=== PATIENT | male | born 1940 | race Caucasian/White ===

== ENCOUNTER 2016-10-28 19:24 | Inpatient (IN) | payer OTHER ==
[2016-10-28 19:33] VITALS: BMI 26.6
--- NOTE | 2016-10-28 20:32 | PDOC ---
History of Present Illness <Elizabeth Aviles - Last Filed: 10/28/16 23:55> - General History Source: Patient, Family Exam Limitations: No Limitations - History of Present Illness Initial Comments: 10/28/16 20:26 Patient is a 76 year old male with history of dementia, leg problem brought in by ambulance for c/o altered mental status. Brother in the ED states that the patient formally lived in [place] but due to his dementia has been unable to live alone. He has been living with his sister in [place] for the past 2 months but has wondered off 5-6 times in that time. They have now been working to get him place because he is now a danger to him self. GENERAL/CONSTITUTIONAL: [No fever or chills. No weakness. No weight change.] HEAD, EYES, EARS, NOSE AND THROAT: [No change in vision. No ear pain or discharge. No sore throat.] CARDIOVASCULAR: [No chest pain or shortness of breath.] RESPIRATORY: [No cough, wheezing, or hemoptysis.] GASTROINTESTINAL: [No nausea, vomiting, diarrhea or constipation. No rectal bleeding.] GENITOURINARY: [No dysuria, frequency, or change in urination.] MUSCULOSKELETAL: [No joint or muscle swelling or pain. No neck or back pain.] SKIN AND BREASTS: [No rash or easy bruising.] NEUROLOGIC: [No headache, vertigo, loss of consciousness, or loss of sensation.] PSYCHIATRIC: [No depression or anxiety.] ENDOCRINE: [No increased thirst. No abnormal weight change.] HEMATOLOGIC/LYMPHATIC: [No anemia, easy bleeding, or history of blood clots.] ALLERGIC/IMMUNOLOGIC: [No hives or skin allergy. No latex allergy.] GENERAL: [The patient is awake, alert, and fully oriented, in no acute distress. ] HEAD: [Normal with no signs of trauma.] EYES: [Pupils equal, round and reactive to light, extraocular movements intact, sclera anicteric, conjunctiva clear.] ENT: [Ears normal, nares patent, oropharynx clear without exudates. Moist mucous membranes.] NECK: [Normal range of motion, supple without lymphadenopathy, JVD, or masses.] LUNGS: [Breath sounds equal, clear to auscultation bilaterally. No wheezes, and no crackles.] HEART: [Regular rate and rhythm, normal S1 and S2 without murmur, rub.] ABDOMEN: [Soft, nontender, normoactive bowel sounds. No guarding, no rebound. No masses.] EXTREMITIES: [Normal range of motion, no edema. No clubbing or cyanosis. No cords, erythema, or tenderness.] NEUROLOGICAL: [Cranial nerves II through XII grossly intact. Normal speech, normal gait.] PSYCH: [Normal mood, normal affect.] SKIN: [Warm, Dry, normal turgor, no rashes or lesions noted.] <Vicenta Fischer - Last Filed: 10/29/16 00:31> - General Chief Complaint: Altered Mental Status Stated Complaint: AMS Time Seen by Provider: 10/28/16 19:37 Past History <Elizabeth Aviles - Last Filed: 10/28/16 23:55> - Past Medical History DVT: Yes (yrs ago in [place].) Dementia: Yes HTN: Yes Other medical history: glaucoma - Psycho/Social/Smoking Cessation Hx Suicidal Ideation: No Smoking History: Never smoked <Vicenta Fischer - Last Filed: 10/29/16 00:31> - Past Medical History Allergies/Adverse Reactions: Allergies Allergy/AdvReac Type Severity Reaction Status Date / Time No Known Allergies Allergy Verified 10/28/16 19:33 Home Medications: Ambulatory Orders Amlodipine Besylate [Norvasc -] 2.5 mg PO DAILY 10/28/16 Apixaban [Eliquis -] 5 mg PO DAILY 10/28/16 Furosemide [Lasix -] 20 mg PO DAILY 10/28/16 Memantine HCl [Namenda -] 5 mg PO DAILY 10/28/16 Timolol 0.25% [Timoptic 0.25%] 0 ml OU BID 10/28/16 *Physical Exam - Vital Signs Last Vital Signs Temp Pulse Resp BP Pulse Ox 98.2 F 62 16 141/79 98 10/28/16 19:31 10/28/16 19:31 10/28/16 19:31 10/28/16 19:59 10/28/16 19:31 <Elizabeth Aviles - Last Filed: 10/28/16 23:55> - Vital Signs Last Vital Signs Temp Pulse Resp BP Pulse Ox 98.2 F 62 16 141/79 98 10/28/16 19:31 10/28/16 19:31 10/28/16 19:31 10/28/16 19:59 10/28/16 19:31 <Vicenta Fischer - Last Filed: 10/29/16 00:31> ED Treatment Course - LABORATORY CBC & Chemistry Diagram: 10/28/16 20:30 10/28/16 20:30 - ADDITIONAL ORDERS Additional order review: Laboratory Results 10/28/16 10/28/16 20:30 20:30 Sodium 141 Potassium 4.0 Chloride 105 Carbon Dioxide 25 Anion Gap 11 BUN 23 H Creatinine 2.0 H Creat Clearance w eGFR 32.74 Random Glucose 95 Calcium 9.3 Total Bilirubin 0.7 AST 17 ALT 18 Alkaline Phosphatase 67 Creatine Kinase 129 Troponin I < 0.02 Total Protein 7.1 Albumin 3.7 Urine Color Straw Urine Appearance Clear Urine pH 5.0 Ur Specific [place] 1.010 Urine Protein Negative Urine Glucose (UA) Negative Urine Ketones Negative Urine Blood Negative Urine Nitrite Negative Urine Bilirubin Negative Urine Urobilinogen Negative Ur Leukocyte Esterase Negative 10/28/16 20:30 RBC 4.68 MCV 87.0 MCHC 33.5 RDW 14.0 MPV 8.1 - RADIOLOGY Radiology Studies Ordered: Category Date Time Status HEAD CT WITHOUT CONTRAST [CT] Stat CT Scan 10/28/16 22:31 Ordered CHEST X-RAY PORTABLE* [RAD] Stat Radiology 10/28/16 22:32 Taken <Elizabeth Aviles - Last Filed: 10/28/16 23:55> - LABORATORY CBC & Chemistry Diagram: 10/28/16 20:30 10/28/16 20:30 <Vicenta Fischer - Last Filed: 10/29/16 00:31> Medical Decision Making - Medical Decision Making 10/28/16 20:48 patient is a 76-year-old history of dementia brought in by EMS for c/o altered mental status. will get labs rehabilitation case coordinator Case was d/w Dr. steele who is a friend of the brother. Recommend to admit to the hospitalist Patient refused EKG Patient Name: Donovan Garcia THIS IS A PRELIMINARYREPORT FROM [facility] EXAM: CT brain without contrast Images: 76 EXAM DATE AND TIME: 2016-10-28 23: 27:28.0 REASON FOR EXAM: Altered mental status COMPARISON: No FINDINGS: Involutional changes. Left periventricular low density representing either small vessel disease or small vessel infarct of indeterminate age. Correlate with neurological symptoms related to this area. There is a similar small low density focus in the right connie. Infarct of indeterminate age. Correlate with symptoms. No hemorrhage. No mass. No shift or herniation. Osseous structures are intact. THIS DOCUMENT HAS BEEN ELECTRONICALLY SIGNED Pasquale Cameron MD 2016 23:51 EST MSachinD. Please call Imaging Educational Aide [phone]) with questions Donovan Garcia discussed with EMIGDIO Siu THIS DOCUMENT HAS BEEN ELECTRONICALLY SIGNED Roby Nelson MD 10/28/2016 23:56 EST MBonnie. Please call Imaging Educational Aide [phone]) with questions. PREVIOUS REPORT: Referring Physician : Patient Name: Donovan Garcia THIS IS A PRELIMINARY REPORT FROM [facility] DATE OF SERVICE: 2016-10-28 22:49:17.0 IMAGES: 62 EXAM: US LOWER EXTREMITY VEINS DUPLEX VASCULAR US-2 LEGS HISTORY:Leg pain COMPARISON: None. TECHNIQUE: Ultrasound of the lower extremity veins with grayscale, color Doppler , and wave form analysis FINDINGS:A grayscale imaging, there is some echogenic material within the proximal right popliteal vein with incomplete compressibility suggesting nonobstructive deep vein thrombosis. The veins demonstrated normal compressibility and orientation IMPRESSION: Positive for nonocclusive thrombus in the right popliteal vein THIS DOCUMENT HAS BEEN ELECTRONICALLY SIGNED Roby Nelson MD 10/28/2016 23:51 EST M.D. Please call Imaging Educational Aide [phone]) with questions 10/29/16 00:25 Patient refused rectal for stool occult labs reviewed noted to have DVT , but has elevated creat will start heparin D/W Dr. Martinez will admit to hospital <Vicenta Fischer - Last Filed: 10/29/16 00:31> *DC/Admit/Observation/Transfer - Discharge Dispostion Admit: No <Elizabeth Aviles - Last Filed: 10/28/16 23:55> - Discharge Dispostion Admit: Yes <Vicenta Fischer - Last Filed: 10/29/16 00:31> Diagnosis at time of Disposition: Renal insufficiency Altered mental status Qualifiers: Altered mental status type: unspecified Qualified Code(s): R41.82 - Altered mental status, unspecified Deep vein thrombosis (DVT) Qualifiers: DVT location: lower extremity Affected thrombotic vein of extremity: popliteal Laterality: right Chronicity: unspecified Qualified Code(s): I82.431 - Acute embolism and thrombosis of right popliteal vein - Discharge Dispostion Condition at time of disposition: Stable
[2016-10-28 20:33] LABS: MCH 29.2 pg (25.7-33.7); MCHC 33.5 g/dl (32.0-35.9); MEAN PLT VOLUME 8.1 fl (7.5-11.1); PLATELET COUNT 177 K/MM3 (134-434); WHITE BLOOD COUNT 6.1 K/mm3 (4.0-10.0)
[2016-10-28 20:34] LABS: URINE APPEARANCE CLEAR; URINE BILIRUBIN NEGATIVE (NEGATIVE); URINE BLOOD NEGATIVE (NEGATIVE); URINE COLOR STRAW; URINE GLUCOSE (UA) NEGATIVE (NEGATIVE); URINE KETONE NEGATIVE (NEGATIVE); URINE LEUK ESTERASE NEGATIVE (NEGATIVE); URINE NITRITE NEGATIVE (NEGATIVE); URINE PROTEIN NEGATIVE (NEGATIVE); URINE UROBILINOGEN NEGATIVE E.U./dl (0.2-1.0)
[2016-10-28 20:58] LABS: ALBUMIN 3.7 g/dl (3.4-5.0); ANION GAP 11 (8-16); BILIRUBIN,TOTAL 0.7 mg/dL (0.2-1.0); CALCIUM 9.3 mg/dL (8.5-10.1); CO2 25 mmol/L (21-32); COCKROFT - GAULT 32.75; GLUCOSE,RANDOM 95 mg/dL (74-106); SGOT/AST 17 U/L (15-37); SGPT/ALT 18 U/L (12-78); TOT PROT 7.1 g/dl (6.4-8.2)
[2016-10-28 21:00] LABS: ALK PHOS 67 U/L (45-117); TROPONIN I < 0.02 ng/ml (0.00-0.05)
[2016-10-29 00:01] LABS: INR 1.14 (0.82-1.09); PROTHROMBIN TIME (PATIENT) 12.6 SEC (9.98-11.88)
[2016-10-29 00:03] LABS: ACTIVATED PTT 33.7 SECONDS (26.9-34.4)
--- NOTE | 2016-10-29 00:10 | PN ---
<Juan,Antoniomaris - Last Filed: 10/29/16 00:10> Teaching Attending Note Name of Resident: Jermaine Barrientos ATTENDING PHYSICIAN STATEMENT I saw and evaluated the patient. I reviewed the resident's note and discussed the case with the resident. I agree with the resident's findings and plan as documented. SUBJECTIVE: OBJECTIVE: ASSESSMENT AND PLAN: <Dahiana Samson - Last Filed: 10/29/16 01:45> Teaching Attending Note ATTENDING PHYSICIAN STATEMENT I saw and evaluated the patient. I reviewed the resident's note and discussed the case with the resident. I agree with the resident's findings and plan as documented. SUBJECTIVE: Patient is 76 year old male with a significant past medical history of dementia and hypertension, brought in for AMS. Patient is originally from [place] but has been living with his sister in [place], [place]. Patient has tendency to wander off and today was found [place] bridge. Patient's sister brought in for placement. Admitted at [facility] since Jun until September 2016 was diagnosed with R LE DVT and placed on Eliquis. OBJECTIVE: VS: Last Vital Signs Temp Pulse Resp BP Pulse Ox 98.2 F 58 L 16 107/57 99 10/28/16 19:31 10/28/16 23:44 10/28/16 23:44 10/28/16 23:44 10/28/16 23:44 Physical Exam: GEN: NAD HEENT: NCAT, PERRL CARD: RRR, S1 S2 RESP: CTAB ABD: NT, BWS x4 NEURO: Neurologically intact EXT: RLE mild edema greater than left Labs: CBCD WBC 6.1 K/mm3 (4.0-10.0) 10/28/16 20:30 RBC 4.68 M/mm3 (4.00-5.60) 10/28/16 20:30 Hgb 13.6 GM/dL (11.7-16.9) 10/28/16 20:30 Hct 40.7 % (35.4-49) 10/28/16 20:30 MCV 87.0 fl (80-96) 10/28/16 20:30 MCHC 33.5 g/dl (32.0-35.9) 10/28/16 20:30 RDW 14.0 % (11.9-15.9) 10/28/16 20:30 Plt Count 177 K/MM3 (134-434) 10/28/16 20:30 MPV 8.1 fl (7.5-11.1) 10/28/16 20:30 CMP Sodium 141 mmol/L (136-145) 10/28/16 20:30 Potassium 4.0 mmol/L (3.5-5.1) 10/28/16 20:30 Chloride 105 mmol/L (98-107) 10/28/16 20:30 Carbon Dioxide 25 mmol/L (21-32) 10/28/16 20:30 Anion Gap 11 (8-16) 10/28/16 20:30 BUN 23 mg/dL (7-18) H 10/28/16 20:30 Creatinine 2.0 mg/dL (0.7-1.3) H 10/28/16 20:30 Creat Clearance w eGFR 32.74 (>60) 10/28/16 20:30 Calcium 9.3 mg/dL (8.5-10.1) 10/28/16 20:30 Total Bilirubin 0.7 mg/dL (0.2-1.0) 10/28/16 20:30 AST 17 U/L (15-37) 10/28/16 20:30 ALT 18 U/L (12-78) 10/28/16 20:30 Alkaline Phosphatase 67 U/L (45-117) 10/28/16 20:30 Total Protein 7.1 g/dl (6.4-8.2) 10/28/16 20:30 Albumin 3.7 g/dl (3.4-5.0) 10/28/16 20:30 US LE Duplex: THIS IS A PRELIMINARY REPORT FROM [facility] DATE OF SERVICE: 2016-10-28 22:49:17.0 EXAM: US LOWER EXTREMITY VEINS DUPLEX VASCULAR US-2 LEGS FINDINGS:A grayscale imaging, there is some echogenic material within the proximal right popliteal vein with incomplete compressibility suggesting nonobstructive deep vein thrombosis. The veins demonstrated normal compressibility and orientation IMPRESSION: Positive for nonocclusive thrombus in the right popliteal vein THIS DOCUMENT HAS BEEN ELECTRONICALLY SIGNED Roby Nelson MD CT HEAD: THIS IS A PRELIMINARYREPORT FROM [facility] EXAM: CT brain without contrast EXAM DATE AND TIME: 2016-10-28 23:27:28.0 REASON FOR EXAM: Altered mental status FINDINGS: Involutional changes. Left periventricular low density representing either small vessel disease or small vessel infarct of indeterminate age. Correlate with neurological symptoms related to this area. There is a similar small low density focus in the right connie. Infarct of indeterminate age. Correlate with symptoms. No hemorrhage. No mass. No shift or herniation. Osseous structures are intact. THIS DOCUMENT HAS BEEN ELECTRONICALLY SIGNED Pasquale Cameron MD 10/28/2016 23:51 EST ASSESSMENT AND PLAN: 76 yr old male with pmhx of dementia and hypertension brought in for AMS found to have right LE DVT and questionable small infarct. 1. CVA -AMS -Indeterminate age possible small vessel disease would due MRI brain w/o contrast -Carotid US -ECHO -Neuro consult -check B12 levels -TSH 2. Right popliteal DVT -Hold Eliquis in light of renal failure -Start Heparin -Bridge to Coumadin tomorrow -INR 2-3 -Check coags in AM 3. MAX -Urine lytes in am -Avoid nephrotoxins -IVF gentle 4. Dementia -Continue namenda -Needs social work consult for placement 5. Hypertension -Continue norvasc 6. DVT ppx - Heparin Place in stroke tele. Documentation prepared by Dahiana Samson acting as biomedical engineer for Con Martinez D.O.
--- NOTE | 2016-10-29 00:17 | PDOC ---
NIH Stroke Scale - Initial Evaluation Level of consciousness: Alert Ask patient the month and their age: Answers one correctly Ask patient to open & close eyes; make fist and let go: Obeys both correctly Best gaze (horizontal eye movement): Normal Visual field testing: No visual field loss Facial paresis (Show teeth/raise eyebrows/close eyes tight): Normal symmetrical movement Motor Function: Left Arm: Normal Motor Function: Right Arm: Normal (extends arm 90 (or 45) degrees for 10 seconds without drift Motor Function: Left Leg: Normal (extends leg 30 degrees for 5 seconds without drift) Motor Function: Right Leg: Normal (extends leg 30 degrees for 5 seconds without drift) Limb Ataxia: No ataxia Sensory(Use pinprick test arms,legs,trunk,face/side to side): Normal Best language (Describe picture, name items, read sentences): No Aphasia Dysarthria (read several words): Normal articulation Extinction and Inattention: No abnormality (limited due to dementia) - Total Score NIH Stroke Scale Score: 1
[2016-10-29] MEDS ORDERED: HEPARIN NA (PORCINE) 5,000 UNITS/ML 1ML VIAL IVPUSH PRN (00:34)
--- NOTE | 2016-10-29 01:22 | HP ---
CHIEF COMPLAINT:" I don't know why I was brought here" HISTORY OF PRESENT ILLNESS: 76 year old male with pmh of right lower ext HTN, DVT, Alzheimer Dementia present to the ED brought by EMS for altered mental status. The patient lives in [facility] with sister but has being wondering and getting lost on multiple occasions (5 times). This time around he was found by police under a bridge who contacted his family and he was brought to the hospital. Pt has a history of dementia, used to live alone in [place]. He was admitted to [facility] for over 4 months June where he was treated for DVT and was placed on Eliquis. He stayed in the hospital for so log because they were unable to find placement so him. Finally he moved to [place] under the care of his sister ( with whom he currently lives with) and the brother. The patient is a poor historian, only oriented to person only, forgetful, but very pleasant and follow directions. Patient denies and fever, chills, nausea, vomiting, chest pain, palpitation, cough, rhinnorhea or congestion, no dysuria, hematuria, nausea, vomiting, abdominal pain, diarrhea or constipation. No Lower ext swelling, pain , tenderness, redness. ER course was notable for: (1) CBC, CMP with Cr 2, CXR (2) CT head with infarct of undetermined age (3) US lower ext with right popliteal DVT Recent Travel: none PAST MEDICAL HISTORY: right lower ext DVT, Alzheimer Dementia, Galucoma, HTN PAST SURGICAL HISTORY: none Social History: Smoking:denies Alcohol:denies Drugs: denies Family History: Mother and father with lower ext DVT Allergies No Known Allergies Allergy (Verified 10/28/16 19:33) HOME MEDICATIONS: Home Medications Medication Instructions Recorded Amlodipine Besylate [Norvasc -] 2.5 mg PO DAILY 10/28/16 Apixaban [Eliquis -] 5 mg PO DAILY 10/28/16 Furosemide [Lasix -] 20 mg PO DAILY 10/28/16 Memantine HCl [Namenda -] 5 mg PO DAILY 10/28/16 Timolol 0.25% [Timoptic 0.25%] 0 ml OU BID 10/28/16 REVIEW OF SYSTEMS CONSTITUTIONAL: Absent: fever, chills, diaphoresis, generalized weakness, malaise, loss of appetite, weight change HEENT: Absent: rhinorrhea, nasal congestion, throat pain, throat swelling, difficulty swallowing, mouth swelling, ear pain, eye pain, visual changes CARDIOVASCULAR: Absent: chest pain, syncope, palpitations, irregular heart rate, lightheadedness , peripheral edema RESPIRATORY: Absent: cough, shortness of breath, dyspnea with exertion, orthopnea, wheezing, stridor, hemoptysis GASTROINTESTINAL: Absent: abdominal pain, abdominal distension, nausea, vomiting, diarrhea, constipation, melena, hematochezia GENITOURINARY: Absent: dysuria, frequency, urgency, hesitancy, hematuria, flank pain, genital pain MUSCULOSKELETAL: Absent: myalgia, arthralgia, joint swelling, back pain, neck pain SKIN: Absent: rash, itching, pallor HEMATOLOGIC/IMMUNOLOGIC: Absent: easy bleeding, easy bruising, lymphadenopathy, frequent infections ENDOCRINE: Absent: unexplained weight gain, unexplained weight loss, heat intolerance, cold intolerance NEUROLOGIC: Absent: headache, focal weakness or paresthesias, dizziness, unsteady gait, seizure, mental status changes, bladder or bowel incontinence PSYCHIATRIC: Absent: anxiety, depression, suicidal or homicidal ideation, hallucinations. PHYSICAL EXAMINATION Vital Signs - 24 hr 10/28/16 23:44 Pulse Rate [ 58 L Right] Respiratory 16 Rate Blood Pressure 107/57 [Left Arm] O2 Sat by Pulse 99 Oximetry (%) GENERAL: Awake, alert, and fully oriented, in no acute distress. HEAD: Normal with no signs of trauma. EYES: Pupils equal, round and reactive to light, extraocular movements intact, sclera anicteric, conjunctiva clear. No lid lag. EARS, NOSE, THROAT: Ears normal, nares patent, oropharynx clear without exudates. Moist mucous membranes. NECK: Normal range of motion, supple without lymphadenopathy, JVD, or masses. LUNGS: Breath sounds equal, clear to auscultation bilaterally. No wheezes, and no crackles. No accessory muscle use. HEART: Regular rate and rhythm, normal S1 and S2 without murmur, rub or gallop. ABDOMEN: Soft, nontender, not distended, normoactive bowel sounds, no guarding, no rebound, no masses. No hepatomegaly or splenomegaly. MUSCULOSKELETAL: Normal range of motion at all joints. No bony deformities or tenderness. No CVA tenderness. UPPER EXTREMITIES: 2+ pulses, warm, well-perfused. No cyanosis. No clubbing. No peripheral edema. LOWER EXTREMITIES: 2+ pulses, warm, well-perfused. No calf tenderness. trace edema in right lower ext. NEUROLOGICAL: Cranial nerves II-XII intact. Normal speech. Normal gait. normal sensation to light touch in la ext, normal strength in la ext, normal reflexc in all ext. PSYCHIATRIC: Cooperative. Good eye contact. Appropriate mood and affect. SKIN: Warm, dry, normal turgor, no rashes or lesions noted, normal capillary refill. ASSESSMENT/PLAN: 76 year old male with pmh of right lower ext DVT, Alzheimer Dementia present to the ED brought by EMS for altered mental status. Pt was found to have Old infarct in brain on CT head and Right popliteal DVT Confusion and disorientation likely related to worsening Alzheimer Dementia r/o CVA Pt with known history of dementia eloped from home 5 times this month Oriented to person only UA negative CBC normal CMP normal except for Cr 2, BUN 23 CT head with infarct of undetermined age TSH Chemistry Vitamin B12 Folate US carotid Echocardiogram Continue Memantine Consider Aricept Consider Neurology consult Right Popliteal DVT Likely old DVT since pt was being treated at [facility] last month for DVT with eliquis and lower ext swelling has been resolving NO change in medication since DVT is likely old. Although patient report compliance to medication, he is unreliable due to advanced dementia. will have to clarify compliance with caregiver No change in dosage even if creatinine is 2, more than 1.5 but since pt is more than 50 kg and less than 80, no adjustment is necessary Continue Eliquis PO 5mg BID MAX vs CKD Cr 2, unknown baseline Urine lytes Urine sodium Urine creatinine Calculate FENA Avoid nephrotoxins consider IV hydration to see if there is improvement Obtain records from [facility] or PCP Glaucoma resume Timolol 0.25% HTN resume Norvasc resume Lasix FEN Fluid: none Electrolytes: chemistry in am Nutrition: Low NA diet DVT: SCD, eliquis Disposition: admit to [facility]. pending SNF placement Visit type - Emergency Visit Emergency Visit: Yes ED Registration Date: 10/28/16 Care time: The patient presented to the Emergency Department on the above date and was hospitalized for further evaluation of their emergent condition. - New Patient This patient is new to me today: Yes Date on this admission: 10/29/16 - Critical Care Critical Care patient: No
[2016-10-29 08:35] LABS: CHOLESTEROL 233 mg/dL (50-200)
[2016-10-29 08:42] LABS: THYROID STIMULATING HORMONE 2.19 uIU/ml (0.358-3.74)
[2016-10-29] MEDS: APIXABAN 5 MG TABLET PO SCH (09:38)
[2016-10-29] MEDS: MEMANTINE HCL 5 MG TABLET (UD) PO SCH (09:38)
[2016-10-29] MEDS: FUROSEMIDE 20 MG TABLET (FP) PO SCH (09:38)
[2016-10-29] MEDS: TIMOLOL 0.25% OPHTHALMIC SOL 5 ML BOTTLE OU SCH ×2 (09:38→21:23)
[2016-10-29] MEDS: amLODIPine BESYLATE 2.5 MG TABLET (FP) PO SCH (09:38)
--- NOTE | 2016-10-29 10:21 | HOSP ---
Subjective - Review of Symptoms Events since last encounter: Patient has no new complains, no shortness of breath, no nausea or vomiting. Temperature 98.1 F 10/29/16 06:00 Pulse Rate 53 L 10/29/16 06:00 Respiratory Rate 18 10/29/16 06:00 Blood Pressure 116/65 10/29/16 06:00 O2 Sat by Pulse Oximetry (%) 96 10/29/16 02:16 GENERAL: orient ed to place but not to time , in no acute distress. HEAD: Normal with no signs of trauma. EYES: Pupils equal, round and reactive to light, extraocular movements intact, sclera anicteric, conjunctiva clear. No lid lag. EARS, NOSE, THROAT: Ears normal, nares patent, oropharynx clear without exudates. Moist mucous membranes. NECK: Normal range of motion, supple without lymphadenopathy, JVD, or masses. LUNGS: Breath sounds equal, clear to auscultation bilaterally. No wheezes, and no crackles. No accessory muscle use. HEART: Regular rate and rhythm, normal S1 and S2 without murmur, rub or gallop. ABDOMEN: Soft, nontender, not distended, normoactive bowel sounds, no guarding, no rebound, no masses. No hepatomegaly or splenomegaly. MUSCULOSKELETAL: Normal range of motion at all joints. No bony deformities or tenderness. No CVA tenderness. EXTREMITIES: 2+ pulses, warm, well-perfused. No cyanosis. No clubbing. positive for trace LE edema. NEUROLOGICAL: Cranial nerves II-XII intact. Normal speech. Normal gait. PSYCHIATRIC: Cooperative. Good eye contact. Appropriate mood and affect. SKIN: Warm, dry, normal turgor, no rashes or lesions noted, normal capillary refill. CBCD WBC 6.1 K/mm3 (4.0-10.0) 10/28/16 20:30 RBC 4.68 M/mm3 (4.00-5.60) 10/28/16 20:30 Hgb 13.6 GM/dL (11.7-16.9) 10/28/16 20:30 Hct 40.7 % (35.4-49) 10/28/16 20:30 MCV 87.0 fl (80-96) 10/28/16 20:30 MCHC 33.5 g/dl (32.0-35.9) 10/28/16 20:30 RDW 14.0 % (11.9-15.9) 10/28/16 20:30 Plt Count 177 K/MM3 (134-434) 10/28/16 20:30 MPV 8.1 fl (7.5-11.1) 10/28/16 20:30 CMP Sodium 141 mmol/L (136-145) 10/28/16 20:30 Potassium 4.0 mmol/L (3.5-5.1) 10/28/16 20:30 Chloride 105 mmol/L (98-107) 10/28/16 20:30 Carbon Dioxide 25 mmol/L (21-32) 10/28/16 20:30 Anion Gap 11 (8-16) 10/28/16 20:30 BUN 23 mg/dL (7-18) H 10/28/16 20:30 Creatinine 2.0 mg/dL (0.7-1.3) H 10/28/16 20:30 Creat Clearance w eGFR 32.74 (>60) 10/28/16 20:30 Random Glucose 95 mg/dL (74-106) 10/28/16 20:30 Calcium 9.3 mg/dL (8.5-10.1) 10/28/16 20:30 Total Bilirubin 0.7 mg/dL (0.2-1.0) 10/28/16 20:30 AST 17 U/L (15-37) 10/28/16 20:30 ALT 18 U/L (12-78) 10/28/16 20:30 Alkaline Phosphatase 67 U/L (45-117) 10/28/16 20:30 Total Protein 7.1 g/dl (6.4-8.2) 10/28/16 20:30 Albumin 3.7 g/dl (3.4-5.0) 10/28/16 20:30 CARDIAC ENZYMES Creatine Kinase 129 IU/L (39-308) 10/28/16 20:30 Troponin I < 0.02 ng/ml (0.00-0.05) 10/28/16 20:30 Current Medications Generic Name Dose Route Start Last Admin Trade Name Freq PRN Reason Stop Dose Admin Amlodipine Besylate 2.5 mg 10/29/16 10:00 10/29/16 09:38 Norvasc - PO 2.5 mg DAILY SAVI Administration Apixaban 5 mg 10/29/16 10:00 10/29/16 09:38 Eliquis - PO 5 mg DAILY SAVI Administration Furosemide 20 mg 10/29/16 10:00 10/29/16 09:38 Lasix - PO 20 mg DAILY SAVI Administration Heparin Sodium (Porcine) 5,000 unit 10/29/16 00:34 Heparin - IVPUSH PRN PRN Heparin Memantine 5 mg 10/29/16 10:00 10/29/16 09:38 Namenda - PO 5 mg DAILY SAVI Administration Timolol Maleate 1 drop 10/29/16 10:00 10/29/16 09:38 Timoptic 0.25% OU 1 drop BID SAVI Administration Home Medications Medication Instructions Recorded Amlodipine Besylate [Norvasc -] 2.5 mg PO DAILY 10/28/16 Apixaban [Eliquis -] 5 mg PO DAILY 10/28/16 Furosemide [Lasix -] 20 mg PO DAILY 10/28/16 Memantine HCl [Namenda -] 5 mg PO DAILY 10/28/16 Timolol 0.25% [Timoptic 0.25%] 0 ml OU BID 10/28/16 CT head with infarct of undetermined age A/P: 76 year old male with pmh of right lower ext DVT, Alzheimer Dementia present to the ED brought by EMS for altered mental status. 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 Oriented to person only. Neuro consult for further assessment. On Namenda continue. # Right Popliteal DVT on Eliquis continue, called Pharmacist Nadia , no need for adjustment of Eliquis PO 5mg BID #MAX vs CKD Cr 2, unknown baseline ;Urine lytes, Urine sodium , Urine creatinine , Calculate FENA ; Avoid nephrotoxins consider IV hydration to see if there is improvement ,Obtain records from [facility] or PCP. Nephro consult in am #Glaucoma resume Timolol 0.25% #HTN resume Norvasc ; resume Lasix DVT: SCD, eliquis Physical Examination Vital Signs: Vital Signs Temperature 98.1 F 10/29/16 06:00 Pulse Rate 53 L 10/29/16 06:00 Respiratory Rate 18 10/29/16 06:00 Blood Pressure 116/65 10/29/16 06:00 O2 Sat by Pulse Oximetry (%) 96 10/29/16 02:16
[2016-10-29] MEDS ORDERED: METOPROLOL TARTRATE 5 MG/5 ML VIAL ONE (17:03)
[2016-10-30 07:35] LABS: BASOPHIL 1.2 % (0-2.0); EOSINOPHIL 3.3 % (0-4.5); MCH 29.9 pg (25.7-33.7); MCHC 33.9 g/dl (32.0-35.9); MEAN CELL VOLUME 88.2 fl (80-96); MEAN PLT VOLUME 8.4 fl (7.5-11.1); NEUTROPHILS 60.8 % (42.8-82.8); PLATELET COUNT 158 K/MM3 (134-434); RDW 14.3 % (11.9-15.9)
[2016-10-30 07:58] LABS: ALBUMIN 2.9 g/dl (3.4-5.0); BILIRUBIN,TOTAL 0.3 mg/dL (0.2-1.0); CALCIUM 8.7 mg/dL (8.5-10.1); COCKROFT - GAULT 36.39; CREATININE 1.8 mg/dL (0.7-1.3)
[2016-10-30] MEDS: MEMANTINE HCL 5 MG TABLET (UD) PO SCH (10:06)
[2016-10-30] MEDS: amLODIPine BESYLATE 2.5 MG TABLET (FP) PO SCH (10:06)
[2016-10-30] MEDS: FUROSEMIDE 20 MG TABLET (FP) PO SCH (10:06)
[2016-10-30] MEDS: TIMOLOL 0.25% OPHTHALMIC SOL 5 ML BOTTLE OU SCH ×2 (10:07→21:12)
--- NOTE | 2016-10-30 10:17 | CONSULT ---
Consultation: REQUESTING PROVIDER: Dr. edwards CONSULT REQUEST: We have been asked to medically evaluate this patient for MAX. HISTORY OF PRESENT ILLNESS: 76 year old pleasantly confused male with a known history of dementia, admitted to the hospital for altered mental status, we were called to evaluate for acute kidney injury. BUN/Cr on admission 23/2.0. Patient is able to speak clearly, but is poor historian. History was taken from patient and chart. As per chart, patient recently started living with his brother and sister, he was found wandering under a bridge, found by the police and brought into the hospital, for altered mental status. Patient was just moved form [place], where he was recently hospitalized (06/19 to 09/17), for DVT (treated with eliquis). Length of stay was due to unavailable placement. IN the ER workup positive for right popliteal DVT and stroke (age undetermined) As per patient, he has no know history of renal disease. Patient denies history on cancer, smoking, change in medication or use of NSAIDS. He denies fever, chills, dysuria, change in frequency, hematuria. PMHx: HTN, dementia, gluacoma, DVT PSX: none Social Hx; denies tobacco, alcohol or drug use REVIEW OF SYSTEMS: CONSTITUTIONAL: Absent: fever, chills, diaphoresis, generalized weakness, malaise, loss of appetite, weight change HEENT: Absent: rhinorrhea, nasal congestion, throat pain, throat swelling, difficulty swallowing, mouth swelling, ear pain, eye pain, visual changes CARDIOVASCULAR: Absent: chest pain, syncope, palpitations, irregular heart rate, lightheadedness , peripheral edema RESPIRATORY: Absent: cough, shortness of breath, dyspnea with exertion, orthopnea, wheezing, stridor, hemoptysis GASTROINTESTINAL: Absent: abdominal pain, abdominal distension, nausea, vomiting, diarrhea, constipation, melena, hematochezia GENITOURINARY: Absent: dysuria, frequency, urgency, hesitancy, hematuria, flank pain, genital pain MUSCULOSKELETAL: Absent: myalgia, arthralgia, joint swelling, back pain, neck pain SKIN: Absent: rash, itching, pallor ENDOCRINE: Absent: unexplained weight gain, unexplained weight loss, heat intolerance, cold intolerance NEUROLOGIC: Positive: confustion Absent: headache, focal weakness or paresthesias, dizziness, unsteady gait, seizure, mental status changes, bladder or bowel incontinence PHYSICAL EXAMINATION Vital Signs - 24 hr 10/29/16 10/29/16 10/29/16 16:17 18:00 21:00 Temperature 98.5 F 97.9 F Pulse Rate 72 58 L Respiratory 18 18 18 Rate Blood Pressure 109/63 102/62 O2 Sat by Pulse 96 Oximetry (%) 10/29/16 10/30/16 10/30/16 22:00 02:00 05:45 Temperature 98.4 F 98.5 F 98.1 F Pulse Rate 62 62 57 L Respiratory 18 18 18 Rate Blood Pressure 123/69 121/87 125/68 O2 Sat by Pulse Oximetry (%) GENERAL: Awake, alert, and oriented to self, confused HEAD: Normal with no signs of trauma. EYES: Pupils equal, round and reactive to light, extraocular movements intact, sclera anicteric, conjunctiva clear. No lid lag. LUNGS: Breath sounds equal, scattered rhonchi HEART: Regular rate and rhythm, normal S1 and S2 without murmur, rub or gallop. ABDOMEN: Soft, nontender, not distended, normoactive bowel sounds, no guarding, no rebound, no masses. No hepatomegaly or splenomegaly. MUSCULOSKELETAL: Normal range of motion at all joints. No bony deformities or tenderness. No CVA tenderness. UPPER EXTREMITIES: 2+ pulses, warm, well-perfused. No cyanosis. No clubbing. Cap refill <2 seconds. No peripheral edema. LOWER EXTREMITIES: 2+ pulses, warm, well-perfused. No calf tenderness. No peripheral edema. NEUROLOGICAL: confused. SKIN: Warm, dry, normal turgor, no rashes or lesions noted. Laboratory Results - last 24 hr 10/30/16 10/30/16 06:00 06:00 WBC 6.0 RBC 4.33 Hgb 12.9 Hct 38.2 MCV 88.2 MCHC 33.9 RDW 14.3 Plt Count 158 MPV 8.4 Neutrophils % 60.8 Lymphocytes % 24.2 Monocytes % 10.5 H Eosinophils % 3.3 Basophils % 1.2 Sodium 145 Potassium 4.7 Chloride 107 Carbon Dioxide 28 Anion Gap 10 BUN 31 H D Creatinine 1.8 H Creat Clearance w eGFR 36.97 Random Glucose 99 Calcium 8.7 Total Bilirubin 0.3 D AST 22 D ALT 30 D Alkaline Phosphatase 58 Total Protein 6.0 L Albumin 2.9 L D Active Medications Generic Name Dose Route Start Last Admin Trade Name Mona PRN Reason Stop Dose Admin Amlodipine Besylate 2.5 mg 10/29/16 10:00 10/30/16 10:06 Norvasc - PO 2.5 mg DAILY SAVI Administration Apixaban 5 mg 10/29/16 10:00 10/29/16 09:38 Eliquis - PO 5 mg DAILY SAVI Administration Furosemide 20 mg 10/29/16 10:00 10/30/16 10:06 Lasix - PO 20 mg DAILY SAVI Administration Memantine 5 mg 10/29/16 10:00 10/30/16 10:06 Namenda - PO 5 mg DAILY SAVI Administration Timolol Maleate 1 drop 10/29/16 10:00 10/30/16 10:07 Timoptic 0.25% OU 1 drop BID SAVI Administration ASSESSMENT/PLAN: This is a 76 year old male with dementia and recent hospitalization for DVT, now on heparin, with acute kidney injury. 1.MAX 2. HTN 3. DVT 4. Altered mental status?dementia 5. stroke? old vs new #Acute kidney injury -work up to determine pre/intrinsic/post renal injury -UA negative -urine studies pending; urine NA,, urine Cr -calculate FeNA -renal/bladder US -will start hydration ;NS 100mls/hr; BUN/CR did improve with hydration in the ER ; no signs of fluid overload; CXR no cardiomegaly -Will reevaluate once pending studies are available Dispo: We will continue to follow the patient. Thank you for this consultative opportunity. Problem List - Problems (1) Altered mental status Code(s): R41.82 - ALTERED MENTAL STATUS, UNSPECIFIED Qualifiers: Altered mental status type: unspecified Qualified Code(s): R41.82 - Altered mental status, unspecified (2) DVT (deep venous thrombosis) Code(s): I82.409 - ACUTE EMBOLISM AND THOMBOS UNSP DEEP VN UNSP LOWER EXTREMITY Qualifiers: DVT location: lower extremity Affected thrombotic vein of extremity: popliteal Laterality: right Chronicity: unspecified Qualified Code(s ): I82.431 - Acute embolism and thrombosis of right popliteal vein (3) Renal insufficiency Code(s): N28.9 - DISORDER OF KIDNEY AND URETER, UNSPECIFIED Visit type - Emergency Visit Emergency Visit: Yes ED Registration Date: 10/28/16 Care time: The patient presented to the Emergency Department on the above date and was hospitalized for further evaluation of their emergent condition. - New Patient This patient is new to me today: Yes Date on this admission: 10/30/16 - Critical Care Critical Care patient: No
--- NOTE | 2016-10-30 11:39 | PN ---
Physical Exam: SUBJECTIVE: Patient seen and examined at bed side this morning. No complaints. Denies fever, chills, rigors, sweating, chest pain, sob, cough, palpitation, abdominal pain, nausea or vomiting. Bowel/Bladder habit normal. Sleep/Appetite normal. As per RN, patient was wandering in the hallway this morning trying to figure out where he was. OBJECTIVE: Vital Signs Period Temp Pulse Resp BP Sys/[place] Pulse Ox Last 24 Hr 97.9 F-98.5 F 57-72 18-18 102-125/62-87 96 GENERAL: The patient is awake, alert, and oriented to date and name self, not oriented to the place, in no acute distress. HEAD: Normal with no signs of trauma. EYES: PERRL, extraocular movements intact, sclera anicteric, conjunctiva clear. No ptosis. ENT: Ears normal, nares patent, oropharynx clear without exudates, moist mucous membranes. NECK: Trachea midline, full range of motion, supple. LUNGS: Breath sounds equal, clear to auscultation bilaterally, no wheezes, no crackles, no accessory muscle use. HEART: Regular rate and rhythm, S1, S2 without murmur, rub or gallop. ABDOMEN: Soft, nontender, nondistended, normoactive bowel sounds, no guarding, no rebound, no hepatosplenomegaly, no masses. EXTREMITIES: 2+ pulses, warm, well-perfused, no edema. NEUROLOGICAL: Cranial nerves II through XII grossly intact. No facial droop. Normal speech, gait not observed. PSYCH: Normal mood, normal affect. SKIN: Warm, dry, normal turgor, no rashes or lesions noted Laboratory Results - last 24 hr 10/30/10/30/16 06:00 06:00 WBC 6.0 RBC 4.33 Hgb 12.9 Hct 38.2 MCV 88.2 MCHC 33.9 RDW 14.3 Plt Count 158 MPV 8.4 Neutrophils % 60.8 Lymphocytes % 24.2 Monocytes % 10.5 H Eosinophils % 3.3 Basophils % 1.2 Sodium 145 Potassium 4.7 Chloride 107 Carbon Dioxide 28 Anion Gap 10 BUN 31 H D Creatinine 1.8 H Creat Clearance w eGFR 36.97 Random Glucose 99 Calcium 8.7 Total Bilirubin 0.3 D AST 22 D ALT 30 D Alkaline Phosphatase 58 Total Protein 6.0 L Albumin 2.9 L D Active Medications Generic Name Dose Route Start Last Admin Trade Name Mona PRN Reason Stop Dose Admin Amlodipine Besylate 2.5 mg 10/29/16 10:00 10/30/16 10:06 Norvasc - PO 2.5 mg DAILY SAVI Administration Apixaban 5 mg 10/29/16 10:00 10/29/16 09:38 Eliquis - PO 5 mg DAILY SAVI Administration Furosemide 20 mg 10/29/16 10:00 10/30/16 10:06 Lasix - PO 20 mg DAILY SAVI Administration Sodium Chloride 1,000 mls @ 100 mls/hr 10/30/16 10:30 Normal Saline - IV ASDIR SAVI Memantine 5 mg 10/29/16 10:00 10/30/16 10:06 Namenda - PO 5 mg DAILY SAVI Administration Timolol Maleate 1 drop 10/29/16 10:00 10/30/16 10:07 Timoptic 0.25% OU 1 drop BID SAVI Administration 10/30/2016 US of Kidneys: Real time examination of the kidneys and urinary bladder demonstrates the following: The right kidney is atrophic measuring 6.3 x 2.4 x 2.7 cm. The left kidney is normal in size measuring 11.2 x 4.7 x 4.3 cm. There is no evidence of hydronephrosis or contour deforming renal masses. Evaluation of the urinary bladder demonstrates no intrinsic bladder abnormalities. Bilateral ureteral jets were visualized. A pre-void bladder volume of 500 cc was calculated. A post voiding image demonstrates incomplete emptying of the bladder with a moderate postvoid residual of 50 cc. The prostate gland is slightly enlarged. A total prostate volume of 32 cc was calculated. IMPRESSION: 1. Atrophic right kidney with no evidence of hydronephrosis or acute renal pathology. 2. Moderate postvoid residual. 3. Mild prostatic enlargement. 10/29/2016 Carotid Doppler: Minimal atherosclerotic plaque is identified at the carotid bifurcations bilaterally. Doppler velocity measurements are within normal limits within the common carotid and proximal internal and external carotid arteries with no velocity elevations suspicious for hemodynamically significant stenoses. Forward flow is present within both vertebral arteries. IMPRESSION: Minimal atherosclerotic disease with no evidence of hemodynamically significant stenoses 10/28/16 CT head :IMPRESSION: No evidence of acute intracranial pathology. There is no evidence of acute intracranial hemorrhage, mass lesions or infarctions. There is a mild degree of diffuse cerebral atrophy with sulcal widening and ventricular dilatation. Hypodense changes are noted within the periventricular white matter consistent with chronic, small vessel ischemia. ASSESSMENT/PLAN: Patient is a 76 year old male with pmh of right lower ext DVT, Alzheimer Dementia present to the ED brought by EMS for altered mental status. 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 # Confusion most likely due to worsening Alzheimers. As per the previous note, patient has a h/o dementia and eloped from home 5 times this month Admitted in Med-Surg Head CT negative for CVA Fall Precautions Continue Memantine 5mg PO daily Neurology consult requested Will speak with the family member regarding his care after discharge. # Acute Kidney Injury-Improving Creatinine 2 on admission, baseline unknown Today creatinine 1.8 improved with IV Hydration Continue IV fluids @ 100mls/hr Avoid nephrotoxins Urine lytes pending, will calculate Fena Will try to get medical records from PCP Nephrology consult appreciated # Right Popliteal DVT Patient on Elliquis 5mg PO daily, most likely due to old DVT (Patient was being treated at [facility]) No need to adjust the medication dose as patient's creatinine is improving. # Hypertension-Controlled Continue Norvasc 2.5mg Daily Hold Lasix 20mg PO daily # Glaucoma Continue Timolol 0.25% OU BID # FEN IV NS @ 100mls/hr Electrolytes to be repeated tomorrow morning. Chol/Fat/Sodium restricted diet # Prophylaxis For DVT: Patient already on Elliquis For GI: Not indicated # Code Status: Full Code # Disposition: Admit to [facility]. Will speak with the social media developer about placing him on SNF. Illness, Investigation and Plan of care explained to the patient. He verbalized understanding. Case seen and discussed with Dr. Rodriguez. Problem List - Problems (1) Altered mental status Code(s): R41.82 - ALTERED MENTAL STATUS, UNSPECIFIED Qualifiers: Altered mental status type: unspecified Qualified Code(s): R41.82 - Altered mental status, unspecified (2) DVT (deep venous thrombosis) Code(s): I82.409 - ACUTE EMBOLISM AND THOMBOS UNSP DEEP VN UNSP LOWER EXTREMITY Qualifiers: DVT location: lower extremity Affected thrombotic vein of extremity: popliteal Laterality: right Chronicity: unspecified Qualified Code(s ): I82.431 - Acute embolism and thrombosis of right popliteal vein (3) Renal insufficiency Code(s): N28.9 - DISORDER OF KIDNEY AND URETER, UNSPECIFIED Visit type - Emergency Visit Emergency Visit: Yes ED Registration Date: 10/28/16 Care time: The patient presented to the Emergency Department on the above date and was hospitalized for further evaluation of their emergent condition. - New Patient This patient is new to me today: Yes Date on this admission: 10/30/16 - Critical Care Critical Care patient: No - Discharge Referral Referred to [facility] Med P.C.: No
[2016-10-30] MEDS: APIXABAN 5 MG TABLET PO SCH (15:48)
[2016-10-30] MEDS: SODIUM CHLORIDE 1,000 ML IV SCH (15:49)
--- NOTE | 2016-10-30 16:31 | PN ---
Teaching Attending Note Name of Resident: Sara Robin ATTENDING PHYSICIAN STATEMENT I saw and evaluated the patient. I reviewed the resident's note and discussed the case with the resident. I agree with the resident's findings and plan as documented. SUBJECTIVE: Patient is comfortable but continues to be confused. He is moderately demented. OBJECTIVE: Vital Signs Temperature 98.8 F 10/30/16 15:20 Pulse Rate 64 10/30/16 15:20 Respiratory Rate 18 10/30/16 15:20 Blood Pressure 109/64 10/30/16 15:20 O2 Sat by Pulse Oximetry (%) 96 10/30/16 09:00 CBCD WBC 6.0 K/mm3 (4.0-10.0) 10/30/16 06:00 RBC 4.33 M/mm3 (4.00-5.60) 10/30/16 06:00 Hgb 12.9 GM/dL (11.7-16.9) 10/30/16 06:00 Hct 38.2 % (35.4-49) 10/30/16 06:00 MCV 88.2 fl (80-96) 10/30/16 06:00 MCHC 33.9 g/dl (32.0-35.9) 10/30/16 06:00 RDW 14.3 % (11.9-15.9) 10/30/16 06:00 Plt Count 158 K/MM3 (134-434) 10/30/16 06:00 MPV 8.4 fl (7.5-11.1) 10/30/16 06:00 CMP Sodium 145 mmol/L (136-145) 10/30/16 06:00 Potassium 4.7 mmol/L (3.5-5.1) 10/30/16 06:00 Chloride 107 mmol/L (98-107) 10/30/16 06:00 Carbon Dioxide 28 mmol/L (21-32) 10/30/16 06:00 Anion Gap 10 (8-16) 10/30/16 06:00 BUN 31 mg/dL (7-18) H D 10/30/16 06:00 Creatinine 1.8 mg/dL (0.7-1.3) H 10/30/16 06:00 Creat Clearance w eGFR 36.97 (>60) 10/30/16 06:00 Random Glucose 99 mg/dL (74-106) 10/30/16 06:00 Calcium 8.7 mg/dL (8.5-10.1) 10/30/16 06:00 Total Bilirubin 0.3 mg/dL (0.2-1.0) D 10/30/16 06:00 AST 22 U/L (15-37) D 10/30/16 06:00 ALT 30 U/L (12-78) D 10/30/16 06:00 Alkaline Phosphatase 58 U/L (45-117) 10/30/16 06:00 Total Protein 6.0 g/dl (6.4-8.2) L 10/30/16 06:00 Albumin 2.9 g/dl (3.4-5.0) L D 10/30/16 06:00 CARDIAC ENZYMES Creatine Kinase 129 IU/L (39-308) 10/28/16 20:30 Troponin I < 0.02 ng/ml (0.00-0.05) 10/28/16 20:30 Current Medications Generic Name Dose Route Start Last Admin Trade Name Mona PRN Reason Stop Dose Admin Amlodipine Besylate 2.5 mg 10/29/16 10:00 10/30/16 10:06 Norvasc - PO 2.5 mg DAILY SAVI Administration Apixaban 5 mg 10/29/16 10:00 10/30/16 15:48 Eliquis - PO 5 mg DAILY SAVI Administration Furosemide 20 mg 10/29/16 10:00 10/30/16 10:06 Lasix - PO 20 mg DAILY SAVI Administration Sodium Chloride 1,000 mls @ 100 mls/hr 10/30/16 10:30 10/30/16 15:49 Normal Saline - IV 100 mls/hr ASDIR SAVI Administration Memantine 5 mg 10/29/16 10:00 10/30/16 10:06 Namenda - PO 5 mg DAILY SAVI Administration Timolol Maleate 1 drop 10/29/16 10:00 10/30/16 10:07 Timoptic 0.25% OU 1 drop BID SAVI Administration Home Medications Medication Instructions Recorded Amlodipine Besylate [Norvasc -] 2.5 mg PO DAILY 10/28/16 Apixaban [Eliquis -] 5 mg PO DAILY 10/28/16 Furosemide [Lasix -] 20 mg PO DAILY 10/28/16 Memantine HCl [Namenda -] 5 mg PO DAILY 10/28/16 Timolol 0.25% [Timoptic 0.25%] 0 ml OU BID 10/28/16 Laboratory Tests 10/30/16 06:00 U Random Total Protein 19 H Ur Random Sodium 94 Ur Random Potassium 59.9 Ur Random Chloride 88 Urine Creatinine 180.0 US of Kidneys: Real time examination of the kidneys and urinary bladder demonstrates the following: The right kidney is atrophic measuring 6.3 x 2.4 x 2.7 cm. The left kidney is normal in size measuring 11.2 x 4.7 x 4.3 cm. There is no evidence of hydronephrosis or contour deforming renal masses. Evaluation of the urinary bladder demonstrates no intrinsic bladder abnormalities. Bilateral ureteral jets were visualized. A pre-void bladder volume of 500 cc was calculated. A post voiding image demonstrates incomplete emptying of the bladder with a moderate postvoid residual of 50 cc. The prostate gland is slightly enlarged. A total prostate volume of 32 cc was calculated. IMPRESSION: 1. Atrophic right kidney with no evidence of hydronephrosis or acute renal pathology. 2. Moderate postvoid residual. 3. Mild prostatic enlargement. Carotid Doppler: Minimal atherosclerotic plaque is identified at the carotid bifurcations bilaterally. Doppler velocity measurements are within normal limits within the common carotid and proximal internal and external carotid arteries with no velocity elevations suspicious for hemodynamically significant stenoses. Forward flow is present within both vertebral arteries. IMPRESSION: Minimal atherosclerotic disease with no evidence of hemodynamically significant stenoses CT head :IMPRESSION: No evidence of acute intracranial pathology. There is no evidence of acute intracranial hemorrhage, mass lesions or infarctions. There is a mild degree of diffuse cerebral atrophy with sulcal widening and ventricular dilatation. Hypodense changes are noted within the periventricular white matter consistent with chronic, small vessel ischemia. ASSESSMENT AND PLAN: 76 year old male with pmh of right lower ext DVT, Alzheimer Dementia present to the ED brought by EMS for altered mental status. 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 Oriented to person only. Neuro consult for further assessment. On Namenda continue. # Right Popliteal DVT on Eliquis continue, called Pharmacist Nadia , no need for adjustment of Eliquis PO 5mg BID #MAX vs CKD Cr 2-->1.8 today on IVF continue Urine lytes, Urine sodium , Urine creatinine, Calculate FENA ; Avoid nephrotoxins Obtain records from [facility] or PCP. Nephro consult in am #Glaucoma resume Timolol 0.25% #HTN resume Norvasc ,will hold Lasix for now DVT: SCD, natalee
--- NOTE | 2016-10-30 17:26 | PN ---
Teaching Attending Note Name of Resident: Laura Ohara (Nephrology) ATTENDING PHYSICIAN STATEMENT I saw and evaluated the patient. I reviewed the resident's note and discussed the case with the resident. I agree with the resident's findings and plan as documented. Nephrology Please see resident consult. Summary Pt is a 76 year old male with history of HTN, dementia and DVT who was brought to the ER. He was found to have elevated creatinine and I was called to evaluate him. He denies history of CKD. He denies dysuria or hematuria. He denies nsaid use. He is confused and is a poor historian. PMHx: HTN, dementia, gluacoma, DVT PSX: none Social Hx; denies tobacco, alcohol or drug use Current Medications Generic Name Dose Route Start Last Admin Trade Name Mona PRN Reason Stop Dose Admin Amlodipine Besylate 2.5 mg 10/29/16 10:00 10/30/16 10:06 Norvasc - PO 2.5 mg DAILY SAVI Administration Apixaban 5 mg 10/29/16 10:00 10/30/16 15:48 Eliquis - PO 5 mg DAILY SAVI Administration Sodium Chloride 1,000 mls @ 100 mls/hr 10/30/16 10:30 10/30/16 15:49 Normal Saline - IV 100 mls/hr ASDIR SAVI Administration Memantine 5 mg 10/29/16 10:00 10/30/16 10:06 Namenda - PO 5 mg DAILY SAVI Administration Timolol Maleate 1 drop 10/29/16 10:00 10/30/16 10:07 Timoptic 0.25% OU 1 drop BID SAVI Administration Current Active Problems Altered mental status (Acute) DVT (deep venous thrombosis) (Acute) Renal insufficiency (Acute) Last Vital Signs Temp Pulse Resp BP Pulse Ox 98.8 F 64 18 109/64 96 10/30/16 15:20 10/30/16 15:20 10/30/16 15:20 10/30/16 15:20 10/30/16 09:00 Laboratory Tests 10/28/16 10/28/16 10/30/16 20:30 20:30 06:00 WBC Hgb Plt Count Sodium 145 Potassium 4.7 Chloride 107 Carbon Dioxide 28 Anion Gap 10 BUN 23 H 31 H D Creatinine 2.0 H 1.8 H Creat Clearance w eGFR 36.97 Total Protein 6.0 L Albumin 2.9 L D Urine Color Straw Urine Appearance Clear Urine pH 5.0 Ur Specific [place] 1.010 Urine Protein Negative Urine Glucose (UA) Negative Urine Ketones Negative Urine Blood Negative Urine Nitrite Negative Urine Bilirubin Negative Urine Urobilinogen Negative Ur Leukocyte Esterase Negative 10/30/16 06:00 WBC 6.0 Hgb 12.9 Plt Count 158 Sodium Potassium Chloride Carbon Dioxide Anion Gap BUN Creatinine Creat Clearance w eGFR Total Protein Albumin Urine Color Urine Appearance Urine pH Ur Specific [place] Urine Protein Urine Glucose (UA) Urine Ketones Urine Blood Urine Nitrite Urine Bilirubin Urine Urobilinogen Ur Leukocyte Esterase cardio s1s2 reg pulm clear GI soft ext neg edema skin neg rash neuro confused Impression 1. likely CKD 2. HTN 3. DVT Plan - ua is negative for blood or protein - cont current meds - check cpk level - check renal ultrasound - will follow Dr Lafleur
--- NOTE | 2016-10-30 19:32 | CONSULT ---
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 On eliquis, amlodipine, furosamide and Mementine (5 BID). Was living alone in [place] but progressive cognitive decline and wandering led to his moving to His sister's home in [place]. However he continued to wander and was brought to the hospital after he was [place] a [place] by police. CT of head (reviewed): moderate, diffuse atrophy. Carotid duplex doppler: Essentially normal LE doppler: R Popliteal vein DVT MANA: No bruits. No head trauma NEURO: Awake, alert, inappropriate but cooperative. [facility] but Not [facility] or [place]. "end of February," No year + Trump. Recalls 0/3 @ 3 mins. Speech: Fluent. +Glabella CN II-XII: Normal Motor: No drift or trmor. Normal strength, tone, bulk and reflexes. Toes downgoing. Coord: No FTN dystaxia Sensory: Normal. Romberg - Gait: Normal IMP: Moderately severe, B/L, Cerebral dysfunction (OMS, Chronic)- Most c/w Alzheimer's Disease (AD). SUGGEST: Check B12, B1, TSH, T4, RPR Add Donepezil 5 mg after breakfast x 1 month then 10 mg after breakfast. Continue mementine 5 mg BID for now. After patient is established on Donepezil (10mg) increase Namenda to 10 mg BID. Patient may need placement (or at least a home safety check to "babyproof" the doors. Neuro follow-up as out patient. Thank you very much, Pasquale Bruce MD
[2016-10-30] MEDS ORDERED: PT OWN MED DRAWER 7, Y5N ONE (20:38)
[2016-10-31 08:05] LABS: CALCIUM 8.4 mg/dL (8.5-10.1); COCKROFT - GAULT 40.94; CREATININE 1.6 mg/dL (0.7-1.3)
[2016-10-31 08:10] LABS: THYROXINE (T4) 10.5 ug/dl (4.5-12.1)
[2016-10-31 08:18] LABS: THYROID STIMULATING HORMONE 2.78 uIU/ml (0.358-3.74)
[2016-10-31] MEDS: MEMANTINE HCL 5 MG TABLET (UD) PO SCH ×2 (10:25→22:07)
[2016-10-31] MEDS: DONEPEZIL HCL 5 MG TABLET (FP) PO SCH (10:25)
[2016-10-31] MEDS: APIXABAN 5 MG TABLET PO SCH (10:25)
[2016-10-31] MEDS: amLODIPine BESYLATE 2.5 MG TABLET (FP) PO SCH (10:25)
[2016-10-31] MEDS: TIMOLOL 0.25% OPHTHALMIC SOL 5 ML BOTTLE OU SCH ×2 (10:28→22:08)
[2016-10-31] MEDS: SODIUM CHLORIDE 1,000 ML IV SCH (10:46)
--- NOTE | 2016-10-31 13:00 | PN ---
Progress Note, Physician History of Present Illness: Pt seen and examined at bedside. He is awake and confused. - Current Medication List Current Medications: Active Medications Amlodipine Besylate (Norvasc -) 2.5 mg PO DAILY [facility] Last Admin: 10/31/16 10:25 Dose: 2.5 mg Apixaban (Eliquis -) 5 mg PO DAILY [facility] Last Admin: 10/31/16 10:25 Dose: 5 mg Donepezil HCl (Aricept -) 5 mg PO DAILY [facility] Last Admin: 10/31/16 10:25 Dose: 5 mg Sodium Chloride (Normal Saline -) 1,000 mls @ 100 mls/hr IV ASDIR [facility] Last Admin: 10/31/16 10:46 Dose: 100 mls/hr Memantine (Namenda -) 5 mg PO DAILY [facility] Last Admin: 10/31/16 10:25 Dose: 5 mg Timolol Maleate (Timoptic 0.25%) 1 drop OU BID [facility] Last Admin: 10/31/16 10:28 Dose: 1 drop - Objective Vital Signs: Vital Signs Temperature 97.7 F 10/31/16 06:19 Pulse Rate 60 10/31/16 06:19 Respiratory Rate 18 10/31/16 06:19 Blood Pressure 130/70 10/31/16 06:19 O2 Sat by Pulse Oximetry (%) 98 10/30/16 21:00 Constitutional: Yes: Calm Eyes: Yes: Conjunctiva Clear HENT: Yes: Atraumatic Neck: Yes: Supple Cardiovascular: Yes: S1, S2 Respiratory: Yes: CTA Bilaterally Gastrointestinal: Yes: Normal Bowel Sounds, Soft Genitourinary: Yes: WNL Musculoskeletal: Yes: WNL Edema: No Neurological: Yes: Confusion Labs: CBC, BMP 10/30/16 06:00 10/31/16 06:00 INR, PTT INR 1.14 (0.82-1.09) 10/28/16 20:30 Problem List - Problems (1) Altered mental status Code(s): R41.82 - ALTERED MENTAL STATUS, UNSPECIFIED Qualifiers: Altered mental status type: unspecified Qualified Code(s): R41.82 - Altered mental status, unspecified (2) DVT (deep venous thrombosis) Code(s): I82.409 - ACUTE EMBOLISM AND THOMBOS UNSP DEEP VN UNSP LOWER EXTREMITY Qualifiers: DVT location: lower extremity Affected thrombotic vein of extremity: popliteal Laterality: right Chronicity: unspecified Qualified Code(s ): I82.431 - Acute embolism and thrombosis of right popliteal vein (3) Renal insufficiency Code(s): N28.9 - DISORDER OF KIDNEY AND URETER, UNSPECIFIED (4) Alzheimer's dementia Code(s): G30.9 - ALZHEIMER'S DISEASE, UNSPECIFIED Assessment/Plan Current Medications Generic Name Dose Route Start Last Admin Trade Name Mona PRN Reason Stop Dose Admin Amlodipine Besylate 2.5 mg 10/29/16 10:00 10/31/16 10:25 Norvasc - PO 2.5 mg DAILY SAVI Administration Apixaban 5 mg 10/29/16 10:00 10/31/16 10:25 Eliquis - PO 5 mg DAILY SAVI Administration Donepezil HCl 5 mg 10/31/16 10:00 10/31/16 10:25 Aricept - PO 5 mg DAILY SVAI Administration Sodium Chloride 1,000 mls @ 100 mls/hr 10/30/16 10:30 10/31/16 10:46 Normal Saline - IV 100 mls/hr ASDIR SAVI Administration Memantine 5 mg 10/29/16 10:00 10/31/16 10:25 Namenda - PO 5 mg DAILY SAVI Administration Timolol Maleate 1 drop 10/29/16 10:00 10/31/16 10:28 Timoptic 0.25% OU 1 drop BID SAVI Administration Impression 1. likely CKD 2. HTN 3. DVT 4. dementia Plan - renal function is stabilizing - he will need outpt follow up - neuro input appreciated - CK is not elevated - will follow Dr Lafleur
[2016-10-31] MEDS ORDERED: SODIUM CHLORIDE 0.45% 1,000 ML IV SCH (13:15)
--- NOTE | 2016-10-31 15:59 | PN ---
Physical Exam: SUBJECTIVE: Patient seen and examined at bed side this morning. No complaints. Denies fever, chills, rigors, sweating, chest pain, sob, cough, palpitation, abdominal pain, nausea or vomiting. Bowel/Bladder habit normal. Sleep/Appetite normal. OBJECTIVE: Vital Signs Period Temp Pulse Resp BP Sys/[place] Pulse Ox Last 24 Hr 97.6 F-99.2 F 60-74 18-18 125-143/70-85 98-98 GENERAL: The patient is awake, alert, and oriented to date and name self, not oriented to the place, in no acute distress. HEAD: Normal with no signs of trauma. EYES: PERRL, extraocular movements intact, sclera anicteric, conjunctiva clear. No ptosis. ENT: Ears normal, nares patent, oropharynx clear without exudates, moist mucous membranes. NECK: Trachea midline, full range of motion, supple. LUNGS: Breath sounds equal, clear to auscultation bilaterally, no wheezes, no crackles, no accessory muscle use. HEART: Regular rate and rhythm, S1, S2 without murmur, rub or gallop. ABDOMEN: Soft, nontender, nondistended, normoactive bowel sounds, no guarding, no rebound, no hepatosplenomegaly, no masses. EXTREMITIES: 2+ pulses, warm, well-perfused, no edema. NEUROLOGICAL: Cranial nerves II through XII grossly intact. No facial droop. All reflexes intact. Normal speech, gait not observed. PSYCH: Normal mood, normal affect. SKIN: Warm, dry, normal turgor, no rashes or lesions noted Laboratory Results - last 24 hr 10/31/16 10/31/16 10/31/16 06:00 06:00 06:00 Sodium 145 Potassium 4.5 Chloride 109 H Carbon Dioxide 26 Anion Gap 10 BUN 28 H Creatinine 1.6 H Random Glucose 84 Calcium 8.4 L Creatine Kinase 88 Vitamin B12 879 TSH 2.78 D RPR Titer 10/31/16 06:00 Sodium Potassium Chloride Carbon Dioxide Anion Gap BUN Creatinine Random Glucose Calcium Creatine Kinase Vitamin B12 TSH RPR Titer Nonreactive Active Medications Generic Name Dose Route Start Last Admin Trade Name Freq PRN Reason Stop Dose Admin Amlodipine Besylate 2.5 mg 10/29/16 10:00 10/31/16 10:25 Norvasc - PO 2.5 mg DAILY SAVI Administration Apixaban 5 mg 10/29/16 10:00 10/31/16 10:25 Eliquis - PO 5 mg DAILY SAVI Administration Donepezil HCl 5 mg 10/31/16 10:00 10/31/16 10:25 Aricept - PO 5 mg DAILY SAVI Administration Sodium Chloride 1,000 mls @ 42 mls/hr 10/31/16 13:15 1/2 Normal Saline IV ASDIR SAVI Memantine 5 mg 10/29/16 10:00 10/31/16 10:25 Namenda - PO 5 mg DAILY SAVI Administration Timolol Maleate 1 drop 10/29/16 10:00 10/31/16 10:28 Timoptic 0.25% OU 1 drop BID SAVI Administration ASSESSMENT/PLAN: 10/30/2016 US of Kidneys: Real time examination of the kidneys and urinary bladder demonstrates the following: The right kidney is atrophic measuring 6.3 x 2.4 x 2.7 cm. The left kidney is normal in size measuring 11.2 x 4.7 x 4.3 cm. There is no evidence of hydronephrosis or contour deforming renal masses. Evaluation of the urinary bladder demonstrates no intrinsic bladder abnormalities. Bilateral ureteral jets were visualized. A pre-void bladder volume of 500 cc was calculated. A post voiding image demonstrates incomplete emptying of the bladder with a moderate postvoid residual of 50 cc. The prostate gland is slightly enlarged. A total prostate volume of 32 cc was calculated. IMPRESSION: 1. Atrophic right kidney with no evidence of hydronephrosis or acute renal pathology. 2. Moderate postvoid residual. 3. Mild prostatic enlargement. 10/29/2016 Carotid Doppler: Minimal atherosclerotic plaque is identified at the carotid bifurcations bilaterally. Doppler velocity measurements are within normal limits within the common carotid and proximal internal and external carotid arteries with no velocity elevations suspicious for hemodynamically significant stenoses. Forward flow is present within both vertebral arteries. IMPRESSION: Minimal atherosclerotic disease with no evidence of hemodynamically significant stenoses 10/28/16 CT head :IMPRESSION: No evidence of acute intracranial pathology. There is no evidence of acute intracranial hemorrhage, mass lesions or infarctions. There is a mild degree of diffuse cerebral atrophy with sulcal widening and ventricular dilatation. Hypodense changes are noted within the periventricular white matter consistent with chronic, small vessel ischemia. ASSESSMENT/PLAN: Patient is a 76 year old male with pmh of right lower ext DVT, Alzheimer Dementia present to the ED brought by EMS for altered mental status. 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 # Confusion most likely due to worsening Alzheimers. Admitted in Med-Surg Head CT negative for CVA Fall Precautions Continue Memantine 5mg PO daily Neurology consult appreciated. Will follow his recommendations: Add Donepezil 5 mg after breakfast x 1 month then 10 mg after breakfast and to continue mementine 5 mg BID for now. After patient is established on Donepezil ( 10mg) increase Namenda to 10 mg BID. Spoke with patients brother Mr. Nila Garcia ( 10/31/2016)-He said [place] had been living at [place] for almost 30years. When they visited him, found that his house was not in a living condition. Then somehow machine operator hop worker managed to engage [place] [facility] only during the day where he could go for meal and daily activities and would return back home. Patient was brought down to [facility] since his PCP found his legs were swollen. Hence was admitted in [facility] for 3 months. Patient then lived with his sister in [place], [place]. Patient was found to be wandering around and was found by the police a couple of times and at the end brought here at [facility]. Called [facility] ([phone]) and spoke with the patient case manager who will fax all the medical records and the course of hospital treatment, waiting for the reports. # Acute Kidney Injury-Improving Creatinine 2 on admission, baseline unknown Today creatinine 1.6 improved with IV Hydration Continue IV fluids @ 100mls/hr Avoid nephrotoxins Nephrology consult appreciated # Right Popliteal DVT Patient on Elliquis 5mg PO daily, most likely due to old DVT (Patient was being treated at [facility]-waiting for the reports to be faxed) No need to adjust the medication dose as patient's creatinine is improving. # Hypertension-Controlled Continue Norvasc 2.5mg Daily Hold Lasix 20mg PO daily # Glaucoma Continue Timolol 0.25% OU BID # FEN IV NS @ 100mls/hr Electrolytes to be repeated tomorrow morning. Chol/Fat/Sodium restricted diet # Prophylaxis For DVT: Patient already on Elliquis For GI: Not indicated # Code Status: Full Code # Disposition: Admit to Med-surg. Will speak with the machine operator hop worker about placing him on SNF. Confirmed his medications with patients brother. Illness, Investigation and Plan of care explained to the patient. He verbalized understanding. Case discussed with Dr. Junior. Problem List - Problems (1) Altered mental status Code(s): R41.82 - ALTERED MENTAL STATUS, UNSPECIFIED Qualifiers: Altered mental status type: unspecified Qualified Code(s): R41.82 - Altered mental status, unspecified (2) DVT (deep venous thrombosis) Code(s): I82.409 - ACUTE EMBOLISM AND THOMBOS UNSP DEEP VN UNSP LOWER EXTREMITY Qualifiers: DVT location: lower extremity Affected thrombotic vein of extremity: popliteal Laterality: right Chronicity: unspecified Qualified Code(s): I82.431 - Acute embolism and thrombosis of right popliteal vein (3) Renal insufficiency Code(s): N28.9 - DISORDER OF KIDNEY AND URETER, UNSPECIFIED Visit type - Emergency Visit Emergency Visit: Yes ED Registration Date: 10/28/16 Care time: The patient presented to the Emergency Department on the above date and was hospitalized for further evaluation of their emergent condition. - New Patient This patient is new to me today: No - Critical Care Critical Care patient: No - Discharge Referral Referred to [facility] Med P.C.: No
--- NOTE | 2016-10-31 18:25 | PN ---
Teaching Attending Note Name of Resident: Sara Robin ATTENDING PHYSICIAN STATEMENT I saw and evaluated the patient. I reviewed the resident's note and discussed the case with the resident. I agree with the resident's findings and plan as documented. SUBJECTIVE: no fever or chills, has no pain . has no SOB . OBJECTIVE: NAD, awake, alert , cooperative. Knows he is in a hospital, he knows his age . not year or time , or why he is hear. CV: RRR Lungs : CTAB Ext : no edema ASSESSMENT AND PLAN: 76 y/o man with h/o HTN, dementia , and recent DVT ( in Jun per records ) , who was brought by POlice after being found [place] 1- advanced dementia : - cont Aricept 5 mg .increase after 1 month to 10 - cont NAmenda . currently taking 5 mg daily, will increase to 5 BID per neuro . increase to 10 bid when stable on aricept 2- MAX: no base line to compare to. - records requested from OSH - renal US with no obstruction - cont gentle hydration - feNA ( assuming he was not taking home lasix ) 0.6% indicating prerenal etiology - ? CKD - likely will not resume lasix at dc 3- R popliteal DVT : likely when he was in OSH in Jun. per resident conversation with his brother , he was not taking meds in past month. so it is not eliquis failure cont eliquis 4- HTN : cont norvasc Current Medications Generic Name Dose Route Start Last Admin Trade Name Mona PRN Reason Stop Dose Admin Amlodipine Besylate 2.5 mg 10/29/16 10:00 10/31/16 10:25 Norvasc - PO 2.5 mg DAILY SAVI Administration Apixaban 5 mg 10/29/16 10:00 10/31/16 10:25 Eliquis - PO 5 mg DAILY SAVI Administration Donepezil HCl 5 mg 10/31/16 10:00 10/31/16 10:25 Aricept - PO 5 mg DAILY SAVI Administration Sodium Chloride 1,000 mls @ 42 mls/hr 10/31/16 13:15 10/31/16 15:19 1/2 Normal Saline IV 42 mls/hr ASDIR SAVI Administration Memantine 5 mg 10/29/16 10:00 10/31/16 10:25 Namenda - PO 5 mg DAILY SAVI Administration Timolol Maleate 1 drop 10/29/16 10:00 10/31/16 10:28 Timoptic 0.25% OU 1 drop BID SAVI Administration per resident conversation with brother , he lives with sister now. HAs not been taking his meds as sister did not fill. will probably needs placement
[2016-10-31] MEDS ORDERED: PT OWN MED DRAWER 7, Y5N ONE ×2 (19:34→20:56)
--- NOTE | 2016-11-01 08:45 | PN ---
Physical Exam: SUBJECTIVE: Patient seen and examined at bed side this morning. No complaints. Denies fever, chills, rigors, sweating, chest pain, sob, cough, palpitation, abdominal pain, nausea or vomiting. Bowel/Bladder habit normal. Sleep/Appetite normal. As per RN, he wanders around. OBJECTIVE: Vital Signs Period Temp Pulse Resp BP Sys/[place] Pulse Ox Last 24 Hr 98.1 F-99.0 F 58-71 18-20 129-148/71-83 96-98 GENERAL: The patient is awake, alert, and oriented to date and name self, not oriented to the place, in no acute distress. HEAD: Normal with no signs of trauma. EYES: PERRL, extraocular movements intact, sclera anicteric, conjunctiva clear. No ptosis. ENT: Ears normal, nares patent, oropharynx clear without exudates, moist mucous membranes. NECK: Trachea midline, full range of motion, supple. LUNGS: Breath sounds equal, clear to auscultation bilaterally, no wheezes, no crackles, no accessory muscle use. HEART: Regular rate and rhythm, S1, S2 without murmur. ABDOMEN: Soft, nontender, nondistended, normoactive bowel sounds, no guarding, no rebound, no hepatosplenomegaly, no masses. EXTREMITIES: 2+ pulses, warm, well-perfused, no edema. NEUROLOGICAL: Cranial nerves II through XII grossly intact. No facial droop. All reflexes intact. Normal speech, gait not observed. PSYCH: Normal mood, normal affect. SKIN: Warm, dry, normal turgor, no rashes or lesions noted Laboratory Results - last 24 hr 10/31/16 06:00 RPR Titer Nonreactive Active Medications Generic Name Dose Route Start Last Admin Trade Name Freq PRN Reason Stop Dose Admin Amlodipine Besylate 2.5 mg 11/01/16 10:00 Norvasc - PO DAILY SAVI Apixaban 5 mg 11/01/16 10:00 Eliquis - PO DAILY SAVI Donepezil HCl 5 mg 10/31/16 10:00 10/31/16 10:25 Aricept - PO 5 mg DAILY SAVI Administration Sodium Chloride 1,000 mls @ 42 mls/hr 10/31/16 13:15 10/31/16 15:19 1/2 Normal Saline IV 42 mls/hr ASDIR SAVI Administration Memantine 5 mg 10/31/16 22:00 10/31/16 22:07 Namenda - PO 5 mg BID SAVI Administration Timolol Maleate 1 drop 11/01/16 10:00 Timoptic 0.25% OU BID SAVI ASSESSMENT/PLAN: Patient is a 76 year old male with pmh of right lower ext DVT, Alzheimer Dementia present to the ED brought by EMS for altered mental status. 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 # Confusion most likely due to worsening Alzheimers. Admitted in Med-Surg TSH normal, Vit B12 normal so confusion due to vitamin B12 def and thyroid issues r/o. RPR negative Head CT negative for CVA Fall Precautions Continue Memantine 5mg PO BID and Donepezil 5mg Daily, as per Neuro. Neuro consult appreciated. # Acute Kidney Injury-Improving Creatinine 2 on admission, baseline unknown Continue IV fluids decreased to 42 mls/hr Avoid nephrotoxic drugs Nephrology consult appreciated # Right Popliteal DVT Patient on Elliquis 5mg PO daily, most likely due to old DVT (Patient was being treated at [facility]- called placed to [facility], they requested a medical release form, will try to get the records tomorrow) No need to adjust the medication dose as patient's creatinine is improving. # Hypertension-Controlled Continue Norvasc 2.5mg Daily Hold Lasix 20mg PO daily # Hyperlipidemia Cholesterol-233; LDL 169 Diet control for now and to monitor outpatient. # Glaucoma Continue Timolol 0.25% OU BID # FEN IV NS decreased to 42mls/hr Electrolytes to be repeated tomorrow morning. Chol/Fat/Sodium restricted diet # Prophylaxis For DVT: Patient already on Elliquis For GI: Not indicated # Code Status: Full Code # Disposition: Admit to Med-surg. Will speak with the social sciences research scientist about placing him on SNF. Confirmed his medications with patients brother. Illness, Investigation and Plan of care explained to the patient. He verbalized understanding. Case discussed with Dr. Junior. Problem List - Problems (1) Altered mental status Code(s): R41.82 - ALTERED MENTAL STATUS, UNSPECIFIED Qualifiers: Altered mental status type: unspecified Qualified Code(s): R41.82 - Altered mental status, unspecified (2) DVT (deep venous thrombosis) Code(s): I82.409 - ACUTE EMBOLISM AND THOMBOS UNSP DEEP VN UNSP LOWER EXTREMITY Qualifiers: DVT location: lower extremity Affected thrombotic vein of extremity: popliteal Laterality: right Chronicity: unspecified Qualified Code(s): I82.431 - Acute embolism and thrombosis of right popliteal vein (3) Renal insufficiency Code(s): N28.9 - DISORDER OF KIDNEY AND URETER, UNSPECIFIED Visit type - Emergency Visit Emergency Visit: Yes ED Registration Date: 10/28/16 Care time: The patient presented to the Emergency Department on the above date and was hospitalized for further evaluation of their emergent condition. - New Patient This patient is new to me today: No - Critical Care Critical Care patient: No - Discharge Referral Referred to [facility] Med P.C.: No
[2016-11-01] MEDS: MEMANTINE HCL 5 MG TABLET (UD) PO SCH ×2 (10:17→21:13)
[2016-11-01] MEDS: DONEPEZIL HCL 5 MG TABLET (FP) PO SCH (10:17)
[2016-11-01] MEDS: APIXABAN 5 MG TABLET PO SCH (10:17)
[2016-11-01] MEDS: TIMOLOL 0.25% OPHTHALMIC SOL 5 ML BOTTLE OU SCH ×2 (10:18→21:13)
[2016-11-01] MEDS: amLODIPine BESYLATE 2.5 MG TABLET (FP) PO SCH (10:18)
[2016-11-01 10:27] LABS: CALCIUM 8.9 mg/dL (8.5-10.1); COCKROFT - GAULT 43.67; CREATININE 1.5 mg/dL (0.7-1.3)
--- NOTE | 2016-11-01 12:16 | PN ---
Progress Note, Physician History of Present Illness: Pt seen and examined at bedside. He is awake and appears comfortable. - Current Medication List Current Medications: Active Medications Amlodipine Besylate (Norvasc -) 2.5 mg PO DAILY [facility] Last Admin: 11/01/16 10:18 Dose: 2.5 mg Apixaban (Eliquis -) 5 mg PO DAILY [facility] Last Admin: 11/01/16 10:17 Dose: 5 mg Donepezil HCl (Aricept -) 5 mg PO DAILY [facility] Last Admin: 11/01/16 10:17 Dose: 5 mg Sodium Chloride (1/2 Normal Saline) 1,000 mls @ 42 mls/hr IV ASDIR [facility] Last Admin: 10/31/16 15:19 Dose: 42 mls/hr Memantine (Namenda -) 5 mg PO BID [facility] Last Admin: 11/01/16 10:17 Dose: 5 mg Timolol Maleate (Timoptic 0.25%) 1 drop OU BID [facility] Last Admin: 11/01/16 10:18 Dose: Not Given - Objective Vital Signs: Vital Signs Temperature 98.1 F 11/01/16 05:36 Pulse Rate 58 L 11/01/16 05:36 Respiratory Rate 18 11/01/16 05:36 Blood Pressure 138/79 11/01/16 05:36 O2 Sat by Pulse Oximetry (%) 96 10/31/16 21:00 Constitutional: Yes: Calm Eyes: Yes: Conjunctiva Clear HENT: Yes: Atraumatic Neck: Yes: Supple Cardiovascular: Yes: S1, S2 Respiratory: Yes: CTA Bilaterally Gastrointestinal: Yes: Soft Genitourinary: Yes: WNL Musculoskeletal: Yes: WNL Edema: Yes Edema: LLE: Trace, RLE: Trace Neurological: Yes: Confusion Labs: CBC, BMP 10/30/16 06:00 11/01/16 09:45 INR, PTT INR 1.14 (0.82-1.09) 10/28/16 20:30 Problem List - Problems (1) Altered mental status Code(s): R41.82 - ALTERED MENTAL STATUS, UNSPECIFIED Qualifiers: Altered mental status type: unspecified Qualified Code(s): R41.82 - Altered mental status, unspecified (2) DVT (deep venous thrombosis) Code(s): I82.409 - ACUTE EMBOLISM AND THOMBOS UNSP DEEP VN UNSP LOWER EXTREMITY Qualifiers: DVT location: lower extremity Affected thrombotic vein of extremity: popliteal Laterality: right Chronicity: unspecified Qualified Code(s): I82.431 - Acute embolism and thrombosis of right popliteal vein (3) Renal insufficiency Code(s): N28.9 - DISORDER OF KIDNEY AND URETER, UNSPECIFIED (4) Alzheimer's dementia Code(s): G30.9 - ALZHEIMER'S DISEASE, UNSPECIFIED Assessment/Plan Current Medications Generic Name Dose Route Start Last Admin Trade Name Mona PRN Reason Stop Dose Admin Amlodipine Besylate 2.5 mg 11/01/16 10:00 11/01/16 10:18 Norvasc - PO 2.5 mg DAILY [facility] Administration Apixaban 5 mg 11/01/16 10:00 11/01/16 10:17 Eliquis - PO 5 mg DAILY [facility] Administration Donepezil HCl 5 mg 10/31/16 10:00 11/01/16 10:17 Aricept - PO 5 mg DAILY [facility] Administration Sodium Chloride 1,000 mls @ 42 mls/hr 10/31/16 13:15 10/31/16 15:19 1/2 Normal Saline IV 42 mls/hr ASDIR [facility] Administration Memantine 5 mg 10/31/16 22:00 11/01/16 10:17 Namenda - PO 5 mg BID [facility] Administration Timolol Maleate 1 drop 11/01/16 10:00 11/01/16 10:18 Timoptic 0.25% OU Not Given BID [facility] Impression 1. likely CKD 2. HTN 3. DVT 4. dementia Plan - will stop fluids and observe renal function - repeat labs in am - pt likely has CKD - outpt workup - neuro input appreciated - will follow Dr Lafleur
--- NOTE | 2016-11-01 14:02 | PN ---
Teaching Attending Note Name of Resident: Sara Robin ATTENDING PHYSICIAN STATEMENT I saw and evaluated the patient. I reviewed the resident's note and discussed the case with the resident. I agree with the resident's findings and plan as documented. SUBJECTIVE: no fever or chills. has no CP or SOB . OBJECTIVE: NAD, awake, alert, cooperative. CV: RRR Lungs : CTAB Ext : no edema ASSESSMENT AND PLAN: 76 y/o man with h/o HTN, dementia , and recent DVT ( in Jun per records ) , who was brought by [facility] after being found [place] 1- Advanced dementia : - cont Aricept 5 mg .increase after 1 month to 10 - cont NAmenda 5 BID . increase to 10 bid when stable on aricept 2- MAX: no base line to compare to. - records requested from OSH - off IVF - ? CKD - likely will not resume lasix at dc 3- R popliteal DVT: likely when he was in OSH in Jun. cont eliquis 4- HTN : cont norvasc D/W CM for Dc planning
--- NOTE | 2016-11-02 08:16 | PN ---
Physical Exam: SUBJECTIVE: Patient seen and examined at bed side this morning. No complaints. Denies fever, chills, rigors, sweating, chest pain, sob, cough, palpitation, abdominal pain, nausea or vomiting. Bowel/Bladder habit normal. Sleep/Appetite normal. Patient thinks that his brother is going to pick him up and take him home (To [place] ) OBJECTIVE: Vital Signs Period Temp Pulse Resp BP Sys/[place] Pulse Ox Last 24 Hr 97.8 F-98.9 F 58-68 18-18 138-150/66-81 98-99 GENERAL: The patient is awake, alert, and oriented to date and name self, not oriented to the place, in no acute distress. HEAD: Normal with no signs of trauma. EYES: PERRL, extraocular movements intact, sclera anicteric, conjunctiva clear. No ptosis. ENT: Ears normal, nares patent, oropharynx clear without exudates, moist mucous membranes. NECK: Trachea midline, full range of motion, supple. LUNGS: Breath sounds equal, clear to auscultation bilaterally, no wheezes, no crackles, no accessory muscle use. HEART: Regular rate and rhythm, S1, S2 without murmur. ABDOMEN: Soft, nontender, nondistended, normoactive bowel sounds, no guarding, no rebound, no hepatosplenomegaly, no masses. EXTREMITIES: 2+ pulses, warm, well-perfused, no edema. NEUROLOGICAL: Cranial nerves II through XII grossly intact. No facial droop. All reflexes intact. Normal speech, gait not observed. PSYCH: Normal mood, normal affect. SKIN: Warm, dry, normal turgor, no rashes or lesions noted Laboratory Results - last 24 hr 11/01/16 09:45 Sodium 143 Potassium 4.6 Chloride 110 H Carbon Dioxide 27 Anion Gap 6 L BUN 27 H Creatinine 1.5 H Random Glucose 71 L Calcium 8.9 Active Medications Generic Name Dose Route Start Last Admin Trade Name Freq PRN Reason Stop Dose Admin Amlodipine Besylate 2.5 mg 11/01/16 10:11/01/16 10:18 Norvasc - PO 2.5 mg DAILY [facility] Administration Apixaban 5 mg 11/01/16 10:11/01/16 10:17 Eliquis - PO 5 mg DAILY [facility] Administration Donepezil HCl 5 mg 10/31/16 10:00 11/01/16 10:17 Aricept - PO 5 mg DAILY [facility] Administration Memantine 5 mg 10/31/16 22:00 11/01/16 21:13 Namenda - PO 5 mg BID [facility] Administration Timolol Maleate 1 drop 11/01/16 10:00 11/01/16 21:13 Timoptic 0.25% OU 1 drop BID [facility] Administration ASSESSMENT/PLAN: Patient is a 76 year old male with pmh of right lower ext DVT, Alzheimer Dementia present to the ED brought by EMS for altered mental status. 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 # Confusion most likely due to worsening Alzheimers. Admitted in Med-Surg TSH normal, Vit B12 normal so confusion due to vitamin B12 def and thyroid issues r/o. RPR negative, Head CT negative for CVA Fall Precautions Continue Memantine 5mg PO BID and Donepezil 5mg Daily, as per Neuro. Neuro consult appreciated. # Acute Kidney Injury with questionable CKD Patient refused blood drawn this morning, now agreed and its pending. Creatinine 2 on admission, baseline unknown Continue IV fluids decreased to 42 mls/hr Avoid nephrotoxic drugs Nephrology consult appreciated # Right Popliteal DVT Patient on Elliquis 5mg PO daily, most likely due to old DVT (Patient was being treated at [facility]- Medical release form (got verbal consent over the phone from patients brother Mr. Nila Garcia), second witness AMMY Kumar, faxed to [phone], waiting for the results). # Hypertension-Controlled Continue Norvasc 2.5mg Daily Hold Lasix 20mg PO daily # Hyperlipidemia Cholesterol-233; LDL 169 Diet control for now and to monitor outpatient. # Glaucoma Continue Timolol 0.25% OU BID # FEN IV NS decreased to 42mls/hr Electrolytes to be repeated tomorrow morning. Chol/Fat/Sodium restricted diet # Prophylaxis For DVT: Patient already on Elliquis For GI: Not indicated # Code Status: Full Code # Disposition: Admit to Med-surg. brush worker is on board. Would be better for the patient to be transferred to a dementia unit. Confirmed his medications with patients brother. Illness, Investigation and Plan of care explained to the patient. He verbalized understanding. Case discussed with Dr. Junior. Problem List - Problems (1) Altered mental status Code(s): R41.82 - ALTERED MENTAL STATUS, UNSPECIFIED Qualifiers: Altered mental status type: unspecified Qualified Code(s): R41.82 - Altered mental status, unspecified (2) DVT (deep venous thrombosis) Code(s): I82.409 - ACUTE EMBOLISM AND THOMBOS UNSP DEEP VN UNSP LOWER EXTREMITY Qualifiers: DVT location: lower extremity Affected thrombotic vein of extremity: popliteal Laterality: right Chronicity: unspecified Qualified Code(s): I82.431 - Acute embolism and thrombosis of right popliteal vein (3) Renal insufficiency Code(s): N28.9 - DISORDER OF KIDNEY AND URETER, UNSPECIFIED Visit type - Emergency Visit Emergency Visit: Yes ED Registration Date: 10/28/16 Care time: The patient presented to the Emergency Department on the above date and was hospitalized for further evaluation of their emergent condition. - New Patient This patient is new to me today: No - Critical Care Critical Care patient: No - Discharge Referral Referred to [facility] No
[2016-11-02] MEDS ORDERED: PT OWN MED DRAWER 7, Y5N ONE (08:49)
[2016-11-02] MEDS: APIXABAN 5 MG TABLET PO SCH (09:22)
[2016-11-02] MEDS: amLODIPine BESYLATE 2.5 MG TABLET (FP) PO SCH (09:22)
[2016-11-02] MEDS: TIMOLOL 0.25% OPHTHALMIC SOL 5 ML BOTTLE OU SCH ×2 (09:22→21:25)
[2016-11-02] MEDS: MEMANTINE HCL 5 MG TABLET (UD) PO SCH ×2 (09:22→21:19)
[2016-11-02] MEDS: DONEPEZIL HCL 5 MG TABLET (FP) PO SCH (09:22)
--- NOTE | 2016-11-02 14:35 | PN ---
Progress Note, Physician History of Present Illness: Pt seen and examined at bedside. He says he wants to go home. - Current Medication List Current Medications: Active Medications Amlodipine Besylate (Norvasc -) 2.5 mg PO DAILY [facility] Last Admin: 11/02/16 09:22 Dose: 2.5 mg Apixaban (Eliquis -) 5 mg PO DAILY [facility] Last Admin: 11/02/16 09:22 Dose: 5 mg Donepezil HCl (Aricept -) 5 mg PO DAILY [facility] Last Admin: 11/02/16 09:22 Dose: 5 mg Memantine (Namenda -) 5 mg PO BID [facility] Last Admin: 11/02/16 09:22 Dose: 5 mg Timolol Maleate (Timoptic 0.25%) 1 drop OU BID [facility] Last Admin: 11/02/16 09:22 Dose: 1 drop - Objective Vital Signs: Vital Signs Temperature 98 F 11/02/16 10:00 Pulse Rate 65 11/02/16 10:00 Respiratory Rate 18 11/02/16 10:00 Blood Pressure 148/67 11/02/16 10:00 O2 Sat by Pulse Oximetry (%) 98 11/02/16 09:00 Constitutional: Yes: Calm Eyes: Yes: Conjunctiva Clear HENT: Yes: Atraumatic Cardiovascular: Yes: S1, S2 Respiratory: Yes: CTA Bilaterally Gastrointestinal: Yes: Soft Genitourinary: Yes: WNL Musculoskeletal: Yes: WNL Edema: Yes Edema: LLE: Trace, RLE: Trace Neurological: Yes: Confusion Labs: CBC, BMP 10/30/16 06:00 11/01/16 09:45 INR, PTT INR 1.14 (0.82-1.09) 10/28/16 20:30 Problem List - Problems (1) Altered mental status Code(s): R41.82 - ALTERED MENTAL STATUS, UNSPECIFIED Qualifiers: Altered mental status type: unspecified Qualified Code(s): R41.82 - Altered mental status, unspecified (2) DVT (deep venous thrombosis) Code(s): I82.409 - ACUTE EMBOLISM AND THOMBOS UNSP DEEP VN UNSP LOWER EXTREMITY Qualifiers: DVT location: lower extremity Affected thrombotic vein of extremity: popliteal Laterality: right Chronicity: unspecified Qualified Code(s): I82.431 - Acute embolism and thrombosis of right popliteal vein (3) Renal insufficiency Code(s): N28.9 - DISORDER OF KIDNEY AND URETER, UNSPECIFIED (4) Alzheimer's dementia Code(s): G30.9 - ALZHEIMER'S DISEASE, UNSPECIFIED Assessment/Plan Current Medications Generic Name Dose Route Start Last Admin Trade Name Mona PRN Reason Stop Dose Admin Amlodipine Besylate 2.5 mg 11/01/16 10:00 11/02/16 09:22 Norvasc - PO 2.5 mg DAILY [facility] Administration Apixaban 5 mg 11/01/16 10:00 11/02/16 09:22 Eliquis - PO 5 mg DAILY [facility] Administration Donepezil HCl 5 mg 10/31/16 10:00 11/02/16 09:22 Aricept - PO 5 mg DAILY [facility] Administration Memantine 5 mg 10/31/16 22:00 11/02/16 09:22 Namenda - PO 5 mg BID [facility] Administration Timolol Maleate 1 drop 11/01/16 10:00 11/02/16 09:22 Timoptic 0.25% OU 1 drop BID [facility] Administration Impression 1. likely CKD 2. HTN 3. DVT 4. dementia Plan - no new labs - check bmp - pt likely has CKD - outpt workup - neuro input appreciated - will follow Dr Lafleur
--- NOTE | 2016-11-02 16:29 | PN ---
Teaching Attending Note Name of Resident: Sara Robin ATTENDING PHYSICIAN STATEMENT I saw and evaluated the patient. I reviewed the resident's note and discussed the case with the resident. I agree with the resident's findings and plan as documented. SUBJECTIVE: no fever or chills . no pain OBJECTIVE: NAD, awake, alert, cooperative. CV: RRR Lungs : CTAB Ext : no edema ASSESSMENT AND PLAN: 76 y/o man with h/o HTN, dementia , and recent DVT ( in Jun per records ) , who was brought by [facility] after being found [place] 1- Advanced dementia : - cont Aricept 5 mg .increase after 1 month to 10 - cont NAmenda 5 BID . increase to 10 bid when stable on aricept 2- MAX: no base line to compare to. refused blood work today - records requested from [facility] again - off IVF - ? CKD - likely will not resume lasix at dc 3- R popliteal DVT: likely when he was in [facility] in Jun. cont elibet[place] 4- HTN : cont norvasc d/w case management team re. placement
[2016-11-02 18:08] LABS: CALCIUM 8.9 mg/dL (8.5-10.1); COCKROFT - GAULT 40.94; CREATININE 1.6 mg/dL (0.7-1.3)
[2016-11-03] MEDS: APIXABAN 5 MG TABLET PO SCH (09:06)
[2016-11-03] MEDS: amLODIPine BESYLATE 2.5 MG TABLET (FP) PO SCH (09:06)
[2016-11-03] MEDS: TIMOLOL 0.25% OPHTHALMIC SOL 5 ML BOTTLE OU SCH ×2 (09:06→22:06)
[2016-11-03] MEDS: MEMANTINE HCL 5 MG TABLET (UD) PO SCH ×2 (09:06→22:04)
[2016-11-03] MEDS: DONEPEZIL HCL 5 MG TABLET (FP) PO SCH (09:06)
--- NOTE | 2016-11-03 10:16 | PN ---
Progress Note (short form) - Note Progress Note: Subjective: no fever or chills . NO SOB or CP . Objective: Vital Signs: Last Vital Signs Temp Pulse Resp BP Pulse Ox 97.9 F 63 16 126/70 98 11/03/16 08:42 11/03/16 08:42 11/03/16 08:42 11/03/16 08:42 11/02/16 21:00 Laboratory Results - last 24 hr 11/02/16 16:30 Sodium 141 Potassium 4.6 Chloride 105 Carbon Dioxide 26 Anion Gap 10 BUN 24 H Creatinine 1.6 H Random Glucose 88 D Calcium 8.9 Physical Exam: NAD, awake, alert, cooperative. CV: RRR Lungs : CTAB Ext : no edema ASSESSMENT AND PLAN: 76 y/o man with h/o HTN, dementia , and recent DVT ( in Jun per records ) , who was brought by [facility] after being found [place] 1- Advanced dementia : - cont Aricept 5 mg .increase after 1 month to 10 - cont NAmenda 5 BID . increase to 10 bid when stable on aricept 2- MAX: no base line to compare to. Cr stabilized , likely has CKD . - records requested from [facility] , are still pending - off IVF - likely will not resume lasix at dc - will not check labs tomorrow 3- R popliteal DVT: likely when he was in [facility] in Jun. cont eliquis 4- HTN : cont norvasc pending placement Visit type - Emergency Visit Emergency Visit: Yes ED Registration Date: 10/28/16 Care time: The patient presented to the Emergency Department on the above date and was hospitalized for further evaluation of their emergent condition. - New Patient This patient is new to me today: No - Critical Care Critical Care patient: No
--- NOTE | 2016-11-03 13:22 | PN ---
Progress Note, Physician History of Present Illness: Pt seen and examined at bedside. He is awake and appears comfortable. He is confused. Mental status has not changed. - Current Medication List Current Medications: Active Medications Amlodipine Besylate (Norvasc -) 2.5 mg PO DAILY [facility] Last Admin: 11/03/16 09:06 Dose: 2.5 mg Apixaban (Eliquis -) 5 mg PO DAILY [facility] Last Admin: 11/03/16 09:06 Dose: 5 mg Donepezil HCl (Aricept -) 5 mg PO DAILY [facility] Last Admin: 11/03/16 09:06 Dose: 5 mg Memantine (Namenda -) 5 mg PO BID [facility] Last Admin: 11/03/16 09:06 Dose: 5 mg Timolol Maleate (Timoptic 0.25%) 1 drop OU BID [facility] Last Admin: 11/03/16 09:06 Dose: 1 drop - Objective Vital Signs: Vital Signs Temperature 97.9 F 11/03/16 08:42 Pulse Rate 63 11/03/16 08:42 Respiratory Rate 16 11/03/16 08:42 Blood Pressure 126/70 11/03/16 08:42 O2 Sat by Pulse Oximetry (%) 97 11/03/16 09:00 Constitutional: Yes: Calm Eyes: Yes: Conjunctiva Clear HENT: Yes: Atraumatic Neck: Yes: Supple Cardiovascular: Yes: S1, S2 Respiratory: Yes: CTA Bilaterally Gastrointestinal: Yes: Soft Genitourinary: Yes: WNL Musculoskeletal: Yes: WNL Edema: Yes Edema: LLE: Trace, RLE: Trace Neurological: Yes: Confusion Labs: CBC, BMP 10/30/16 06:00 11/02/16 16:30 INR, PTT INR 1.14 (0.82-1.09) 10/28/16 20:30 Problem List - Problems (1) Altered mental status Code(s): R41.82 - ALTERED MENTAL STATUS, UNSPECIFIED Qualifiers: Altered mental status type: unspecified Qualified Code(s): R41.82 - Altered mental status, unspecified (2) DVT (deep venous thrombosis) Code(s): I82.409 - ACUTE EMBOLISM AND THOMBOS UNSP DEEP VN UNSP LOWER EXTREMITY Qualifiers: DVT location: lower extremity Affected thrombotic vein of extremity: popliteal Laterality: right Chronicity: unspecified Qualified Code(s): I82.431 - Acute embolism and thrombosis of right popliteal vein (3) Renal insufficiency Code(s): N28.9 - DISORDER OF KIDNEY AND URETER, UNSPECIFIED (4) Alzheimer's dementia Code(s): G30.9 - ALZHEIMER'S DISEASE, UNSPECIFIED Assessment/Plan Current Medications Generic Name Dose Route Start Last Admin Trade Name Mona PRN Reason Stop Dose Admin Amlodipine Besylate 2.5 mg 11/01/16 10:00 11/03/16 09:06 Norvasc - PO 2.5 mg DAILY [facility] Administration Apixaban 5 mg 11/01/16 10:00 11/03/16 09:06 Eliquis - PO 5 mg DAILY [facility] Administration Donepezil HCl 5 mg 10/31/16 10:00 11/03/16 09:06 Aricept - PO 5 mg DAILY [facility] Administration Memantine 5 mg 10/31/16 22:00 11/03/16 09:06 Namenda - PO 5 mg BID [facility]I Administration Timolol Maleate 1 drop 11/01/16 10:00 11/03/16 09:06 Timoptic 0.25% OU 1 drop BID [facility]I Administration Impression 1. likely CKD 2. HTN 3. DVT 4. dementia Plan - pt likely has CKD, can have workup done as outpt - can increase norvasc to 5 mg if bp is is elevated - neuro input appreciated - will need placement - will follow PRN Dr Lafleur
--- NOTE | 2016-11-03 16:57 | PN ---
Progress Note (short form) - Note Progress Note: NEUROLOGY FOLLOW-UP: Events reviewed. Patient examined. Tolerating donepezil 5mg and namenda 5 mg BID. B12, TSH, RPR- normal or negative Exam: Friendly and cooperative. O x [place]. [place] but not the month, year, or day of the week. Otherwise, non-focal exam with stable gait. IMP: Moderately severe OMS c/w Alzheimer's Disease (AD). SUGGEST: OK to increase donepezil to 10 mg PO after breakfast. Continue namenda 5 BID for now. Increase to 10 BID, after food, in one month Patient seems better on meds. See if sister can be convinced to take him back, on meds, with babyproofing of doors vs. wandering. Thank you very much, Pasquale Bruce MD
[2016-11-04] MEDS: DONEPEZIL HCL 5 MG TABLET (FP) PO SCH (09:27)
[2016-11-04] MEDS: amLODIPine BESYLATE 2.5 MG TABLET (FP) PO SCH (09:27)
[2016-11-04] MEDS: TIMOLOL 0.25% OPHTHALMIC SOL 5 ML BOTTLE OU SCH ×2 (09:27→21:34)
[2016-11-04] MEDS: MEMANTINE HCL 5 MG TABLET (UD) PO SCH ×2 (09:27→21:35)
[2016-11-04] MEDS: APIXABAN 5 MG TABLET PO SCH (09:27)
--- NOTE | 2016-11-04 15:13 | PN ---
Progress Note (short form) - Note Progress Note: Subjective: no fever or chills . NO SOB or CP . Objective: Vital Signs: Last Vital Signs Temp Pulse Resp BP Pulse Ox 98.3 F 63 16 114/70 98 11/04/16 09:31 11/04/16 09:31 11/04/16 09:31 11/04/16 09:31 11/04/16 09:00 Physical Exam: NAD, awake, alert, cooperative. CV: RRR Lungs : CTAB Ext : no edema ASSESSMENT AND PLAN: 76 y/o man with h/o HTN, dementia , and recent DVT ( in Jun per records ) , who was brought by [facility] after being found [place] 1- Advanced dementia : - increase aricept to 10 - cont NAmenda 5 BID . increase to 10 bid when stable on aricept 2- MAX: no base line to compare to. Cr stabilized , likely has CKD . - records from OSH pending - off IVF - likely will not resume lasix at dc -try labs tomorrow 3- R popliteal DVT: likely when he was in [facility] in Jun. cont eliquis 4- HTN : cont norvasc pending placement Visit type - Emergency Visit Emergency Visit: Yes ED Registration Date: 10/28/16 Care time: The patient presented to the Emergency Department on the above date and was hospitalized for further evaluation of their emergent condition. - New Patient This patient is new to me today: No - Critical Care Critical Care patient: No
[2016-11-04] MEDS ORDERED: PT OWN MED DRAWER 7, Y5N ONE (22:33)
[2016-11-05] MEDS ORDERED: PT OWN MED DRAWER 7, Y5N ONE ×2 (08:50→21:08)
[2016-11-05 08:54] LABS: CALCIUM 8.7 mg/dL (8.5-10.1); COCKROFT - GAULT 38.54; CREATININE 1.7 mg/dL (0.7-1.3)
[2016-11-05] MEDS: TIMOLOL 0.25% OPHTHALMIC SOL 5 ML BOTTLE OU SCH ×2 (09:02→21:44)
[2016-11-05] MEDS: APIXABAN 5 MG TABLET PO SCH (09:02)
[2016-11-05] MEDS: DONEPEZIL HCL 5 MG TABLET (FP) PO SCH (09:02)
[2016-11-05] MEDS: MEMANTINE HCL 5 MG TABLET (UD) PO SCH ×2 (09:02→21:44)
[2016-11-05] MEDS: amLODIPine BESYLATE 2.5 MG TABLET (FP) PO SCH (09:02)
--- NOTE | 2016-11-05 11:43 | PN ---
Physical Exam: SUBJECTIVE: Patient seen and examined at bed side this morning. Wants to go home. No complaints. Denies fever, chills, rigors, sweating, chest pain, sob, cough, palpitation, abdominal pain, nausea or vomiting. Bowel/Bladder habit normal. Sleep/Appetite normal. OBJECTIVE: Vital Signs Period Temp Pulse Resp BP Sys/[place] Pulse Ox Last 24 Hr 97.8 F-99.1 F 59-70 18-20 120-153/68-87 98-99 GENERAL: The patient is awake, alert, and oriented to time, place and person, in no acute distress. HEAD: Normal with no signs of trauma. EYES: PERRL, extraocular movements intact, sclera anicteric, conjunctiva clear. No ptosis. ENT: Ears normal, nares patent, oropharynx clear without exudates, moist mucous membranes. NECK: Trachea midline, full range of motion, supple, has a small lump-mobile, painless. LUNGS: Breath sounds equal, clear to auscultation bilaterally, no wheezes, no crackles, no accessory muscle use. HEART: Regular rate and rhythm, S1, S2 without murmur. ABDOMEN: Soft, nontender, nondistended, normoactive bowel sounds, no guarding, no rebound, no hepatosplenomegaly, no masses. EXTREMITIES: 2+ pulses, warm, well-perfused, no edema. NEUROLOGICAL: Cranial nerves II through XII grossly intact. No facial droop. All reflexes intact. Normal speech, gait not observed. PSYCH: Normal mood, normal affect. SKIN: Warm, dry, normal turgor, no rashes or lesions noted Laboratory Results - last 24 hr 11/05/16 08:15 Sodium 141 Potassium 4.6 Chloride 104 Carbon Dioxide 28 Anion Gap 9 BUN 28 H Creatinine 1.7 H Random Glucose 100 Calcium 8.7 Active Medications Generic Name Dose Route Start Last Admin Trade Name Freq PRN Reason Stop Dose Admin Amlodipine Besylate 2.5 mg 11/01/16 10:00 11/05/16 09:02 Norvasc - PO 2.5 mg DAILY SAVI Administration Apixaban 5 mg 11/01/16 10:00 11/05/16 09:02 Eliquis - PO 5 mg DAILY SAVI Administration Donepezil HCl 10 mg 11/04/16 07:54 11/05/16 09:02 Aricept - PO 10 mg DAILY SAVI Administration Memantine 5 mg 10/31/16 22:00 11/05/16 09:02 Namenda - PO 5 mg BID SAVI Administration Timolol Maleate 1 drop 11/01/16 10:00 11/05/16 09:02 Timoptic 0.25% OU 1 drop BID SAVI Administration ASSESSMENT/PLAN: Patient is a 76 year old male with pmh of right lower ext DVT, Alzheimer Dementia present to the ED brought by EMS for altered mental status. 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 # Confusion most likely due to worsening Alzheimers. Admitted in Med-Surg Fall Precautions Continue Memantine 5mg PO BID and Donepezil 10mg Daily, as per Neuro. # Acute Kidney Injury with questionable CKD Creatinine today 1.7, baseline unknown Avoid nephrotoxic drugs # Right Popliteal DVT Patient on Elliquis 5mg PO daily, most likely due to old DVT (Patient was being treated at [facility]- Medical release form (got verbal consent over the phone from patients brother Mr. Nila Garcia), second witness AMMY Kumar, faxed to [phone], waiting for the results). # Hypertension-Controlled Continue Norvasc 2.5mg Daily Hold Lasix 20mg PO daily # Hyperlipidemia Cholesterol-233; LDL 169 Diet control for now and to monitor outpatient. # Glaucoma Continue Timolol 0.25% OU BID # FEN IV fluids stopped Electrolytes to be repeated tomorrow morning. Chol/Fat/Sodium restricted diet # Prophylaxis For DVT: Patient already on Elliquis For GI: Not indicated # Code Status: Full Code # Disposition: Admit to Med-surg. terrazzo worker apprentice is on board. Would be better for the patient to be transferred to a dementia unit. Confirmed his medications with patients brother. Illness, Investigation and Plan of care explained to the patient. He verbalized understanding. Case discussed with Dr. Junior. Problem List - Problems (1) Altered mental status Code(s): R41.82 - ALTERED MENTAL STATUS, UNSPECIFIED Qualifiers: Altered mental status type: unspecified Qualified Code(s): R41.82 - Altered mental status, unspecified (2) DVT (deep venous thrombosis) Code(s): I82.409 - ACUTE EMBOLISM AND THOMBOS UNSP DEEP VN UNSP LOWER EXTREMITY Qualifiers: DVT location: lower extremity Affected thrombotic vein of extremity: popliteal Chronicity: unspecified Laterality: right Qualified Code(s): I82.431 - Acute embolism and thrombosis of right popliteal vein (3) Renal insufficiency Code(s): N28.9 - DISORDER OF KIDNEY AND URETER, UNSPECIFIED Visit type - Emergency Visit Emergency Visit: Yes ED Registration Date: 10/28/16 Care time: The patient presented to the Emergency Department on the above date and was hospitalized for further evaluation of their emergent condition. - New Patient This patient is new to me today: No - Critical Care Critical Care patient: No - Discharge Referral [facility]erred [facility] No
--- NOTE | 2016-11-05 13:42 | PN ---
Teaching Attending Note Name of Resident: Sara Robin ATTENDING PHYSICIAN STATEMENT I saw and evaluated the patient. I reviewed the resident's note and discussed the case with the resident. I agree with the resident's findings and plan as documented. SUBJECTIVE: no fever or chills , no pain. OBJECTIVE: NAD, awake, alert, cooperative. CV: RRR Lungs : CTAB Ext : no edema ASSESSMENT AND PLAN: 76 y/o man with h/o HTN, dementia , and recent DVT ( in Jun per records ) , who was brought by POlice after being found wondering 1- Advanced dementia : - cont aricept - cont NAmenda 5 BID . increase to 10 bid when stable on aricept as out pt 2- MAX: Cr stabilized , likely has CKD . - likely will not resume lasix at dc 3- R popliteal DVT: likely when he was in [facility] in Jun. cont eliquis 4- HTN : cont norvasc pending placement
--- NOTE | 2016-11-05 16:19 | PN ---
Progress Note, Physician History of Present Illness: Pt seen and examined at bedside. He has no complaints. - Current Medication List Current Medications: Active Medications Amlodipine Besylate (Norvasc -) 2.5 mg PO DAILY [facility] Last Admin: 11/05/16 09:02 Dose: 2.5 mg Apixaban (Eliquis -) 5 mg PO DAILY [facility] Last Admin: 11/05/16 09:02 Dose: 5 mg Donepezil HCl (Aricept -) 10 mg PO DAILY [facility] Last Admin: 11/05/16 09:02 Dose: 10 mg Memantine (Namenda -) 5 mg PO BID [facility] Last Admin: 11/05/16 09:02 Dose: 5 mg Timolol Maleate (Timoptic 0.25%) 1 drop OU BID [facility] Last Admin: 11/05/16 09:02 Dose: 1 drop - Objective Vital Signs: Vital Signs Temperature 98.3 F 11/05/16 15:07 Pulse Rate 61 11/05/16 15:07 Respiratory Rate 20 11/05/16 15:07 Blood Pressure 148/68 11/05/16 15:07 O2 Sat by Pulse Oximetry (%) 99 11/05/16 09:00 Constitutional: Yes: Calm Eyes: Yes: Conjunctiva Clear HENT: Yes: Atraumatic Cardiovascular: Yes: S1, S2 Gastrointestinal: Yes: Normal Bowel Sounds, Soft Genitourinary: Yes: WNL Extremities: Yes: WNL Edema: No Integumentary: Yes: WNL Neurological: Yes: Confusion Labs: CBC, BMP 10/30/16 06:00 11/05/16 08:15 INR, PTT INR 1.14 (0.82-1.09) 10/28/16 20:30 Problem List - Problems (1) Altered mental status Code(s): R41.82 - ALTERED MENTAL STATUS, UNSPECIFIED Qualifiers: Altered mental status type: unspecified Qualified Code(s): R41.82 - Altered mental status, unspecified (2) DVT (deep venous thrombosis) Code(s): I82.409 - ACUTE EMBOLISM AND THOMBOS UNSP DEEP VN UNSP LOWER EXTREMITY Qualifiers: DVT location: lower extremity Affected thrombotic vein of extremity: popliteal Chronicity: unspecified Laterality: right Qualified Code(s): I82.431 - Acute embolism and thrombosis of right popliteal vein (3) Renal insufficiency Code(s): N28.9 - DISORDER OF KIDNEY AND URETER, UNSPECIFIED (4) Alzheimer's dementia Code(s): G30.9 - ALZHEIMER'S DISEASE, UNSPECIFIED Assessment/Plan Current Medications Generic Name Dose Route Start Last Admin Trade Name Mona PRN Reason Stop Dose Admin Amlodipine Besylate 2.5 mg 11/01/16 10:00 11/05/16 09:02 Norvasc - PO 2.5 mg DAILY SAVI Administration Apixaban 5 mg 11/01/16 10:00 11/05/16 09:02 Eliquis - PO 5 mg DAILY SAVI Administration Donepezil HCl 10 mg 11/04/16 07:54 11/05/16 09:02 Aricept - PO 10 mg DAILY SAVI Administration Memantine 5 mg 10/31/16 22:00 11/05/16 09:02 Namenda - PO 5 mg BID SAVI Administration Timolol Maleate 1 drop 11/01/16 10:00 11/05/16 09:02 Timoptic 0.25% OU 1 drop BID SAVI Administration Impression 1. likely CKD 2. HTN 3. DVT 4. dementia Plan - can get a CKD workup as outpt, urine is negative for blood or protein - pt appears euvolemic, will not start diuretics - can increase norvasc to 5 mg if bp is is elevated - will need placement - will follow PRN Dr Lafleur
[2016-11-06] MEDS ORDERED: PT OWN MED DRAWER 7, Y5N ONE (09:49)
[2016-11-06] MEDS: amLODIPine BESYLATE 2.5 MG TABLET (FP) PO SCH (10:05)
[2016-11-06] MEDS: APIXABAN 5 MG TABLET PO SCH (10:05)
[2016-11-06] MEDS: DONEPEZIL HCL 5 MG TABLET (FP) PO SCH (10:05)
[2016-11-06] MEDS: MEMANTINE HCL 5 MG TABLET (UD) PO SCH ×2 (10:05→21:42)
[2016-11-06] MEDS: TIMOLOL 0.25% OPHTHALMIC SOL 5 ML BOTTLE OU SCH ×2 (10:06→21:43)
--- NOTE | 2016-11-06 15:22 | PN ---
Teaching Attending Note Name of Resident: Sara Robin ATTENDING PHYSICIAN STATEMENT I saw and evaluated the patient. I reviewed the resident's note and discussed the case with the resident. I agree with the resident's findings and plan as documented. SUBJECTIVE: no pain, no SOB OBJECTIVE: NAD, awake, alert, cooperative. CV: RRR Lungs : CTAB Ext : no edema ASSESSMENT AND PLAN: 76 y/o man with h/o HTN, dementia , and recent DVT ( in Jun per records ) , who was brought by POlice after being found [place] 1- Advanced dementia : - cont aricept - cont Namenda 5 BID . increase to 10 bid when stable on aricept as out pt 2- MAX: Cr stabilized , likely has CKD . -will not resume lasix at dc - f/u with renal as out pt 3- R popliteal DVT: cont eliquis x 3-6 months 4- HTN : cont norvasc pending placement
--- NOTE | 2016-11-06 20:11 | PN ---
Physical Exam: SUBJECTIVE: Patient seen and examined at bed side this morning. Reports that he is waiting for his brother to come and pick him up to go home. No complaints. Denies fever, chills, rigors, sweating, chest pain, sob, cough, palpitation, abdominal pain, nausea or vomiting. Bowel/Bladder habit normal. Sleep/Appetite normal OBJECTIVE: Vital Signs Period Temp Pulse Resp BP Sys/[place] Pulse Ox Last 24 Hr 97.7 F-98.9 F 53-72 16-20 128-160/63-87 98 GENERAL: The patient is awake, alert, and oriented to time, place and person, in no acute distress. HEAD: Normal with no signs of trauma. EYES: PERRL, extraocular movements intact, sclera anicteric, conjunctiva clear. No ptosis. ENT: Ears normal, nares patent, oropharynx clear without exudates, moist mucous membranes. NECK: Trachea midline, full range of motion, supple, has a small lump-mobile, painless. LUNGS: Breath sounds equal, clear to auscultation bilaterally, no wheezes, no crackles, no accessory muscle use. HEART: Regular rate and rhythm, S1, S2 without murmur. ABDOMEN: Soft, nontender, nondistended, normoactive bowel sounds, no guarding, no rebound, no hepatosplenomegaly, no masses. EXTREMITIES: 2+ pulses, warm, well-perfused, no edema. NEUROLOGICAL: Cranial nerves II through XII grossly intact. No facial droop. All reflexes intact. Normal speech, gait not observed. PSYCH: Normal mood, normal affect. SKIN: Warm, dry, normal turgor, no rashes or lesions noted Active Medications Generic Name Dose Route Start Last Admin Trade Name Emigdioq PRN Reason Stop Dose Admin Amlodipine Besylate 2.5 mg 11/01/16 10:00 11/06/16 10:05 Norvasc - PO 2.5 mg DAILY SAVI Administration Apixaban 5 mg 11/01/16 10:00 11/06/16 10:05 Eliquis - PO 5 mg DAILY SAVI Administration Donepezil HCl 10 mg 11/04/16 07:54 11/06/16 10:05 Aricept - PO 10 mg DAILY SAVI Administration Memantine 5 mg 10/31/16 22:00 11/06/16 10:05 Namenda - PO 5 mg BID SAVI Administration Timolol Maleate 1 drop 11/01/16 10:00 11/06/16 10:06 Timoptic 0.25% OU 1 drop BID SAVI Administration ASSESSMENT/PLAN: Patient is a 76 year old male with pmh of right lower ext DVT, Alzheimer Dementia present to the ED brought by EMS for altered mental status. 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 # Confusion most likely due to worsening Alzheimers. Admitted in Med-Surg Fall Precautions Continue Memantine 5mg PO BID and Donepezil 10mg Daily, as per Neuro. # Acute Kidney Injury with questionable CKD Creatinine today 1.7, baseline unknown Avoid nephrotoxic drugs Upon discharge, refer to Nephro. # Right Popliteal DVT Patient on Elliquis 5mg PO daily and to continue for 3-6 months. (Patient was being treated at [facility]- Medical release form (got verbal consent over the phone from patients brother Mr. Nila Garcia), second witness AMMY Kumar, faxed to [phone], waiting for the results). # Hypertension-Controlled Continue Norvasc 2.5mg Daily Hold Lasix 20mg PO daily # Hyperlipidemia Cholesterol-233; LDL 169 Diet control for now and to monitor outpatient. # Glaucoma Continue Timolol 0.25% OU BID # FEN IV fluids stopped Electrolytes to be repeated tomorrow morning. Chol/Fat/Sodium restricted diet # Prophylaxis For DVT: Patient already on Elliquis For GI: Not indicated # Code Status: Full Code # Disposition: Admit to [facility]. harvest worker is on board, pending placement. Confirmed his medications with patients brother. Illness, Investigation and Plan of care explained to the patient. He verbalized understanding. Case discussed with Dr. Junior. Problem List - Problems (1) Altered mental status Code(s): R41.82 - ALTERED MENTAL STATUS, UNSPECIFIED Qualifiers: Altered mental status type: unspecified Qualified Code(s): R41.82 - Altered mental status, unspecified (2) DVT (deep venous thrombosis) Code(s): I82.409 - ACUTE EMBOLISM AND THOMBOS UNSP DEEP VN UNSP LOWER EXTREMITY Qualifiers: DVT location: lower extremity Affected thrombotic vein of extremity: popliteal Chronicity: unspecified Laterality: right Qualified Code(s): I82.431 - Acute embolism and thrombosis of right popliteal vein (3) Renal insufficiency Code(s): N28.9 - DISORDER OF KIDNEY AND URETER, UNSPECIFIED Visit type - Emergency Visit Emergency Visit: Yes ED Registration Date: 10/28/16 Care time: The patient presented to the Emergency Department on the above date and was hospitalized for further evaluation of their emergent condition. - New Patient This patient is new to me today: No - Critical Care Critical Care patient: No - Discharge Referral Referred to [facility] Med P.C.: No
[2016-11-07] MEDS ORDERED: PT OWN MED DRAWER 7, Y5N ONE ×3 (02:04→21:38)
[2016-11-07] MEDS: MEMANTINE HCL 5 MG TABLET (UD) PO SCH ×2 (09:46→21:14)
[2016-11-07] MEDS: APIXABAN 5 MG TABLET PO SCH (09:46)
[2016-11-07] MEDS: amLODIPine BESYLATE 2.5 MG TABLET (FP) PO SCH (09:46)
[2016-11-07] MEDS: DONEPEZIL HCL 5 MG TABLET (FP) PO SCH (09:46)
[2016-11-07] MEDS: TIMOLOL 0.25% OPHTHALMIC SOL 5 ML BOTTLE OU SCH ×2 (09:47→21:15)
--- NOTE | 2016-11-07 15:30 | PN ---
Physical Exam: SUBJECTIVE: Patient seen and examined at bed side this morning. No complaints. Denies chest pain, fever, chills, rigors, sweating, chest pain, sob, cough, palpitation, abdominal pain, nausea or vomiting. Bowel/Bladder habit normal. Sleep/Appetite normal OBJECTIVE: Vital Signs Period Temp Pulse Resp BP Sys/[place] Pulse Ox Last 24 Hr 98.2 F-98.9 F 55-68 16-20 128-162/75-89 98 GENERAL: The patient is awake, alert, and fully oriented, in no acute distress. HEAD: Normal with no signs of trauma. EYES: PERRL, extraocular movements intact, sclera anicteric, conjunctiva clear. No ptosis. ENT: Ears normal, nares patent, oropharynx clear without exudates, moist mucous membranes. NECK: Trachea midline, full range of motion, supple. LUNGS: Breath sounds equal, clear to auscultation bilaterally, no wheezes, no crackles, no accessory muscle use. HEART: Regular rate and rhythm, S1, S2 without murmur, rub or gallop. ABDOMEN: Soft, nontender, nondistended, normoactive bowel sounds, no guarding, no rebound, no hepatosplenomegaly, no masses. EXTREMITIES: 2+ pulses, warm, well-perfused, no edema. NEUROLOGICAL: Cranial nerves II through XII grossly intact. Normal speech, gait not observed. PSYCH: Normal mood, normal affect. SKIN: Warm, dry, normal turgor, no rashes or lesions noted Active Medications Generic Name Dose Route Start Last Admin Trade Name Freq PRN Reason Stop Dose Admin Amlodipine Besylate 2.5 mg 11/01/16 10:00 11/07/16 09:46 Norvasc - PO 2.5 mg DAILY SAVI Administration Apixaban 5 mg 11/01/16 10:00 11/07/16 09:46 Eliquis - PO 5 mg DAILY SAVI Administration Donepezil HCl 10 mg 11/04/16 07:54 11/07/16 09:46 Aricept - PO 10 mg DAILY SAVI Administration Memantine 5 mg 10/31/16 22:00 11/07/16 09:46 Namenda - PO 5 mg BID SAVI Administration Timolol Maleate 1 drop 11/01/16 10:00 11/07/16 09:47 Timoptic 0.25% OU 1 drop BID SAVI Administration ASSESSMENT/PLAN: Patient is a 76 year old male with pmh of right lower ext DVT, Alzheimer Dementia present to the ED brought by EMS for altered mental status. 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 # Confusion most likely due to worsening Alzheimers. Admitted in Med-Surg Fall Precautions Continue Memantine 5mg PO BID and Donepezil 10mg Daily, as per Neuro. # Acute Kidney Injury with questionable CKD Creatinine 11/05/16 was 1.7 (refused labs so no recent labs) baseline creatinine unknown Avoid nephrotoxic drugs Upon discharge, refer to Nephro. # Right Popliteal DVT Patient on Elliquis 5mg PO daily and to continue for 3-6 months. # Hypertension-Controlled Continue Norvasc 2.5mg Daily # Hyperlipidemia Cholesterol-233; LDL 169 Diet control for now and to monitor outpatient. # Glaucoma Continue Timolol 0.25% OU BID # FEN NOt on IV fluids. Electrolytes to be repeated tomorrow morning. Chol/Fat/Sodium restricted diet # Prophylaxis For DVT: Patient already on Elliquis For GI: Not indicated # Code Status: Full Code # Disposition: Admit to Med-surg. lime kiln worker is on board, pending placement. Confirmed his medications with patients brother. Illness, Investigation and Plan of care explained to the patient and his sister (Christianne [phone]). They verbalized understanding. Case discussed with Dr. Rodriguez. Problem List - Problems (1) Altered mental status Code(s): R41.82 - ALTERED MENTAL STATUS, UNSPECIFIED Qualifiers: Altered mental status type: unspecified Qualified Code(s): R41.82 - Altered mental status, unspecified (2) DVT (deep venous thrombosis) Code(s): I82.409 - ACUTE EMBOLISM AND THOMBOS UNSP DEEP VN UNSP LOWER EXTREMITY Qualifiers: DVT location: lower extremity Affected thrombotic vein of extremity: popliteal Chronicity: unspecified Laterality: right Qualified Code(s): I82.431 - Acute embolism and thrombosis of right popliteal vein (3) Renal insufficiency Code(s): N28.9 - DISORDER OF KIDNEY AND URETER, UNSPECIFIED Visit type - Emergency Visit Emergency Visit: Yes ED Registration Date: 10/28/16 Care time: The patient presented to the Emergency Department on the above date and was hospitalized for further evaluation of their emergent condition. - New Patient This patient is new to me today: No - Critical Care Critical Care patient: No - Discharge Referral Referred to [facility] Med [facility].C.: No
--- NOTE | 2016-11-07 20:56 | PN ---
Teaching Attending Note Name of Resident: Sara Robin ATTENDING PHYSICIAN STATEMENT I saw and evaluated the patient. I reviewed the resident's note and discussed the case with the resident. I agree with the resident's findings and plan as documented. SUBJECTIVE: No new changes, comfortable. OBJECTIVE: Vital Signs Temperature 98.7 F 11/07/16 18:26 Pulse Rate 67 11/07/16 18:26 Respiratory Rate 18 11/07/16 20:02 Blood Pressure 141/63 11/07/16 18:26 O2 Sat by Pulse Oximetry (%) 100 11/07/16 20:02 CBCD WBC 6.0 K/mm3 (4.0-10.0) 10/30/16 06:00 RBC 4.33 M/mm3 (4.00-5.60) 10/30/16 06:00 Hgb 12.9 GM/dL (11.7-16.9) 10/30/16 06:00 Hct 38.2 % (35.4-49) 10/30/16 06:00 MCV 88.2 fl (80-96) 10/30/16 06:00 MCHC 33.9 g/dl (32.0-35.9) 10/30/16 06:00 RDW 14.3 % (11.9-15.9) 10/30/16 06:00 Plt Count 158 K/MM3 (134-434) 10/30/16 06:00 MPV 8.4 fl (7.5-11.1) 10/30/16 06:00 CMP Sodium 141 mmol/L (136-145) 11/05/16 08:15 Potassium 4.6 mmol/L (3.5-5.1) 11/05/16 08:15 Chloride 104 mmol/L (98-107) 11/05/16 08:15 Carbon Dioxide 28 mmol/L (21-32) 11/05/16 08:15 Anion Gap 9 (8-16) 11/05/16 08:15 BUN 28 mg/dL (7-18) H 11/05/16 08:15 Creatinine 1.7 mg/dL (0.7-1.3) H 11/05/16 08:15 Creat Clearance w eGFR 36.97 (>60) 10/30/16 06:00 Random Glucose 100 mg/dL (74-106) 11/05/16 08:15 Calcium 8.7 mg/dL (8.5-10.1) 11/05/16 08:15 Total Bilirubin 0.3 mg/dL (0.2-1.0) D 10/30/16 06:00 AST 22 U/L (15-37) D 10/30/16 06:00 ALT 30 U/L (12-78) D 10/30/16 06:00 Alkaline Phosphatase 58 U/L (45-117) 10/30/16 06:00 Total Protein 6.0 g/dl (6.4-8.2) L 10/30/16 06:00 Albumin 2.9 g/dl (3.4-5.0) L D 10/30/16 06:00 CARDIAC ENZYMES Creatine Kinase 88 IU/L (39-308) 10/31/16 06:00 Troponin I < 0.02 ng/ml (0.00-0.05) 10/28/16 20:30 Current Medications Generic Name Dose Route Start Last Admin Trade Name Mona PRN Reason Stop Dose Admin Amlodipine Besylate 2.5 mg 11/01/16 10:00 11/07/16 09:46 Norvasc - PO 2.5 mg DAILY SAVI Administration Apixaban 5 mg 11/01/16 10:00 11/07/16 09:46 Eliquis - PO 5 mg DAILY SAVI Administration Donepezil HCl 10 mg 11/04/16 07:54 11/07/16 09:46 Aricept - PO 10 mg DAILY SAVI Administration Memantine 5 mg 10/31/16 22:00 11/07/16 09:46 Namenda - PO 5 mg BID SAVI Administration Timolol Maleate 1 drop 11/01/16 10:00 11/07/16 09:47 Timoptic 0.25% OU 1 drop BID SAVI Administration ASSESSMENT AND PLAN: 76 y/o man with h/o HTN, dementia , and recent DVT ( in Jun per records ) , who was brought by POlice after being found [place] # Advanced dementia : cont aricept , cont Namenda 5 BID . increase to 10 bid when stable on aricept as out pt # MAX: Cr stabilized , likely has CKD . will not resume lasix at dc , f/u with renal as out pt # R popliteal DVT: cont eliquis x 3-6 months # HTN : cont norvasc pending placement
--- NOTE | 2016-11-08 08:20 | PN ---
Physical Exam: SUBJECTIVE: Patient seen and examined at bed side. Says " Please don't take my blood". no complaints. Wants to go home. OBJECTIVE: Vital Signs Period Temp Pulse Resp BP Sys/[place]ada Pulse Ox Last 24 Hr 97.8 F-98.7 F 56-67 16-20 125-162/63-89 100-100 GENERAL: The patient is awake, alert, and fully oriented, in no acute distress. HEAD: Normal with no signs of trauma. EYES: PERRL, extraocular movements intact, sclera anicteric, conjunctiva clear. No ptosis. ENT: Ears normal, nares patent, oropharynx clear without exudates, moist mucous membranes. NECK: Trachea midline, full range of motion, supple. LUNGS: Breath sounds equal, clear to auscultation bilaterally, no wheezes, no crackles, no accessory muscle use. HEART: Regular rate and rhythm, S1, S2 without murmur, rub or gallop. ABDOMEN: Soft, non tender, non distended, normo active bowel sounds, no guarding , no rebound, no hepato-splenomegaly, no masses. EXTREMITIES: 2+ pulses, warm, well-perfused, no edema. NEUROLOGICAL: Cranial nerves II through XII grossly intact. Normal speech, gait not observed. PSYCH: Normal mood, normal affect. SKIN: Warm, dry, normal turgor, no rashes or lesions noted Active Medications Generic Name Dose Route Start Last Admin Trade Name Freq PRN Reason Stop Dose Admin Amlodipine Besylate 2.5 mg 11/01/16 10:00 11/07/16 09:46 Norvasc - PO 2.5 mg DAILY SAVI Administration Apixaban 5 mg 11/01/16 10:00 11/07/16 09:46 Eliquis - PO 5 mg DAILY SAVI Administration Donepezil HCl 10 mg 11/04/16 07:54 11/07/16 09:46 Aricept - PO 10 mg DAILY SAVI Administration Memantine 5 mg 10/31/16 22:00 11/07/16 21:14 Namenda - PO 5 mg BID SAVI Administration Timolol Maleate 1 drop 11/01/16 10:00 11/07/16 21:15 Timoptic 0.25% OU 1 drop BID SAVI Administration ASSESSMENT/PLAN: Patient is a 76 year old male with pmh of right lower ext DVT, Alzheimer Dementia present to the ED brought by EMS for altered mental status. 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 # Confusion most likely due to worsening Alzheimers. Admitted in Med-Surg Fall Precautions Continue Memantine 5mg PO BID and Donepezil 10mg Daily, as per Neuro. # Acute Kidney Injury with questionable CKD Creatinine 11/05/16 was 1.7 (refused labs so no recent labs) baseline creatinine unknown Avoid nephrotoxic drugs Upon discharge, refer to Nephro. # Right Popliteal DVT Patient on Elliquis 5mg PO daily and to continue for 3-6 months. # Hypertension-Controlled Continue Norvasc 2.5mg Daily # Hyperlipidemia Cholesterol-233; LDL 169 Diet control for now and to monitor outpatient. # Glaucoma Continue Timolol 0.25% OU BID # FEN NOt on IV fluids. Electrolytes to be repeated tomorrow morning. Chol/Fat/Sodium restricted diet # Prophylaxis For DVT: Patient already on Elliquis For GI: Not indicated # Code Status: Full Code # Disposition: Admit to Med-surg. clinical social worker is on board, pending placement. Confirmed his medications with patients brother. Illness, Investigation and Plan of care explained to the patient and his sister (Christianne [phone]). They verbalized understanding. Case discussed with Dr. Rodriguez. Problem List - Problems (1) Altered mental status Code(s): R41.82 - ALTERED MENTAL STATUS, UNSPECIFIED Qualifiers: Altered mental status type: unspecified Qualified Code(s): R41.82 - Altered mental status, unspecified (2) DVT (deep venous thrombosis) Code(s): I82.409 - ACUTE EMBOLISM AND THOMBOS UNSP DEEP VN UNSP LOWER EXTREMITY Qualifiers: DVT location: lower extremity Affected thrombotic vein of extremity: popliteal Chronicity: unspecified Laterality: right Qualified Code(s): I82.431 - Acute embolism and thrombosis of right popliteal vein (3) Renal insufficiency Code(s): N28.9 - DISORDER OF KIDNEY AND URETER, UNSPECIFIED Visit type - Emergency Visit Emergency Visit: Yes ED Registration Date: 10/28/16 Care time: The patient presented to the Emergency Department on the above date and was hospitalized for further evaluation of their emergent condition. - New Patient This patient is new to me today: No - Critical Care Critical Care patient: No - Discharge Referral Referred to [facility] No
[2016-11-08] MEDS: amLODIPine BESYLATE 2.5 MG TABLET (FP) PO SCH (10:04)
[2016-11-08] MEDS: DONEPEZIL HCL 5 MG TABLET (FP) PO SCH (10:04)
[2016-11-08] MEDS: TIMOLOL 0.25% OPHTHALMIC SOL 5 ML BOTTLE OU SCH ×2 (10:04→21:08)
[2016-11-08] MEDS: MEMANTINE HCL 5 MG TABLET (UD) PO SCH ×2 (10:04→21:08)
[2016-11-08] MEDS: APIXABAN 5 MG TABLET PO SCH (10:04)
--- NOTE | 2016-11-08 20:45 | PN ---
Teaching Attending Note Name of Resident: Sara Robin ATTENDING PHYSICIAN STATEMENT I saw and evaluated the patient. I reviewed the resident's note and discussed the case with the resident. I agree with the resident's findings and plan as documented. SUBJECTIVE: Comfortable with no acute distress. waiting for placement. OBJECTIVE: Vital Signs Temperature 98.3 F 11/08/16 18:25 Pulse Rate 59 L 11/08/16 18:25 Respiratory Rate 18 11/08/16 18:25 Blood Pressure 140/78 11/08/16 18:25 O2 Sat by Pulse Oximetry (%) 99 11/08/16 09:00 CBCD WBC 6.0 K/mm3 (4.0-10.0) 10/30/16 06:00 RBC 4.33 M/mm3 (4.00-5.60) 10/30/16 06:00 Hgb 12.9 GM/dL (11.7-16.9) 10/30/16 06:00 Hct 38.2 % (35.4-49) 10/30/16 06:00 MCV 88.2 fl (80-96) 10/30/16 06:00 MCHC 33.9 g/dl (32.0-35.9) 10/30/16 06:00 RDW 14.3 % (11.9-15.9) 10/30/16 06:00 Plt Count 158 K/MM3 (134-434) 10/30/16 06:00 MPV 8.4 fl (7.5-11.1) 10/30/16 06:00 CMP Sodium 141 mmol/L (136-145) 11/05/16 08:15 Potassium 4.6 mmol/L (3.5-5.1) 11/05/16 08:15 Chloride 104 mmol/L (98-107) 11/05/16 08:15 Carbon Dioxide 28 mmol/L (21-32) 11/05/16 08:15 Anion Gap 9 (8-16) 11/05/16 08:15 BUN 28 mg/dL (7-18) H 11/05/16 08:15 Creatinine 1.7 mg/dL (0.7-1.3) H 11/05/16 08:15 Creat Clearance w eGFR 36.97 (>60) 10/30/16 06:00 Random Glucose 100 mg/dL (74-106) 11/05/16 08:15 Calcium 8.7 mg/dL (8.5-10.1) 11/05/16 08:15 Total Bilirubin 0.3 mg/dL (0.2-1.0) D 10/30/16 06:00 AST 22 U/L (15-37) D 10/30/16 06:00 ALT 30 U/L (12-78) D 10/30/16 06:00 Alkaline Phosphatase 58 U/L (45-117) 10/30/16 06:00 Total Protein 6.0 g/dl (6.4-8.2) L 10/30/16 06:00 Albumin 2.9 g/dl (3.4-5.0) L D 10/30/16 06:00 CARDIAC ENZYMES Creatine Kinase 88 IU/L (39-308) 10/31/16 06:00 Troponin I < 0.02 ng/ml (0.00-0.05) 10/28/16 20:30 Current Medications Generic Name Dose Route Start Last Admin Trade Name Mona PRN Reason Stop Dose Admin Amlodipine Besylate 2.5 mg 11/01/16 10:00 11/08/16 10:04 Norvasc - PO 2.5 mg DAILY SAVI Administration Apixaban 5 mg 11/01/16 10:00 11/08/16 10:04 Eliquis - PO 5 mg DAILY SAVI Administration Donepezil HCl 10 mg 11/04/16 07:54 11/08/16 10:04 Aricept - PO 10 mg DAILY SAVI Administration Memantine 5 mg 10/31/16 22:00 11/08/16 10:04 Namenda - PO 5 mg BID SAVI Administration Timolol Maleate 1 drop 11/01/16 10:00 11/08/16 10:04 Timoptic 0.25% OU 1 drop BID SAVI Administration Home Medications Medication Instructions Recorded Amlodipine Besylate [Norvasc -] 2.5 mg PO DAILY 10/28/16 Apixaban [Eliquis -] 5 mg PO DAILY 10/28/16 Furosemide [Lasix -] 20 mg PO DAILY 10/28/16 Memantine HCl [Namenda -] 5 mg PO DAILY 10/28/16 Timolol 0.25% [Timoptic 0.25%] 0 ml OU BID 10/28/16 ASSESSMENT AND PLAN: 76 y/o man with h/o HTN, dementia , and recent DVT ( in Jun per records ) , who was brought by POlice after being found wondering # Advanced dementia : cont aricept , cont Namenda 5 BID . increase to 10 bid when stable on aricept as out pt # MAX: Cr stabilized , likely has CKD . will not resume lasix at dc , f/u with renal as out pt # R popliteal DVT: cont eliquis x 3-6 months # HTN : cont norvasc pending placement
[2016-11-09] MEDS: TIMOLOL 0.25% OPHTHALMIC SOL 5 ML BOTTLE OU SCH ×2 (09:48→21:30)
[2016-11-09] MEDS: amLODIPine BESYLATE 2.5 MG TABLET (FP) PO SCH (09:49)
[2016-11-09] MEDS: DONEPEZIL HCL 5 MG TABLET (FP) PO SCH (09:49)
[2016-11-09] MEDS: MEMANTINE HCL 5 MG TABLET (UD) PO SCH ×2 (09:49→21:30)
[2016-11-09] MEDS: APIXABAN 5 MG TABLET PO SCH (09:49)
--- NOTE | 2016-11-09 11:57 | PN ---
Physical Exam: SUBJECTIVE: Patient seen and examined at bed side this morning. He mentioned he is feeling weaker than yesterday. Agreed to allow blood draw. Denies chest pain , sob, cough, palpitation, abdominal pain, nausea or vomiting. Bowel/Bladder habit normal. Sleep/Appetite normal. OBJECTIVE: Vital Signs Period Temp Pulse Resp BP Sys/[place] Pulse Ox Last 24 Hr 97.8 F-98.9 F 57-65 18-18 124-146/64-88 97 GENERAL: The patient is awake, alert, and fully oriented, in no acute distress. HEAD: Normal with no signs of trauma. EYES: PERRL, extraocular movements intact, sclera anicteric, conjunctiva clear. No ptosis. ENT: Ears normal, nares patent, oropharynx clear without exudates, moist mucous membranes. NECK: Trachea midline, full range of motion, supple. LUNGS: Breath sounds equal, clear to auscultation bilaterally, no wheezes, no crackles, no accessory muscle use. HEART: Regular rate and rhythm, S1, S2 without murmur, rub or gallop. ABDOMEN: Soft, non tender, non distended, normo active bowel sounds, no guarding , no rebound, no hepato-splenomegaly, no masses. EXTREMITIES: 2+ pulses, warm, well-perfused, no edema. NEUROLOGICAL: Cranial nerves II through XII grossly intact. Normal speech, gait not observed. PSYCH: Normal mood, normal affect. SKIN: Warm, dry, normal turgor, no rashes or lesions noted Active Medications Generic Name Dose Route Start Last Admin Trade Name Freq PRN Reason Stop Dose Admin Amlodipine Besylate 2.5 mg 11/01/16 10:00 11/09/16 09:49 Norvasc - PO 2.5 mg DAILY SAVI Administration Apixaban 5 mg 11/01/16 10:00 11/09/16 09:49 Eliquis - PO 5 mg DAILY SAVI Administration Donepezil HCl 10 mg 11/04/16 07:54 11/09/16 09:49 Aricept - PO 10 mg DAILY SAVI Administration Memantine 5 mg 10/31/16 22:00 11/09/16 09:49 Namenda - PO 5 mg BID SAVI Administration Timolol Maleate 1 drop 11/01/16 10:00 11/09/16 09:48 Timoptic 0.25% OU 1 drop BID SAVI Administration ASSESSMENT/PLAN: Patient is a 76 year old male with pmh of right lower ext DVT, Alzheimer Dementia present to the ED brought by EMS for altered mental status. 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 # Confusion most likely due to worsening Alzheimers. Admitted in Med-Surg Fall Precautions Continue Memantine 5mg PO BID and Donepezil 10mg Daily, as per Neuro. Pending labs today: CBC, BMP # Acute Kidney Injury with questionable CKD Creatinine 11/05/16 was 1.7 (pending labs today) baseline creatinine unknown Avoid nephrotoxic drugs Upon discharge, refer to Nephro. # Right Popliteal DVT Patient on Elliquis 5mg PO daily and to continue for 3-6 months. # Hypertension-Controlled Continue Norvasc 2.5mg Daily # Hyperlipidemia Cholesterol-233; LDL 169 Diet control for now and to monitor outpatient. # Glaucoma Continue Timolol 0.25% OU BID # FEN NOt on IV fluids. Electrolytes to be repeated tomorrow morning. Chol/Fat/Sodium restricted diet # Prophylaxis For DVT: Patient already on Elliquis For GI: Not indicated # Code Status: Full Code # Disposition: Admit to Med-surg. hoe worker is on board, pending placement. Confirmed his medications with patients brother. Illness, Investigation and Plan of care explained to the patient and his sister (Christianne [phone]). They verbalized understanding. Case discussed with Dr. Rodriguez. Problem List - Problems (1) Altered mental status Code(s): R41.82 - ALTERED MENTAL STATUS, UNSPECIFIED Qualifiers: Altered mental status type: unspecified Qualified Code(s): R41.82 - Altered mental status, unspecified (2) DVT (deep venous thrombosis) Code(s): I82.409 - ACUTE EMBOLISM AND THOMBOS UNSP DEEP VN UNSP LOWER EXTREMITY Qualifiers: DVT location: lower extremity Affected thrombotic vein of extremity: popliteal Chronicity: unspecified Laterality: right Qualified Code(s): I82.431 - Acute embolism and thrombosis of right popliteal vein (3) Renal insufficiency Code(s): N28.9 - DISORDER OF KIDNEY AND URETER, UNSPECIFIED Visit type - Emergency Visit Emergency Visit: Yes ED Registration Date: 10/28/16 Care time: The patient presented to the Emergency Department on the above date and was hospitalized for further evaluation of their emergent condition. - New Patient This patient is new to me today: No - Critical Care Critical Care patient: No - Discharge Referral Referred to [facility] No
--- NOTE | 2016-11-09 20:28 | PN ---
Teaching Attending Note Name of Resident: Sara Robin ATTENDING PHYSICIAN STATEMENT I saw and evaluated the patient. I reviewed the resident's note and discussed the case with the resident. I agree with the resident's findings and plan as documented. SUBJECTIVE: Comfortable, still waiting for placement. OBJECTIVE: Vital Signs Temperature 98.6 F 11/09/16 18:27 Pulse Rate 65 11/09/16 18:27 Respiratory Rate 18 11/09/16 18:27 Blood Pressure 128/84 11/09/16 18:27 O2 Sat by Pulse Oximetry (%) 99 11/09/16 09:00 CBCD WBC 6.0 K/mm3 (4.0-10.0) 10/30/16 06:00 RBC 4.33 M/mm3 (4.00-5.60) 10/30/16 06:00 Hgb 12.9 GM/dL (11.7-16.9) 10/30/16 06:00 Hct 38.2 % (35.4-49) 10/30/16 06:00 MCV 88.2 fl (80-96) 10/30/16 06:00 MCHC 33.9 g/dl (32.0-35.9) 10/30/16 06:00 RDW 14.3 % (11.9-15.9) 10/30/16 06:00 Plt Count 158 K/MM3 (134-434) 10/30/16 06:00 MPV 8.4 fl (7.5-11.1) 10/30/16 06:00 CMP Sodium 141 mmol/L (136-145) 11/05/16 08:15 Potassium 4.6 mmol/L (3.5-5.1) 11/05/16 08:15 Chloride 104 mmol/L (98-107) 11/05/16 08:15 Carbon Dioxide 28 mmol/L (21-32) 11/05/16 08:15 Anion Gap 9 (8-16) 11/05/16 08:15 BUN 28 mg/dL (7-18) H 11/05/16 08:15 Creatinine 1.7 mg/dL (0.7-1.3) H 11/05/16 08:15 Creat Clearance w eGFR 36.97 (>60) 10/30/16 06:00 Random Glucose 100 mg/dL (74-106) 11/05/16 08:15 Calcium 8.7 mg/dL (8.5-10.1) 11/05/16 08:15 Total Bilirubin 0.3 mg/dL (0.2-1.0) D 10/30/16 06:00 AST 22 U/L (15-37) D 10/30/16 06:00 ALT 30 U/L (12-78) D 10/30/16 06:00 Alkaline Phosphatase 58 U/L (45-117) 10/30/16 06:00 Total Protein 6.0 g/dl (6.4-8.2) L 10/30/16 06:00 Albumin 2.9 g/dl (3.4-5.0) L D 10/30/16 06:00 CARDIAC ENZYMES Creatine Kinase 88 IU/L (39-308) 10/31/16 06:00 Troponin I < 0.02 ng/ml (0.00-0.05) 10/28/16 20:30 Current Medications Generic Name Dose Route Start Last Admin Trade Name Mona PRKate Reason Stop Dose Admin Amlodipine Besylate 2.5 mg 11/01/16 10:00 11/09/16 09:49 Norvasc - PO 2.5 mg DAILY SAVI Administration Apixaban 5 mg 11/01/16 10:00 11/09/16 09:49 Eliquis - PO 5 mg DAILY SAVI Administration Donepezil HCl 10 mg 11/04/16 07:54 11/09/16 09:49 Aricept - PO 10 mg DAILY SAVI Administration Memantine 5 mg 10/31/16 22:00 11/09/16 09:49 Namenda - PO 5 mg BID SAVI Administration Timolol Maleate 1 drop 11/01/16 10:00 11/09/16 09:48 Timoptic 0.25% OU 1 drop BID SAVI Administration Home Medications Medication Instructions Recorded Amlodipine Besylate [Norvasc -] 2.5 mg PO DAILY 10/28/16 Apixaban [Eliquis -] 5 mg PO DAILY 10/28/16 Furosemide [Lasix -] 20 mg PO DAILY 10/28/16 Memantine HCl [Namenda -] 5 mg PO DAILY 10/28/16 Timolol 0.25% [Timoptic 0.25%] 0 ml OU BID 10/28/16 ASSESSMENT AND PLAN: 76 y/o man with h/o HTN, dementia , and recent DVT ( in Jun per records ) , who was brought by [facility] after being found wondering # Advanced dementia : cont aricept , cont Namenda 5 BID . increase to 10 bid when stable on aricept as out pt # MAX: Cr stabilized , likely has CKD . will not resume lasix at dc , f/u with renal as out pt # R popliteal DVT: cont eliquis x 3-6 months # HTN : cont norvasc pending placement
[2016-11-09] MEDS ORDERED: PT OWN MED DRAWER 7, Y5N ONE (21:17)
[2016-11-10] MEDS ORDERED: PT OWN MED DRAWER 7, Y5N ONE ×2 (11:45→21:19)
[2016-11-10] MEDS: amLODIPine BESYLATE 2.5 MG TABLET (FP) PO SCH (12:02)
[2016-11-10] MEDS: APIXABAN 5 MG TABLET PO SCH (12:02)
[2016-11-10] MEDS: DONEPEZIL HCL 5 MG TABLET (FP) PO SCH (12:02)
[2016-11-10] MEDS: TIMOLOL 0.25% OPHTHALMIC SOL 5 ML BOTTLE OU SCH ×2 (12:02→21:53)
[2016-11-10] MEDS: MEMANTINE HCL 5 MG TABLET (UD) PO SCH ×2 (12:02→21:53)
--- NOTE | 2016-11-10 12:07 | PN ---
Progress Note (short form) - Note Progress Note: Comfortable with no acute distress, waiting for placement. Vital Signs Temperature 98.2 F 11/10/16 06:00 Pulse Rate 61 11/10/16 06:00 Respiratory Rate 18 11/10/16 06:00 Blood Pressure 138/68 11/10/16 06:00 O2 Sat by Pulse Oximetry (%) 97 11/09/16 20:47 GENERAL: The patient is awake, alert, and fully oriented, in no acute distress. HEAD: Normal with no signs of trauma. EYES: PERRL, extraocular movements intact, sclera anicteric, conjunctiva clear. ENT: Ears normal, oropharynx clear without exudates, moist mucous membranes. NECK: Trachea midline, full range of motion, supple. LUNGS: Breath sounds equal, clear to auscultation bilaterally, no wheezes, no crackles, no accessory muscle use. HEART: Regular rate and rhythm, S1, S2 without murmur, rub or gallop. ABDOMEN: Soft, non tender, non distended, normo active bowel sounds, no guarding , no rebound, no hepato-splenomegaly, no masses. EXTREMITIES: 2+ pulses, warm, well-perfused, no edema. NEUROLOGICAL: Cranial nerves II through XII grossly intact. Normal speech, gait not observed. PSYCH: Normal mood, normal affect. SKIN: Warm, dry, normal turgor, no rashes or lesions noted CBCD WBC 6.0 K/mm3 (4.0-10.0) 10/30/16 06:00 RBC 4.33 M/mm3 (4.00-5.60) 10/30/16 06:00 Hgb 12.9 GM/dL (11.7-16.9) 10/30/16 06:00 Hct 38.2 % (35.4-49) 10/30/16 06:00 MCV 88.2 fl (80-96) 10/30/16 06:00 MCHC 33.9 g/dl (32.0-35.9) 10/30/16 06:00 RDW 14.3 % (11.9-15.9) 10/30/16 06:00 Plt Count 158 K/MM3 (134-434) 10/30/16 06:00 MPV 8.4 fl (7.5-11.1) 10/30/16 06:00 CMP Sodium 141 mmol/L (136-145) 11/05/16 08:15 Potassium 4.6 mmol/L (3.5-5.1) 11/05/16 08:15 Chloride 104 mmol/L (98-107) 11/05/16 08:15 Carbon Dioxide 28 mmol/L (21-32) 11/05/16 08:15 Anion Gap 9 (8-16) 11/05/16 08:15 BUN 28 mg/dL (7-18) H 11/05/16 08:15 Creatinine 1.7 mg/dL (0.7-1.3) H 11/05/16 08:15 Creat Clearance w eGFR 36.97 (>60) 10/30/16 06:00 Random Glucose 100 mg/dL (74-106) 11/05/16 08:15 Calcium 8.7 mg/dL (8.5-10.1) 11/05/16 08:15 Total Bilirubin 0.3 mg/dL (0.2-1.0) D 10/30/16 06:00 AST 22 U/L (15-37) D 10/30/16 06:00 ALT 30 U/L (12-78) D 10/30/16 06:00 Alkaline Phosphatase 58 U/L (45-117) 10/30/16 06:00 Total Protein 6.0 g/dl (6.4-8.2) L 10/30/16 06:00 Albumin 2.9 g/dl (3.4-5.0) L D 10/30/16 06:00 CARDIAC ENZYMES Creatine Kinase 88 IU/L (39-308) 10/31/16 06:00 Troponin I < 0.02 ng/ml (0.00-0.05) 10/28/16 20:30 Current Medications Generic Name Dose Route Start Last Admin Trade Name Freq PRN Reason Stop Dose Admin Amlodipine Besylate 2.5 mg 11/01/16 10:00 11/10/16 12:02 Norvasc - PO 2.5 mg DAILY SAVI Administration Apixaban 5 mg 11/01/16 10:00 11/10/16 12:02 Eliquis - PO 5 mg DAILY SAVI Administration Donepezil HCl 10 mg 11/04/16 07:54 11/10/16 12:02 Aricept - PO 10 mg DAILY SAVI Administration Memantine 5 mg 10/31/16 22:00 11/10/16 12:02 Namenda - PO 5 mg BID SAVI Administration Timolol Maleate 1 drop 11/01/16 10:00 11/10/16 12:02 Timoptic 0.25% OU 1 drop BID SAVI Administration Home Medications Medication Instructions Recorded Amlodipine Besylate [Norvasc -] 2.5 mg PO DAILY 10/28/16 Apixaban [Eliquis -] 5 mg PO DAILY 10/28/16 Furosemide [Lasix -] 20 mg PO DAILY 10/28/16 Memantine HCl [Namenda -] 5 mg PO DAILY 10/28/16 Timolol 0.25% [Timoptic 0.25%] 0 ml OU BID 10/28/16 ASSESSMENT AND PLAN: 76 y/o man with h/o HTN, dementia , and recent DVT ( in Jun per records ) , who was brought by POlice after being found wondering # Advanced dementia : cont aricept , cont Namenda 5 BID . increase to 10 bid when stable on aricept as out pt # MAX: Cr stabilized , likely has CKD . will not resume lasix at dc , f/u with renal as out pt # R popliteal DVT: cont eliquis x 3-6 months # HTN : cont norvasc pending placement Visit type - Emergency Visit Emergency Visit: Yes ED Registration Date: 10/28/16 Care time: The patient presented to the Emergency Department on the above date and was hospitalized for further evaluation of their emergent condition. - New Patient This patient is new to me today: No - Critical Care Critical Care patient: No
--- NOTE | 2016-11-11 09:58 | PN ---
Progress Note (short form) - Note Progress Note: Comfortable, waiting for a placement. Vital Signs Temperature 98.3 F 11/11/16 06:00 Pulse Rate 56 L 11/11/16 06:00 Respiratory Rate 18 11/11/16 06:00 Blood Pressure 148/83 11/11/16 06:00 O2 Sat by Pulse Oximetry (%) 97 11/10/16 21:00 GENERAL: The patient is awake, alert, and fully oriented, in no acute distress. HEAD: Normal with no signs of trauma. EYES: PERRL, extraocular movements intact, sclera anicteric, conjunctiva clear. ENT: Ears normal, oropharynx clear without exudates, moist mucous membranes. NECK: Trachea midline, full range of motion, supple. LUNGS: Breath sounds equal, clear to auscultation bilaterally, no wheezes, no crackles, no accessory muscle use. HEART: Regular rate and rhythm, S1, S2 without murmur, rub or gallop. ABDOMEN: Soft, non tender, non distended, normo active bowel sounds, no guarding , no rebound, no hepato-splenomegaly, no masses. EXTREMITIES: 2+ pulses, warm, well-perfused, no edema. NEUROLOGICAL: Cranial nerves II through XII grossly intact. Normal speech, gait not observed. PSYCH: Normal mood, normal affect. SKIN: Warm, dry, normal turgor, no rashes or lesions noted CBCD WBC 6.0 K/mm3 (4.0-10.0) 10/30/16 06:00 RBC 4.33 M/mm3 (4.00-5.60) 10/30/16 06:00 Hgb 12.9 GM/dL (11.7-16.9) 10/30/16 06:00 Hct 38.2 % (35.4-49) 10/30/16 06:00 MCV 88.2 fl (80-96) 10/30/16 06:00 MCHC 33.9 g/dl (32.0-35.9) 10/30/16 06:00 RDW 14.3 % (11.9-15.9) 10/30/16 06:00 Plt Count 158 K/MM3 (134-434) 10/30/16 06:00 MPV 8.4 fl (7.5-11.1) 10/30/16 06:00 CMP Sodium 141 mmol/L (136-145) 11/05/16 08:15 Potassium 4.6 mmol/L (3.5-5.1) 11/05/16 08:15 Chloride 104 mmol/L (98-107) 11/05/16 08:15 Carbon Dioxide 28 mmol/L (21-32) 11/05/16 08:15 Anion Gap 9 (8-16) 11/05/16 08:15 BUN 28 mg/dL (7-18) H 11/05/16 08:15 Creatinine 1.7 mg/dL (0.7-1.3) H 11/05/16 08:15 Creat Clearance w eGFR 36.97 (>60) 10/30/16 06:00 Random Glucose 100 mg/dL (74-106) 11/05/16 08:15 Calcium 8.7 mg/dL (8.5-10.1) 11/05/16 08:15 Total Bilirubin 0.3 mg/dL (0.2-1.0) D 10/30/16 06:00 AST 22 U/L (15-37) D 10/30/16 06:00 ALT 30 U/L (12-78) D 10/30/16 06:00 Alkaline Phosphatase 58 U/L (45-117) 10/30/16 06:00 Total Protein 6.0 g/dl (6.4-8.2) L 10/30/16 06:00 Albumin 2.9 g/dl (3.4-5.0) L D 10/30/16 06:00 CARDIAC ENZYMES Creatine Kinase 88 IU/L (39-308) 10/31/16 06:00 Troponin I < 0.02 ng/ml (0.00-0.05) 10/28/16 20:30 Current Medications Generic Name Dose Route Start Last Admin Trade Name Freq PRN Reason Stop Dose Admin Amlodipine Besylate 2.5 mg 11/01/16 10:00 11/10/16 12:02 Norvasc - PO 2.5 mg DAILY SAVI Administration Apixaban 5 mg 11/01/16 10:00 11/10/16 12:02 Eliquis - PO 5 mg DAILY SAVI Administration Donepezil HCl 10 mg 11/04/16 07:54 11/10/16 12:02 Aricept - PO 10 mg DAILY SAVI Administration Memantine 5 mg 10/31/16 22:00 11/10/16 21:53 Namenda - PO 5 mg BID SAVI Administration Timolol Maleate 1 drop 11/01/16 10:00 11/10/16 21:53 Timoptic 0.25% OU 1 drop BID SAVI Administration Home Medications Medication Instructions Recorded Amlodipine Besylate [Norvasc -] 2.5 mg PO DAILY 10/28/16 Apixaban [Eliquis -] 5 mg PO DAILY 10/28/16 Furosemide [Lasix -] 20 mg PO DAILY 10/28/16 Memantine HCl [Namenda -] 5 mg PO DAILY 10/28/16 Timolol 0.25% [Timoptic 0.25%] 0 ml OU BID 10/28/16 A/P: 76 y/o man with h/o HTN, dementia , and recent DVT ( in Jun per records ) , who was brought by [facility] after being found wondering # Advanced dementia : cont aricept , cont Namenda 5 BID . increase to 10 bid when stable on aricept as out pt # MAX: Cr stabilized , likely has CKD . will not resume lasix at dc , f/u with renal as out pt # R popliteal DVT: cont eliquis x 3-6 months # HTN : cont norvasc pending placement Visit type - Emergency Visit Emergency Visit: Yes ED Registration Date: 10/28/16 Care time: The patient presented to the Emergency Department on the above date and was hospitalized for further evaluation of their emergent condition. - New Patient This patient is new to me today: No - Critical Care Critical Care patient: No
[2016-11-11] MEDS ORDERED: PT OWN MED DRAWER 7, Y5N ONE ×2 (10:28→21:29)
[2016-11-11] MEDS: DONEPEZIL HCL 5 MG TABLET (FP) PO SCH (10:58)
[2016-11-11] MEDS: TIMOLOL 0.25% OPHTHALMIC SOL 5 ML BOTTLE OU SCH ×2 (10:59→22:05)
[2016-11-11] MEDS: amLODIPine BESYLATE 2.5 MG TABLET (FP) PO SCH (10:59)
[2016-11-11] MEDS: MEMANTINE HCL 5 MG TABLET (UD) PO SCH ×2 (10:59→21:41)
[2016-11-11] MEDS: APIXABAN 5 MG TABLET PO SCH (10:59)
[2016-11-12] MEDS: DONEPEZIL HCL 5 MG TABLET (FP) PO SCH (09:22)
[2016-11-12] MEDS: MEMANTINE HCL 5 MG TABLET (UD) PO SCH ×2 (09:22→21:48)
[2016-11-12] MEDS ORDERED: PT OWN MED DRAWER 7, Y5N ONE (09:22)
[2016-11-12] MEDS: amLODIPine BESYLATE 2.5 MG TABLET (FP) PO SCH (09:22)
[2016-11-12] MEDS: APIXABAN 5 MG TABLET PO SCH (09:22)
[2016-11-12] MEDS: TIMOLOL 0.25% OPHTHALMIC SOL 5 ML BOTTLE OU SCH ×2 (09:23→21:49)
--- NOTE | 2016-11-12 16:13 | PN ---
Physical Exam: SUBJECTIVE: Patient seen and examined at bed side this morning. No complaints. Denies chest pain, sob, cough, palpitation, abdominal pain, nausea or vomiting. Bowel/Bladder habit normal. Sleep/Appetite normal. OBJECTIVE: Vital Signs Period Temp Pulse Resp BP Sys/[place] Pulse Ox Last 24 Hr 97.7 F-99.0 F 62-67 18-20 123-151/69-71 GENERAL: The patient is awake, alert, and fully oriented, in no acute distress. HEAD: Normal with no signs of trauma. EYES: PERRL, extraocular movements intact, sclera anicteric, conjunctiva clear. No ptosis. ENT: Ears normal, nares patent, oropharynx clear without exudates, moist mucous membranes. NECK: Trachea midline, full range of motion, supple. LUNGS: Breath sounds equal, clear to auscultation bilaterally, no wheezes, no crackles, no accessory muscle use. HEART: Regular rate and rhythm, S1, S2 without murmur, rub or gallop. ABDOMEN: Soft, non tender, non distended, normo active bowel sounds, no guarding , no rebound, no hepato-splenomegaly, no masses. EXTREMITIES: 2+ pulses, warm, well-perfused, no edema. NEUROLOGICAL: Cranial nerves II through XII grossly intact. Normal speech, gait not observed. PSYCH: Normal mood, normal affect. SKIN: Warm, dry, normal turgor, no rashes or lesions noted Active Medications Generic Name Dose Route Start Last Admin Trade Name Freq PRN Reason Stop Dose Admin Amlodipine Besylate 2.5 mg 11/01/16 10:00 11/12/16 09:22 Norvasc - PO 2.5 mg DAILY SAVI Administration Apixaban 5 mg 11/01/16 10:00 11/12/16 09:22 Eliquis - PO 5 mg DAILY SAVI Administration Donepezil HCl 10 mg 11/04/16 07:54 11/12/16 09:22 Aricept - PO 10 mg DAILY SAVI Administration Memantine 5 mg 10/31/16 22:00 11/12/16 09:22 Namenda - PO 5 mg BID SAVI Administration Timolol Maleate 1 drop 11/01/16 10:00 11/12/16 09:23 Timoptic 0.25% OU 1 drop BID SAVI Administration ASSESSMENT/PLAN: Patient is a 76 year old male with pmh of right lower ext DVT, Alzheimer Dementia present to the ED brought by EMS for altered mental status. 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 # Confusion most likely due to worsening Alzheimers. Admitted in Med-Surg Fall Precautions Continue Memantine 5mg PO BID and Donepezil 10mg Daily, as per Neuro. # Acute Kidney Injury with questionable CKD Creatinine 11/05/16 was 1.7 , patient refuses labs to be drawn, baseline creatinine unknown Avoid nephrotoxic drugs Upon discharge, refer to Nephro. # Right Popliteal DVT Patient on Elliquis 5mg PO daily and to continue for 3-6 months. # Hypertension-Controlled Continue Norvasc 2.5mg Daily # Hyperlipidemia Cholesterol-233; LDL 169 Diet control for now and to monitor outpatient. # Glaucoma Continue Timolol 0.25% OU BID # FEN NOt on IV fluids. Electrolytes normal. Chol/Fat/Sodium restricted diet # Prophylaxis For DVT: Patient already on Elliquis For GI: Not indicated # Code Status: Full Code # Disposition: Admit to Med-surg. flume worker is on board, pending placement. Confirmed his medications with patients brother. Illness, Investigation and Plan of care explained to the patient and his sister (Christianne [phone]). They verbalized understanding. Case discussed with Dr. Rodriguez. Problem List - Problems (1) Altered mental status Code(s): R41.82 - ALTERED MENTAL STATUS, UNSPECIFIED Qualifiers: Altered mental status type: unspecified Qualified Code(s): R41.82 - Altered mental status, unspecified (2) DVT (deep venous thrombosis) Code(s): I82.409 - ACUTE EMBOLISM AND THOMBOS UNSP DEEP VN UNSP LOWER EXTREMITY Qualifiers: DVT location: lower extremity Affected thrombotic vein of extremity: popliteal Chronicity: unspecified Laterality: right Qualified Code(s): I82.431 - Acute embolism and thrombosis of right popliteal vein (3) Renal insufficiency Code(s): N28.9 - DISORDER OF KIDNEY AND URETER, UNSPECIFIED Visit type - Emergency Visit Emergency Visit: Yes ED Registration Date: 10/28/16 Care time: The patient presented to the Emergency Department on the above date and was hospitalized for further evaluation of their emergent condition. - New Patient This patient is new to me today: No - Critical Care Critical Care patient: No
--- NOTE | 2016-11-12 20:17 | PN ---
Teaching Attending Note Name of Resident: Sara Robin ATTENDING PHYSICIAN STATEMENT I saw and evaluated the patient. I reviewed the resident's note and discussed the case with the resident. I agree with the resident's findings and plan as documented. SUBJECTIVE: No new changes or events OBJECTIVE: Vital Signs Temperature 98.0 F 11/12/16 19:05 Pulse Rate 66 11/12/16 19:05 Respiratory Rate 18 11/12/16 19:05 Blood Pressure 150/65 11/12/16 19:05 O2 Sat by Pulse Oximetry (%) 97 11/11/16 09:00 CBCD WBC 6.0 K/mm3 (4.0-10.0) 10/30/16 06:00 RBC 4.33 M/mm3 (4.00-5.60) 10/30/16 06:00 Hgb 12.9 GM/dL (11.7-16.9) 10/30/16 06:00 Hct 38.2 % (35.4-49) 10/30/16 06:00 MCV 88.2 fl (80-96) 10/30/16 06:00 MCHC 33.9 g/dl (32.0-35.9) 10/30/16 06:00 RDW 14.3 % (11.9-15.9) 10/30/16 06:00 Plt Count 158 K/MM3 (134-434) 10/30/16 06:00 MPV 8.4 fl (7.5-11.1) 10/30/16 06:00 CMP Sodium 141 mmol/L (136-145) 11/05/16 08:15 Potassium 4.6 mmol/L (3.5-5.1) 11/05/16 08:15 Chloride 104 mmol/L (98-107) 11/05/16 08:15 Carbon Dioxide 28 mmol/L (21-32) 11/05/16 08:15 Anion Gap 9 (8-16) 11/05/16 08:15 BUN 28 mg/dL (7-18) H 11/05/16 08:15 Creatinine 1.7 mg/dL (0.7-1.3) H 11/05/16 08:15 Creat Clearance w eGFR 36.97 (>60) 10/30/16 06:00 Random Glucose 100 mg/dL (74-106) 11/05/16 08:15 Calcium 8.7 mg/dL (8.5-10.1) 11/05/16 08:15 Total Bilirubin 0.3 mg/dL (0.2-1.0) D 10/30/16 06:00 AST 22 U/L (15-37) D 10/30/16 06:00 ALT 30 U/L (12-78) D 10/30/16 06:00 Alkaline Phosphatase 58 U/L (45-117) 10/30/16 06:00 Total Protein 6.0 g/dl (6.4-8.2) L 10/30/16 06:00 Albumin 2.9 g/dl (3.4-5.0) L D 10/30/16 06:00 CARDIAC ENZYMES Creatine Kinase 88 IU/L (39-308) 10/31/16 06:00 Troponin I < 0.02 ng/ml (0.00-0.05) 10/28/16 20:30 Current Medications Generic Name Dose Route Start Last Admin Trade Name Mona PRN Reason Stop Dose Admin Amlodipine Besylate 2.5 mg 11/01/16 10:00 11/12/16 09:22 Norvasc - PO 2.5 mg DAILY SAVI Administration Apixaban 5 mg 11/01/16 10:00 11/12/16 09:22 Eliquis - PO 5 mg DAILY SAVI Administration Donepezil HCl 10 mg 11/04/16 07:54 11/12/16 09:22 Aricept - PO 10 mg DAILY SAVI Administration Memantine 5 mg 10/31/16 22:00 11/12/16 09:22 Namenda - PO 5 mg BID SAVI Administration Timolol Maleate 1 drop 11/01/16 10:00 11/12/16 09:23 Timoptic 0.25% OU 1 drop BID SAVI Administration Home Medications Medication Instructions Recorded Amlodipine Besylate [Norvasc -] 2.5 mg PO DAILY 10/28/16 Apixaban [Eliquis -] 5 mg PO DAILY 10/28/16 Furosemide [Lasix -] 20 mg PO DAILY 10/28/16 Memantine HCl [Namenda -] 5 mg PO DAILY 10/28/16 Timolol 0.25% [Timoptic 0.25%] 0 ml OU BID 10/28/16 ASSESSMENT AND PLAN: 76 y/o man with h/o HTN, dementia , and recent DVT ( in Jun per records ) , who was brought by POlice after being found wondering # Advanced dementia : cont aricept , cont Namenda 5 BID . increase to 10 bid when stable on aricept as out pt # MAX: Cr stabilized , likely has CKD . will not resume lasix at dc , f/u with renal as out pt # R popliteal DVT: cont eliquis x 3-6 months # HTN : cont norvasc pending placement
--- NOTE | 2016-11-13 09:21 | PN ---
Physical Exam: SUBJECTIVE: Patient seen and examined at bed side this morning. No complaints. Agreed to do labs today. Denies chest pain, sob, cough, palpitation, abdominal pain, nausea or vomiting. Bowel/Bladder habit normal. Sleep/Appetite normal. OBJECTIVE: Vital Signs Period Temp Pulse Resp BP Sys/[place] Pulse Ox Last 24 Hr 97.7 F-98.6 F 50-68 18-20 123-150/65-78 GENERAL: The patient is awake, alert, and fully oriented, in no acute distress. HEAD: Normal with no signs of trauma. EYES: PERRL, extraocular movements intact, sclera anicteric, conjunctiva clear. No ptosis. ENT: Ears normal, nares patent, oropharynx clear without exudates, moist mucous membranes. NECK: Trachea midline, full range of motion, supple. LUNGS: Breath sounds equal, clear to auscultation bilaterally, no wheezes, no crackles, no accessory muscle use. HEART: Regular rate and rhythm, S1, S2 without murmur, rub or gallop. ABDOMEN: Soft, non tender, non distended, normo active bowel sounds, no guarding , no rebound, no hepato-splenomegaly, no masses. EXTREMITIES: 2+ pulses, warm, well-perfused, no edema. NEUROLOGICAL: Cranial nerves II through XII grossly intact. Normal speech, gait not observed. PSYCH: Normal mood, normal affect. SKIN: Warm, dry, normal turgor, no rashes or lesions noted Active Medications Generic Name Dose Route Start Last Admin Trade Name Freq PRN Reason Stop Dose Admin Amlodipine Besylate 2.5 mg 11/01/16 10:11/12/16 09:22 Norvasc - PO 2.5 mg DAILY SAVI Administration Apixaban 5 mg 11/01/16 10:00 11/12/16 09:22 Eliquis - PO 5 mg DAILY SAVI Administration Donepezil HCl 10 mg 11/04/16 07:54 11/12/16 09:22 Aricept - PO 10 mg DAILY SAVI Administration Memantine 5 mg 10/31/16 22:00 11/12/16 21:48 Namenda - PO 5 mg BID SAVI Administration Timolol Maleate 1 drop 11/01/16 10:00 11/12/16 21:49 Timoptic 0.25% OU 1 drop BID SAVI Administration ASSESSMENT/PLAN: Patient is a 76 year old male with pmh of right lower ext DVT, Alzheimer Dementia present to the ED brought by EMS for altered mental status. 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 # Confusion most likely due to worsening Alzheimers. Admitted in Med-Surg Fall Precautions Continue Memantine 5mg PO BID and Donepezil 10mg Daily, as per Neuro. # Acute Kidney Injury with questionable CKD Creatinine today 1.6, baseline creatinine unknown Avoid nephrotoxic drugs Upon discharge, refer to Nephro. # Right Popliteal DVT Patient on Elliquis 5mg PO daily and to continue for 3-6 months. # Hypertension-Controlled Continue Norvasc 2.5mg Daily # Hyperlipidemia Diet control for now and to monitor outpatient. # Glaucoma Continue Timolol 0.25% OU BID # FEN Not on IV fluids. Electrolytes normal. Chol/Fat/Sodium restricted diet # Prophylaxis For DVT: Patient already on Elliquis For GI: Not indicated # Code Status: Full Code # Disposition: Admit to Med-surg. table worker is on board, pending placement. Confirmed his medications with patients brother. Illness, Investigation and Plan of care explained to the patient and his sister (Christianne [phone]). They verbalized understanding. Case discussed with Dr. Rodriguez. Problem List - Problems (1) Altered mental status Code(s): R41.82 - ALTERED MENTAL STATUS, UNSPECIFIED Qualifiers: Altered mental status type: unspecified Qualified Code(s): R41.82 - Altered mental status, unspecified (2) DVT (deep venous thrombosis) Code(s): I82.409 - ACUTE EMBOLISM AND THOMBOS UNSP DEEP VN UNSP LOWER EXTREMITY Qualifiers: DVT location: lower extremity Affected thrombotic vein of extremity: popliteal Chronicity: unspecified Laterality: right Qualified Code(s): I82.431 - Acute embolism and thrombosis of right popliteal vein (3) Renal insufficiency Code(s): N28.9 - DISORDER OF KIDNEY AND URETER, UNSPECIFIED Visit type - Emergency Visit Emergency Visit: Yes ED Registration Date: 10/28/16 Care time: The patient presented to the Emergency Department on the above date and was hospitalized for further evaluation of their emergent condition. - New Patient This patient is new to me today: No - Critical Care Critical Care patient: No
[2016-11-13] MEDS ORDERED: PT OWN MED DRAWER 7, Y5N ONE ×2 (09:30→21:08)
[2016-11-13] MEDS: DONEPEZIL HCL 5 MG TABLET (FP) PO SCH (09:36)
[2016-11-13] MEDS: MEMANTINE HCL 5 MG TABLET (UD) PO SCH ×2 (09:37→21:43)
[2016-11-13] MEDS: amLODIPine BESYLATE 2.5 MG TABLET (FP) PO SCH (09:37)
[2016-11-13] MEDS: APIXABAN 5 MG TABLET PO SCH (09:37)
[2016-11-13 10:06] LABS: CALCIUM 9.2 mg/dL (8.5-10.1); COCKROFT - GAULT 40.94; CREATININE 1.6 mg/dL (0.7-1.3)
[2016-11-13] MEDS: TIMOLOL 0.25% OPHTHALMIC SOL 5 ML BOTTLE OU SCH ×2 (15:20→21:43)
--- NOTE | 2016-11-13 20:31 | PN ---
Teaching Attending Note Name of Resident: Sara Robin ATTENDING PHYSICIAN STATEMENT I saw and evaluated the patient. I reviewed the resident's note and discussed the case with the resident. I agree with the resident's findings and plan as documented. SUBJECTIVE: comfortable with no acute distress. No new event. waiting for placement OBJECTIVE: Vital Signs Temperature 98.5 F 11/13/16 18:00 Pulse Rate 61 11/13/16 18:00 Respiratory Rate 20 11/13/16 18:00 Blood Pressure 137/79 11/13/16 18:00 O2 Sat by Pulse Oximetry (%) 97 11/11/16 09:00 CBCD WBC 6.0 K/mm3 (4.0-10.0) 10/30/16 06:00 RBC 4.33 M/mm3 (4.00-5.60) 10/30/16 06:00 Hgb 12.9 GM/dL (11.7-16.9) 10/30/16 06:00 Hct 38.2 % (35.4-49) 10/30/16 06:00 MCV 88.2 fl (80-96) 10/30/16 06:00 MCHC 33.9 g/dl (32.0-35.9) 10/30/16 06:00 RDW 14.3 % (11.9-15.9) 10/30/16 06:00 Plt Count 158 K/MM3 (134-434) 10/30/16 06:00 MPV 8.4 fl (7.5-11.1) 10/30/16 06:00 CMP Sodium 143 mmol/L (136-145) 11/13/16 09:10 Potassium 4.3 mmol/L (3.5-5.1) 11/13/16 09:10 Chloride 106 mmol/L (98-107) 11/13/16 09:10 Carbon Dioxide 28 mmol/L (21-32) 11/13/16 09:10 Anion Gap 9 (8-16) 11/13/16 09:10 BUN 29 mg/dL (7-18) H 11/13/16 09:10 Creatinine 1.6 mg/dL (0.7-1.3) H 11/13/16 09:10 Creat Clearance w eGFR 36.97 (>60) 10/30/16 06:00 Random Glucose 81 mg/dL (74-106) 11/13/16 09:10 Calcium 9.2 mg/dL (8.5-10.1) 11/13/16 09:10 Total Bilirubin 0.3 mg/dL (0.2-1.0) D 10/30/16 06:00 AST 22 U/L (15-37) D 10/30/16 06:00 ALT 30 U/L (12-78) D 10/30/16 06:00 Alkaline Phosphatase 58 U/L (45-117) 10/30/16 06:00 Total Protein 6.0 g/dl (6.4-8.2) L 10/30/16 06:00 Albumin 2.9 g/dl (3.4-5.0) L D 10/30/16 06:00 CARDIAC ENZYMES Creatine Kinase 88 IU/L (39-308) 10/31/16 06:00 Troponin I < 0.02 ng/ml (0.00-0.05) 10/28/16 20:30 Current Medications Generic Name Dose Route Start Last Admin Trade Name Mona PRN Reason Stop Dose Admin Amlodipine Besylate 2.5 mg 11/01/16 10:00 11/13/16 09:37 Norvasc - PO 2.5 mg DAILY SAVI Administration Apixaban 5 mg 11/01/16 10:00 11/13/16 09:37 Eliquis - PO 5 mg DAILY SAVI Administration Donepezil HCl 10 mg 11/04/16 07:54 11/13/16 09:36 Aricept - PO 10 mg DAILY SAVI Administration Memantine 5 mg 10/31/16 22:00 11/13/16 09:37 Namenda - PO 5 mg BID SAVI Administration Timolol Maleate 1 drop 11/01/16 10:00 11/13/16 15:20 Timoptic 0.25% OU Not Given BID [facility] Home Medications Medication Instructions Recorded Amlodipine Besylate [Norvasc -] 2.5 mg PO DAILY 10/28/16 Apixaban [Eliquis -] 5 mg PO DAILY 10/28/16 Furosemide [Lasix -] 20 mg PO DAILY 10/28/16 Memantine HCl [Namenda -] 5 mg PO DAILY 10/28/16 Timolol 0.25% [Timoptic 0.25%] 0 ml OU BID 10/28/16 ASSESSMENT AND PLAN: 76 y/o man with h/o HTN, dementia , and recent DVT ( in Jun per records ) , who was brought by POlice after being found wondering # Advanced dementia : cont aricept , cont Namenda 5 BID . increase to 10 bid when stable on aricept as out pt # MAX: Cr stabilized 1.6, likely has CKD . will not resume lasix at dc , f/u with renal as out pt # R popliteal DVT: cont eliquis x 3-6 months # HTN : cont norvasc pending placement
[2016-11-14] MEDS ORDERED: PT OWN MED DRAWER 7, Y5N ONE (10:06)
[2016-11-14] MEDS: DONEPEZIL HCL 5 MG TABLET (FP) PO SCH (10:09)
[2016-11-14] MEDS: TIMOLOL 0.25% OPHTHALMIC SOL 5 ML BOTTLE OU SCH ×2 (10:09→22:22)
[2016-11-14] MEDS: APIXABAN 5 MG TABLET PO SCH (10:10)
[2016-11-14] MEDS: amLODIPine BESYLATE 2.5 MG TABLET (FP) PO SCH (10:10)
[2016-11-14] MEDS: MEMANTINE HCL 5 MG TABLET (UD) PO SCH ×2 (10:10→22:21)
--- NOTE | 2016-11-14 12:30 | PN ---
Teaching Attending Note Name of Resident: Sara Robin ATTENDING PHYSICIAN STATEMENT I saw and evaluated the patient. I reviewed the resident's note and discussed the case with the resident. I agree with the resident's findings and plan as documented. SUBJECTIVE: No acute events overnight OBJECTIVE: Vital Signs Temperature 98.6 F 11/14/16 05:47 Pulse Rate 66 11/14/16 05:47 Respiratory Rate 20 11/14/16 05:47 Blood Pressure 126/84 11/14/16 05:47 O2 Sat by Pulse Oximetry (%) 98 11/13/16 21:00 GENERAL: The patient is awake, alert, and fully oriented, in no acute distress. HEAD: Normal with no signs of trauma. EYES: PERRL, extraocular movements intact, sclera anicteric, conjunctiva clear. No ptosis. ENT: Ears normal, nares patent, oropharynx clear without exudates, moist mucous membranes. NECK: Trachea midline, full range of motion, supple. LUNGS: Breath sounds equal, clear to auscultation bilaterally, no wheezes, no crackles, no accessory muscle use. HEART: Regular rate and rhythm, S1, S2 without murmur, rub or gallop. ABDOMEN: Soft, non tender, non distended, normo active bowel sounds, no guarding , no rebound, no hepato-splenomegaly, no masses. EXTREMITIES: 2+ pulses, warm, well-perfused, no edema CBC, BMP 10/30/16 06:00 11/13/16 09:10 ASSESSMENT AND PLAN: Advanced Dementia- stable Acute on chronic renal failure - stable, needs o/p f/u R popliteal DVT: cont eliquis x 3-6 months HTN - stable cont norvasc medically optimized for d/c awaiting placement
--- NOTE | 2016-11-14 13:20 | PN ---
Physical Exam: SUBJECTIVE: Patient seen and examined at bed side this morning. Complaining of weakness. He says while walking his leg feels weaker. No h/o fall. Denies chest pain, sob, cough, palpitation, abdominal pain, nausea or vomiting. Bowel/ Bladder habit normal. Sleep/Appetite normal. OBJECTIVE: Vital Signs Period Temp Pulse Resp BP Sys/[place] Pulse Ox Last 24 Hr 97.7 F-98.6 F 58-66 18-20 117-154/64-85 98-98 GENERAL: The patient is awake, alert, and fully oriented, in no acute distress. HEAD: Normal with no signs of trauma. EYES: PERRL, extraocular movements intact, sclera anicteric, conjunctiva clear. No ptosis. ENT: Ears normal, nares patent, oropharynx clear without exudates, moist mucous membranes. NECK: Trachea midline, full range of motion, supple. LUNGS: Breath sounds equal, clear to auscultation bilaterally, no wheezes, no crackles, no accessory muscle use. HEART: Regular rate and rhythm, S1, S2 without murmur, rub or gallop. ABDOMEN: Soft, non tender, non distended, normo active bowel sounds, no guarding , no rebound, no hepato-splenomegaly, no masses. EXTREMITIES: 2+ pulses, warm, well-perfused, no edema. NEUROLOGICAL: Cranial nerves II through XII grossly intact. Normal speech, gait not observed. PSYCH: Normal mood, normal affect. SKIN: Warm, dry, normal turgor, no rashes or lesions noted Active Medications Generic Name Dose Route Start Last Admin Trade Name Emigdioq PRN Reason Stop Dose Admin Amlodipine Besylate 2.5 mg 11/01/16 10:00 11/14/16 10:10 Norvasc - PO 2.5 mg DAILY SAVI Administration Apixaban 5 mg 11/01/16 10:00 11/14/16 10:10 Eliquis - PO 5 mg DAILY SAVI Administration Donepezil HCl 10 mg 11/04/16 07:54 11/14/16 10:09 Aricept - PO 10 mg DAILY SAVI Administration Memantine 5 mg 10/31/16 22:00 11/14/16 10:10 Namenda - PO 5 mg BID SAVI Administration Timolol Maleate 1 drop 11/01/16 10:00 06/14/17 10:09 Timoptic 0.25% OU 1 drop BID SAVI Administration ASSESSMENT/PLAN: Patient is a 76 year old male with pmh of right lower ext DVT, Alzheimer Dementia present to the ED brought by EMS for altered mental status. 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 # Generalized weakness-unknown etiology Stared since 2-3 days as per the patient who only mentioned today. Patient is afebrile, hemodynamically stable, no electrolyte imbalance. Will monitor # Confusion most likely due to worsening Alzheimers. Admitted in Med-Surg Fall Precautions Continue Memantine 5mg PO BID and Donepezil 10mg Daily, as per Neuro. # Acute Kidney Injury with questionable CKD Creatinine 1.6 on 11/13/16, baseline creatinine unknown Avoid nephrotoxic drugs Upon discharge, refer to Nephro. # Right Popliteal DVT Patient on Elliquis 5mg PO daily and to continue for 3-6 months. # Hypertension-Controlled Continue Norvasc 2.5mg Daily # Hyperlipidemia Diet control for now and to monitor outpatient. # Glaucoma Continue Timolol 0.25% OU BID # FEN Not on IV fluids. Electrolytes normal. Chol/Fat/Sodium restricted diet # Prophylaxis For DVT: Patient already on Elliquis For GI: Not indicated # Code Status: Full Code # Disposition: Admit to Med-surg. cannery worker is on board, pending placement. Confirmed his medications with patients brother. Illness, Investigation and Plan of care explained to the patient and his sister (Christianne [phone]). They verbalized understanding. Case discussed with Dr. Iraheta Problem List - Problems (1) Altered mental status Code(s): R41.82 - ALTERED MENTAL STATUS, UNSPECIFIED Qualifiers: Altered mental status type: unspecified Qualified Code(s): R41.82 - Altered mental status, unspecified (2) DVT (deep venous thrombosis) Code(s): I82.409 - ACUTE EMBOLISM AND THOMBOS UNSP DEEP VN UNSP LOWER EXTREMITY Qualifiers: DVT location: lower extremity Affected thrombotic vein of extremity: popliteal Chronicity: unspecified Laterality: right Qualified Code(s): I82.431 - Acute embolism and thrombosis of right popliteal vein (3) Renal insufficiency Code(s): N28.9 - DISORDER OF KIDNEY AND URETER, UNSPECIFIED Visit type - Emergency Visit Emergency Visit: Yes ED Registration Date: 10/28/16 Care time: The patient presented to the Emergency Department on the above date and was hospitalized for further evaluation of their emergent condition. - New Patient This patient is new to me today: No - Critical Care Critical Care patient: No
[2016-11-15] MEDS ORDERED: PT OWN MED DRAWER 7, Y5N ONE ×3 (06:38→23:22)
--- NOTE | 2016-11-15 08:59 | PN ---
Physical Exam: SUBJECTIVE: Patient seen and examined at bedside this morning. AAO at time of meeting and resting comfortably in chair eating breakfast. States he has been feeling a little lightheaded in the morning, but that is a chronic issue. Suggested patient ambulate with a walker while in hospital, he adamantly refuses. Denies any chest pain, SOB or abdominal pain, Afebrile overnight with no acute events. OBJECTIVE: Vital Signs Period Temp Pulse Resp BP Sys/[place] Pulse Ox Last 24 Hr 97.8 F-98.7 F 60-66 18-20 106-154/61-94 98-100 GENERAL: The patient is awake, alert, and fully oriented, in no acute distress. HEENT: Atraumatic, EOMI, PERRLA, No lymphadenopathy noted, moist membranes LUNGS: Breath sounds equal, clear to auscultation bilaterally, no wheezes, no crackles, no accessory muscle use. HEART: Regular rate and rhythm, S1, S2 without murmur, rub or gallop. ABDOMEN: Soft, non tender, non distended, normo active bowel sounds, no guarding , no rebound, no hepato-splenomegaly, no masses. EXTREMITIES: 1+ pulses, warm, well-perfused, no edema. NEUROLOGICAL: Cranial nerves II through XII grossly intact. Normal speech, gait not observed. PSYCH: Normal mood, normal affect. SKIN: Warm, dry, normal turgor, no rashes or lesions noted Active Medications Generic Name Dose Route Start Last Admin Trade Name Freq PRN Reason Stop Dose Admin Amlodipine Besylate 2.5 mg 11/01/16 10:11/14/16 10:10 Norvasc - PO 2.5 mg DAILY SAVI Administration Apixaban 5 mg 11/01/16 10:11/14/16 10:10 Eliquis - PO 5 mg DAILY SAVI Administration Donepezil HCl 10 mg 11/04/16 07:54 11/14/16 10:09 Aricept - PO 10 mg DAILY SAVI Administration Memantine 5 mg 10/31/16 22:00 11/14/16 22:21 Namenda - PO 5 mg BID SAVI Administration Timolol Maleate 1 drop 11/01/16 10:00 11/14/16 22:22 Timoptic 0.25% OU 1 drop BID SAVI Administration ASSESSMENT/PLAN: Patient is a 76 year old male with PMH of RLE DVT, Alzheimer's Dementia who presented to ED with altered mental status. 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 #Right lower extremity DVT, popliteal -Eliquis 5mg PO daily -fall precautions -will need 3-6 months anticoagulation #Alzheimer's Dementia, chronic & worsening -Continue Memantine 5mg PO BID and Donepezil 10mg Daily, as per Neuro #Acute on Chronic Kidney injury -unsure of baseline, but last Creatinine 1.6 -avoid nephrotoxic meds -can f/u with Commercial Front Load Operator as outpatient #Hypertension/Hyperlipidemia -Continue Norvasc 2.5mg Daily -Chol/Fat/Sodium restricted diet -can f/u further as outpatient #Glaucoma -Continue Timolol 0.25% OU BID Prophylaxis/FEN -Eliquis -No PPI indicated -No IVF indicated -monitor electrolytes -Chol/Fat/Sodium restricted diet Dispo: glass processing worker onc ase, pending placement. FULL CODE *sister (Christianne [phone]) Visit type - Emergency Visit Emergency Visit: Yes ED Registration Date: 10/28/16 Care time: The patient presented to the Emergency Department on the above date and was hospitalized for further evaluation of their emergent condition. - New Patient This patient is new to me today: Yes Date on this admission: 11/15/16 - Critical Care Critical Care patient: No
[2016-11-15] MEDS: DONEPEZIL HCL 5 MG TABLET (FP) PO SCH (09:18)
[2016-11-15] MEDS: amLODIPine BESYLATE 2.5 MG TABLET (FP) PO SCH (09:18)
[2016-11-15] MEDS: MEMANTINE HCL 5 MG TABLET (UD) PO SCH (09:18)
[2016-11-15] MEDS: APIXABAN 5 MG TABLET PO SCH (09:19)
[2016-11-15] MEDS: TIMOLOL 0.25% OPHTHALMIC SOL 5 ML BOTTLE OU SCH ×2 (09:19→22:31)
--- NOTE | 2016-11-15 13:04 | PN ---
Teaching Attending Note Name of Resident: Jan Salcedo ATTENDING PHYSICIAN STATEMENT I saw and evaluated the patient. I reviewed the resident's note and discussed the case with the resident. I agree with the resident's findings and plan as documented. SUBJECTIVE:no acute events, wants to leave the hospital OBJECTIVE: Vital Signs Temperature 97.7 F 11/15/16 10:00 Pulse Rate 67 11/15/16 10:00 Respiratory Rate 18 11/15/16 10:00 Blood Pressure 136/91 11/15/16 10:00 O2 Sat by Pulse Oximetry (%) 96 11/15/16 09:00 CBC, BMP 10/30/16 06:00 11/13/16 09:10 ASSESSMENT AND PLAN: Advanced Dementia- stable Acute on chronic renal failure - stable, needs o/p f/u R popliteal DVT: cont eliquis x 3-6 months HTN - stable cont norvasc medically optimized for d/c awaiting placement
[2016-11-16] MEDS: MEMANTINE HCL 5 MG TABLET (UD) PO SCH ×3 (00:01→21:53)
[2016-11-16] MEDS: amLODIPine BESYLATE 2.5 MG TABLET (FP) PO SCH (09:39)
[2016-11-16] MEDS: DONEPEZIL HCL 5 MG TABLET (FP) PO SCH (09:39)
[2016-11-16] MEDS: TIMOLOL 0.25% OPHTHALMIC SOL 5 ML BOTTLE OU SCH ×2 (09:40→21:53)
[2016-11-16] MEDS ORDERED: PT OWN MED DRAWER 7, Y5N ONE ×2 (09:41→21:25)
[2016-11-16] MEDS: APIXABAN 5 MG TABLET PO SCH (09:45)
--- NOTE | 2016-11-16 09:53 | PN ---
Physical Exam: SUBJECTIVE: Patient seen and examined at bed side this morning. Says weakness has improved. No h/o fall. Denies chest pain, sob, cough, palpitation, abdominal pain, nausea or vomiting. Bowel/Bladder habit normal. Sleep/Appetite normal. OBJECTIVE: Vital Signs Period Temp Pulse Resp BP Sys/[place] Pulse Ox Last 24 Hr 97.7 F-98.8 F 62-105 18-20 111-137/56-91 96 GENERAL: The patient is awake, alert, and fully oriented, in no acute distress. HEAD: Normal with no signs of trauma. EYES: PERRL, extraocular movements intact, sclera anicteric, conjunctiva clear. No ptosis. ENT: Ears normal, nares patent, oropharynx clear without exudates, moist mucous membranes. NECK: Trachea midline, full range of motion, supple. LUNGS: Breath sounds equal, clear to auscultation bilaterally, no wheezes, no crackles, no accessory muscle use. HEART: Regular rate and rhythm, S1, S2 without murmur, rub or gallop. ABDOMEN: Soft, non tender, non distended, normo active bowel sounds, no guarding , no rebound, no hepato-splenomegaly, no masses. EXTREMITIES: 2+ pulses, warm, well-perfused, no edema. NEUROLOGICAL: Cranial nerves II through XII grossly intact. Normal speech, gait not observed. PSYCH: Normal mood, normal affect. SKIN: Warm, dry, normal turgor, no rashes or lesions noted Active Medications Generic Name Dose Route Start Last Admin Trade Name Freq PRN Reason Stop Dose Admin Amlodipine Besylate 2.5 mg 11/01/16 10:00 11/16/16 09:39 Norvasc - PO 2.5 mg DAILY SAVI Administration Apixaban 5 mg 11/01/16 10:11/16/16 09:45 Eliquis - PO 5 mg DAILY SAVI Administration Donepezil HCl 10 mg 11/04/16 07:54 11/16/16 09:39 Aricept - PO 10 mg DAILY SAVI Administration Memantine 5 mg 10/31/16 22:00 11/16/16 09:39 Namenda - PO 5 mg BID SAVI Administration Timolol Maleate 1 drop 11/01/16 10:00 11/16/16 09:40 Timoptic 0.25% OU 1 drop BID SAVI Administration ASSESSMENT/PLAN: Patient is a 76 year old male with pmh of right lower ext DVT, Alzheimer Dementia present to the ED brought by EMS for altered mental status. 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 # Confusion most likely due to worsening Alzheimers. Admitted in Med-Surg Fall Precautions Continue Memantine 5mg PO BID and Donepezil 10mg Daily, as per Neuro. # Right Popliteal DVT Patient on Elliquis 5mg PO daily and to continue for 3-6 months (calculate from the day of admission). # Generalized weakness-Improved Stared since 2-3 days as per the patient. Patient is afebrile, hemodynamically stable, no electrolyte imbalance. Will monitor # Acute Kidney Injury with questionable CKD Creatinine 1.6 on 11/13/16, refused blood draw, baseline creatinine unknown Avoid nephrotoxic drugs Upon discharge, refer to Nephro. # Hypertension-Controlled Continue Norvasc 2.5mg Daily # Hyperlipidemia Diet control for now and to monitor outpatient. # Glaucoma Continue Timolol 0.25% OU BID # FEN Not on IV fluids. Electrolytes normal. Chol/Fat/Sodium restricted diet # Prophylaxis For DVT: Patient already on Elliquis For GI: Not indicated # Code Status: Full Code # Disposition: Admit to Med-surg. casing worker is on board, pending placement. Confirmed his medications with patients brother. Illness, Investigation and Plan of care explained to the patient and his sister (Christianne [phone]). They verbalized understanding. Case discussed with Dr. Iraheta Problem List - Problems (1) Altered mental status Code(s): R41.82 - ALTERED MENTAL STATUS, UNSPECIFIED Qualifiers: Altered mental status type: unspecified Qualified Code(s): R41.82 - Altered mental status, unspecified (2) DVT (deep venous thrombosis) Code(s): I82.409 - ACUTE EMBOLISM AND THOMBOS UNSP DEEP VN UNSP LOWER EXTREMITY Qualifiers: DVT location: lower extremity Affected thrombotic vein of extremity: popliteal Chronicity: unspecified Laterality: right Qualified Code(s): I82.431 - Acute embolism and thrombosis of right popliteal vein (3) Renal insufficiency Code(s): N28.9 - DISORDER OF KIDNEY AND URETER, UNSPECIFIED Visit type - Emergency Visit Emergency Visit: Yes ED Registration Date: 10/28/16 Care time: The patient presented to the Emergency Department on the above date and was hospitalized for further evaluation of their emergent condition. - New Patient This patient is new to me today: No - Critical Care Critical Care patient: No
--- NOTE | 2016-11-16 15:51 | PN ---
Teaching Attending Note Name of Resident: Sara Robin ATTENDING PHYSICIAN STATEMENT I saw and evaluated the patient. I reviewed the resident's note and discussed the case with the resident. I agree with the resident's findings and plan as documented. SUBJECTIVE:no acute events OBJECTIVE: Vital Signs Temperature 97.7 F 11/16/16 15:30 Pulse Rate 67 11/16/16 15:30 Respiratory Rate 20 11/16/16 15:30 Blood Pressure 125/81 11/16/16 15:30 O2 Sat by Pulse Oximetry (%) 96 11/16/16 09:00 ELI PLATA CVS WNL Lungs CTA b/l Neuro intact Psych - awake , alert ASSESSMENT AND PLAN: Advanced Dementia- stable Acute on chronic renal failure - stable, needs o/p f/u R popliteal DVT: cont eliquis x 3-6 months HTN - stable cont norvasc medically optimized for d/c awaiting placement
--- NOTE | 2016-11-17 08:44 | PN ---
Physical Exam: SUBJECTIVE: Patient seen and examined. wearing regular clothes and shoes, walking around hallway and cooperative when escorting back to room for breakfast OBJECTIVE: Vital Signs Period Temp Pulse Resp BP Sys/[place] Pulse Ox Last 24 Hr 97.3 F-98.6 F 56-81 16-20 120-153/62-83 96-96 GENERAL: The patient is awake, alert, and oriented to place/person/birthday and date, in no acute distress. EYES: PERRL, extraocular movements intact, sclera anicteric, conjunctiva clear. ENT: ooropharynx clear without exudates, moist mucous membranes. LUNGS: Breath sounds equal, clear to auscultation bilaterally, no wheezes, no crackles, no accessory muscle use. HEART: Regular rate and rhythm, S1, S2 without murmur, rub or gallop. ABDOMEN: Soft, nontender, nondistended, normoactive bowel sounds, no guarding EXTREMITIES: 2+ radial pulses, warm, well-perfused, NEUROLOGICAL: Cranial nerves II through XII grossly intact. Normal speech, gait normal. Active Medications Generic Name Dose Route Start Last Admin Trade Name Freq PRN Reason Stop Dose Admin Amlodipine Besylate 2.5 mg 11/01/16 10:00 11/16/16 09:39 Norvasc - PO 2.5 mg DAILY SAVI Administration Apixaban 5 mg 11/01/16 10:00 11/16/16 09:45 Eliquis - PO 5 mg DAILY SAVI Administration Donepezil HCl 10 mg 11/04/16 07:54 11/16/16 09:39 Aricept - PO 10 mg DAILY SAVI Administration Memantine 5 mg 10/31/16 22:00 11/16/16 21:53 Namenda - PO 5 mg BID SAVI Administration Timolol Maleate 1 drop 11/01/16 10:00 11/16/16 21:53 Timoptic 0.25% OU 1 drop BID SAVI Administration ASSESSMENT/PLAN: 76 year old man with right lower leg DVT, advanced Alzhiemer's dementia presented to ED for AMS found to have right popliteal DVT. - patient stable, awaiting placement - patient refuses labs, will clinically monitor #Alzhiemer's, altered mental status likely due to advancement of dementia memantine 5mg po BID donepezil 10mg qdaily consult daily orientation and close monitor as patient has tendency to walk down hallway unaccompanied. #DVT - right popliteal Eliquis 5mg po daily to continue for 3 months - started on November 01 #Hypertension-Controlled Norvasc 2.5mg Daily #Glaucoma Continue Timolol 0.25% OU BID DVT: eliquis Dispo:pending placement. sister (Christianne [phone]) Visit type - Emergency Visit Emergency Visit: No - New Patient This patient is new to me today: Yes Date on this admission: 11/17/16 - Critical Care Critical Care patient: No
[2016-11-17] MEDS ORDERED: PT OWN MED DRAWER 7, Y5N ONE ×2 (09:47→21:10)
[2016-11-17] MEDS: MEMANTINE HCL 5 MG TABLET (UD) PO SCH ×2 (09:50→21:46)
[2016-11-17] MEDS: DONEPEZIL HCL 5 MG TABLET (FP) PO SCH (09:50)
[2016-11-17] MEDS: amLODIPine BESYLATE 2.5 MG TABLET (FP) PO SCH (09:50)
[2016-11-17] MEDS: APIXABAN 5 MG TABLET PO SCH (09:51)
[2016-11-17] MEDS: TIMOLOL 0.25% OPHTHALMIC SOL 5 ML BOTTLE OU SCH ×2 (09:51→21:46)
--- NOTE | 2016-11-17 14:48 | PN ---
Teaching Attending Note Name of Resident: Ann Verdugo ATTENDING PHYSICIAN STATEMENT I saw and evaluated the patient. I reviewed the resident's note and discussed the case with the resident. I agree with the resident's findings and plan as documented. SUBJECTIVE: no acute events, no complaints OBJECTIVE: Vital Signs Temperature 97.9 F 11/17/16 14:08 Pulse Rate 59 L 11/17/16 14:08 Respiratory Rate 20 11/17/16 14:08 Blood Pressure 136/65 11/17/16 14:08 O2 Sat by Pulse Oximetry (%) 96 11/17/16 09:00 CVS WNL Lungs CTA b/l Neuro intact Psych - awake , alert CBC, BMP 10/30/16 06:00 11/13/16 09:10 ASSESSMENT AND PLAN: Advanced Dementia- stable Acute on chronic renal failure - stable, needs o/p f/u R popliteal DVT: cont eliquis x 3-6 months HTN - stable cont norvasc medically optimized for d/c awaiting placement
[2016-11-18] MEDS ORDERED: PT OWN MED DRAWER 7, Y5N ONE ×2 (09:21→21:20)
[2016-11-18] MEDS: APIXABAN 5 MG TABLET PO SCH (09:26)
[2016-11-18] MEDS: TIMOLOL 0.25% OPHTHALMIC SOL 5 ML BOTTLE OU SCH ×2 (09:26→21:22)
[2016-11-18] MEDS: MEMANTINE HCL 5 MG TABLET (UD) PO SCH ×2 (09:27→21:21)
[2016-11-18] MEDS: amLODIPine BESYLATE 2.5 MG TABLET (FP) PO SCH (09:27)
[2016-11-18] MEDS: DONEPEZIL HCL 5 MG TABLET (FP) PO SCH (09:27)
--- NOTE | 2016-11-18 12:42 | PN ---
Physical Exam: SUBJECTIVE: Patient seen and examined seated on edge of bed. Observed ambulating around floor. OBJECTIVE: Vital Signs Period Temp Pulse Resp BP Sys/[place] Pulse Ox Last 24 Hr 97.9 F-98.4 F 54-98 16-20 136-156/65-93 96 GENERAL: The patient is awake, alert, and fully oriented, in no acute distress. HEAD: Normal with no signs of trauma. EYES: PERRL, extraocular movements intact, sclera anicteric, conjunctiva clear. No ptosis. LUNGS: Breath sounds equal, clear to auscultation bilaterally, no wheezes, no crackles, no accessory muscle use. HEART: Regular rate and rhythm, S1, S2 without murmur, rub or gallop. ABDOMEN: Soft, nontender, nondistended, normoactive bowel sounds, no guarding, no rebound, no hepatosplenomegaly, no masses. EXTREMITIES: 2+ pulses, warm, well-perfused, no edema. NEUROLOGICAL: Cranial nerves II through XII grossly intact. Normal speech, steady gait Active Medications Generic Name Dose Route Start Last Admin Trade Name Mona PRN Reason Stop Dose Admin Amlodipine Besylate 2.5 mg 11/01/16 10:00 11/18/16 09:27 Norvasc - PO 2.5 mg DAILY SAVI Administration Apixaban 5 mg 11/01/16 10:00 11/18/16 09:26 Eliquis - PO 5 mg DAILY SAVI Administration Donepezil HCl 10 mg 11/04/16 07:54 11/18/16 09:27 Aricept - PO 10 mg DAILY SAVI Administration Memantine 5 mg 10/31/16 22:00 11/18/16 09:27 Namenda - PO 5 mg BID SAVI Administration Timolol Maleate 1 drop 11/01/16 10:00 11/18/16 09:26 Timoptic 0.25% OU 1 drop BID SAVI Administration ASSESSMENT/PLAN: 76 year old man with right lower leg DVT and Alzhiemer's dementia. Alzhiemer's, altered mental status likely due to advancement of dementia --continue donepezil, memantine --needs placement DVT - right popliteal --continue Eliquis 5mg po daily for 3 months --started on November 01 Hypertension --BP well-controlled --continue amlodipine F/E/N Fluids: PO intake adequate Electrolytes: replete as indicated Nutrition: low sodium DVT prophylaxis: on Eliquis Dispo: pending placement; full code. (Christianne [phone]) Visit type - Emergency Visit Emergency Visit: Yes ED Registration Date: 10/28/16 Care time: The patient presented to the Emergency Department on the above date and was hospitalized for further evaluation of their emergent condition. - New Patient This patient is new to me today: Yes Date on this admission: 11/18/16 - Critical Care Critical Care patient: No
[2016-11-19 07:52] LABS: BASOPHIL 0.4 % (0-2.0); EOSINOPHIL 0.2 % (0-4.5); MCH 30.3 pg (25.7-33.7); MCHC 34.1 g/dl (32.0-35.9); MEAN CELL VOLUME 88.9 fl (80-96); MEAN PLT VOLUME 9.2 fl (7.5-11.1); NEUTROPHILS 84.8 % (42.8-82.8); PLATELET COUNT 178 K/MM3 (134-434); RDW 14.7 % (11.9-15.9); WHITE BLOOD COUNT 6.9 K/mm3 (4.0-10.0)
[2016-11-19 08:58] LABS: ALBUMIN 3.3 g/dl (3.4-5.0); ALK PHOS 68 U/L (45-117); ANION GAP 12 (8-16); BILIRUBIN,TOTAL 0.6 mg/dL (0.2-1.0); CALCIUM 8.9 mg/dL (8.5-10.1); CO2 25 mmol/L (21-32); CREATININE 1.6 mg/dL (0.7-1.3); GLUCOSE,RANDOM 105 mg/dL (74-106); SGOT/AST 15 U/L (15-37); SGPT/ALT 19 U/L (12-78); TOT PROT 6.5 g/dl (6.4-8.2)
[2016-11-19] MEDS ORDERED: PT OWN MED DRAWER 7, Y5N ONE ×2 (11:30→21:38)
[2016-11-19] MEDS: MEMANTINE HCL 5 MG TABLET (UD) PO SCH ×2 (11:32→21:40)
[2016-11-19] MEDS: amLODIPine BESYLATE 2.5 MG TABLET (FP) PO SCH (11:32)
[2016-11-19] MEDS: DONEPEZIL HCL 5 MG TABLET (FP) PO SCH (11:32)
[2016-11-19] MEDS: APIXABAN 5 MG TABLET PO SCH (11:32)
[2016-11-19] MEDS: TIMOLOL 0.25% OPHTHALMIC SOL 5 ML BOTTLE OU SCH ×2 (11:33→21:40)
--- NOTE | 2016-11-19 13:30 | PN ---
Physical Exam: SUBJECTIVE: Patient seen and examined at bed side this morning. No complaints. OBJECTIVE: Vital Signs Period Temp Pulse Resp BP Sys/[place] Pulse Ox Last 24 Hr 97.7 F-98.7 F 60-99 18-20 136-147/64-80 GENERAL: The patient is awake, alert, and fully oriented, in no acute distress. HEAD: Normal with no signs of trauma. EYES: PERRL, extraocular movements intact, sclera anicteric, conjunctiva clear. No ptosis. ENT: Ears normal, nares patent, oropharynx clear without exudates, moist mucous membranes. NECK: Trachea midline, full range of motion, supple. LUNGS: Breath sounds equal, clear to auscultation bilaterally, no wheezes, no crackles, no accessory muscle use. HEART: Regular rate and rhythm, S1, S2 without murmur, rub or gallop. ABDOMEN: Soft, non tender, non distended, normo active bowel sounds, no guarding , no rebound, no hepato-splenomegaly, no masses. EXTREMITIES: 2+ pulses, warm, well-perfused, no edema. NEUROLOGICAL: Cranial nerves II through XII grossly intact. Normal speech, gait not observed. PSYCH: Normal mood, normal affect. SKIN: Warm, dry, normal turgor, no rashes or lesions noted Laboratory Results - last 24 hr 11/19/16 11/19/16 06:30 06:30 WBC 6.9 RBC 4.41 Hgb 13.4 Hct 39.2 MCV 88.9 MCHC 34.1 RDW 14.7 Plt Count 178 MPV 9.2 Neutrophils % 84.8 H D Lymphocytes % 11.5 D Monocytes % 3.1 L Eosinophils % 0.2 D Basophils % 0.4 Sodium 141 Potassium 4.9 Chloride 104 Carbon Dioxide 25 Anion Gap 12 BUN 29 H Creatinine 1.6 H Creat Clearance w eGFR 42.35 Random Glucose 105 D Calcium 8.9 Magnesium 2.0 Total Bilirubin 0.6 D AST 15 D ALT 19 D Alkaline Phosphatase 68 Total Protein 6.5 Albumin 3.3 L Active Medications Generic Name Dose Route Start Last Admin Trade Name Freq PRN Reason Stop Dose Admin Amlodipine Besylate 2.5 mg 11/01/16 10:00 11/19/16 11:32 Norvasc - PO 2.5 mg DAILY SAVI Administration Apixaban 5 mg 11/01/16 10:00 11/19/16 11:32 Eliquis - PO 5 mg DAILY SAVI Administration Donepezil HCl 10 mg 11/04/16 07:54 11/19/16 11:32 Aricept - PO 10 mg DAILY SAVI Administration Memantine 5 mg 10/31/16 22:00 11/19/16 11:32 Namenda - PO 5 mg BID SAVI Administration Timolol Maleate 1 drop 11/01/16 10:00 11/19/16 11:33 Timoptic 0.25% OU 1 drop BID SAVI Administration ASSESSMENT/PLAN: Patient is a 76 year old male with pmh of right lower ext DVT, Alzheimer Dementia present to the ED brought by EMS for altered mental status. 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 # Confusion most likely due to worsening Alzheimers. Admitted in Med-Surg Fall Precautions Continue Memantine 5mg PO BID and Donepezil 10mg Daily, as per Neuro. # Right Popliteal DVT Patient on Elliquis 5mg PO daily and to continue for 3-6 months (calculate from the day of admission). # Generalized weakness-Improved Stared since 2-3 days as per the patient. Patient is afebrile, hemodynamically stable, no electrolyte imbalance. Will monitor # Acute Kidney Injury with questionable CKD Creatinine 1.6 today, baseline creatinine unknown Avoid nephrotoxic drugs Upon discharge, refer to Nephro. # Hypertension-Controlled Continue Norvasc 2.5mg Daily # Hyperlipidemia Diet control for now and to monitor outpatient. # Glaucoma Continue Timolol 0.25% OU BID # FEN Not on IV fluids. Electrolytes normal. Chol/Fat/Sodium restricted diet # Prophylaxis For DVT: Patient already on Elliquis For GI: Not indicated # Code Status: Full Code # Disposition: Admit to Med-surg. community center worker is on board, pending placement. Confirmed his medications with patients brother. Illness, Investigation and Plan of care explained to the patient and his sister (Christianne [phone]). They verbalized understanding. Case discussed with Dr. Junior. Problem List - Problems (1) Altered mental status Code(s): R41.82 - ALTERED MENTAL STATUS, UNSPECIFIED Qualifiers: Altered mental status type: unspecified Qualified Code(s): R41.82 - Altered mental status, unspecified (2) DVT (deep venous thrombosis) Code(s): I82.409 - ACUTE EMBOLISM AND THOMBOS UNSP DEEP VN UNSP LOWER EXTREMITY Qualifiers: DVT location: lower extremity Affected thrombotic vein of extremity: popliteal Chronicity: unspecified Laterality: right Qualified Code(s): I82.431 - Acute embolism and thrombosis of right popliteal vein (3) Renal insufficiency Code(s): N28.9 - DISORDER OF KIDNEY AND URETER, UNSPECIFIED Visit type - Emergency Visit Emergency Visit: Yes ED Registration Date: 10/28/16 Care time: The patient presented to the Emergency Department on the above date and was hospitalized for further evaluation of their emergent condition. - New Patient This patient is new to me today: No - Critical Care Critical Care patient: No
--- NOTE | 2016-11-19 20:03 | PN ---
Teaching Attending Note Name of Resident: Sara Robin ATTENDING PHYSICIAN STATEMENT I saw and evaluated the patient. I reviewed the resident's note and discussed the case with the resident. I agree with the resident's findings and plan as documented. SUBJECTIVE: no pain or SOB OBJECTIVE: NAD, awake, alert, cooperative. CV: RRR Lungs : CTAB Ext : no edema ASSESSMENT AND PLAN: 76 y/o man with h/o HTN, dementia , and recent DVT ( in Jun per records ) , who was brought by POlice after being found wondering 1- Advanced dementia : - cont aricept and namenda 2- MAX: Cr stabilized , likely has CKD monitor 3- R popliteal DVT: cont eliquis x 3-6 months 4- HTN : cont norvasc pending placement
[2016-11-20 08:19] LABS: MCH 29.9 pg (25.7-33.7); MCHC 33.5 g/dl (32.0-35.9); MEAN CELL VOLUME 89.2 fl (80-96); MEAN PLT VOLUME 8.9 fl (7.5-11.1); PLATELET COUNT 181 K/MM3 (134-434); WHITE BLOOD COUNT 8.6 K/mm3 (4.0-10.0)
[2016-11-20 08:49] LABS: ANION GAP 8 (8-16); CALCIUM 8.5 mg/dL (8.5-10.1); CO2 27 mmol/L (21-32); CREATININE 1.6 mg/dL (0.7-1.3); GLUCOSE,RANDOM 104 mg/dL (74-106); MAGNESIUM 1.9 mg/dL (1.8-2.4); PHOSPHOROUS 3.3 mg/dL (2.5-4.9)
[2016-11-20] MEDS ORDERED: SODIUM CHLORIDE 1,000 ML IV SCH ×2 (09:45→13:29)
[2016-11-20] MEDS ORDERED: PT OWN MED DRAWER 7, Y5N ONE (09:45)
[2016-11-20] MEDS: amLODIPine BESYLATE 2.5 MG TABLET (FP) PO SCH (10:14)
[2016-11-20] MEDS: MEMANTINE HCL 5 MG TABLET (UD) PO SCH ×2 (10:14→22:00)
[2016-11-20] MEDS: APIXABAN 5 MG TABLET PO SCH (10:14)
[2016-11-20] MEDS: TIMOLOL 0.25% OPHTHALMIC SOL 5 ML BOTTLE OU SCH ×2 (10:15→22:00)
--- NOTE | 2016-11-20 13:19 | PN ---
Physical Exam: SUBJECTIVE: Patient seen and examined at bed side this morning. Patient had an unwitnessed fall this morning at 7:10am. Detailed report mentioned in A/P. Post fall, doesn't have any complaints. Denies headache, dizziness, tingling, numbness, chest pain, sob, cough , palpitations, abdominal pain, nausea or vomiting. Bowel/Bladder habit normal. Sleep/Appetite normal. OBJECTIVE: Vital Signs Period Temp Pulse Resp BP Sys/[place] Pulse Ox Last 24 Hr 98.2 F-99.6 F 54-81 18-20 122-157/70-86 98 GENERAL: The patient is awake, alert, and fully oriented, in no acute distress. HEAD: Normal with no signs of trauma. EYES: PERRL, extraocular movements intact, sclera anicteric, conjunctiva clear. No ptosis. ENT: Ears normal, nares patent, oropharynx clear without exudates, moist mucous membranes. NECK: Trachea midline, full range of motion, supple. LUNGS: Breath sounds equal, clear to auscultation bilaterally, no wheezes, no crackles, no accessory muscle use. HEART: Regular rate and rhythm, S1, S2 without murmur, rub or gallop. ABDOMEN: Soft, non tender, non distended, normo active bowel sounds, no guarding , no rebound, no hepato-splenomegaly, no masses. EXTREMITIES: 2+ pulses, warm, well-perfused, no edema. NEUROLOGICAL: No facial droop. Bulk/tone normal. Power-5/5 in all extremities. Reflexes all intact. Cranial nerves II through XII grossly intact. Normal speech , gait not observed. PSYCH: Normal mood, normal affect. SKIN: Warm, dry, normal turgor, no rashes or lesions noted Laboratory Results - last 24 hr 11/20/16 11/20/16 08:00 08:00 WBC 8.6 RBC 4.22 Hgb 12.6 Hct 37.6 MCV 89.2 MCHC 33.5 RDW 15.0 Plt Count 181 MPV 8.9 Sodium 139 Potassium 4.1 Chloride 104 Carbon Dioxide 27 Anion Gap 8 BUN 27 H Creatinine 1.6 H Random Glucose 104 Calcium 8.5 Phosphorus 3.3 Magnesium 1.9 Active Medications Generic Name Dose Route Start Last Admin Trade Name Freq PRN Reason Stop Dose Admin Amlodipine Besylate 2.5 mg 11/01/16 10:00 11/20/16 10:14 Norvasc - PO 2.5 mg DAILY SVAI Administration Apixaban 5 mg 11/01/16 10:00 11/20/16 10:14 Eliquis - PO Not Given DAILY SAVI Donepezil HCl 10 mg 11/20/16 21:00 Aricept - PO DAILY@2100 SAVI Sodium Chloride 1,000 mls @ 83 mls/hr 11/20/16 09:45 11/20/16 10:55 Normal Saline - IV 83 mls/hr ASDIR SAVI Administration Memantine 5 mg 10/31/16 22:00 11/20/16 10:14 Namenda - PO 5 mg BID SAVI Administration Timolol Maleate 1 drop 11/01/16 10:00 11/20/16 10:15 Timoptic 0.25% OU 1 drop BID SAVI Administration ASSESSMENT/PLAN: Patient is a 76 year old male with pmh of right lower ext DVT, Alzheimer Dementia present to the ED brought by EMS for altered mental status. 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 # Unwitnessed fall today As per the patient, he was standing at the edge of the bed, when suddenly he felt dizzy and fell down, hitting his head on the floor, face upwards. RN heard the noise and came in to the room, found him on the floor. He didn't have any seizure kind of activity or loss of consciousness. Immediately after fall, he was able to stand up on his own. Fall 1 Protocol was initiated Vitals: BP- 146/101mm Hg on the right and 143/89 mmHg on the left, P- 62bpm, RR-18, afebrile, spo2 98% at RA. CT head was done which was negative for any acute pathology EKG showed sinus bradycardia CBC, BMP, Mg, Phosphorus were ordered- WNL except for creatinine 1.6 ( baseline). # Dizziness likely due to Memantine and Donepezil Not due to electrolyte imbalance Could be due to dehydration Donepezil- to be given HS only IV NS @ 83mls/hr for 24 hours and kojo reassess. Since patient's repeat neuro exam is normal, he is asymptomatic, hence will not do a CT scan of head and resume eliquis. # Confusion most likely due to worsening Alzheimers. Admitted in [facility] Fall Precautions Continue Memantine 5mg PO BID and Donepezil 10mg HS, as per Neuro. # Right Popliteal DVT Patient on Elliquis 5mg PO daily and to continue for 3-6 months (starting date 11/01/16)). # Acute Kidney Injury with questionable CKD Creatinine 1.6 today, baseline creatinine unknown Avoid nephrotoxic drugs Upon discharge, refer to Nephro. # Hypertension-Controlled Continue Norvasc 2.5mg Daily # Hyperlipidemia Diet control for now and to monitor outpatient. # Glaucoma Continue Timolol 0.25% OU BID # FEN IV NS @ 83mls.hr Electrolytes normal. Chol/Fat/Sodium restricted diet # Prophylaxis For DVT: Patient already on Elliquis For GI: Not indicated # Code Status: Full Code # Disposition: Admit to Med-surg. automotive worker foreman is on board, pending placement. Confirmed his medications with patients brother. Illness, Investigation and Plan of care explained to the patient and his sister (Christianne [phone]). They verbalized understanding. Case discussed with Dr. Junior. Problem List - Problems (1) Altered mental status Code(s): R41.82 - ALTERED MENTAL STATUS, UNSPECIFIED Qualifiers: Altered mental status type: unspecified Qualified Code(s): R41.82 - Altered mental status, unspecified (2) DVT (deep venous thrombosis) Code(s): I82.409 - ACUTE EMBOLISM AND THOMBOS UNSP DEEP VN UNSP LOWER EXTREMITY Qualifiers: DVT location: lower extremity Affected thrombotic vein of extremity: popliteal Chronicity: unspecified Laterality: right Qualified Code(s): I82.431 - Acute embolism and thrombosis of right popliteal vein (3) Renal insufficiency Code(s): N28.9 - DISORDER OF KIDNEY AND URETER, UNSPECIFIED Visit type - Emergency Visit Emergency Visit: Yes ED Registration Date: 10/28/16 Care time: The patient presented to the Emergency Department on the above date and was hospitalized for further evaluation of their emergent condition. - New Patient This patient is new to me today: No - Critical Care Critical Care patient: No - Discharge Referral Referred to [facility] Med P.C.: No
--- NOTE | 2016-11-20 13:27 | PN ---
Teaching Attending Note Name of Resident: Sara Robin ATTENDING PHYSICIAN STATEMENT I saw and evaluated the patient. I reviewed the resident's note and discussed the case with the resident. I agree with the resident's findings and plan as documented. SUBJECTIVE: seen at 10:30 no fever or chills . this Am he had an unwitnessed fall . He felt light headed getting up from bed. tried to lower himself to floor , but fel downand hit his head against the table . HE has occipital scalp pain. no pain in neck . Denies any weakness, numbness or tingling . has no change in his vision . OBJECTIVE: NAD, awake, alert, cooperative. CV: RRR Lungs : CTAB Ext : no edema Scalp with no bruise or abrasions Neuro : EOMI, no facial asymmetry . round equal pupils , reactive to light . tongue and uvula at mid line . strength 5/5 in upper and lower extremities proximally and distally 2+ knee jerk and biceps b/l ASSESSMENT AND PLAN: 76 y/o man with h/o HTN, dementia , and recent DVT ( in Jun per records ) , who was brought by POlice after being found wondering 1- Fall with pre-syncope: likely due to hypovolemia vs medication effect as aricept and namenda can cause dizziness and sometimes orthostatic hypotension - CT with no bleed in head . - check orthostatic Vs - give gentle hydration x 24 hr 2- Advanced dementia : - cont aricept and namenda 3- CKD : stable Cr 4- R popliteal DVT: cont eliquis x 3-6 months 5- HTN : cont norvasc pending placement
--- NOTE | 2016-11-20 14:39 | EKG ---
Test Reason : Blood Pressure : / mmHG Vent. Rate : 053 BPM Atrial Rate : 053 BPM P-R Int : 160 ms QRS Dur : 092 ms QT Int : 450 ms P-R-T Axes : 013 052 028 degrees QTc Int : 422 ms SINUS BRADYCARDIA OTHERWISE NORMAL ECG NO PREVIOUS ECGS AVAILABLE Confirmed by KWAME COELLO, MAGUE ([id number]) on 11/20/2016 2:38:33 PM Referred By: MARGARET PARHAM Confirmed By:MAGUE PUENTE MD
[2016-11-20] MEDS: DONEPEZIL HCL 10 MG TABLET (FP) PO SCH (22:00)
--- NOTE | 2016-11-21 07:19 | PN ---
Physical Exam: SUBJECTIVE: Patient seen and examined at bed side this morning. No complaints. Doesn't have dizziness today. Denies chest pain, sob, cough, palpitation, abdominal pain, nausea or vomiting. Bowel/Bladder normal. Sleep/Appetite normal. OBJECTIVE: Vital Signs Period Temp Pulse Resp BP Sys/[place] Pulse Ox Last 24 Hr 97.6 F-98.9 F 54-66 18-18 128-157/56-88 97-97 GENERAL: The patient is awake, alert, and fully oriented, in no acute distress. HEAD: Normal with no signs of trauma. EYES: PERRL, extraocular movements intact, sclera anicteric, conjunctiva clear. No ptosis. ENT: Ears normal, nares patent, oropharynx clear without exudates, moist mucous membranes. NECK: Trachea midline, full range of motion, supple. LUNGS: Breath sounds equal, clear to auscultation bilaterally, no wheezes, no crackles, no accessory muscle use. HEART: Regular rate and rhythm, S1, S2 without murmur, rub or gallop. ABDOMEN: Soft, non tender, non distended, normo active bowel sounds, no guarding , no rebound, no hepato-splenomegaly, no masses. EXTREMITIES: 2+ pulses, warm, well-perfused, no edema. NEUROLOGICAL: No facial droop. Bulk/tone normal. Power-5/5 in all extremities. Reflexes all intact. Cranial nerves II through XII grossly intact. Normal speech , gait not observed. PSYCH: Normal mood, normal affect. SKIN: Warm, dry, normal turgor, no rashes or lesions noted Laboratory Results - last 24 hr 11/20/16 11/20/16 08:00 08:00 WBC 8.6 RBC 4.22 Hgb 12.6 Hct 37.6 MCV 89.2 MCHC 33.5 RDW 15.0 Plt Count 181 MPV 8.9 Sodium 139 Potassium 4.1 Chloride 104 Carbon Dioxide 27 Anion Gap 8 BUN 27 H Creatinine 1.6 H Random Glucose 104 Calcium 8.5 Phosphorus 3.3 Magnesium 1.9 Active Medications Generic Name Dose Route Start Last Admin Trade Name Freq PRN Reason Stop Dose Admin Amlodipine Besylate 2.5 mg 11/01/16 10:00 11/20/16 10:14 Norvasc - PO 2.5 mg DAILY SAVI Administration Apixaban 5 mg 11/01/16 10:00 11/20/16 10:14 Eliquis - PO Not Given DAILY SAVI Donepezil HCl 10 mg 11/20/16 21:00 11/20/16 22:00 Aricept - PO 10 mg DAILY@2100 SAVI Administration Sodium Chloride 1,000 mls @ 83 mls/hr 11/20/16 13:29 11/20/16 17:31 Normal Saline - IV 11/21/16 09:44 Not Given ASDIR SAVI Memantine 5 mg 10/31/16 22:00 11/20/16 22:00 Namenda - PO 5 mg BID SAVI Administration Timolol Maleate 1 drop 11/01/16 10:00 11/20/16 22:00 Timoptic 0.25% OU 1 drop BID SAVI Administration ASSESSMENT/PLAN: Patient is a 76 year old male with pmh of right lower ext DVT, Alzheimer Dementia present to the ED brought by EMS for altered mental status. 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 # Dizziness-resolved Donepezil- to be given HS only (dizziness likely because he was getting Donepezil in the morning vs dehydration) IV NS @ 83mls/hr given for 24 hours and stopped today. Unwitnessed fall likely due to dizziness. (11/20/16); Head CT- negative for acute pathology. CBC, BMP was normal except for creatinine of 1.6. Orthostatic vitals were normal. Fall precautions. # Confusion most likely due to worsening Alzheimers. Admitted in Med-Surg Continue Memantine 5mg PO BID and Donepezil 10mg HS, as per Neuro. # Right Popliteal DVT Patient on Elliquis 5mg PO daily and to continue for 3-6 months (starting date 11/01/16)). # Acute Kidney Injury with questionable CKD Creatinine 1.6 (11/20/16) Avoid nephrotoxic drugs Upon discharge, refer to Nephro. # Hypertension-Controlled Continue Norvasc 2.5mg Daily # Hyperlipidemia Diet control for now and to monitor outpatient. # Glaucoma Continue Timolol 0.25% OU BID # FEN IV NS @ 83mls.hr given for 24 hours, stopped IV NS today. Electrolytes normal. Chol/Fat/Sodium restricted diet # Prophylaxis For DVT: Patient already on Elliquis For GI: Not indicated # Code Status: Full Code # Disposition: Admit to Med-surg. bull gang worker is on board, pending placement. Illness, Investigation and Plan of care explained to the patient. He verbalized understanding. Case discussed with Dr. Rodriguez. Problem List - Problems (1) Altered mental status Code(s): R41.82 - ALTERED MENTAL STATUS, UNSPECIFIED Qualifiers: Altered mental status type: unspecified Qualified Code(s): R41.82 - Altered mental status, unspecified (2) DVT (deep venous thrombosis) Code(s): I82.409 - ACUTE EMBOLISM AND THOMBOS UNSP DEEP VN UNSP LOWER EXTREMITY Qualifiers: DVT location: lower extremity Affected thrombotic vein of extremity: popliteal Chronicity: unspecified Laterality: right Qualified Code(s): I82.431 - Acute embolism and thrombosis of right popliteal vein (3) Renal insufficiency Code(s): N28.9 - DISORDER OF KIDNEY AND URETER, UNSPECIFIED Visit type - Emergency Visit Emergency Visit: Yes ED Registration Date: 10/28/16 Care time: The patient presented to the Emergency Department on the above date and was hospitalized for further evaluation of their emergent condition. - New Patient This patient is new to me today: No - Critical Care Critical Care patient: No - Discharge Referral Referred to [facility] No
[2016-11-21] MEDS ORDERED: PT OWN MED DRAWER 7, Y5N ONE (09:47)
[2016-11-21] MEDS: TIMOLOL 0.25% OPHTHALMIC SOL 5 ML BOTTLE OU SCH ×2 (10:10→21:29)
[2016-11-21] MEDS: APIXABAN 5 MG TABLET PO SCH (10:10)
[2016-11-21] MEDS: MEMANTINE HCL 5 MG TABLET (UD) PO SCH ×2 (10:10→21:28)
[2016-11-21] MEDS: amLODIPine BESYLATE 2.5 MG TABLET (FP) PO SCH (10:10)
--- NOTE | 2016-11-21 13:26 | PN ---
Teaching Attending Note Name of Resident: Sara Robin ATTENDING PHYSICIAN STATEMENT I saw and evaluated the patient. I reviewed the resident's note and discussed the case with the resident. I agree with the resident's findings and plan as documented. SUBJECTIVE: Patient is comfortable with no acute distress. No nausea or vomiting. No shortness of breath. OBJECTIVE: Vital Signs Temperature 98.4 F 11/21/16 10:00 Pulse Rate 63 11/21/16 10:00 Respiratory Rate 18 11/21/16 10:00 Blood Pressure 142/70 11/21/16 10:00 O2 Sat by Pulse Oximetry (%) 97 11/21/16 09:00 CBCD WBC 8.6 K/mm3 (4.0-10.0) 11/20/16 08:00 RBC 4.22 M/mm3 (4.00-5.60) 11/20/16 08:00 Hgb 12.6 GM/dL (11.7-16.9) 11/20/16 08:00 Hct 37.6 % (35.4-49) 11/20/16 08:00 MCV 89.2 fl (80-96) 11/20/16 08:00 MCHC 33.5 g/dl (32.0-35.9) 11/20/16 08:00 RDW 15.0 % (11.9-15.9) 11/20/16 08:00 Plt Count 181 K/MM3 (134-434) 11/20/16 08:00 MPV 8.9 fl (7.5-11.1) 11/20/16 08:00 CMP Sodium 139 mmol/L (136-145) 11/20/16 08:00 Potassium 4.1 mmol/L (3.5-5.1) 11/20/16 08:00 Chloride 104 mmol/L (98-107) 11/20/16 08:00 Carbon Dioxide 27 mmol/L (21-32) 11/20/16 08:00 Anion Gap 8 (8-16) 11/20/16 08:00 BUN 27 mg/dL (7-18) H 11/20/16 08:00 Creatinine 1.6 mg/dL (0.7-1.3) H 11/20/16 08:00 Creat Clearance w eGFR 42.35 (>60) 11/19/16 06:30 Random Glucose 104 mg/dL (74-106) 11/20/16 08:00 Calcium 8.5 mg/dL (8.5-10.1) 11/20/16 08:00 Total Bilirubin 0.6 mg/dL (0.2-1.0) D 11/19/16 06:30 AST 15 U/L (15-37) D 11/19/16 06:30 ALT 19 U/L (12-78) D 11/19/16 06:30 Alkaline Phosphatase 68 U/L (45-117) 11/19/16 06:30 Total Protein 6.5 g/dl (6.4-8.2) 11/19/16 06:30 Albumin 3.3 g/dl (3.4-5.0) L 11/19/16 06:30 CARDIAC ENZYMES Creatine Kinase 88 IU/L (39-308) 10/31/16 06:00 Troponin I < 0.02 ng/ml (0.00-0.05) 10/28/16 20:30 Home Medications Medication Instructions Recorded Amlodipine Besylate [Norvasc -] 2.5 mg PO DAILY 10/28/16 Apixaban [Eliquis -] 5 mg PO DAILY 10/28/16 Furosemide [Lasix -] 20 mg PO DAILY 10/28/16 Memantine HCl [Namenda -] 5 mg PO DAILY 10/28/16 Timolol 0.25% [Timoptic 0.25%] 0 ml OU BID 10/28/16 PE: per resident's note ASSESSMENT AND PLAN: Patient is a 76 y/o man with h/o HTN, dementia , and recent DVT ( in Jun per records ) , who was brought by Police after being found wondering # s/p Fall , patient is on aricept and namenda can cause dizziness and sometimes orthostatic hypotension. CT of head is negative for bleed. continue checking orthostatic Vs , continue gentle hydration . # Advanced dementia : on aricept and namenda # CKD : stable Cr # R popliteal DVT: on Eliquis continue for 3-6 months # HTN : cont norvasc # Hx of Glaucoma continue the drops pending placement
[2016-11-21] MEDS: DONEPEZIL HCL 10 MG TABLET (FP) PO SCH (21:28)
--- NOTE | 2016-11-22 08:54 | PN ---
Physical Exam: SUBJECTIVE: Patient seen and examined at bed side this morning. Dizziness has resolved. Denies chest pain, sob, cough, palpitation, abdominal pain, nausea or vomiting. Bowel/Bladder habit normal. Sleep/Appetite normal. OBJECTIVE: Vital Signs Period Temp Pulse Resp BP Sys/[place] Pulse Ox Last 24 Hr 98 F-98.9 F 56-69 18-20 136-169/70-91 97-97 GENERAL: The patient is awake, alert, and fully oriented, in no acute distress. HEAD: Normal with no signs of trauma. EYES: PERRL, extraocular movements intact, sclera anicteric, conjunctiva clear. No ptosis. ENT: Ears normal, nares patent, oropharynx clear without exudates, moist mucous membranes. NECK: Trachea midline, full range of motion, supple. LUNGS: Breath sounds equal, clear to auscultation bilaterally, no wheezes, no crackles, no accessory muscle use. HEART: Regular rate and rhythm, S1, S2 without murmur, rub or gallop. ABDOMEN: Soft, non tender, non distended, normo active bowel sounds, no guarding , no rebound, no hepato-splenomegaly, no masses. EXTREMITIES: 2+ pulses, warm, well-perfused, no edema. NEUROLOGICAL: No facial droop. Bulk/tone normal. Power-5/5 in all extremities. Reflexes all intact. Cranial nerves II through XII grossly intact. Normal speech , gait not observed. PSYCH: Normal mood, normal affect. SKIN: Warm, dry, normal turgor, no rashes or lesions noted Active Medications Generic Name Dose Route Start Last Admin Trade Name Mona PRN Reason Stop Dose Admin Amlodipine Besylate 2.5 mg 11/01/16 10:00 11/21/16 10:10 Norvasc - PO 2.5 mg DAILY SAVI Administration Apixaban 2.5 mg 11/22/16 10:00 Eliquis - PO BID SAVI Donepezil HCl 10 mg 11/20/16 21:00 11/21/16 21:28 Aricept - PO 10 mg DAILY@2100 SAVI Administration Memantine 5 mg 10/31/16 22:00 11/21/16 21:28 Namenda - PO 5 mg BID SAVI Administration Timolol Maleate 1 drop 11/01/16 10:00 11/21/16 21:29 Timoptic 0.25% OU 1 drop BID SAVI Administration ASSESSMENT/PLAN: Patient is a 76 year old male with pmh of right lower ext DVT, Alzheimer Dementia present to the ED brought by EMS for altered mental status. 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 # Dizziness-resolved Donepezil- to be given HS only (dizziness likely because he was getting Donepezil in the morning vs dehydration) Orthostatic vitals are normal. Fall precautions. # Confusion most likely due to worsening Alzheimers. Admitted in Med-Surg Continue Memantine 5mg PO BID and Donepezil 10mg HS, as per Neuro. # Right Popliteal DVT Patient's Eliquis changed to 2.5mg PO BID, renal dose and to continue for 3- 6 months (starting date 11/01/16)). # Acute Kidney Injury with questionable CKD Creatinine 1.6 (11/20/16) Avoid nephrotoxic drugs Upon discharge, refer to Nephro. # Hypertension-Controlled Continue Norvasc 2.5mg Daily # Hyperlipidemia Diet control for now and to monitor outpatient. # Glaucoma Continue Timolol 0.25% OU BID # FEN Not on any IV fluids. Electrolytes normal. Chol/Fat/Sodium restricted diet # Prophylaxis For DVT: Patient already on Eliquis For GI: Not indicated # Code Status: Full Code # Disposition: Admit to Med-surg. beadworker is on board, pending placement. Illness, Investigation and Plan of care explained to the patient. He verbalized understanding. Case discussed with Dr. Rodriguez. Problem List - Problems (1) Altered mental status Code(s): R41.82 - ALTERED MENTAL STATUS, UNSPECIFIED Qualifiers: Altered mental status type: unspecified Qualified Code(s): R41.82 - Altered mental status, unspecified (2) DVT (deep venous thrombosis) Code(s): I82.409 - ACUTE EMBOLISM AND THOMBOS UNSP DEEP VN UNSP LOWER EXTREMITY Qualifiers: DVT location: lower extremity Affected thrombotic vein of extremity: popliteal Chronicity: unspecified Laterality: right Qualified Code(s): I82.431 - Acute embolism and thrombosis of right popliteal vein (3) Renal insufficiency Code(s): N28.9 - DISORDER OF KIDNEY AND URETER, UNSPECIFIED Visit type - Emergency Visit Emergency Visit: Yes ED Registration Date: 10/28/16 Care time: The patient presented to the Emergency Department on the above date and was hospitalized for further evaluation of their emergent condition. - New Patient This patient is new to me today: No - Critical Care Critical Care patient: No - Discharge Referral Referred to [facility] No
[2016-11-22] MEDS ORDERED: PT OWN MED DRAWER 7, Y5N ONE ×3 (09:29→21:30)
[2016-11-22] MEDS: amLODIPine BESYLATE 2.5 MG TABLET (FP) PO SCH (09:36)
[2016-11-22] MEDS: MEMANTINE HCL 5 MG TABLET (UD) PO SCH ×2 (09:36→21:32)
[2016-11-22] MEDS: TIMOLOL 0.25% OPHTHALMIC SOL 5 ML BOTTLE OU SCH ×2 (09:38→21:32)
[2016-11-22] MEDS: APIXABAN 2.5 MG TABLET PO SCH ×2 (10:36→21:32)
--- NOTE | 2016-11-22 15:32 | PN ---
Teaching Attending Note Name of Resident: Sara Robin ATTENDING PHYSICIAN STATEMENT I saw and evaluated the patient. I reviewed the resident's note and discussed the case with the resident. I agree with the resident's findings and plan as documented. SUBJECTIVE: comfortable no new changes OBJECTIVE: Vital Signs Temperature 98.1 F 11/22/16 15:25 Pulse Rate 67 11/22/16 15:25 Respiratory Rate 18 11/22/16 15:25 Blood Pressure 135/42 11/22/16 15:25 O2 Sat by Pulse Oximetry (%) 97 11/21/16 21:00 CBCD WBC 8.6 K/mm3 (4.0-10.0) 11/20/16 08:00 RBC 4.22 M/mm3 (4.00-5.60) 11/20/16 08:00 Hgb 12.6 GM/dL (11.7-16.9) 11/20/16 08:00 Hct 37.6 % (35.4-49) 11/20/16 08:00 MCV 89.2 fl (80-96) 11/20/16 08:00 MCHC 33.5 g/dl (32.0-35.9) 11/20/16 08:00 RDW 15.0 % (11.9-15.9) 11/20/16 08:00 Plt Count 181 K/MM3 (134-434) 11/20/16 08:00 MPV 8.9 fl (7.5-11.1) 11/20/16 08:00 CMP Sodium 139 mmol/L (136-145) 11/20/16 08:00 Potassium 4.1 mmol/L (3.5-5.1) 11/20/16 08:00 Chloride 104 mmol/L (98-107) 11/20/16 08:00 Carbon Dioxide 27 mmol/L (21-32) 11/20/16 08:00 Anion Gap 8 (8-16) 11/20/16 08:00 BUN 27 mg/dL (7-18) H 11/20/16 08:00 Creatinine 1.6 mg/dL (0.7-1.3) H 11/20/16 08:00 Creat Clearance w eGFR 42.35 (>60) 11/19/16 06:30 Random Glucose 104 mg/dL (74-106) 11/20/16 08:00 Calcium 8.5 mg/dL (8.5-10.1) 11/20/16 08:00 Total Bilirubin 0.6 mg/dL (0.2-1.0) D 11/19/16 06:30 AST 15 U/L (15-37) D 11/19/16 06:30 ALT 19 U/L (12-78) D 11/19/16 06:30 Alkaline Phosphatase 68 U/L (45-117) 11/19/16 06:30 Total Protein 6.5 g/dl (6.4-8.2) 11/19/16 06:30 Albumin 3.3 g/dl (3.4-5.0) L 11/19/16 06:30 CARDIAC ENZYMES Creatine Kinase 88 IU/L (39-308) 10/31/16 06:00 Troponin I < 0.02 ng/ml (0.00-0.05) 10/28/16 20:30 Current Medications Generic Name Dose Route Start Last Admin Trade Name Mona PRN Reason Stop Dose Admin Amlodipine Besylate 2.5 mg 11/01/16 10:00 11/22/16 09:36 Norvasc - PO 2.5 mg DAILY SAVI Administration Apixaban 2.5 mg 11/22/16 10:00 11/22/16 10:36 Eliquis - PO 2.5 mg BID SAVI Administration Donepezil HCl 10 mg 11/20/16 21:00 11/21/16 21:28 Aricept - PO 10 mg DAILY@2100 SAVI Administration Memantine 5 mg 10/31/16 22:00 11/22/16 09:36 Namenda - PO 5 mg BID SAVI Administration Timolol Maleate 1 drop 11/01/16 10:00 11/22/16 09:38 Timoptic 0.25% OU 1 drop BID SAVI Administration Home Medications Medication Instructions Recorded Amlodipine Besylate [Norvasc -] 2.5 mg PO DAILY 10/28/16 Apixaban [Eliquis -] 5 mg PO DAILY 10/28/16 Furosemide [Lasix -] 20 mg PO DAILY 10/28/16 Memantine HCl [Namenda -] 5 mg PO DAILY 10/28/16 Timolol 0.25% [Timoptic 0.25%] 0 ml OU BID 05/28/17 PE: per resident's note ASSESSMENT AND PLAN: Patient is a 76 y/o man with h/o HTN, dementia , and recent DVT ( in Jun per records ) , who was brought by Police after being found wondering # s/p Fall , patient is on aricept and namenda can cause dizziness and sometimes orthostatic hypotension. CT of head is negative for bleed. continue checking orthostatic Vs , continue gentle hydration . # Advanced dementia : on aricept and namenda # CKD : stable Cr # R popliteal DVT: on Eliquis continue for 3-6 months # HTN : cont norvasc # Hx of Glaucoma continue the drops pending placement
[2016-11-22] MEDS: DONEPEZIL HCL 10 MG TABLET (FP) PO SCH (21:32)
[2016-11-23] MEDS: APIXABAN 2.5 MG TABLET PO SCH ×2 (10:30→22:56)
[2016-11-23] MEDS: TIMOLOL 0.25% OPHTHALMIC SOL 5 ML BOTTLE OU SCH ×2 (10:30→22:58)
[2016-11-23] MEDS: amLODIPine BESYLATE 2.5 MG TABLET (FP) PO SCH (10:30)
[2016-11-23] MEDS: MEMANTINE HCL 5 MG TABLET (UD) PO SCH ×2 (10:30→22:57)
[2016-11-23] MEDS ORDERED: PT OWN MED DRAWER 7, Y5N ONE ×2 (10:43→21:30)
--- NOTE | 2016-11-23 15:37 | PN ---
Physical Exam: SUBJECTIVE: Patient seen and examined at bed side this morning. Dizziness has resolved. Denies chest pain, sob, cough, palpitation, abdominal pain, nausea or vomiting. Bowel/Bladder habit normal. Sleep/Appetite normal. OBJECTIVE: Vital Signs Period Temp Pulse Resp BP Sys/[place] Pulse Ox Last 24 Hr 98.3 F-98.8 F 52-65 18-20 122-156/66-87 98 GENERAL: The patient is awake, alert, and fully oriented, in no acute distress. HEAD: Normal with no signs of trauma. EYES: PERRL, extraocular movements intact, sclera anicteric, conjunctiva clear. No ptosis. ENT: Ears normal, nares patent, oropharynx clear without exudates, moist mucous membranes. NECK: Trachea midline, full range of motion, supple. LUNGS: Breath sounds equal, clear to auscultation bilaterally, no wheezes, no crackles, no accessory muscle use. HEART: Regular rate and rhythm, S1, S2 without murmur, rub or gallop. ABDOMEN: Soft, non tender, non distended, normo active bowel sounds, no guarding , no rebound, no hepato-splenomegaly, no masses. EXTREMITIES: 2+ pulses, warm, well-perfused, no edema. NEUROLOGICAL: No facial droop. Bulk/tone normal. Power-5/5 in all extremities. Reflexes all intact. Cranial nerves II through XII grossly intact. Normal speech , gait not observed. PSYCH: Normal mood, normal affect. SKIN: Warm, dry, normal turgor, no rashes or lesions noted Active Medications Generic Name Dose Route Start Last Admin Trade Name Mona PRN Reason Stop Dose Admin Amlodipine Besylate 2.5 mg 11/01/16 10:00 11/23/16 10:30 Norvasc - PO 2.5 mg DAILY SAVI Administration Apixaban 2.5 mg 11/22/16 10:00 11/23/16 10:30 Eliquis - PO 2.5 mg BID SAVI Administration Donepezil HCl 10 mg 11/20/16 21:00 11/22/16 21:32 Aricept - PO 10 mg DAILY@2100 SAVI Administration Memantine 5 mg 10/31/16 22:00 11/23/16 10:30 Namenda - PO 5 mg BID SAVI Administration Timolol Maleate 1 drop 11/01/16 10:00 11/23/16 10:30 Timoptic 0.25% OU 1 drop BID SAVI Administration ASSESSMENT/PLAN: Patient is a 76 year old male with pmh of right lower ext DVT, Alzheimer Dementia present to the ED brought by EMS for altered mental status. 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 # Dizziness-resolved Donepezil- to be given HS only (dizziness likely because he was getting Donepezil in the morning vs dehydration) Orthostatic vitals are normal. Fall precautions. # Confusion most likely due to worsening Alzheimers. Admitted in Med-Surg Continue Memantine 5mg PO BID and Donepezil 10mg HS, as per Neuro. # Right Popliteal DVT Patient's Eliquis changed to 2.5mg PO BID, renal dose and to continue for 3- 6 months (starting date 11/01/16)). # Acute Kidney Injury with questionable CKD Creatinine 1.6 (11/20/16) Avoid nephrotoxic drugs Upon discharge, refer to Nephro. # Hypertension-Controlled Continue Norvasc 2.5mg Daily # Hyperlipidemia Diet control for now and to monitor outpatient. # Glaucoma Continue Timolol 0.25% OU BID # FEN Not on any IV fluids. Electrolytes normal. Chol/Fat/Sodium restricted diet # Prophylaxis For DVT: Patient already on Eliquis For GI: Not indicated # Code Status: Full Code # Disposition: Admit to Med-surg. pack worker supervisor is on board, pending placement. Illness, Investigation and Plan of care explained to the patient. He verbalized understanding. Case discussed with Dr. Rodriguez. Problem List - Problems (1) Altered mental status Code(s): R41.82 - ALTERED MENTAL STATUS, UNSPECIFIED Qualifiers: Altered mental status type: unspecified Qualified Code(s): R41.82 - Altered mental status, unspecified (2) DVT (deep venous thrombosis) Code(s): I82.409 - ACUTE EMBOLISM AND THOMBOS UNSP DEEP VN UNSP LOWER EXTREMITY Qualifiers: DVT location: lower extremity Affected thrombotic vein of extremity: popliteal Chronicity: unspecified Laterality: right Qualified Code(s): I82.431 - Acute embolism and thrombosis of right popliteal vein (3) Renal insufficiency Code(s): N28.9 - DISORDER OF KIDNEY AND URETER, UNSPECIFIED Visit type - Emergency Visit Emergency Visit: Yes ED Registration Date: 10/28/16 Care time: The patient presented to the Emergency Department on the above date and was hospitalized for further evaluation of their emergent condition. - New Patient This patient is new to me today: No - Critical Care Critical Care patient: No - Discharge Referral Referred to [facility] No
--- NOTE | 2016-11-23 17:55 | PN ---
Teaching Attending Note Name of Resident: Sara Robin ATTENDING PHYSICIAN STATEMENT I saw and evaluated the patient. I reviewed the resident's note and discussed the case with the resident. I agree with the resident's findings and plan as documented. SUBJECTIVE: comfortable with no acute distress. OBJECTIVE: Vital Signs Temperature 98.3 F 11/23/16 13:56 Pulse Rate 61 11/23/16 13:56 Respiratory Rate 20 11/23/16 13:56 Blood Pressure 122/70 11/23/16 13:56 O2 Sat by Pulse Oximetry (%) 98 11/23/16 09:00 CBCD WBC 8.6 K/mm3 (4.0-10.0) 11/20/16 08:00 RBC 4.22 M/mm3 (4.00-5.60) 11/20/16 08:00 Hgb 12.6 GM/dL (11.7-16.9) 11/20/16 08:00 Hct 37.6 % (35.4-49) 11/20/16 08:00 MCV 89.2 fl (80-96) 11/20/16 08:00 MCHC 33.5 g/dl (32.0-35.9) 11/20/16 08:00 RDW 15.0 % (11.9-15.9) 11/20/16 08:00 Plt Count 181 K/MM3 (134-434) 11/20/16 08:00 MPV 8.9 fl (7.5-11.1) 11/20/16 08:00 CMP Sodium 139 mmol/L (136-145) 11/20/16 08:00 Potassium 4.1 mmol/L (3.5-5.1) 11/20/16 08:00 Chloride 104 mmol/L (98-107) 11/20/16 08:00 Carbon Dioxide 27 mmol/L (21-32) 11/20/16 08:00 Anion Gap 8 (8-16) 11/20/16 08:00 BUN 27 mg/dL (7-18) H 11/20/16 08:00 Creatinine 1.6 mg/dL (0.7-1.3) H 11/20/16 08:00 Creat Clearance w eGFR 42.35 (>60) 11/19/16 06:30 Random Glucose 104 mg/dL (74-106) 11/20/16 08:00 Calcium 8.5 mg/dL (8.5-10.1) 11/20/16 08:00 Total Bilirubin 0.6 mg/dL (0.2-1.0) D 11/19/16 06:30 AST 15 U/L (15-37) D 11/19/16 06:30 ALT 19 U/L (12-78) D 11/19/16 06:30 Alkaline Phosphatase 68 U/L (45-117) 11/19/16 06:30 Total Protein 6.5 g/dl (6.4-8.2) 11/19/16 06:30 Albumin 3.3 g/dl (3.4-5.0) L 11/19/16 06:30 CARDIAC ENZYMES Creatine Kinase 88 IU/L (39-308) 10/31/16 06:00 Troponin I < 0.02 ng/ml (0.00-0.05) 10/28/16 20:30 Current Medications Generic Name Dose Route Start Last Admin Trade Name Mona PRKate Reason Stop Dose Admin Amlodipine Besylate 2.5 mg 11/01/16 10:00 11/23/16 10:30 Norvasc - PO 2.5 mg DAILY SAVI Administration Apixaban 2.5 mg 11/22/16 10:00 11/23/16 10:30 Eliquis - PO 2.5 mg BID SAVI Administration Donepezil HCl 10 mg 11/20/16 21:00 11/22/16 21:32 Aricept - PO 10 mg DAILY@2100 SAVI Administration Memantine 5 mg 10/31/16 22:00 11/23/16 10:30 Namenda - PO 5 mg BID SAVI Administration Timolol Maleate 1 drop 11/01/16 10:00 11/23/16 10:30 Timoptic 0.25% OU 1 drop BID SAVI Administration Home Medications Medication Instructions Recorded Amlodipine Besylate [Norvasc -] 2.5 mg PO DAILY 10/28/16 Apixaban [Eliquis -] 5 mg PO DAILY 10/28/16 Furosemide [Lasix -] 20 mg PO DAILY 10/28/16 Memantine HCl [Namenda -] 5 mg PO DAILY 10/28/16 Timolol 0.25% [Timoptic 0.25%] 0 ml OU BID 10/28/16 PE: per resident's note CT of head is negative for bleed. ASSESSMENT AND PLAN: Patient is a 76 y/o man with h/o HTN, dementia , and recent DVT ( in Jun per records ) , who was brought by Police after being found [place] # s/p Fall , patient is on aricept and namenda can cause dizziness and orthostatic hypotension. continue checking orthostatic Vs , continue gentle hydration . # Advanced dementia : on aricept and namenda # CKD : stable Cr # R popliteal DVT: on Eliquis continue for 3-6 months # HTN : cont norvasc # Hx of Glaucoma continue the drops pending placement
[2016-11-23] MEDS: DONEPEZIL HCL 10 MG TABLET (FP) PO SCH (22:57)
[2016-11-24] MEDS ORDERED: PT OWN MED DRAWER 7, Y5N ONE ×3 (01:18→21:22)
[2016-11-24] MEDS: APIXABAN 2.5 MG TABLET PO SCH ×2 (09:58→22:21)
[2016-11-24] MEDS: amLODIPine BESYLATE 2.5 MG TABLET (FP) PO SCH (09:58)
[2016-11-24] MEDS: MEMANTINE HCL 5 MG TABLET (UD) PO SCH ×2 (09:58→22:20)
[2016-11-24] MEDS: TIMOLOL 0.25% OPHTHALMIC SOL 5 ML BOTTLE OU SCH ×2 (09:58→22:21)
--- NOTE | 2016-11-24 20:14 | PN ---
Physical Exam: SUBJECTIVE: Patient seen and examined Comfortable with no acute distress. OBJECTIVE: Vital Signs Temperature 97.7 F 11/24/16 18:00 Pulse Rate 58 L 11/24/16 18:00 Respiratory Rate 20 11/24/16 18:00 Blood Pressure 154/72 11/24/16 18:00 O2 Sat by Pulse Oximetry (%) 98 11/24/16 09:00 GENERAL: The patient is awake, alert, and fully oriented, in no acute distress. HEAD: Normal with no signs of trauma. EYES: PERRL, extraocular movements intact, sclera anicteric, conjunctiva clear. No ptosis. ENT: Ears normal, nares patent, oropharynx clear without exudates, moist mucous membranes. NECK: Trachea midline, full range of motion, supple. LUNGS: Breath sounds equal, clear to auscultation bilaterally, no wheezes, no crackles, no accessory muscle use. HEART: Regular rate and rhythm, S1, S2 without murmur, rub or gallop. ABDOMEN: Soft, nontender, nondistended, normoactive bowel sounds, no guarding, no rebound, no hepatosplenomegaly, no masses. EXTREMITIES: 2+ pulses, warm, well-perfused, no edema. NEUROLOGICAL: Cranial nerves II through XII grossly intact. Normal speech, gait not observed. PSYCH: Normal mood, normal affect. SKIN: Warm, dry, normal turgor, no rashes or lesions noted Active Medications Generic Name Dose Route Start Last Admin Trade Name Freq PRN Reason Stop Dose Admin Amlodipine Besylate 2.5 mg 11/01/16 10:00 11/24/16 09:58 Norvasc - PO 2.5 mg DAILY SAVI Administration Apixaban 2.5 mg 11/22/16 10:00 11/24/16 09:58 Eliquis - PO 2.5 mg BID SAVI Administration Donepezil HCl 10 mg 11/20/16 21:00 11/23/16 22:57 Aricept - PO 10 mg DAILY@2100 SAVI Administration Memantine 5 mg 10/31/16 22:00 11/24/16 09:58 Namenda - PO 5 mg BID SAVI Administration Timolol Maleate 1 drop 11/01/16 10:00 11/24/16 09:58 Timoptic 0.25% OU 1 drop BID SAVI Administration CT of head is negative for bleed. ASSESSMENT AND PLAN: Patient is a 76 y/o man with h/o HTN, dementia , and recent DVT ( in Jun per records ) , who was brought by Police after being found [place] # HTN Uncontrolled will increase the does of norvasc # s/p Fall , patient is on aricept and namenda can cause dizziness and orthostatic hypotension. continue checking orthostatic Vs , continue gentle hydration . # Advanced dementia : on aricept and namenda # CKD : stable Cr # R popliteal DVT: on Eliquis continue for 3-6 months # Hx of Glaucoma continue the drops pending placement Visit type - Emergency Visit Emergency Visit: Yes ED Registration Date: 10/28/16 Care time: The patient presented to the Emergency Department on the above date and was hospitalized for further evaluation of their emergent condition. - New Patient This patient is new to me today: No - Critical Care Critical Care patient: No
[2016-11-24] MEDS ORDERED: amLODIPine BESYLATE 2.5 MG TABLET (FP) PO ONE (20:16)
[2016-11-24] MEDS: DONEPEZIL HCL 10 MG TABLET (FP) PO SCH (22:20)
[2016-11-25] MEDS ORDERED: PT OWN MED DRAWER 7, Y5N ONE ×3 (09:04→20:08)
[2016-11-25] MEDS: amLODIPine BESYLATE 5 MG TABLET (FP) PO SCH (10:12)
[2016-11-25] MEDS: MEMANTINE HCL 5 MG TABLET (UD) PO SCH ×2 (10:12→21:32)
[2016-11-25] MEDS: APIXABAN 2.5 MG TABLET PO SCH ×2 (10:12→21:32)
[2016-11-25] MEDS: TIMOLOL 0.25% OPHTHALMIC SOL 5 ML BOTTLE OU SCH ×2 (10:12→21:32)
--- NOTE | 2016-11-25 11:46 | PN ---
Physical Exam: SUBJECTIVE: Patient seen and examined at bed side this morning. Dizziness has resolved. Denies chest pain, sob, cough, palpitation, abdominal pain, nausea or vomiting. Bowel/Bladder habit normal. Sleep/Appetite normal. OBJECTIVE: Vital Signs Period Temp Pulse Resp BP Sys/[place] Pulse Ox Last 24 Hr 97.6 F-98.3 F 51-62 18-20 122-154/52-88 98-99 GENERAL: The patient is awake, alert, and fully oriented, in no acute distress. HEAD: Normal with no signs of trauma. EYES: PERRL, extraocular movements intact, sclera anicteric, conjunctiva clear. No ptosis. ENT: Ears normal, nares patent, oropharynx clear without exudates, moist mucous membranes. NECK: Trachea midline, full range of motion, supple. LUNGS: Breath sounds equal, clear to auscultation bilaterally, no wheezes, no crackles, no accessory muscle use. HEART: Regular rate and rhythm, S1, S2 without murmur, rub or gallop. ABDOMEN: Soft, non tender, non distended, normo active bowel sounds, no guarding , no rebound, no hepato-splenomegaly, no masses. EXTREMITIES: 2+ pulses, warm, well-perfused, no edema. NEUROLOGICAL: No facial droop. Bulk/tone normal. Power-5/5 in all extremities. Reflexes all intact. Cranial nerves II through XII grossly intact. Normal speech , gait not observed. PSYCH: Normal mood, normal affect. SKIN: Warm, dry, normal turgor, no rashes or lesions noted Active Medications Generic Name Dose Route Start Last Admin Trade Name Mona PRN Reason Stop Dose Admin Amlodipine Besylate 5 mg 11/25/16 10:11/25/16 10:12 Norvasc - PO 5 mg DAILY SAVI Administration Apixaban 2.5 mg 11/22/16 10:11/25/16 10:12 Eliquis - PO 2.5 mg BID SAVI Administration Donepezil HCl 10 mg 11/20/16 21:00 11/24/16 22:20 Aricept - PO 10 mg DAILY@2100 SAVI Administration Memantine 5 mg 10/31/16 22:00 11/25/16 10:12 Namenda - PO 5 mg BID SAVI Administration Timolol Maleate 1 drop 11/01/16 10:00 11/25/16 10:12 Timoptic 0.25% OU 1 drop BID SAVI Administration ASSESSMENT/PLAN: Patient is a 76 year old male with pmh of right lower ext DVT, Alzheimer Dementia present to the ED brought by EMS for altered mental status. 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 # Dizziness-resolved Donepezil- to be given HS only (dizziness likely because he was getting Donepezil in the morning vs dehydration) Orthostatic vitals are normal. Fall precautions. # Confusion most likely due to worsening Alzheimers. Admitted in Med-Surg Continue Memantine 5mg PO BID and Donepezil 10mg HS, as per Neuro. # Right Popliteal DVT Patient's Eliquis changed to 2.5mg PO BID, renal dose and to continue for 3- 6 months (starting date 11/01/16)). # Acute Kidney Injury with questionable CKD Creatinine 1.6 (11/20/16) Avoid nephrotoxic drugs Upon discharge, refer to Nephro. # Hypertension-Controlled Continue Norvasc 2.5mg Daily # Hyperlipidemia Diet control for now and to monitor outpatient. # Glaucoma Continue Timolol 0.25% OU BID # FEN Not on any IV fluids. Electrolytes normal. Chol/Fat/Sodium restricted diet # Prophylaxis For DVT: Patient already on Eliquis For GI: Not indicated # Code Status: Full Code # Disposition: Admit to Med-surg. floor worker is on board, pending placement. Illness, Investigation and Plan of care explained to the patient. He verbalized understanding. Case discussed with Dr. Rodriguez. Problem List - Problems (1) Altered mental status Code(s): R41.82 - ALTERED MENTAL STATUS, UNSPECIFIED Qualifiers: Altered mental status type: unspecified Qualified Code(s): R41.82 - Altered mental status, unspecified (2) DVT (deep venous thrombosis) Code(s): I82.409 - ACUTE EMBOLISM AND THOMBOS UNSP DEEP VN UNSP LOWER EXTREMITY Qualifiers: DVT location: lower extremity Affected thrombotic vein of extremity: popliteal Chronicity: unspecified Laterality: right Qualified Code(s): I82.431 - Acute embolism and thrombosis of right popliteal vein (3) Renal insufficiency Code(s): N28.9 - DISORDER OF KIDNEY AND URETER, UNSPECIFIED Visit type - Emergency Visit Emergency Visit: Yes ED Registration Date: 10/28/16 Care time: The patient presented to the Emergency Department on the above date and was hospitalized for further evaluation of their emergent condition. - New Patient This patient is new to me today: No - Critical Care Critical Care patient: No - Discharge Referral Referred to [facility] Med P.C.: No
--- NOTE | 2016-11-25 20:47 | PN ---
Teaching Attending Note Name of Resident: Sara Robin ATTENDING PHYSICIAN STATEMENT I saw and evaluated the patient. I reviewed the resident's note and discussed the case with the resident. I agree with the resident's findings and plan as documented. SUBJECTIVE: No new changes. OBJECTIVE: Vital Signs Temperature 98.6 F 11/25/16 18:04 Pulse Rate 66 11/25/16 18:04 Respiratory Rate 20 11/25/16 20:32 Blood Pressure 140/80 11/25/16 18:04 O2 Sat by Pulse Oximetry (%) 99 11/25/16 20:32 CBCD WBC 8.6 K/mm3 (4.0-10.0) 11/20/16 08:00 RBC 4.22 M/mm3 (4.00-5.60) 11/20/16 08:00 Hgb 12.6 GM/dL (11.7-16.9) 11/20/16 08:00 Hct 37.6 % (35.4-49) 11/20/16 08:00 MCV 89.2 fl (80-96) 11/20/16 08:00 MCHC 33.5 g/dl (32.0-35.9) 11/20/16 08:00 RDW 15.0 % (11.9-15.9) 11/20/16 08:00 Plt Count 181 K/MM3 (134-434) 11/20/16 08:00 MPV 8.9 fl (7.5-11.1) 11/20/16 08:00 CMP Sodium 139 mmol/L (136-145) 11/20/16 08:00 Potassium 4.1 mmol/L (3.5-5.1) 11/20/16 08:00 Chloride 104 mmol/L (98-107) 11/20/16 08:00 Carbon Dioxide 27 mmol/L (21-32) 11/20/16 08:00 Anion Gap 8 (8-16) 11/20/16 08:00 BUN 27 mg/dL (7-18) H 11/20/16 08:00 Creatinine 1.6 mg/dL (0.7-1.3) H 11/20/16 08:00 Creat Clearance w eGFR 42.35 (>60) 11/19/16 06:30 Random Glucose 104 mg/dL (74-106) 11/20/16 08:00 Calcium 8.5 mg/dL (8.5-10.1) 11/20/16 08:00 Total Bilirubin 0.6 mg/dL (0.2-1.0) D 11/19/16 06:30 AST 15 U/L (15-37) D 11/19/16 06:30 ALT 19 U/L (12-78) D 11/19/16 06:30 Alkaline Phosphatase 68 U/L (45-117) 11/19/16 06:30 Total Protein 6.5 g/dl (6.4-8.2) 11/19/16 06:30 Albumin 3.3 g/dl (3.4-5.0) L 11/19/16 06:30 CARDIAC ENZYMES Creatine Kinase 88 IU/L (39-308) 10/31/16 06:00 Troponin I < 0.02 ng/ml (0.00-0.05) 10/28/16 20:30 Current Medications Generic Name Dose Route Start Last Admin Trade Name Mona PRN Reason Stop Dose Admin Amlodipine Besylate 5 mg 11/25/16 10:00 11/25/16 10:12 Norvasc - PO 5 mg DAILY SAVI Administration Apixaban 2.5 mg 11/22/16 10:00 11/25/16 10:12 Eliquis - PO 2.5 mg BID SAVI Administration Donepezil HCl 10 mg 11/20/16 21:00 11/24/16 22:20 Aricept - PO 10 mg DAILY@2100 SAVI Administration Memantine 5 mg 10/31/16 22:00 11/25/16 10:12 Namenda - PO 5 mg BID SAVI Administration Timolol Maleate 1 drop 11/01/16 10:00 11/25/16 10:12 Timoptic 0.25% OU 1 drop BID SAVI Administration Home Medications Medication Instructions Recorded Amlodipine Besylate [Norvasc -] 2.5 mg PO DAILY 10/28/16 Apixaban [Eliquis -] 5 mg PO DAILY 10/28/16 Furosemide [Lasix -] 20 mg PO DAILY 10/28/16 Memantine HCl [Namenda -] 5 mg PO DAILY 10/28/16 Timolol 0.25% [Timoptic 0.25%] 0 ml OU BID 10/28/16 CT of head is negative for bleed. ASSESSMENT AND PLAN: Patient is a 76 y/o man with h/o HTN, dementia , and recent DVT ( in Jun per records ) , who was brought by Police after being found [place] # HTN Uncontrolled will increase the does of norvasc # s/p Fall , patient is on aricept and namenda can cause dizziness and orthostatic hypotension. continue checking orthostatic Vs , continue gentle hydration . # Advanced dementia : on aricept and namenda # CKD : stable Cr # R popliteal DVT: on Eliquis continue for 3-6 months # Hx of Glaucoma continue the drops pending placement
[2016-11-25] MEDS: DONEPEZIL HCL 10 MG TABLET (FP) PO SCH (21:31)
[2016-11-26] MEDS ORDERED: PT OWN MED DRAWER 7, Y5N ONE (11:09)
[2016-11-26] MEDS: MEMANTINE HCL 5 MG TABLET (UD) PO SCH ×2 (11:16→21:34)
[2016-11-26] MEDS: amLODIPine BESYLATE 5 MG TABLET (FP) PO SCH (11:16)
[2016-11-26] MEDS: APIXABAN 2.5 MG TABLET PO SCH ×2 (11:17→21:34)
[2016-11-26] MEDS: TIMOLOL 0.25% OPHTHALMIC SOL 5 ML BOTTLE OU SCH ×2 (11:17→21:34)
--- NOTE | 2016-11-26 14:19 | PN ---
Physical Exam: SUBJECTIVE: Patient seen and examined at bed side this morning. Dizziness has resolved. Denies chest pain, sob, cough, palpitation, abdominal pain, nausea or vomiting. Bowel/Bladder habit normal. Sleep/Appetite normal. OBJECTIVE: Vital Signs Period Temp Pulse Resp BP Sys/[place] Pulse Ox Last 24 Hr 97.7 F-98.6 F 57-66 20-20 123-141/64-87 99-99 GENERAL: The patient is awake, alert, and fully oriented, in no acute distress. HEAD: Normal with no signs of trauma. EYES: PERRL, extraocular movements intact, sclera anicteric, conjunctiva clear. No ptosis. ENT: Ears normal, nares patent, oropharynx clear without exudates, moist mucous membranes. NECK: Trachea midline, full range of motion, supple. LUNGS: Breath sounds equal, clear to auscultation bilaterally, no wheezes, no crackles, no accessory muscle use. HEART: Regular rate and rhythm, S1, S2 without murmur, rub or gallop. ABDOMEN: Soft, non tender, non distended, normo active bowel sounds, no guarding , no rebound, no hepato-splenomegaly, no masses. EXTREMITIES: 2+ pulses, warm, well-perfused, no edema. NEUROLOGICAL: No facial droop. Bulk/tone normal. Power-5/5 in all extremities. Reflexes all intact. Cranial nerves II through XII grossly intact. Normal speech , gait not observed. PSYCH: Normal mood, normal affect. SKIN: Warm, dry, normal turgor, no rashes or lesions noted Active Medications Generic Name Dose Route Start Last Admin Trade Name Mona PRN Reason Stop Dose Admin Amlodipine Besylate 5 mg 11/25/16 10:00 11/26/16 11:16 Norvasc - PO 5 mg DAILY SAVI Administration Apixaban 2.5 mg 11/22/16 10:00 11/26/16 11:17 Eliquis - PO 2.5 mg BID SAVI Administration Donepezil HCl 10 mg 11/20/16 21:00 11/25/16 21:31 Aricept - PO 10 mg DAILY@2100 SAVI Administration Memantine 5 mg 10/31/16 22:00 11/26/16 11:16 Namenda - PO 5 mg BID SAVI Administration Timolol Maleate 1 drop 11/01/16 10:00 11/26/16 11:17 Timoptic 0.25% OU 1 drop BID SAVI Administration ASSESSMENT/PLAN: Patient is a 76 year old male with pmh of right lower ext DVT, Alzheimer Dementia present to the ED brought by EMS for altered mental status. 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 # Dizziness-resolved Donepezil- to be given HS only (dizziness likely because he was getting Donepezil in the morning vs dehydration) Fall precautions. # Confusion most likely due to worsening Alzheimers. Admitted in Med-Surg Continue Memantine 5mg PO BID and Donepezil 10mg HS, as per Neuro. # Right Popliteal DVT Patient's Eliquis changed to 2.5mg PO BID, renal dose and to continue for 3- 6 months (starting date 11/01/16)). # Acute Kidney Injury with questionable CKD Creatinine 1.6 (11/20/16) Avoid nephrotoxic drugs Upon discharge, refer to Nephro. # Hypertension-Controlled Continue Norvasc 2.5mg Daily # Hyperlipidemia Diet control for now and to monitor outpatient. # Glaucoma Continue Timolol 0.25% OU BID # FEN Not on any IV fluids. Electrolytes normal. Chol/Fat/Sodium restricted diet # Prophylaxis For DVT: Patient already on Eliquis For GI: Not indicated # Code Status: Full Code # Disposition: Admit to Med-surg. nitro worker is on board, pending placement. Illness, Investigation and Plan of care explained to the patient. He verbalized understanding. Case discussed with Dr. Rodriguez. Problem List - Problems (1) Altered mental status Code(s): R41.82 - ALTERED MENTAL STATUS, UNSPECIFIED Qualifiers: Altered mental status type: unspecified Qualified Code(s): R41.82 - Altered mental status, unspecified (2) DVT (deep venous thrombosis) Code(s): I82.409 - ACUTE EMBOLISM AND THOMBOS UNSP DEEP VN UNSP LOWER EXTREMITY Qualifiers: DVT location: lower extremity Affected thrombotic vein of extremity: popliteal Chronicity: unspecified Laterality: right Qualified Code(s): I82.431 - Acute embolism and thrombosis of right popliteal vein (3) Renal insufficiency Code(s): N28.9 - DISORDER OF KIDNEY AND URETER, UNSPECIFIED Visit type - Emergency Visit Emergency Visit: Yes ED Registration Date: 10/28/16 Care time: The patient presented to the Emergency Department on the above date and was hospitalized for further evaluation of their emergent condition. - New Patient This patient is new to me today: No - Critical Care Critical Care patient: No - Discharge Referral Referred to [facility] Med P.C.: No
--- NOTE | 2016-11-26 20:59 | PN ---
Teaching Attending Note Name of Resident: Sara Robin ATTENDING PHYSICIAN STATEMENT I saw and evaluated the patient. I reviewed the resident's note and discussed the case with the resident. I agree with the resident's findings and plan as documented. SUBJECTIVE: comfortable with no acute distress OBJECTIVE: Vital Signs Temperature 99.1 F 11/26/16 20:47 Pulse Rate 57 L 11/26/16 20:47 Respiratory Rate 18 11/26/16 20:50 Blood Pressure 141/69 11/26/16 20:47 O2 Sat by Pulse Oximetry (%) 97 11/26/16 20:50 CBCD WBC 8.6 K/mm3 (4.0-10.0) 11/20/16 08:00 RBC 4.22 M/mm3 (4.00-5.60) 11/20/16 08:00 Hgb 12.6 GM/dL (11.7-16.9) 11/20/16 08:00 Hct 37.6 % (35.4-49) 11/20/16 08:00 MCV 89.2 fl (80-96) 11/20/16 08:00 MCHC 33.5 g/dl (32.0-35.9) 11/20/16 08:00 RDW 15.0 % (11.9-15.9) 11/20/16 08:00 Plt Count 181 K/MM3 (134-434) 11/20/16 08:00 MPV 8.9 fl (7.5-11.1) 11/20/16 08:00 CMP Sodium 139 mmol/L (136-145) 11/20/16 08:00 Potassium 4.1 mmol/L (3.5-5.1) 11/20/16 08:00 Chloride 104 mmol/L (98-107) 11/20/16 08:00 Carbon Dioxide 27 mmol/L (21-32) 11/20/16 08:00 Anion Gap 8 (8-16) 11/20/16 08:00 BUN 27 mg/dL (7-18) H 11/20/16 08:00 Creatinine 1.6 mg/dL (0.7-1.3) H 11/20/16 08:00 Creat Clearance w eGFR 42.35 (>60) 11/19/16 06:30 Random Glucose 104 mg/dL (74-106) 11/20/16 08:00 Calcium 8.5 mg/dL (8.5-10.1) 11/20/16 08:00 Total Bilirubin 0.6 mg/dL (0.2-1.0) D 11/19/16 06:30 AST 15 U/L (15-37) D 11/19/16 06:30 ALT 19 U/L (12-78) D 11/19/16 06:30 Alkaline Phosphatase 68 U/L (45-117) 11/19/16 06:30 Total Protein 6.5 g/dl (6.4-8.2) 11/19/16 06:30 Albumin 3.3 g/dl (3.4-5.0) L 11/19/16 06:30 CARDIAC ENZYMES Creatine Kinase 88 IU/L (39-308) 10/31/16 06:00 Troponin I < 0.02 ng/ml (0.00-0.05) 10/28/16 20:30 Current Medications Generic Name Dose Route Start Last Admin Trade Name Mona PRN Reason Stop Dose Admin Amlodipine Besylate 5 mg 11/25/16 10:00 11/26/16 11:16 Norvasc - PO 5 mg DAILY SAVI Administration Apixaban 2.5 mg 11/22/16 10:00 11/26/16 11:17 Eliquis - PO 2.5 mg BID SAVI Administration Donepezil HCl 10 mg 11/20/16 21:00 11/25/16 21:31 Aricept - PO 10 mg DAILY@2100 SAVI Administration Memantine 5 mg 10/31/16 22:00 11/26/16 11:16 Namenda - PO 5 mg BID SAVI Administration Timolol Maleate 1 drop 11/01/16 10:00 11/26/16 11:17 Timoptic 0.25% OU 1 drop BID SAVI Administration Home Medications Medication Instructions Recorded Amlodipine Besylate [Norvasc -] 2.5 mg PO DAILY 10/28/16 Apixaban [Eliquis -] 5 mg PO DAILY 10/28/16 Furosemide [Lasix -] 20 mg PO DAILY 10/28/16 Memantine HCl [Namenda -] 5 mg PO DAILY 10/28/16 Timolol 0.25% [Timoptic 0.25%] 0 ml OU BID 10/28/16 CT of head is negative for bleed. ASSESSMENT AND PLAN: Patient is a 76 y/o man with h/o HTN, dementia , and recent DVT ( in Jun per records ) , who was brought by Police after being found [place] # HTN Uncontrolled will increase the does of norvasc # s/p Fall , patient is on aricept and namenda # Advanced dementia : on aricept and namenda # CKD : stable Cr # R popliteal DVT: on Eliquis continue for 3-6 months # Hx of Glaucoma continue the drops pending placement
[2016-11-26] MEDS: DONEPEZIL HCL 10 MG TABLET (FP) PO SCH (21:34)
[2016-11-27] MEDS: MEMANTINE HCL 5 MG TABLET (UD) PO SCH ×2 (11:37→22:57)
[2016-11-27] MEDS: amLODIPine BESYLATE 5 MG TABLET (FP) PO SCH (11:38)
[2016-11-27] MEDS: APIXABAN 2.5 MG TABLET PO SCH ×2 (11:38→22:57)
[2016-11-27] MEDS: TIMOLOL 0.25% OPHTHALMIC SOL 5 ML BOTTLE OU SCH ×2 (11:39→22:57)
--- NOTE | 2016-11-27 16:15 | PN ---
Progress Note (short form) - Note Progress Note: NO new changes, comfortable Vital Signs Temperature 97.8 F 11/27/16 14:23 Pulse Rate 60 11/27/16 14:23 Respiratory Rate 20 11/27/16 14:23 Blood Pressure 135/68 11/27/16 14:23 O2 Sat by Pulse Oximetry (%) 97 11/26/16 20:50 GENERAL: The patient is awake, alert, and fully oriented, in no acute distress. HEAD: Normal with no signs of trauma. EYES: PERRL, extraocular movements intact, sclera anicteric, conjunctiva clear. No ptosis. ENT: Ears normal, oropharynx clear without exudates, moist mucous membranes. NECK: Trachea midline, full range of motion, supple. LUNGS: Breath sounds equal, clear to auscultation bilaterally, no wheezes, no crackles, no accessory muscle use. HEART: Regular rate and rhythm, S1, S2 without murmur, rub or gallop. ABDOMEN: Soft, nontender, nondistended, normoactive bowel sounds, no guarding, no rebound, no hepatosplenomegaly, no masses. EXTREMITIES: 2+ pulses, warm, well-perfused, no edema. NEUROLOGICAL: Cranial nerves II through XII grossly intact. Normal speech, gait not observed. PSYCH: Normal mood, normal affect. SKIN: Warm, dry, normal turgor, no rashes or lesions noted CBCD WBC 8.6 K/mm3 (4.0-10.0) 11/20/16 08:00 RBC 4.22 M/mm3 (4.00-5.60) 11/20/16 08:00 Hgb 12.6 GM/dL (11.7-16.9) 11/20/16 08:00 Hct 37.6 % (35.4-49) 11/20/16 08:00 MCV 89.2 fl (80-96) 11/20/16 08:00 MCHC 33.5 g/dl (32.0-35.9) 11/20/16 08:00 RDW 15.0 % (11.9-15.9) 11/20/16 08:00 Plt Count 181 K/MM3 (134-434) 11/20/16 08:00 MPV 8.9 fl (7.5-11.1) 11/20/16 08:00 CMP Sodium 139 mmol/L (136-145) 11/20/16 08:00 Potassium 4.1 mmol/L (3.5-5.1) 11/20/16 08:00 Chloride 104 mmol/L (98-107) 11/20/16 08:00 Carbon Dioxide 27 mmol/L (21-32) 11/20/16 08:00 Anion Gap 8 (8-16) 11/20/16 08:00 BUN 27 mg/dL (7-18) H 11/20/16 08:00 Creatinine 1.6 mg/dL (0.7-1.3) H 11/20/16 08:00 Creat Clearance w eGFR 42.35 (>60) 11/19/16 06:30 Random Glucose 104 mg/dL (74-106) 11/20/16 08:00 Calcium 8.5 mg/dL (8.5-10.1) 11/20/16 08:00 Total Bilirubin 0.6 mg/dL (0.2-1.0) D 11/19/16 06:30 AST 15 U/L (15-37) D 11/19/16 06:30 ALT 19 U/L (12-78) D 11/19/16 06:30 Alkaline Phosphatase 68 U/L (45-117) 11/19/16 06:30 Total Protein 6.5 g/dl (6.4-8.2) 11/19/16 06:30 Albumin 3.3 g/dl (3.4-5.0) L 11/19/16 06:30 CARDIAC ENZYMES Creatine Kinase 88 IU/L (39-308) 10/31/16 06:00 Troponin I < 0.02 ng/ml (0.00-0.05) 10/28/16 20:30 Current Medications Generic Name Dose Route Start Last Admin Trade Name Freq PRN Reason Stop Dose Admin Amlodipine Besylate 5 mg 11/25/16 10:00 11/27/16 11:38 Norvasc - PO 5 mg DAILY SAVI Administration Apixaban 2.5 mg 11/22/16 10:00 11/27/16 11:38 Eliquis - PO 2.5 mg BID SAVI Administration Donepezil HCl 10 mg 11/20/16 21:00 11/26/16 21:34 Aricept - PO 10 mg DAILY@2100 SAVI Administration Memantine 5 mg 10/31/16 22:00 11/27/16 11:37 Namenda - PO 5 mg BID SAVI Administration Timolol Maleate 1 drop 11/01/16 10:00 11/27/16 11:39 Timoptic 0.25% OU 1 drop BID SAVI Administration Home Medications Medication Instructions Recorded Amlodipine Besylate [Norvasc -] 2.5 mg PO DAILY 10/28/16 Apixaban [Eliquis -] 5 mg PO DAILY 10/28/16 Furosemide [Lasix -] 20 mg PO DAILY 10/28/16 Memantine HCl [Namenda -] 5 mg PO DAILY 10/28/16 Timolol 0.25% [Timoptic 0.25%] 0 ml OU BID 10/28/16 CT of head is negative for bleed. ASSESSMENT AND PLAN: Patient is a 76 y/o man with h/o HTN, dementia , and recent DVT ( in Jun per records ) , who was brought by Police after being found wondering # Advanced dementia : on aricept and namenda waiting for placement # HTN Uncontrolled will increase the does of norvasc # s/p Fall , patient is on aricept and namenda continue # CKD : stable Cr # R popliteal DVT: on Eliquis continue for 3-6 months # Hx of Glaucoma continue the drops pending placement Visit type - Emergency Visit Emergency Visit: Yes ED Registration Date: 10/28/16 Care time: The patient presented to the Emergency Department on the above date and was hospitalized for further evaluation of their emergent condition. - New Patient This patient is new to me today: No - Critical Care Critical Care patient: No
[2016-11-27] MEDS ORDERED: PT OWN MED DRAWER 7, Y5N ONE (22:55)
[2016-11-27] MEDS: DONEPEZIL HCL 10 MG TABLET (FP) PO SCH (22:57)
[2016-11-28] MEDS: MEMANTINE HCL 5 MG TABLET (UD) PO SCH ×2 (11:23→21:45)
[2016-11-28] MEDS: amLODIPine BESYLATE 5 MG TABLET (FP) PO SCH (11:24)
[2016-11-28] MEDS: TIMOLOL 0.25% OPHTHALMIC SOL 5 ML BOTTLE OU SCH ×2 (11:29→21:46)
[2016-11-28] MEDS: APIXABAN 2.5 MG TABLET PO SCH ×2 (11:29→21:45)
--- NOTE | 2016-11-28 16:23 | PN ---
Physical Exam: SUBJECTIVE: Patient seen and examined at bed side this morning. Dizziness has resolved. Denies chest pain, sob, cough, palpitation, abdominal pain, nausea or vomiting. Bowel/Bladder habit normal. Sleep/Appetite normal. OBJECTIVE: Vital Signs Period Temp Pulse Resp BP Sys/[place] Pulse Ox Last 24 Hr 97.8 F-98.5 F 57-60 20-20 132-154/70-84 97 GENERAL: The patient is awake, alert, and fully oriented, in no acute distress. HEAD: Normal with no signs of trauma. EYES: PERRL, extraocular movements intact, sclera anicteric, conjunctiva clear. No ptosis. ENT: Ears normal, nares patent, oropharynx clear without exudates, moist mucous membranes. NECK: Trachea midline, full range of motion, supple. LUNGS: Breath sounds equal, clear to auscultation bilaterally, no wheezes, no crackles, no accessory muscle use. HEART: Regular rate and rhythm, S1, S2 without murmur, rub or gallop. ABDOMEN: Soft, non tender, non distended, normo active bowel sounds, no guarding , no rebound, no hepato-splenomegaly, no masses. EXTREMITIES: 2+ pulses, warm, well-perfused, no edema. NEUROLOGICAL: No facial droop. Bulk/tone normal. Power-5/5 in all extremities. Reflexes all intact. Cranial nerves II through XII grossly intact. Normal speech , gait not observed. PSYCH: Normal mood, normal affect. SKIN: Warm, dry, normal turgor, no rashes or lesions noted Active Medications Generic Name Dose Route Start Last Admin Trade Name Mona PRN Reason Stop Dose Admin Amlodipine Besylate 5 mg 11/25/16 10:11/28/16 11:24 Norvasc - PO 5 mg DAILY SAVI Administration Apixaban 2.5 mg 11/22/16 10:11/28/16 11:29 Eliquis - PO 2.5 mg BID SAVI Administration Donepezil HCl 10 mg 11/20/16 21:00 11/27/16 22:57 Aricept - PO 10 mg DAILY@2100 SAVI Administration Memantine 5 mg 10/31/16 22:00 11/28/16 11:23 Namenda - PO 5 mg BID SAVI Administration Timolol Maleate 1 drop 11/01/16 10:00 11/28/16 11:29 Timoptic 0.25% OU 1 drop BID SAVI Administration ASSESSMENT/PLAN: Patient is a 76 year old male with pmh of right lower ext DVT, Alzheimer Dementia present to the ED brought by EMS for altered mental status. 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 # Dizziness-resolved Donepezil- to be given HS only (dizziness likely because he was getting Donepezil in the morning vs dehydration) Fall precautions. # Confusion most likely due to worsening Alzheimers. Admitted in Med-Surg Continue Memantine 5mg PO BID and Donepezil 10mg HS, as per Neuro. # Right Popliteal DVT Patient's Eliquis changed to 2.5mg PO BID, renal dose and to continue for 3- 6 months (starting date 11/01/16)). # Acute Kidney Injury with questionable CKD Creatinine 1.6 (11/20/16) Avoid nephrotoxic drugs Upon discharge, refer to Nephro. # Hypertension-Controlled Continue Norvasc 2.5mg Daily # Hyperlipidemia Diet control for now and to monitor outpatient. # Glaucoma Continue Timolol 0.25% OU BID # FEN Not on any IV fluids. Electrolytes normal. Chol/Fat/Sodium restricted diet # Prophylaxis For DVT: Patient already on Eliquis For GI: Not indicated # Code Status: Full Code # Disposition: Admit to Med-surg. sort line worker is on board, pending placement. Illness, Investigation and Plan of care explained to the patient. He verbalized understanding. Case discussed with Dr. Junior. Problem List - Problems (1) Altered mental status Code(s): R41.82 - ALTERED MENTAL STATUS, UNSPECIFIED Qualifiers: Altered mental status type: unspecified Qualified Code(s): R41.82 - Altered mental status, unspecified (2) DVT (deep venous thrombosis) Code(s): I82.409 - ACUTE EMBOLISM AND THOMBOS UNSP DEEP VN UNSP LOWER EXTREMITY Qualifiers: DVT location: lower extremity Affected thrombotic vein of extremity: popliteal Chronicity: unspecified Laterality: right Qualified Code(s): I82.431 - Acute embolism and thrombosis of right popliteal vein (3) Renal insufficiency Code(s): N28.9 - DISORDER OF KIDNEY AND URETER, UNSPECIFIED Visit type - Emergency Visit Emergency Visit: Yes ED Registration Date: 10/28/16 Care time: The patient presented to the Emergency Department on the above date and was hospitalized for further evaluation of their emergent condition. - New Patient This patient is new to me today: No - Critical Care Critical Care patient: No
--- NOTE | 2016-11-28 18:18 | PN ---
Teaching Attending Note Name of Resident: Sara Robin ATTENDING PHYSICIAN STATEMENT I saw and evaluated the patient. I reviewed the resident's note and discussed the case with the resident. I agree with the resident's findings and plan as documented. SUBJECTIVE: no pain or complaints OBJECTIVE: NAD, awake, alert, cooperative. CV: RRR Lungs : CTAB Ext : no edema ASSESSMENT AND PLAN: 76 y/o man with h/o HTN, dementia , and recent DVT ( in Jun per records ) , who was brought by [facility] after being found wondering 1- Fall with pre-syncope" no recurrence 2- Advanced dementia : - cont aricept and namenda 3- CKD : stable Cr 4- R popliteal DVT: cont eliquis x 3-6 months 5- HTN : cont norvasc pending placement
[2016-11-28] MEDS: DONEPEZIL HCL 10 MG TABLET (FP) PO SCH (21:45)
[2016-11-29] MEDS: TIMOLOL 0.25% OPHTHALMIC SOL 5 ML BOTTLE OU SCH ×2 (10:00→21:01)
[2016-11-29] MEDS: MEMANTINE HCL 5 MG TABLET (UD) PO SCH ×2 (10:09→21:01)
[2016-11-29] MEDS: amLODIPine BESYLATE 5 MG TABLET (FP) PO SCH (10:09)
[2016-11-29] MEDS: APIXABAN 2.5 MG TABLET PO SCH ×2 (10:09→21:01)
--- NOTE | 2016-11-29 14:18 | PN ---
Teaching Attending Note Name of Resident: Sara Robin ATTENDING PHYSICIAN STATEMENT I saw and evaluated the patient. I reviewed the resident's note and discussed the case with the resident. I agree with the resident's findings and plan as documented. SUBJECTIVE: no fever ro chills, no abd pain , no SOB OBJECTIVE: NAD, awake, alert, cooperative. CV: RRR Lungs: CTAB Ext: no edema ASSESSMENT AND PLAN: 76 y/o man with h/o HTN, dementia , and recent DVT ( in Jun per records ) , who was brought by [employer] after being found wondering 1- Fall with pre-syncope: no recurrence 2- Advanced dementia : - cont aricept and namenda 3- CKD : stable Cr 4- R popliteal DVT: cont eliquis x 3-6 months 5- HTN : cont norvasc pending placement d/w CM
--- NOTE | 2016-11-29 18:45 | PN ---
Physical Exam: SUBJECTIVE: Patient seen and examined at bed side this morning. Dizziness has resolved. Denies chest pain, sob, cough, palpitation, abdominal pain, nausea or vomiting. Bowel/Bladder habit normal. Sleep/Appetite normal. OBJECTIVE: Vital Signs Period Temp Pulse Resp BP Sys/[place] Pulse Ox Last 24 Hr 97.5 F-98.7 F 55-62 16-20 115-156/54-79 97-98 GENERAL: The patient is awake, alert, and fully oriented, in no acute distress. HEAD: Normal with no signs of trauma. EYES: PERRL, extraocular movements intact, sclera anicteric, conjunctiva clear. No ptosis. ENT: Ears normal, nares patent, oropharynx clear without exudates, moist mucous membranes. NECK: Trachea midline, full range of motion, supple. LUNGS: Breath sounds equal, clear to auscultation bilaterally, no wheezes, no crackles, no accessory muscle use. HEART: Regular rate and rhythm, S1, S2 without murmur, rub or gallop. ABDOMEN: Soft, non tender, non distended, normo active bowel sounds, no guarding , no rebound, no hepato-splenomegaly, no masses. EXTREMITIES: 2+ pulses, warm, well-perfused, no edema. NEUROLOGICAL: No facial droop. Bulk/tone normal. Power-5/5 in all extremities. Reflexes all intact. Cranial nerves II through XII grossly intact. Normal speech , gait not observed. PSYCH: Normal mood, normal affect. SKIN: Warm, dry, normal turgor, no rashes or lesions noted Active Medications Generic Name Dose Route Start Last Admin Trade Name Mona PRN Reason Stop Dose Admin Amlodipine Besylate 5 mg 11/25/16 10:00 11/29/16 10:09 Norvasc - PO 5 mg DAILY SAVI Administration Apixaban 2.5 mg 11/22/16 10:00 11/29/16 10:09 Eliquis - PO 2.5 mg BID SAVI Administration Donepezil HCl 10 mg 11/20/16 21:00 11/28/16 21:45 Aricept - PO 10 mg DAILY@2100 SAVI Administration Memantine 5 mg 10/31/16 22:00 11/29/16 10:09 Namenda - PO 5 mg BID SAVI Administration Timolol Maleate 1 drop 11/01/16 10:00 11/29/16 10:00 Timoptic 0.25% OU 1 drop BID SAVI Administration ASSESSMENT/PLAN: Patient is a 76 year old male with pmh of right lower ext DVT, Alzheimer Dementia present to the ED brought by EMS for altered mental status. 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 # Dizziness-resolved Donepezil 10 @ HS Fall precautions. # Confusion most likely due to worsening Alzheimers. Admitted in Med-Surg Continue Memantine 5mg PO BID and Donepezil 10mg HS, as per Neuro. # Right Popliteal DVT Patient's Eliquis changed to 2.5mg PO BID, renal dose and to continue for 3- 6 months (starting date 11/01/16)). # Acute Kidney Injury with questionable CKD Creatinine 1.6 (11/20/16) Avoid nephrotoxic drugs Upon discharge, refer to Nephro. # Hypertension-Controlled Continue Norvasc 2.5mg Daily # Hyperlipidemia Diet control for now and to monitor outpatient. # Glaucoma Continue Timolol 0.25% OU BID # FEN Not on any IV fluids. Electrolytes normal. Chol/Fat/Sodium restricted diet # Prophylaxis For DVT: Patient already on Eliquis For GI: Not indicated # Code Status: Full Code # Disposition: Admit to Med-surg. pick pack worker is on board, pending placement. Illness, Investigation and Plan of care explained to the patient. He verbalized understanding. Case discussed with Dr. Junior. Problem List - Problems (1) Altered mental status Code(s): R41.82 - ALTERED MENTAL STATUS, UNSPECIFIED Qualifiers: Altered mental status type: unspecified Qualified Code(s): R41.82 - Altered mental status, unspecified (2) DVT (deep venous thrombosis) Code(s): I82.409 - ACUTE EMBOLISM AND THOMBOS UNSP DEEP VN UNSP LOWER EXTREMITY Qualifiers: DVT location: lower extremity Affected thrombotic vein of extremity: popliteal Chronicity: unspecified Laterality: right Qualified Code(s): I82.431 - Acute embolism and thrombosis of right popliteal vein (3) Renal insufficiency Code(s): N28.9 - DISORDER OF KIDNEY AND URETER, UNSPECIFIED Visit type - Emergency Visit Emergency Visit: Yes ED Registration Date: 10/28/16 Care time: The patient presented to the Emergency Department on the above date and was hospitalized for further evaluation of their emergent condition. - New Patient This patient is new to me today: No - Critical Care Critical Care patient: No - Discharge Referral Referred to [facility] Med P.C.: No
[2016-11-29] MEDS: DONEPEZIL HCL 10 MG TABLET (FP) PO SCH (21:01)
[2016-11-30] MEDS ORDERED: PT OWN MED DRAWER 7, Y5N ONE (08:41)
[2016-11-30] MEDS: MEMANTINE HCL 5 MG TABLET (UD) PO SCH ×2 (09:21→21:10)
[2016-11-30] MEDS: TIMOLOL 0.25% OPHTHALMIC SOL 5 ML BOTTLE OU SCH ×2 (09:21→21:10)
[2016-11-30] MEDS: APIXABAN 2.5 MG TABLET PO SCH ×2 (09:21→21:10)
[2016-11-30] MEDS: amLODIPine BESYLATE 5 MG TABLET (FP) PO SCH (09:21)
--- NOTE | 2016-11-30 14:56 | PN ---
Physical Exam: SUBJECTIVE: Patient seen and examined at bed side this morning.No complaints. Denies chest pain, sob, cough, palpitation, abdominal pain, nausea or vomiting. Bowel/Bladder habit normal. Sleep/Appetite normal. OBJECTIVE: Vital Signs Period Temp Pulse Resp BP Sys/[place] Pulse Ox Last 24 Hr 97.7 F-98.5 F 59-80 18-20 128-144/56-85 99-99 GENERAL: The patient is awake, alert, and fully oriented, in no acute distress. HEAD: Normal with no signs of trauma. EYES: PERRL, extraocular movements intact, sclera anicteric, conjunctiva clear. No ptosis. ENT: Ears normal, nares patent, oropharynx clear without exudates, moist mucous membranes. NECK: Trachea midline, full range of motion, supple. LUNGS: Breath sounds equal, clear to auscultation bilaterally, no wheezes, no crackles, no accessory muscle use. HEART: Regular rate and rhythm, S1, S2 without murmur, rub or gallop. ABDOMEN: Soft, non tender, non distended, normo active bowel sounds, no guarding , no rebound, no hepato-splenomegaly, no masses. EXTREMITIES: 2+ pulses, warm, well-perfused, no edema. NEUROLOGICAL: No facial droop. Bulk/tone normal. Power-5/5 in all extremities. Reflexes all intact. Cranial nerves II through XII grossly intact. Normal speech , gait not observed. PSYCH: Normal mood, normal affect. SKIN: Warm, dry, normal turgor, no rashes or lesions noted Active Medications Generic Name Dose Route Start Last Admin Trade Name Mona PRN Reason Stop Dose Admin Amlodipine Besylate 5 mg 11/25/16 10:00 11/30/16 09:21 Norvasc - PO 5 mg DAILY SAVI Administration Apixaban 2.5 mg 11/22/16 10:11/30/16 09:21 Eliquis - PO 2.5 mg BID SAVI Administration Donepezil HCl 10 mg 11/20/16 21:00 11/29/16 21:01 Aricept - PO 10 mg DAILY@2100 SAVI Administration Memantine 5 mg 10/31/16 22:00 11/30/16 09:21 Namenda - PO 5 mg BID SAVI Administration Timolol Maleate 1 drop 11/01/16 10:00 11/30/16 09:21 Timoptic 0.25% OU 1 drop BID SAVI Administration ASSESSMENT/PLAN: Patient is a 76 year old male with pmh of right lower ext DVT, Alzheimer Dementia present to the ED brought by EMS for altered mental status. 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 # Dizziness-resolved Donepezil 10 @ HS Fall precautions. # Confusion most likely due to worsening Alzheimers. Admitted in Med-Surg Continue Memantine 5mg PO BID and Donepezil 10mg HS, as per Neuro. # Right Popliteal DVT Patient's Eliquis changed to 2.5mg PO BID, renal dose and to continue for 3- 6 months (starting date 11/01/16)). # Acute Kidney Injury with questionable CKD Creatinine 1.6 (11/20/16) Avoid nephrotoxic drugs Upon discharge, refer to Nephro. # Hypertension-Controlled Continue Norvasc 2.5mg Daily # Hyperlipidemia Diet control for now and to monitor outpatient. # Glaucoma Continue Timolol 0.25% OU BID # FEN Not on any IV fluids. Electrolytes normal. Chol/Fat/Sodium restricted diet # Prophylaxis For DVT: Patient already on Eliquis For GI: Not indicated # Code Status: Full Code # Disposition: Admit to Med-surg. residential worker is on board, pending placement. Illness, Investigation and Plan of care explained to the patient. He verbalized understanding. Case discussed with Dr. Junior. Problem List - Problems (1) Altered mental status Code(s): R41.82 - ALTERED MENTAL STATUS, UNSPECIFIED Qualifiers: Altered mental status type: unspecified Qualified Code(s): R41.82 - Altered mental status, unspecified (2) DVT (deep venous thrombosis) Code(s): I82.409 - ACUTE EMBOLISM AND THOMBOS UNSP DEEP VN UNSP LOWER EXTREMITY Qualifiers: DVT location: lower extremity Affected thrombotic vein of extremity: popliteal Chronicity: unspecified Laterality: right Qualified Code(s): I82.431 - Acute embolism and thrombosis of right popliteal vein (3) Renal insufficiency Code(s): N28.9 - DISORDER OF KIDNEY AND URETER, UNSPECIFIED Visit type - Emergency Visit Emergency Visit: Yes ED Registration Date: 10/28/16 Care time: The patient presented to the Emergency Department on the above date and was hospitalized for further evaluation of their emergent condition. - New Patient This patient is new to me today: No - Critical Care Critical Care patient: No - Discharge Referral Referred to [facility] Med P.C.: No
--- NOTE | 2016-11-30 19:20 | PN ---
Teaching Attending Note Name of Resident: Sara Robin ATTENDING PHYSICIAN STATEMENT I saw and evaluated the patient. I reviewed the resident's note and discussed the case with the resident. I agree with the resident's findings and plan as documented. SUBJECTIVE: no pain or complaints OBJECTIVE: NAD, awake, alert, cooperative. CV: RRR Lungs: CTAB Ext: no edema ASSESSMENT AND PLAN: 76 y/o man with h/o HTN, dementia , and recent DVT ( in Jun per records ) , who was brought by [facility] after being found wondering 1- Fall with pre-syncope: no recurrence 2- Advanced dementia : - cont aricept and namenda 3- CKD : stable Cr 4- R popliteal DVT: cont eliquis x 3-6 months 5- HTN : cont norvasc pending placement
[2016-11-30] MEDS: DONEPEZIL HCL 10 MG TABLET (FP) PO SCH (21:10)
[2016-12-01] MEDS ORDERED: PT OWN MED DRAWER 7, Y5N ONE ×2 (09:34→22:05)
[2016-12-01] MEDS: amLODIPine BESYLATE 5 MG TABLET (FP) PO SCH (10:09)
[2016-12-01] MEDS: MEMANTINE HCL 5 MG TABLET (UD) PO SCH ×2 (10:09→22:26)
[2016-12-01] MEDS: TIMOLOL 0.25% OPHTHALMIC SOL 5 ML BOTTLE OU SCH ×2 (10:09→22:26)
[2016-12-01] MEDS: APIXABAN 2.5 MG TABLET PO SCH ×2 (10:09→22:25)
--- NOTE | 2016-12-01 15:44 | PN ---
Progress Note (short form) - Note Progress Note: Subjective: no pain , no SOB or fever Objective: Vital Signs: Last Vital Signs Temp Pulse Resp BP Pulse Ox 97.9 F 64 20 96/61 99 12/01/16 10:00 12/01/16 10:00 12/01/16 10:00 12/01/16 10:00 11/30/16 21:00 Physical Exam: NAD, awake, alert, cooperative. CV: RRR Lungs: CTAB Ext: no edema ASSESSMENT AND PLAN: 76 y/o man with h/o HTN, dementia , and recent DVT ( in Jun per records ) , who was brought by [facility] after being found wondering 1- Fall with pre-syncope: no recurrence 2- Advanced dementia : - cont aricept and namenda 3- CKD : stable Cr 4- R popliteal DVT: cont eliquis x 3-6 months 5- HTN : cont norvasc pending placement Visit type - Emergency Visit Emergency Visit: Yes ED Registration Date: 10/28/16 Care time: The patient presented to the Emergency Department on the above date and was hospitalized for further evaluation of their emergent condition. - New Patient This patient is new to me today: No - Critical Care Critical Care patient: No
[2016-12-01] MEDS: DONEPEZIL HCL 10 MG TABLET (FP) PO SCH (22:26)
--- NOTE | 2016-12-02 07:17 | PN ---
Progress Note (short form) - Note Progress Note: Subjective: no pain , no SOB or fever , did nto have enough sleep last night Objective: Vital Signs: Last Vital Signs Temp Pulse Resp BP Pulse Ox 97.9 F 68 20 101/64 98 12/02/16 07:07 12/02/16 07:07 12/02/16 07:07 12/02/16 07:07 12/01/16 09:00 Physical Exam: NAD, awake, alert, cooperative. CV: RRR Lungs: CTAB Ext: no edema ASSESSMENT AND PLAN: 76 y/o man with h/o HTN, dementia , and recent DVT ( in Jun per records ) , who was brought by [facility] after being found wondering 1- Fall with pre-syncope: no recurrence 2- Advanced dementia : - cont aricept and namenda 3- CKD : stable Cr 4- R popliteal DVT: cont eliquis x 3-6 months 5- HTN : cont norvasc pending placement Visit type - Emergency Visit Emergency Visit: Yes ED Registration Date: 10/28/16 Care time: The patient presented to the Emergency Department on the above date and was hospitalized for further evaluation of their emergent condition. - New Patient This patient is new to me today: No - Critical Care Critical Care patient: No
[2016-12-02] MEDS: amLODIPine BESYLATE 5 MG TABLET (FP) PO SCH (11:14)
[2016-12-02] MEDS: TIMOLOL 0.25% OPHTHALMIC SOL 5 ML BOTTLE OU SCH ×2 (11:14→21:11)
[2016-12-02] MEDS: MEMANTINE HCL 5 MG TABLET (UD) PO SCH ×2 (11:15→21:11)
[2016-12-02] MEDS: APIXABAN 2.5 MG TABLET PO SCH ×2 (11:15→21:11)
[2016-12-02] MEDS ORDERED: PT OWN MED DRAWER 7, Y5N ONE (21:01)
[2016-12-02] MEDS: DONEPEZIL HCL 10 MG TABLET (FP) PO SCH (21:11)
[2016-12-03] MEDS ORDERED: PT OWN MED DRAWER 7, Y5N ONE ×2 (10:12→20:40)
[2016-12-03] MEDS: MEMANTINE HCL 5 MG TABLET (UD) PO SCH ×2 (10:15→21:40)
[2016-12-03] MEDS: APIXABAN 2.5 MG TABLET PO SCH ×2 (10:15→21:40)
[2016-12-03] MEDS: TIMOLOL 0.25% OPHTHALMIC SOL 5 ML BOTTLE OU SCH ×2 (10:16→21:40)
[2016-12-03] MEDS: amLODIPine BESYLATE 5 MG TABLET (FP) PO SCH (10:16)
--- NOTE | 2016-12-03 15:24 | PN ---
Physical Exam: SUBJECTIVE: Patient seen and examined at bed side this morning.No complaints. Denies chest pain, sob, cough, palpitation, abdominal pain, nausea or vomiting. Bowel/Bladder habit normal. Sleep/Appetite normal. OBJECTIVE: Vital Signs Period Temp Pulse Resp BP Sys/[place] Pulse Ox Last 24 Hr 97.2 F-98.6 F 51-89 18-20 113-154/53-72 99-100 GENERAL: The patient is awake, alert, and fully oriented, in no acute distress. HEAD: Normal with no signs of trauma. EYES: PERRL, extraocular movements intact, sclera anicteric, conjunctiva clear. No ptosis. ENT: Ears normal, nares patent, oropharynx clear without exudates, moist mucous membranes. NECK: Trachea midline, full range of motion, supple. LUNGS: Breath sounds equal, clear to auscultation bilaterally, no wheezes, no crackles, no accessory muscle use. HEART: Regular rate and rhythm, S1, S2 without murmur, rub or gallop. ABDOMEN: Soft, non tender, non distended, normo active bowel sounds, no guarding , no rebound, no hepato-splenomegaly, no masses. EXTREMITIES: 2+ pulses, warm, well-perfused, no edema. NEUROLOGICAL: No facial droop. Bulk/tone normal. Power-5/5 in all extremities. Reflexes all intact. Cranial nerves II through XII grossly intact. Normal speech , gait not observed. PSYCH: Normal mood, normal affect. SKIN: Warm, dry, normal turgor, no rashes or lesions noted Active Medications Generic Name Dose Route Start Last Admin Trade Name Mona PRN Reason Stop Dose Admin Amlodipine Besylate 5 mg 11/25/16 10:00 12/03/16 10:16 Norvasc - PO 5 mg DAILY SAVI Administration Apixaban 2.5 mg 11/22/16 10:00 12/03/16 10:15 Eliquis - PO 2.5 mg BID SAVI Administration Donepezil HCl 10 mg 11/20/16 21:00 12/02/16 21:11 Aricept - PO 10 mg DAILY@2100 SAVI Administration Memantine 5 mg 10/31/16 22:00 12/03/16 10:15 Namenda - PO 5 mg BID SAVI Administration Timolol Maleate 1 drop 11/01/16 10:00 12/03/16 10:16 Timoptic 0.25% OU 1 drop BID SAVI Administration ASSESSMENT/PLAN: Patient is a 76 year old male with pmh of right lower ext DVT, Alzheimer Dementia present to the ED brought by EMS for altered mental status. 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 # Dizziness-resolved Donepezil 10 @ HS Fall precautions. # Confusion most likely due to worsening Alzheimers. Admitted in Med-Surg Continue Memantine 5mg PO BID and Donepezil 10mg HS, as per Neuro. # Right Popliteal DVT Patient's Eliquis changed to 2.5mg PO BID, renal dose and to continue for 3- 6 months (starting date 11/01/16)). # Acute Kidney Injury with questionable CKD Creatinine 1.6 (11/20/16) Avoid nephrotoxic drugs Upon discharge, refer to Nephro. # Hypertension-Controlled Continue Norvasc 2.5mg Daily # Hyperlipidemia Diet control for now and to monitor outpatient. # Glaucoma Continue Timolol 0.25% OU BID # FEN Not on any IV fluids. Electrolytes normal. Chol/Fat/Sodium restricted diet # Prophylaxis For DVT: Patient already on Eliquis For GI: Not indicated # Code Status: Full Code # Disposition: Admit to Med-surg. upkeep worker is on board, pending placement. Illness, Investigation and Plan of care explained to the patient. He verbalized understanding. Case discussed with Dr. Junior. Problem List - Problems (1) Altered mental status Code(s): R41.82 - ALTERED MENTAL STATUS, UNSPECIFIED Qualifiers: Altered mental status type: unspecified Qualified Code(s): R41.82 - Altered mental status, unspecified (2) DVT (deep venous thrombosis) Code(s): I82.409 - ACUTE EMBOLISM AND THOMBOS UNSP DEEP VN UNSP LOWER EXTREMITY Qualifiers: DVT location: lower extremity Affected thrombotic vein of extremity: popliteal Chronicity: unspecified Laterality: right Qualified Code(s): I82.431 - Acute embolism and thrombosis of right popliteal vein (3) Renal insufficiency Code(s): N28.9 - DISORDER OF KIDNEY AND URETER, UNSPECIFIED Visit type - Emergency Visit Emergency Visit: Yes ED Registration Date: 10/28/16 Care time: The patient presented to the Emergency Department on the above date and was hospitalized for further evaluation of their emergent condition. - New Patient This patient is new to me today: No - Critical Care Critical Care patient: No - Discharge Referral Referred to [facility] Med [facility] No
--- NOTE | 2016-12-03 18:32 | PN ---
Teaching Attending Note Name of Resident: Sara Robin ATTENDING PHYSICIAN STATEMENT I saw and evaluated the patient. I reviewed the resident's note and discussed the case with the resident. I agree with the resident's findings and plan as documented. SUBJECTIVE: no apin or SOB OBJECTIVE: NAD, awake, alert, cooperative. CV: RRR Lungs: CTAB Ext: no edema ASSESSMENT AND PLAN: 76 y/o man with h/o HTN, dementia , and recent DVT ( in Jun per records ) , who was brought by POlice after being found wondering 1- Fall with pre-syncope: no recurrence 2- Advanced dementia : - cont aricept and namenda 3- CKD : stable Cr 4- R popliteal DVT: cont eliquis x 3-6 months 5- HTN : cont norvasc pending placement
[2016-12-03] MEDS: DONEPEZIL HCL 10 MG TABLET (FP) PO SCH (21:40)
[2016-12-04] MEDS ORDERED: PT OWN MED DRAWER 7, Y5N ONE ×2 (09:52→21:22)
[2016-12-04] MEDS: MEMANTINE HCL 5 MG TABLET (UD) PO SCH ×2 (10:01→21:29)
[2016-12-04] MEDS: APIXABAN 2.5 MG TABLET PO SCH ×2 (10:01→21:28)
[2016-12-04] MEDS: amLODIPine BESYLATE 5 MG TABLET (FP) PO SCH (10:01)
[2016-12-04] MEDS: TIMOLOL 0.25% OPHTHALMIC SOL 5 ML BOTTLE OU SCH ×2 (10:02→21:30)
--- NOTE | 2016-12-04 12:13 | PN ---
Progress Note (short form) - Note Progress Note: Subjective: no fever or chills . Objective: Vital Signs: Last Vital Signs Temp Pulse Resp BP Pulse Ox 98.6 F 63 20 106/68 97 12/04/16 09:59 12/04/16 09:59 12/04/16 09:59 12/04/16 09:59 12/04/16 09:00 Physical Exam: NAD, awake, alert, cooperative. CV: RRR Lungs: CTAB Ext: no edema ASSESSMENT AND PLAN: 76 y/o man with h/o HTN, dementia , and recent DVT ( in Jun per records ) , who was brought by POlice after being found wondering 1- Fall with pre-syncope: no recurrence 2- Advanced dementia : - cont aricept and namenda 3- CKD : stable Cr 4- R popliteal DVT: cont eliquis x 3-6 months 5- HTN : cont norvasc pending placement Visit type - Emergency Visit Emergency Visit: Yes ED Registration Date: 10/28/16 Care time: The patient presented to the Emergency Department on the above date and was hospitalized for further evaluation of their emergent condition. - New Patient This patient is new to me today: No - Critical Care Critical Care patient: No
[2016-12-04] MEDS: DONEPEZIL HCL 10 MG TABLET (FP) PO SCH (21:29)
[2016-12-05] MEDS ORDERED: PT OWN MED DRAWER 7, Y5N ONE ×2 (09:58→20:49)
[2016-12-05] MEDS: MEMANTINE HCL 5 MG TABLET (UD) PO SCH ×2 (10:16→21:51)
[2016-12-05] MEDS: TIMOLOL 0.25% OPHTHALMIC SOL 5 ML BOTTLE OU SCH ×2 (10:16→21:51)
[2016-12-05] MEDS: APIXABAN 2.5 MG TABLET PO SCH ×2 (10:16→21:51)
[2016-12-05] MEDS: amLODIPine BESYLATE 5 MG TABLET (FP) PO SCH (10:16)
--- NOTE | 2016-12-05 17:58 | PN ---
Physical Exam: SUBJECTIVE: Patient seen and examined at bedside. No complaints. Pt denies cp, sob, nausea, vomiting, diarrhea. OBJECTIVE: Vital Signs Period Temp Pulse Resp BP Sys/[place] Pulse Ox Last 24 Hr 98 F-98.7 F 58-78 18-20 98-145/51-74 98-99 GENERAL: The patient is awake, alert, and fully oriented, in no acute distress. HEAD: Normal with no signs of trauma. EYES: PERRL, extraocular movements intact, sclera anicteric, conjunctiva clear. No ptosis. ENT: Ears normal, nares patent, oropharynx clear without exudates, moist mucous membranes. NECK: Trachea midline, full range of motion, supple. LUNGS: Breath sounds equal, clear to auscultation bilaterally, no wheezes, no crackles, no accessory muscle use. HEART: Regular rate and rhythm, S1, S2 without murmur, rub or gallop. ABDOMEN: Soft, nontender, nondistended, normoactive bowel sounds, no guarding, no rebound, no hepatosplenomegaly, no masses. EXTREMITIES: 2+ pulses, warm, well-perfused, no edema. NEUROLOGICAL: Cranial nerves II through XII grossly intact. Normal speech, gait not observed. PSYCH: Normal mood, normal affect. SKIN: Warm, dry, normal turgor, no rashes or lesions noted Active Medications Generic Name Dose Route Start Last Admin Trade Name Freq PRN Reason Stop Dose Admin Amlodipine Besylate 5 mg 11/25/16 10:00 12/05/16 10:16 Norvasc - PO 5 mg DAILY SAVI Administration Apixaban 2.5 mg 11/22/16 10:00 12/05/16 10:16 Eliquis - PO 2.5 mg BID SAVI Administration Donepezil HCl 10 mg 11/20/16 21:00 12/04/16 21:29 Aricept - PO 10 mg DAILY@2100 SAVI Administration Memantine 5 mg 10/31/16 22:00 12/05/16 10:16 Namenda - PO 5 mg BID SAIV Administration Timolol Maleate 1 drop 11/01/16 10:00 12/05/16 10:16 Timoptic 0.25% OU 1 drop BID SAVI Administration ASSESSMENT/PLAN: This is a 76 yo Man with PMHx right lower ext DVT and Alzheimer Disease who was brought to the ED by EMS for AMS. 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 #Dizziness: Resolved -Donepezil 10@ HS -Fall precautions #Confusion 2/2 Alzheimers -Memantine 5mg PO BID, Donepezil 10mg HS, per Neuro #Right popliteal DVT -Elequis changed to 2.5mg PO BID, for 3-6 months from 11/01/16 #MAX with uncertain CKD -Cooperative Extension Agent 1.6 (11/20/16) -Avoid nephrotoxic -Nephro on D/C #HTN - Controlled -Norvasc 2.5mg Daily #HLD -Diet controlled. -Monitor outpt #Glaucoma -Timolol .25% BID #FEN -No IVF -lytes within normal limits -Chol/Fat/Sodium restricted diet #Prophylaxis -DVT: pt on Eliquis -GI: not indicated #Full Code #Dispo: Admit to med-surg. shortage worker involved. Pending placement Visit type - Emergency Visit Emergency Visit: No - New Patient This patient is new to me today: Yes Date on this admission: 12/05/16 - Critical Care Critical Care patient: No
--- NOTE | 2016-12-05 19:13 | PN ---
Teaching Attending Note Name of Resident: Arpit Craig ATTENDING PHYSICIAN STATEMENT I saw and evaluated the patient. I reviewed the resident's note and discussed the case with the resident. I agree with the resident's findings and plan as documented. SUBJECTIVE: Comfortable no new findings OBJECTIVE: Vital Signs Temperature 98.7 F 12/05/16 17:17 Pulse Rate 61 12/05/16 17:17 Respiratory Rate 18 12/05/16 17:17 Blood Pressure 143/68 12/05/16 17:17 O2 Sat by Pulse Oximetry (%) 99 12/05/16 10:17 CBCD WBC 8.6 K/mm3 (4.0-10.0) 11/20/16 08:00 RBC 4.22 M/mm3 (4.00-5.60) 11/20/16 08:00 Hgb 12.6 GM/dL (11.7-16.9) 11/20/16 08:00 Hct 37.6 % (35.4-49) 11/20/16 08:00 MCV 89.2 fl (80-96) 11/20/16 08:00 MCHC 33.5 g/dl (32.0-35.9) 11/20/16 08:00 RDW 15.0 % (11.9-15.9) 11/20/16 08:00 Plt Count 181 K/MM3 (134-434) 11/20/16 08:00 MPV 8.9 fl (7.5-11.1) 11/20/16 08:00 CMP Sodium 139 mmol/L (136-145) 11/20/16 08:00 Potassium 4.1 mmol/L (3.5-5.1) 11/20/16 08:00 Chloride 104 mmol/L (98-107) 11/20/16 08:00 Carbon Dioxide 27 mmol/L (21-32) 11/20/16 08:00 Anion Gap 8 (8-16) 11/20/16 08:00 BUN 27 mg/dL (7-18) H 11/20/16 08:00 Creatinine 1.6 mg/dL (0.7-1.3) H 11/20/16 08:00 Creat Clearance w eGFR 42.35 (>60) 11/19/16 06:30 Random Glucose 104 mg/dL (74-106) 11/20/16 08:00 Calcium 8.5 mg/dL (8.5-10.1) 11/20/16 08:00 Total Bilirubin 0.6 mg/dL (0.2-1.0) D 11/19/16 06:30 AST 15 U/L (15-37) D 11/19/16 06:30 ALT 19 U/L (12-78) D 11/19/16 06:30 Alkaline Phosphatase 68 U/L (45-117) 11/19/16 06:30 Total Protein 6.5 g/dl (6.4-8.2) 11/19/16 06:30 Albumin 3.3 g/dl (3.4-5.0) L 11/19/16 06:30 CARDIAC ENZYMES Creatine Kinase 88 IU/L (39-308) 10/31/16 06:00 Troponin I < 0.02 ng/ml (0.00-0.05) 10/28/16 20:30 Current Medications Generic Name Dose Route Start Last Admin Trade Name Mona PRN Reason Stop Dose Admin Amlodipine Besylate 5 mg 11/25/16 10:00 12/05/16 10:16 Norvasc - PO 5 mg DAILY SAVI Administration Apixaban 2.5 mg 11/22/16 10:00 12/05/16 10:16 Eliquis - PO 2.5 mg BID SAVI Administration Donepezil HCl 10 mg 11/20/16 21:00 12/04/16 21:29 Aricept - PO 10 mg DAILY@2100 SAVI Administration Memantine 5 mg 10/31/16 22:00 12/05/16 10:16 Namenda - PO 5 mg BID SAVI Administration Timolol Maleate 1 drop 11/01/16 10:00 12/05/16 10:16 Timoptic 0.25% OU 1 drop BID SAVI Administration CT of head is negative for bleed. ASSESSMENT AND PLAN: Patient is a 76 y/o man with h/o HTN, dementia , and recent DVT ( in Jun per records ) , who was brought by Police after being found wondering # Advanced dementia : on aricept and namenda waiting for placement # HTN Uncontrolled will increase the does of norvasc # s/p Fall , patient is on aricept and namenda continue # CKD : stable Cr # R popliteal DVT: on Eliquis continue for 3-6 months # Hx of Glaucoma continue the drops pending placement
[2016-12-05] MEDS: DONEPEZIL HCL 10 MG TABLET (FP) PO SCH (21:51)
[2016-12-06] MEDS ORDERED: PT OWN MED DRAWER 7, Y5N ONE (09:15)
[2016-12-06] MEDS: amLODIPine BESYLATE 5 MG TABLET (FP) PO SCH (10:05)
[2016-12-06] MEDS: MEMANTINE HCL 5 MG TABLET (UD) PO SCH ×2 (10:05→21:15)
[2016-12-06] MEDS: TIMOLOL 0.25% OPHTHALMIC SOL 5 ML BOTTLE OU SCH ×2 (10:06→21:18)
[2016-12-06] MEDS: APIXABAN 2.5 MG TABLET PO SCH ×2 (10:06→21:15)
--- NOTE | 2016-12-06 16:15 | PN ---
Physical Exam: SUBJECTIVE: Patient seen and examined at bedside. No complaints. No acute events overnight. Pt denies headache, cp, sob, abd pain, nausea, vomiting, diarrhea, dysuria. OBJECTIVE: Vital Signs Period Temp Pulse Resp BP Sys/[place] Pulse Ox Last 24 Hr 98.1 F-98.7 F 57-61 18-18 123-143/58-96 97-99 GENERAL: The patient is awake, alert, and fully oriented, in no acute distress. HEAD: Normal with no signs of trauma. EYES: PERRL, extraocular movements intact, sclera anicteric, conjunctiva clear. No ptosis. ENT: Ears normal, nares patent, oropharynx clear without exudates, moist mucous membranes. NECK: Trachea midline, full range of motion, supple. LUNGS: Breath sounds equal, clear to auscultation bilaterally, no wheezes, no crackles, no accessory muscle use. HEART: Regular rate and rhythm, S1, S2 without murmur, rub or gallop. ABDOMEN: Soft, nontender, nondistended, normoactive bowel sounds, no guarding, no rebound, no hepatosplenomegaly, no masses. EXTREMITIES: 2+ pulses, warm, well-perfused, no edema. NEUROLOGICAL: Cranial nerves II through XII grossly intact. Normal speech, gait not observed. PSYCH: Normal mood, normal affect. SKIN: Warm, dry, normal turgor, no rashes or lesions noted Active Medications Generic Name Dose Route Start Last Admin Trade Name Freq PRN Reason Stop Dose Admin Amlodipine Besylate 5 mg 11/25/16 10:00 12/06/16 10:05 Norvasc - PO 5 mg DAILY SAVI Administration Apixaban 2.5 mg 11/22/16 10:00 12/06/16 10:06 Eliquis - PO 2.5 mg BID SAVI Administration Donepezil HCl 10 mg 11/20/16 21:00 12/05/16 21:51 Aricept - PO 10 mg DAILY@2100 SAVI Administration Memantine 5 mg 10/31/16 22:00 12/06/16 10:05 Namenda - PO 5 mg BID SAVI Administration Timolol Maleate 1 drop 11/01/16 10:00 12/06/16 10:06 Timoptic 0.25% OU 1 drop BID SAVI Administration ASSESSMENT/PLAN: This is a 76 yo Man with PMHx right lower ext DVT and Alzheimer Disease who was brought to the ED by EMS for AMS. 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 #Dizziness: Resolved -Donepezil 10@ HS -Fall precautions #Confusion 2/2 Alzheimers -Memantine 5mg PO BID, Donepezil 10mg HS, per Neuro #Right popliteal DVT -Elequis 2.5mg PO BID, for 3-6 months from 11/01/16 #MAX with uncertain CKD -Dredge Worker 1.6 (11/20/16) stable -Avoid nephrotoxic Rx -f/u with Nephro on D/C #HTN - Controlled -Norvasc 2.5mg Daily #HLD -Diet controlled. -Monitor out pt #Glaucoma -Timolol .25% BID #FEN -No IVF -lytes within normal limits -Chol/Fat/Sodium restricted diet #Prophylaxis -DVT: pt on Eliquis -GI: not indicated #Full Code #Dispo: Admit to med-surg. immigration case worker involved. Pending placement Visit type - Emergency Visit Emergency Visit: No - New Patient This patient is new to me today: No - Critical Care Critical Care patient: No
[2016-12-06] MEDS: DONEPEZIL HCL 10 MG TABLET (FP) PO SCH (21:16)
--- NOTE | 2016-12-06 21:17 | PN ---
Teaching Attending Note Name of Resident: Arpit Craig ATTENDING PHYSICIAN STATEMENT I saw and evaluated the patient. I reviewed the resident's note and discussed the case with the resident. I agree with the resident's findings and plan as documented. SUBJECTIVE: comfortable, no new changes. OBJECTIVE: Vital Signs Temperature 98.5 F 12/06/16 18:00 Pulse Rate 59 L 12/06/16 18:00 Respiratory Rate 18 12/06/16 18:00 Blood Pressure 146/85 12/06/16 18:00 O2 Sat by Pulse Oximetry (%) 97 12/06/16 10:40 CBCD WBC 8.6 K/mm3 (4.0-10.0) 11/20/16 08:00 RBC 4.22 M/mm3 (4.00-5.60) 11/20/16 08:00 Hgb 12.6 GM/dL (11.7-16.9) 11/20/16 08:00 Hct 37.6 % (35.4-49) 11/20/16 08:00 MCV 89.2 fl (80-96) 11/20/16 08:00 MCHC 33.5 g/dl (32.0-35.9) 11/20/16 08:00 RDW 15.0 % (11.9-15.9) 11/20/16 08:00 Plt Count 181 K/MM3 (134-434) 11/20/16 08:00 MPV 8.9 fl (7.5-11.1) 11/20/16 08:00 CMP Sodium 139 mmol/L (136-145) 11/20/16 08:00 Potassium 4.1 mmol/L (3.5-5.1) 11/20/16 08:00 Chloride 104 mmol/L (98-107) 11/20/16 08:00 Carbon Dioxide 27 mmol/L (21-32) 11/20/16 08:00 Anion Gap 8 (8-16) 11/20/16 08:00 BUN 27 mg/dL (7-18) H 11/20/16 08:00 Creatinine 1.6 mg/dL (0.7-1.3) H 11/20/16 08:00 Creat Clearance w eGFR 42.35 (>60) 11/19/16 06:30 Random Glucose 104 mg/dL (74-106) 11/20/16 08:00 Calcium 8.5 mg/dL (8.5-10.1) 11/20/16 08:00 Total Bilirubin 0.6 mg/dL (0.2-1.0) D 11/19/16 06:30 AST 15 U/L (15-37) D 11/19/16 06:30 ALT 19 U/L (12-78) D 11/19/16 06:30 Alkaline Phosphatase 68 U/L (45-117) 11/19/16 06:30 Total Protein 6.5 g/dl (6.4-8.2) 11/19/16 06:30 Albumin 3.3 g/dl (3.4-5.0) L 11/19/16 06:30 CARDIAC ENZYMES Creatine Kinase 88 IU/L (39-308) 10/31/16 06:00 Troponin I < 0.02 ng/ml (0.00-0.05) 10/28/16 20:30 Current Medications Generic Name Dose Route Start Last Admin Trade Name Mona PRN Reason Stop Dose Admin Amlodipine Besylate 5 mg 11/25/16 10:00 12/06/16 10:05 Norvasc - PO 5 mg DAILY SAVI Administration Apixaban 2.5 mg 11/22/16 10:00 12/06/16 21:15 Eliquis - PO 2.5 mg BID SAVI Administration Donepezil HCl 10 mg 11/20/16 21:00 12/06/16 21:16 Aricept - PO 10 mg DAILY@2100 SAVI Administration Memantine 5 mg 10/31/16 22:00 12/06/16 21:15 Namenda - PO 5 mg BID SAVI Administration Timolol Maleate 1 drop 11/01/16 10:00 12/06/16 10:06 Timoptic 0.25% OU 1 drop BID SAVI Administration Home Medications Medication Instructions Recorded Amlodipine Besylate [Norvasc -] 2.5 mg PO DAILY 10/28/16 Apixaban [Eliquis -] 5 mg PO DAILY 10/28/16 Furosemide [Lasix -] 20 mg PO DAILY 10/28/16 Memantine HCl [Namenda -] 5 mg PO DAILY 10/28/16 Timolol 0.25% [Timoptic 0.25%] 0 ml OU BID 10/28/16 PE;per resident's note CT of head is negative for bleed. ASSESSMENT AND PLAN: Patient is a 76 y/o man with h/o HTN, dementia , and recent DVT ( in Jun per records ) , who was brought by Police after being found wondering # Advanced dementia : on aricept and namenda waiting for placement # HTN Uncontrolled will increase the does of norvasc # s/p Fall , patient is on aricept and namenda continue # CKD : stable Cr # R popliteal DVT: on Eliquis continue for 3-6 months # Hx of Glaucoma continue the drops pending placement
[2016-12-07] MEDS: TIMOLOL 0.25% OPHTHALMIC SOL 5 ML BOTTLE OU SCH ×2 (10:05→21:14)
[2016-12-07] MEDS ORDERED: PT OWN MED DRAWER 7, Y5N ONE (11:16)
[2016-12-07] MEDS: APIXABAN 2.5 MG TABLET PO SCH ×2 (11:17→21:14)
[2016-12-07] MEDS: MEMANTINE HCL 5 MG TABLET (UD) PO SCH ×2 (11:18→21:14)
[2016-12-07] MEDS: amLODIPine BESYLATE 5 MG TABLET (FP) PO SCH (11:18)
--- NOTE | 2016-12-07 17:09 | PN ---
Physical Exam: SUBJECTIVE: Patient seen and examined at bedside. No acute events overnight. Pt has no complaints at this time. Denies headache, cp, sob, abd pain, diarrhea, dysuria. OBJECTIVE: Vital Signs Period Temp Pulse Resp BP Sys/[place] Pulse Ox Last 24 Hr 97.2 F-98.5 F 56-90 18-20 105-149/60-85 GENERAL: The patient is awake, alert, and fully oriented, in no acute distress. HEAD: Normal with no signs of trauma. EYES: PERRL, extraocular movements intact, sclera anicteric, conjunctiva clear. No ptosis. ENT: Ears normal, nares patent, oropharynx clear without exudates, moist mucous membranes. NECK: Trachea midline, full range of motion, supple. LUNGS: Breath sounds equal, clear to auscultation bilaterally, no wheezes, no crackles, no accessory muscle use. HEART: Regular rate and rhythm, S1, S2 without murmur, rub or gallop. ABDOMEN: Soft, nontender, nondistended, normoactive bowel sounds, no guarding, no rebound, no hepatosplenomegaly, no masses. EXTREMITIES: 2+ pulses, warm, well-perfused, no edema. NEUROLOGICAL: Cranial nerves II through XII grossly intact. Normal speech, gait not observed. PSYCH: Normal mood, normal affect. SKIN: Warm, dry, normal turgor, no rashes or lesions noted Active Medications Generic Name Dose Route Start Last Admin Trade Name Freq PRN Reason Stop Dose Admin Amlodipine Besylate 5 mg 11/25/16 10:00 12/07/16 11:18 Norvasc - PO 5 mg DAILY SAVI Administration Apixaban 2.5 mg 11/22/16 10:00 12/07/16 11:17 Eliquis - PO 2.5 mg BID SAVI Administration Donepezil HCl 10 mg 11/20/16 21:00 12/06/16 21:16 Aricept - PO 10 mg DAILY@2100 SAVI Administration Memantine 5 mg 10/31/16 22:00 12/07/16 11:18 Namenda - PO 5 mg BID SAVI Administration Timolol Maleate 1 drop 11/01/16 10:00 12/06/16 21:18 Timoptic 0.25% OU 1 drop BID SAVI Administration ASSESSMENT/PLAN: This is a 76 yo Man with PMHx right lower ext DVT and Alzheimer Disease who was brought to the ED by EMS for AMS. 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 No changes #Dizziness: Resolved -Donepezil 10@ HS -Fall precautions #Confusion 2/2 Alzheimers -Memantine 5mg PO BID, Donepezil 10mg HS, per Neuro #Right popliteal DVT -Elequis 2.5mg PO BID, for 3-6 months from 11/01/16 #MAX with uncertain CKD -Mental Health Social Worker 1.6 (11/20/16) stable -Avoid nephrotoxic Rx -f/u with Nephro on D/C #HTN - Controlled -Norvasc 2.5mg Daily #HLD -Diet controlled. -Monitor out pt #Glaucoma -Timolol .25% BID #FEN -No IVF -lytes within normal limits -Chol/Fat/Sodium restricted diet #Prophylaxis -DVT: pt on Eliquis -GI: not indicated #Full Code #Dispo: Admit to med-surg. target worker involved. Pending placement Visit type - Emergency Visit Emergency Visit: No - New Patient This patient is new to me today: No - Critical Care Critical Care patient: No
--- NOTE | 2016-12-07 20:47 | PN ---
Teaching Attending Note Name of Resident: Arpit Craig ATTENDING PHYSICIAN STATEMENT I saw and evaluated the patient. I reviewed the resident's note and discussed the case with the resident. I agree with the resident's findings and plan as documented. SUBJECTIVE: No new changes OBJECTIVE: Vital Signs Temperature 98.1 F 12/07/16 17:01 Pulse Rate 56 L 12/07/16 17:01 Respiratory Rate 20 12/07/16 17:01 Blood Pressure 130/76 12/07/16 17:01 O2 Sat by Pulse Oximetry (%) 98 12/07/16 09:00 CBCD WBC 8.6 K/mm3 (4.0-10.0) 11/20/16 08:00 RBC 4.22 M/mm3 (4.00-5.60) 11/20/16 08:00 Hgb 12.6 GM/dL (11.7-16.9) 11/20/16 08:00 Hct 37.6 % (35.4-49) 11/20/16 08:00 MCV 89.2 fl (80-96) 11/20/16 08:00 MCHC 33.5 g/dl (32.0-35.9) 11/20/16 08:00 RDW 15.0 % (11.9-15.9) 11/20/16 08:00 Plt Count 181 K/MM3 (134-434) 11/20/16 08:00 MPV 8.9 fl (7.5-11.1) 11/20/16 08:00 CMP Sodium 139 mmol/L (136-145) 11/20/16 08:00 Potassium 4.1 mmol/L (3.5-5.1) 11/20/16 08:00 Chloride 104 mmol/L (98-107) 11/20/16 08:00 Carbon Dioxide 27 mmol/L (21-32) 11/20/16 08:00 Anion Gap 8 (8-16) 11/20/16 08:00 BUN 27 mg/dL (7-18) H 11/20/16 08:00 Creatinine 1.6 mg/dL (0.7-1.3) H 11/20/16 08:00 Creat Clearance w eGFR 42.35 (>60) 11/19/16 06:30 Random Glucose 104 mg/dL (74-106) 11/20/16 08:00 Calcium 8.5 mg/dL (8.5-10.1) 11/20/16 08:00 Total Bilirubin 0.6 mg/dL (0.2-1.0) D 11/19/16 06:30 AST 15 U/L (15-37) D 11/19/16 06:30 ALT 19 U/L (12-78) D 11/19/16 06:30 Alkaline Phosphatase 68 U/L (45-117) 11/19/16 06:30 Total Protein 6.5 g/dl (6.4-8.2) 11/19/16 06:30 Albumin 3.3 g/dl (3.4-5.0) L 11/19/16 06:30 CARDIAC ENZYMES Creatine Kinase 88 IU/L (39-308) 10/31/16 06:00 Troponin I < 0.02 ng/ml (0.00-0.05) 10/28/16 20:30 Current Medications Generic Name Dose Route Start Last Admin Trade Name Mona PRN Reason Stop Dose Admin Amlodipine Besylate 5 mg 11/25/16 10:00 12/07/16 11:18 Norvasc - PO 5 mg DAILY SAVI Administration Apixaban 2.5 mg 11/22/16 10:00 12/07/16 11:17 Eliquis - PO 2.5 mg BID SAVI Administration Donepezil HCl 10 mg 11/20/16 21:00 12/06/16 21:16 Aricept - PO 10 mg DAILY@2100 SAVI Administration Memantine 5 mg 10/31/16 22:00 12/07/16 11:18 Namenda - PO 5 mg BID SAVI Administration Timolol Maleate 1 drop 11/01/16 10:00 12/07/16 10:05 Timoptic 0.25% OU 1 drop BID SAVI Administration Home Medications Medication Instructions Recorded Amlodipine Besylate [Norvasc -] 2.5 mg PO DAILY 10/28/16 Apixaban [Eliquis -] 5 mg PO DAILY 10/28/16 Furosemide [Lasix -] 20 mg PO DAILY 10/28/16 Memantine HCl [Namenda -] 5 mg PO DAILY 10/28/16 Timolol 0.25% [Timoptic 0.25%] 0 ml OU BID 10/28/16 PE;per resident's note CT of head is negative for bleed. ASSESSMENT AND PLAN: Patient is a 76 y/o man with h/o HTN, dementia , and recent DVT ( in Jun per records ) , who was brought by Police after being found wondering # Advanced dementia : on aricept and namenda waiting for placement # HTN Uncontrolled will increase the does of norvasc # s/p Fall , patient is on aricept and namenda continue # CKD : stable Cr # R popliteal DVT: on Eliquis continue for 3-6 months # Hx of Glaucoma continue the drops pending placement
[2016-12-07] MEDS: DONEPEZIL HCL 10 MG TABLET (FP) PO SCH (21:14)
[2016-12-08] MEDS ORDERED: PT OWN MED DRAWER 7, Y5N ONE ×4 (09:40→23:00)
[2016-12-08] MEDS: APIXABAN 2.5 MG TABLET PO SCH ×2 (10:13→22:18)
[2016-12-08] MEDS: MEMANTINE HCL 5 MG TABLET (UD) PO SCH ×2 (10:13→22:18)
[2016-12-08] MEDS: TIMOLOL 0.25% OPHTHALMIC SOL 5 ML BOTTLE OU SCH ×2 (10:13→22:18)
[2016-12-08] MEDS: amLODIPine BESYLATE 5 MG TABLET (FP) PO SCH (10:13)
--- NOTE | 2016-12-08 11:24 | PN ---
Physical Exam: SUBJECTIVE: Patient seen and examined No new complains OBJECTIVE: Vital Signs Temperature 97.9 F 12/08/16 06:28 Pulse Rate 59 L 12/08/16 06:28 Respiratory Rate 20 12/08/16 06:28 Blood Pressure 126/67 12/08/16 06:28 O2 Sat by Pulse Oximetry (%) 98 12/07/16 21:00 GENERAL: The patient is awake, alert, and fully oriented, in no acute distress. HEAD: Normal with no signs of trauma. EYES: PERRL, extraocular movements intact, sclera anicteric, conjunctiva clear. ENT: Ears normal, oropharynx clear without exudates, moist mucous membranes. NECK: Trachea midline, full range of motion, supple. LUNGS: Breath sounds equal, clear to auscultation bilaterally, no wheezes, no crackles, no accessory muscle use. HEART: Regular rate and rhythm, S1, S2 without murmur, rub or gallop. ABDOMEN: Soft, nontender, nondistended, normoactive bowel sounds, no guarding, no rebound, no hepatosplenomegaly, no masses. EXTREMITIES: 2+ pulses, warm, well-perfused, no edema. NEUROLOGICAL: Cranial nerves II through XII grossly intact. Normal speech. stable on his feet, positive for dementia PSYCH: Normal mood, normal affect. SKIN: Warm, dry, normal turgor, no rashes or lesions noted Active Medications Generic Name Dose Route Start Last Admin Trade Name Freq PRN Reason Stop Dose Admin Amlodipine Besylate 5 mg 11/25/16 10:00 12/08/16 10:13 Norvasc - PO 5 mg DAILY SAVI Administration Apixaban 2.5 mg 11/22/16 10:00 12/08/16 10:13 Eliquis - PO 2.5 mg BID SAVI Administration Donepezil HCl 10 mg 11/20/16 21:00 12/07/16 21:14 Aricept - PO 10 mg DAILY@2100 SAVI Administration Memantine 5 mg 10/31/16 22:00 12/08/16 10:13 Namenda - PO 5 mg BID SAVI Administration Timolol Maleate 1 drop 11/01/16 10:00 12/08/16 10:13 Timoptic 0.25% OU 1 drop BID SAVI Administration Home Medications Medication Instructions Recorded Amlodipine Besylate [Norvasc -] 2.5 mg PO DAILY 10/28/16 Apixaban [Eliquis -] 5 mg PO DAILY 10/28/16 Furosemide [Lasix -] 20 mg PO DAILY 10/28/16 Memantine HCl [Namenda -] 5 mg PO DAILY 10/28/16 Timolol 0.25% [Timoptic 0.25%] 0 ml OU BID 10/28/16 ASSESSMENT/PLAN: CT of head is negative for bleed. ASSESSMENT AND PLAN: Patient is a 76 y/o man with h/o HTN, dementia , and recent DVT ( in Jun per records ) , who was brought by Police after being found wondering # Advanced dementia : on aricept and namenda waiting for placement # HTN Uncontrolled will increase the does of norvasc # s/p Fall , patient is on aricept and namenda continue # CKD : stable Cr # R popliteal DVT: on Eliquis continue for 3-6 months # Hx of Glaucoma continue the drops pending placement Visit type - Emergency Visit Emergency Visit: Yes ED Registration Date: 10/28/16 Care time: The patient presented to the Emergency Department on the above date and was hospitalized for further evaluation of their emergent condition. - New Patient This patient is new to me today: No - Critical Care Critical Care patient: No - Discharge Referral Referred to [facility] No Physician Referral: Rick Clemens MD ([facility])
[2016-12-08] MEDS: DONEPEZIL HCL 10 MG TABLET (FP) PO SCH (22:18)
[2016-12-09] MEDS ORDERED: PT OWN MED DRAWER 7, Y5N ONE ×4 (10:47→10:58)
[2016-12-09] MEDS: amLODIPine BESYLATE 5 MG TABLET (FP) PO SCH (10:51)
[2016-12-09] MEDS: MEMANTINE HCL 5 MG TABLET (UD) PO SCH ×2 (10:51→22:00)
[2016-12-09] MEDS: TIMOLOL 0.25% OPHTHALMIC SOL 5 ML BOTTLE OU SCH ×2 (10:51→21:59)
[2016-12-09] MEDS: APIXABAN 2.5 MG TABLET PO SCH ×2 (10:55→22:00)
--- NOTE | 2016-12-09 16:01 | PN ---
Physical Exam: SUBJECTIVE: Patient seen and examined at bedside. No acute events overnight. No complaints at this time. Pt denies headache, cp, sob, abd pain, nausea, vomiting , diarrhea, dysuria. OBJECTIVE: Vital Signs Period Temp Pulse Resp BP Sys/[place] Pulse Ox Last 24 Hr 98.4 F-99.8 F 57-69 20-20 116-142/61-87 98-98 GENERAL: The patient is awake, alert, and fully oriented, in no acute distress. HEAD: Normal with no signs of trauma. EYES: PERRL, extraocular movements intact, sclera anicteric, conjunctiva clear. No ptosis. ENT: Ears normal, nares patent, oropharynx clear without exudates, moist mucous membranes. NECK: Trachea midline, full range of motion, supple. LUNGS: Breath sounds equal, clear to auscultation bilaterally, no wheezes, no crackles, no accessory muscle use. HEART: Regular rate and rhythm, S1, S2 without murmur, rub or gallop. ABDOMEN: Soft, nontender, nondistended, normoactive bowel sounds, no guarding, no rebound, no hepatosplenomegaly, no masses. EXTREMITIES: 2+ pulses, warm, well-perfused, no edema. NEUROLOGICAL: Cranial nerves II through XII grossly intact. Normal speech, gait not observed. PSYCH: Normal mood, normal affect. SKIN: Warm, dry, normal turgor, no rashes or lesions noted Active Medications Generic Name Dose Route Start Last Admin Trade Name Freq PRN Reason Stop Dose Admin Amlodipine Besylate 5 mg 11/25/16 10:00 12/09/16 10:51 Norvasc - PO 5 mg DAILY SAVI Administration Apixaban 2.5 mg 11/22/16 10:00 12/09/16 10:55 Eliquis - PO 2.5 mg BID SAVI Administration Donepezil HCl 10 mg 11/20/16 21:00 12/08/16 22:18 Aricept - PO 10 mg DAILY@2100 SAVI Administration Memantine 5 mg 10/31/16 22:00 12/09/16 10:51 Namenda - PO 5 mg BID SAVI Administration Timolol Maleate 1 drop 11/01/16 10:00 12/09/16 10:51 Timoptic 0.25% OU 1 drop BID SAVI Administration ASSESSMENT/PLAN: This is a 76 yo Man with PMHx right lower ext DVT and Alzheimer Disease who was brought to the ED by EMS for AMS. 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 -Monitor out pt #Glaucoma -Timolol .25% BID #FEN -No IVF -lytes within normal limits -Chol/Fat/Sodium restricted diet #Prophylaxis -DVT: pt on Eliquis -GI: not indicated #Full Code #Dispo: Admit to med-surg. grommet worker involved. Pending placement Visit type - Emergency Visit Emergency Visit: No - New Patient This patient is new to me today: No - Critical Care Critical Care patient: No
--- NOTE | 2016-12-09 20:17 | PN ---
Progress Note (short form) - Note Progress Note: Vital Signs Temperature 98.4 F 12/09/16 14:40 Pulse Rate 59 L 12/09/16 14:40 Respiratory Rate 20 12/09/16 14:40 Blood Pressure 135/85 12/09/16 14:40 O2 Sat by Pulse Oximetry (%) 98 12/09/16 09:00 CBCD WBC 8.6 K/mm3 (4.0-10.0) 11/20/16 08:00 RBC 4.22 M/mm3 (4.00-5.60) 11/20/16 08:00 Hgb 12.6 GM/dL (11.7-16.9) 11/20/16 08:00 Hct 37.6 % (35.4-49) 11/20/16 08:00 MCV 89.2 fl (80-96) 11/20/16 08:00 MCHC 33.5 g/dl (32.0-35.9) 11/20/16 08:00 RDW 15.0 % (11.9-15.9) 11/20/16 08:00 Plt Count 181 K/MM3 (134-434) 11/20/16 08:00 MPV 8.9 fl (7.5-11.1) 11/20/16 08:00 CMP Sodium 139 mmol/L (136-145) 11/20/16 08:00 Potassium 4.1 mmol/L (3.5-5.1) 11/20/16 08:00 Chloride 104 mmol/L (98-107) 11/20/16 08:00 Carbon Dioxide 27 mmol/L (21-32) 11/20/16 08:00 Anion Gap 8 (8-16) 11/20/16 08:00 BUN 27 mg/dL (7-18) H 11/20/16 08:00 Creatinine 1.6 mg/dL (0.7-1.3) H 11/20/16 08:00 Creat Clearance w eGFR 42.35 (>60) 11/19/16 06:30 Random Glucose 104 mg/dL (74-106) 11/20/16 08:00 Calcium 8.5 mg/dL (8.5-10.1) 11/20/16 08:00 Total Bilirubin 0.6 mg/dL (0.2-1.0) D 11/19/16 06:30 AST 15 U/L (15-37) D 11/19/16 06:30 ALT 19 U/L (12-78) D 11/19/16 06:30 Alkaline Phosphatase 68 U/L (45-117) 11/19/16 06:30 Total Protein 6.5 g/dl (6.4-8.2) 11/19/16 06:30 Albumin 3.3 g/dl (3.4-5.0) L 11/19/16 06:30 CARDIAC ENZYMES Creatine Kinase 88 IU/L (39-308) 10/31/16 06:00 Troponin I < 0.02 ng/ml (0.00-0.05) 10/28/16 20:30 Current Medications Generic Name Dose Route Start Last Admin Trade Name Mona PRN Reason Stop Dose Admin Amlodipine Besylate 5 mg 11/25/16 10:00 12/09/16 10:51 Norvasc - PO 5 mg DAILY SAVI Administration Apixaban 2.5 mg 11/22/16 10:00 12/09/16 10:55 Eliquis - PO 2.5 mg BID SAVI Administration Donepezil HCl 10 mg 11/20/16 21:00 12/08/16 22:18 Aricept - PO 10 mg DAILY@2100 SAVI Administration Memantine 5 mg 10/31/16 22:00 12/09/16 10:51 Namenda - PO 5 mg BID SAVI Administration Timolol Maleate 1 drop 11/01/16 10:00 12/09/16 10:51 Timoptic 0.25% OU 1 drop BID SAVI Administration Home Medications Medication Instructions Recorded Amlodipine Besylate [Norvasc -] 2.5 mg PO DAILY 10/28/16 Apixaban [Eliquis -] 5 mg PO DAILY 10/28/16 Furosemide [Lasix -] 20 mg PO DAILY 10/28/16 Memantine HCl [Namenda -] 5 mg PO DAILY 10/28/16 Timolol 0.25% [Timoptic 0.25%] 0 ml OU BID 10/28/16 CT of head is negative for bleed. ASSESSMENT AND PLAN: Patient is a 76 y/o man with h/o HTN, dementia , and recent DVT ( in Jun per records ) , who was brought by Police after being found wondering # Advanced dementia : on aricept and namenda waiting for placement # HTN Uncontrolled will increase the does of norvasc # s/p Fall , patient is on aricept and namenda continue # CKD : stable Cr # R popliteal DVT: on Eliquis continue for 3-6 months # Hx of Glaucoma continue the drops pending placement Visit type - Emergency Visit Emergency Visit: Yes ED Registration Date: 10/28/16 Care time: The patient presented to the Emergency Department on the above date and was hospitalized for further evaluation of their emergent condition. - New Patient This patient is new to me today: No - Critical Care Critical Care patient: No
[2016-12-09] MEDS: DONEPEZIL HCL 10 MG TABLET (FP) PO SCH (22:00)
--- NOTE | 2016-12-10 09:01 | PN ---
Physical Exam: SUBJECTIVE: Patient seen and examined at bedside. No acute events overnight. No complaints at this time. Pt denies headache, chest pain, sob, abd pain, nausea, vomiting, diarrhea, dysuria. OBJECTIVE: Vital Signs Period Temp Pulse Resp BP Sys/[place] Pulse Ox Last 24 Hr 97.5 F-98.4 F 55-62 20-20 132-138/69-85 98-98 GENERAL: The patient is awake, alert, and fully oriented, in no acute distress. HEAD: Normal with no signs of trauma. EYES: PERRL, extraocular movements intact, sclera anicteric, conjunctiva clear. No ptosis. ENT: Ears normal, nares patent, oropharynx clear without exudates, moist mucous membranes. NECK: Trachea midline, full range of motion, supple. LUNGS: Breath sounds equal, clear to auscultation bilaterally, no wheezes, no crackles, no accessory muscle use. HEART: Regular rate and rhythm, S1, S2 without murmur, rub or gallop. ABDOMEN: Soft, nontender, nondistended, normoactive bowel sounds, no guarding, no rebound, no hepatosplenomegaly, no masses. EXTREMITIES: 2+ pulses, warm, well-perfused, no edema. NEUROLOGICAL: Cranial nerves II through XII grossly intact. Normal speech, gait not observed. PSYCH: Normal mood, normal affect. SKIN: Warm, dry, normal turgor, no rashes or lesions noted Active Medications Generic Name Dose Route Start Last Admin Trade Name Freq PRN Reason Stop Dose Admin Amlodipine Besylate 5 mg 11/25/16 10:00 12/09/16 10:51 Norvasc - PO 5 mg DAILY SAVI Administration Apixaban 2.5 mg 11/22/16 10:00 12/09/16 22:00 Eliquis - PO 2.5 mg BID SAVI Administration Donepezil HCl 10 mg 11/20/16 21:00 12/09/16 22:00 Aricept - PO 10 mg DAILY@2100 SAVI Administration Memantine 5 mg 10/31/16 22:00 12/09/16 22:00 Namenda - PO 5 mg BID SAVI Administration Timolol Maleate 1 drop 11/01/16 10:00 12/09/16 21:59 Timoptic 0.25% OU 1 drop BID SAVI Administration ASSESSMENT/PLAN: This is a 76 yo Man with PMHx right lower ext DVT and Alzheimer Disease who was brought to the ED by EMS for AMS. 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 Plan unchanged from previous #Dizziness: Resolved -Donepezil 10mg HS -Fall precautions #Confusion 2/2 Alzheimers -Memantine 5mg PO BID, Donepezil 10mg HS, per Neuro #Right popliteal DVT -Eliquis 2.5mg PO BID, for 3-6 months from 11/01/16 #MAX with uncertain CKD -[employer] 1.6 (11/20/16) stable -Avoid nephrotoxic Rx -f/u with Nephro on D/C #HTN - Controlled -Norvasc 2.5mg Daily #HLD -Diet controlled. -Monitor out pt #Glaucoma -Timolol .25% BID #FEN -No IVF -lytes within normal limits -Chol/Fat/Sodium restricted diet #Prophylaxis -DVT: pt on Eliquis -GI: not indicated #Full Code #Dispo: Admit to med-surg. tin recovery worker involved. Pending placement Visit type - Emergency Visit Emergency Visit: No - New Patient This patient is new to me today: No - Critical Care Critical Care patient: No
[2016-12-10] MEDS: APIXABAN 2.5 MG TABLET PO SCH ×2 (10:57→22:12)
[2016-12-10] MEDS: amLODIPine BESYLATE 5 MG TABLET (FP) PO SCH (10:57)
[2016-12-10] MEDS: MEMANTINE HCL 5 MG TABLET (UD) PO SCH ×2 (10:57→22:11)
[2016-12-10] MEDS: TIMOLOL 0.25% OPHTHALMIC SOL 5 ML BOTTLE OU SCH ×2 (10:58→22:11)
--- NOTE | 2016-12-10 19:16 | PN ---
Teaching Attending Note Name of Resident: Arpit Craig ATTENDING PHYSICIAN STATEMENT I saw and evaluated the patient. I reviewed the resident's note and discussed the case with the resident. I agree with the resident's findings and plan as documented. SUBJECTIVE: Comfortable with no acute distress OBJECTIVE: Vital Signs Temperature 97.0 F L 12/10/16 18:00 Pulse Rate 84 12/10/16 18:00 Respiratory Rate 16 12/10/16 18:00 Blood Pressure 142/75 12/10/16 18:00 O2 Sat by Pulse Oximetry (%) 99 12/10/16 09:00 CBCD WBC 8.6 K/mm3 (4.0-10.0) 11/20/16 08:00 RBC 4.22 M/mm3 (4.00-5.60) 11/20/16 08:00 Hgb 12.6 GM/dL (11.7-16.9) 11/20/16 08:00 Hct 37.6 % (35.4-49) 11/20/16 08:00 MCV 89.2 fl (80-96) 11/20/16 08:00 MCHC 33.5 g/dl (32.0-35.9) 11/20/16 08:00 RDW 15.0 % (11.9-15.9) 11/20/16 08:00 Plt Count 181 K/MM3 (134-434) 11/20/16 08:00 MPV 8.9 fl (7.5-11.1) 11/20/16 08:00 CMP Sodium 139 mmol/L (136-145) 11/20/16 08:00 Potassium 4.1 mmol/L (3.5-5.1) 11/20/16 08:00 Chloride 104 mmol/L (98-107) 11/20/16 08:00 Carbon Dioxide 27 mmol/L (21-32) 11/20/16 08:00 Anion Gap 8 (8-16) 11/20/16 08:00 BUN 27 mg/dL (7-18) H 11/20/16 08:00 Creatinine 1.6 mg/dL (0.7-1.3) H 11/20/16 08:00 Creat Clearance w eGFR 42.35 (>60) 11/19/16 06:30 Random Glucose 104 mg/dL (74-106) 11/20/16 08:00 Calcium 8.5 mg/dL (8.5-10.1) 11/20/16 08:00 Total Bilirubin 0.6 mg/dL (0.2-1.0) D 11/19/16 06:30 AST 15 U/L (15-37) D 11/19/16 06:30 ALT 19 U/L (12-78) D 11/19/16 06:30 Alkaline Phosphatase 68 U/L (45-117) 11/19/16 06:30 Total Protein 6.5 g/dl (6.4-8.2) 11/19/16 06:30 Albumin 3.3 g/dl (3.4-5.0) L 11/19/16 06:30 CARDIAC ENZYMES Creatine Kinase 88 IU/L (39-308) 10/31/16 06:00 Troponin I < 0.02 ng/ml (0.00-0.05) 10/28/16 20:30 Current Medications Generic Name Dose Route Start Last Admin Trade Name Mona PRN Reason Stop Dose Admin Amlodipine Besylate 5 mg 11/25/16 10:00 12/10/16 10:57 Norvasc - PO 5 mg DAILY SAVI Administration Apixaban 2.5 mg 11/22/16 10:00 12/10/16 10:57 Eliquis - PO 2.5 mg BID SAVI Administration Donepezil HCl 10 mg 11/20/16 21:00 12/09/16 22:00 Aricept - PO 10 mg DAILY@2100 SAVI Administration Memantine 5 mg 10/31/16 22:00 12/10/16 10:57 Namenda - PO 5 mg BID SAVI Administration Timolol Maleate 1 drop 11/01/16 10:00 12/10/16 10:58 Timoptic 0.25% OU 1 drop BID SAVI Administration Home Medications Medication Instructions Recorded Amlodipine Besylate [Norvasc -] 2.5 mg PO DAILY 10/28/16 Apixaban [Eliquis -] 5 mg PO DAILY 10/28/16 Furosemide [Lasix -] 20 mg PO DAILY 10/28/16 Memantine HCl [Namenda -] 5 mg PO DAILY 10/28/16 Timolol 0.25% [Timoptic 0.25%] 0 ml OU BID 10/28/16 PE: per resident's note CT of head is negative for bleed. ASSESSMENT AND PLAN: Patient is a 76 y/o man with h/o HTN, dementia , and recent DVT ( in Jun per records ) , who was brought by Police after being found wondering # Advanced dementia : on aricept and namenda waiting for placement # HTN Uncontrolled will increase the does of norvasc # s/p Fall , patient is on aricept and namenda continue # CKD : stable Cr # R popliteal DVT: on Eliquis continue for 3-6 months # Hx of Glaucoma continue the drops pending placement
[2016-12-10] MEDS: DONEPEZIL HCL 10 MG TABLET (FP) PO SCH (21:11)
[2016-12-11] MEDS ORDERED: PT OWN MED DRAWER 7, Y5N ONE (11:04)
[2016-12-11] MEDS: amLODIPine BESYLATE 5 MG TABLET (FP) PO SCH (11:36)
[2016-12-11] MEDS: MEMANTINE HCL 5 MG TABLET (UD) PO SCH ×2 (11:36→22:22)
[2016-12-11] MEDS: TIMOLOL 0.25% OPHTHALMIC SOL 5 ML BOTTLE OU SCH ×2 (11:36→22:22)
[2016-12-11] MEDS: APIXABAN 2.5 MG TABLET PO SCH ×2 (11:36→22:22)
--- NOTE | 2016-12-11 15:27 | PN ---
Physical Exam: SUBJECTIVE: Patient seen and examined at bedside. No acute events overnight. No complaints at this time. Pt denies headache, chest pain, sob, abd pain, nausea, vomiting, diarrhea, dysuria. No changes since yesterday. OBJECTIVE: Vital Signs Period Temp Pulse Resp BP Sys/[place] Pulse Ox Last 24 Hr 97.0 F-98.4 F 64-88 16-20 117-148/52-75 98 GENERAL: The patient is awake, alert, and fully oriented, in no acute distress. HEAD: Normal with no signs of trauma. EYES: PERRL, extraocular movements intact, sclera anicteric, conjunctiva clear. No ptosis. ENT: Ears normal, nares patent, oropharynx clear without exudates, moist mucous membranes. NECK: Trachea midline, full range of motion, supple. LUNGS: Breath sounds equal, clear to auscultation bilaterally, no wheezes, no crackles, no accessory muscle use. HEART: Regular rate and rhythm, S1, S2 without murmur, rub or gallop. ABDOMEN: Soft, nontender, nondistended, normoactive bowel sounds, no guarding, no rebound, no hepatosplenomegaly, no masses. EXTREMITIES: 2+ pulses, warm, well-perfused, no edema. NEUROLOGICAL: Cranial nerves II through XII grossly intact. Normal speech, gait not observed. PSYCH: Normal mood, normal affect. SKIN: Warm, dry, normal turgor, no rashes or lesions noted Active Medications Generic Name Dose Route Start Last Admin Trade Name Emigdioq PRN Reason Stop Dose Admin Amlodipine Besylate 5 mg 11/25/16 10:00 12/11/16 11:36 Norvasc - PO 5 mg DAILY SAVI Administration Apixaban 2.5 mg 11/22/16 10:00 12/11/16 11:36 Eliquis - PO 2.5 mg BID SAVI Administration Donepezil HCl 10 mg 11/20/16 21:00 12/10/16 21:11 Aricept - PO 10 mg DAILY@2100 SAVI Administration Memantine 5 mg 10/31/16 22:00 12/11/16 11:36 Namenda - PO 5 mg BID SAVI Administration Timolol Maleate 1 drop 11/01/16 10:00 12/11/16 11:36 Timoptic 0.25% OU 1 drop BID SAVI Administration ASSESSMENT/PLAN: This is a 76 yo Man with PMHx right lower ext DVT and Alzheimer Disease who was brought to the ED by EMS for AMS. 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 Plan unchanged from previous. Still waiting for placement. Pt is still stable. 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 -Monitor out pt #Glaucoma -Timolol .25% BID #FEN -No IVF -lytes within normal limits -Chol/Fat/Sodium restricted diet #Prophylaxis -DVT: pt on Eliquis -GI: not indicated #Full Code #Dispo: Admit to med-surg. tree worker involved. Pending placement Visit type - Emergency Visit Emergency Visit: No - New Patient This patient is new to me today: No - Critical Care Critical Care patient: No
--- NOTE | 2016-12-11 20:07 | PN ---
Teaching Attending Note Name of Resident: Arpit Craig ATTENDING PHYSICIAN STATEMENT I saw and evaluated the patient. I reviewed the resident's note and discussed the case with the resident. I agree with the resident's findings and plan as documented. SUBJECTIVE: no new findings OBJECTIVE: Vital Signs Temperature 97.9 F 12/11/16 18:45 Pulse Rate 67 12/11/16 18:45 Respiratory Rate 18 12/11/16 19:04 Blood Pressure 148/76 12/11/16 18:45 O2 Sat by Pulse Oximetry (%) 98 12/11/16 19:04 CBCD WBC 8.6 K/mm3 (4.0-10.0) 11/20/16 08:00 RBC 4.22 M/mm3 (4.00-5.60) 11/20/16 08:00 Hgb 12.6 GM/dL (11.7-16.9) 11/20/16 08:00 Hct 37.6 % (35.4-49) 11/20/16 08:00 MCV 89.2 fl (80-96) 11/20/16 08:00 MCHC 33.5 g/dl (32.0-35.9) 11/20/16 08:00 RDW 15.0 % (11.9-15.9) 11/20/16 08:00 Plt Count 181 K/MM3 (134-434) 11/20/16 08:00 MPV 8.9 fl (7.5-11.1) 11/20/16 08:00 CMP Sodium 139 mmol/L (136-145) 11/20/16 08:00 Potassium 4.1 mmol/L (3.5-5.1) 11/20/16 08:00 Chloride 104 mmol/L (98-107) 11/20/16 08:00 Carbon Dioxide 27 mmol/L (21-32) 11/20/16 08:00 Anion Gap 8 (8-16) 11/20/16 08:00 BUN 27 mg/dL (7-18) H 11/20/16 08:00 Creatinine 1.6 mg/dL (0.7-1.3) H 11/20/16 08:00 Creat Clearance w eGFR 42.35 (>60) 11/19/16 06:30 Random Glucose 104 mg/dL (74-106) 11/20/16 08:00 Calcium 8.5 mg/dL (8.5-10.1) 11/20/16 08:00 Total Bilirubin 0.6 mg/dL (0.2-1.0) D 11/19/16 06:30 AST 15 U/L (15-37) D 11/19/16 06:30 ALT 19 U/L (12-78) D 11/19/16 06:30 Alkaline Phosphatase 68 U/L (45-117) 11/19/16 06:30 Total Protein 6.5 g/dl (6.4-8.2) 11/19/16 06:30 Albumin 3.3 g/dl (3.4-5.0) L 11/19/16 06:30 CARDIAC ENZYMES Creatine Kinase 88 IU/L (39-308) 10/31/16 06:00 Troponin I < 0.02 ng/ml (0.00-0.05) 10/28/16 20:30 Current Medications Generic Name Dose Route Start Last Admin Trade Name Mona PRN Reason Stop Dose Admin Amlodipine Besylate 5 mg 11/25/16 10:00 12/11/16 11:36 Norvasc - PO 5 mg DAILY SAVI Administration Apixaban 2.5 mg 11/22/16 10:00 12/11/16 11:36 Eliquis - PO 2.5 mg BID SAVI Administration Donepezil HCl 10 mg 11/20/16 21:00 12/10/16 21:11 Aricept - PO 10 mg DAILY@2100 SAVI Administration Memantine 5 mg 10/31/16 22:00 12/11/16 11:36 Namenda - PO 5 mg BID SAVI Administration Timolol Maleate 1 drop 11/01/16 10:00 12/11/16 11:36 Timoptic 0.25% OU 1 drop BID SAVI Administration Home Medications Medication Instructions Recorded Amlodipine Besylate [Norvasc -] 2.5 mg PO DAILY 10/28/16 Apixaban [Eliquis -] 5 mg PO DAILY 10/28/16 Furosemide [Lasix -] 20 mg PO DAILY 10/28/16 Memantine HCl [Namenda -] 5 mg PO DAILY 10/28/16 Timolol 0.25% [Timoptic 0.25%] 0 ml OU BID 10/28/16 CT of head is negative for bleed. ASSESSMENT AND PLAN: Patient is a 76 y/o man with h/o HTN, dementia , and recent DVT ( in Jun per records ) , who was brought by Police after being found [place] # Advanced dementia : on aricept and namenda waiting for placement # HTN Uncontrolled will increase the does of norvasc # s/p Fall , patient is on aricept and namenda continue # CKD : stable Cr # R popliteal DVT: on Eliquis continue for 3-6 months # Hx of Glaucoma continue the drops pending placement
[2016-12-11] MEDS: DONEPEZIL HCL 10 MG TABLET (FP) PO SCH (22:22)
[2016-12-12] MEDS ORDERED: PT OWN MED DRAWER 7, Y5N ONE (10:10)
[2016-12-12] MEDS: amLODIPine BESYLATE 5 MG TABLET (FP) PO SCH (10:12)
[2016-12-12] MEDS: MEMANTINE HCL 5 MG TABLET (UD) PO SCH ×2 (10:12→21:31)
[2016-12-12] MEDS: APIXABAN 2.5 MG TABLET PO SCH ×2 (10:27→21:31)
[2016-12-12] MEDS: TIMOLOL 0.25% OPHTHALMIC SOL 5 ML BOTTLE OU SCH ×2 (10:27→21:31)
--- NOTE | 2016-12-12 18:59 | PN ---
Physical Exam: SUBJECTIVE: Patient seen and examined at bedside. No acute events overnight. No complaints at this time. Pt denies headache, chest pain, sob, abd pain, nausea, vomiting, diarrhea, dysuria. Still no changes. OBJECTIVE: Vital Signs Period Temp Pulse Resp BP Sys/[place] Pulse Ox Last 24 Hr 98.0 F-98.9 F 56-68 18-18 113-140/66-77 98-98 GENERAL: The patient is awake, alert, and fully oriented, in no acute distress. HEAD: Normal with no signs of trauma. EYES: PERRL, extraocular movements intact, sclera anicteric, conjunctiva clear. No ptosis. ENT: Ears normal, nares patent, oropharynx clear without exudates, moist mucous membranes. NECK: Trachea midline, full range of motion, supple. LUNGS: Breath sounds equal, clear to auscultation bilaterally, no wheezes, no crackles, no accessory muscle use. HEART: Regular rate and rhythm, S1, S2 without murmur, rub or gallop. ABDOMEN: Soft, nontender, nondistended, normoactive bowel sounds, no guarding, no rebound, no hepatosplenomegaly, no masses. EXTREMITIES: 2+ pulses, warm, well-perfused, no edema. NEUROLOGICAL: Cranial nerves II through XII grossly intact. Normal speech, gait not observed. PSYCH: Normal mood, normal affect. SKIN: Warm, dry, normal turgor, no rashes or lesions noted Active Medications Generic Name Dose Route Start Last Admin Trade Name Emigdioq PRN Reason Stop Dose Admin Amlodipine Besylate 5 mg 11/25/16 10:00 12/12/16 10:12 Norvasc - PO 5 mg DAILY SAVI Administration Apixaban 2.5 mg 11/22/16 10:00 12/12/16 10:27 Eliquis - PO 2.5 mg BID SAVI Administration Donepezil HCl 10 mg 11/20/16 21:00 12/11/16 22:22 Aricept - PO 10 mg DAILY@2100 SAVI Administration Memantine 5 mg 10/31/16 22:00 12/12/16 10:12 Namenda - PO 5 mg BID SAVI Administration Timolol Maleate 1 drop 11/01/16 10:00 12/12/16 10:27 Timoptic 0.25% OU 1 drop BID SAVI Administration ASSESSMENT/PLAN: This is a 76 yo Man with PMHx right lower ext DVT and Alzheimer Disease who was brought to the ED by EMS for AMS. 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 Plan unchanged from previous. Still waiting for placement. Pt is still stable. #Dizziness: Resolved -Donepezil 10mg HS -Fall precautions #Confusion 2/2 Alzheimers -Memantine 5mg PO BID, Donepezil 10mg HS, per Neuro #Right popliteal DVT -Eliquis 2.5mg PO BID, for 3-6 months from 11/01/16 #MAX with uncertain CKD -Medical Tech 1.6 (11/20/16) stable -Avoid nephrotoxic Rx -f/u with Nephro on D/C #HTN - Controlled -Norvasc 2.5mg Daily #HLD -Diet controlled. -Monitor out pt #Glaucoma -Timolol .25% BID #FEN -No IVF -lytes within normal limits -Chol/Fat/Sodium restricted diet #Prophylaxis -DVT: pt on Eliquis -GI: not indicated #Full Code #Dispo: Admit to med-surg. cafeteria worker involved. Pending placement Visit type - Emergency Visit Emergency Visit: No - New Patient This patient is new to me today: No - Critical Care Critical Care patient: No
--- NOTE | 2016-12-12 21:04 | PN ---
Teaching Attending Note Name of Resident: Arpit Craig ATTENDING PHYSICIAN STATEMENT I saw and evaluated the patient. I reviewed the resident's note and discussed the case with the resident. I agree with the resident's findings and plan as documented. SUBJECTIVE: no complaints OBJECTIVE: NAD CV : RRR Lungs : CTAB ext : no erythema or edema . varicoseveins A/P 76 y/o man with h/o HTN, dementia , and recent DVT ( in Jun per records ) , who was brought by POlice after being found wondering 1- Fall with pre-syncope: no recurrence 2- Advanced dementia : - cont aricept and namenda 3- CKD : stable Cr 4- R popliteal DVT: cont eliquis x 3-6 months 5- HTN : cont norvasc pending placement
[2016-12-12] MEDS: DONEPEZIL HCL 10 MG TABLET (FP) PO SCH (21:30)
[2016-12-13] MEDS: amLODIPine BESYLATE 5 MG TABLET (FP) PO SCH (10:58)
[2016-12-13] MEDS: MEMANTINE HCL 5 MG TABLET (UD) PO SCH ×2 (10:58→21:08)
[2016-12-13] MEDS: TIMOLOL 0.25% OPHTHALMIC SOL 5 ML BOTTLE OU SCH ×2 (10:58→21:09)
[2016-12-13] MEDS ORDERED: PT OWN MED DRAWER 7, Y5N ONE ×2 (10:58→17:46)
[2016-12-13] MEDS: APIXABAN 2.5 MG TABLET PO SCH ×2 (10:58→21:08)
--- NOTE | 2016-12-13 18:17 | PN ---
Teaching Attending Note Name of Resident: Jaret Stahl ATTENDING PHYSICIAN STATEMENT I saw and evaluated the patient. I reviewed the resident's note and discussed the case with the resident. I agree with the resident's findings and plan as documented. SUBJECTIVE: no complaints OBJECTIVE: NAD CV : RRR Lungs : CTAB ext : no erythema or edema . varicose veins A/P 76 y/o man with h/o HTN, dementia , and recent DVT ( in Jun per records ) , who was brought by POlice after being found wondering 1- Advanced dementia : - cont aricept and namenda 2- CKD : stable Cr 3- R popliteal DVT: cont eliquis x 3-6 months 4- HTN : cont norvasc pending placement
--- NOTE | 2016-12-13 20:23 | PN ---
Physical Exam: SUBJECTIVE: Patient seen and examined at bedside. No acute events overnight. No complaints at this time. Pt denies headache, chest pain, sob, abd pain, nausea, vomiting, diarrhea, dysuria. Still no changes. OBJECTIVE: Vital Signs Period Temp Pulse Resp BP Sys/[place] Pulse Ox Last 24 Hr 98.3 F-98.9 F 57-65 18-20 120-135/64-76 99 GENERAL: The patient is awake, alert, and fully oriented, in no acute distress. HEAD: Normal with no signs of trauma. EYES: PERRL, extraocular movements intact, sclera anicteric, conjunctiva clear. No ptosis. ENT: Ears normal, nares patent, oropharynx clear without exudates, moist mucous membranes. NECK: Trachea midline, full range of motion, supple. LUNGS: Breath sounds equal, clear to auscultation bilaterally, no wheezes, no crackles, no accessory muscle use. HEART: Regular rate and rhythm, S1, S2 without murmur, rub or gallop. ABDOMEN: Soft, nontender, nondistended, normoactive bowel sounds, no guarding, no rebound, no hepatosplenomegaly, no masses. EXTREMITIES: 2+ pulses, warm, well-perfused, no edema. NEUROLOGICAL: Cranial nerves II through XII grossly intact. Normal speech, gait not observed. PSYCH: Normal mood, normal affect. SKIN: Warm, dry, normal turgor, no rashes or lesions noted Active Medications Generic Name Dose Route Start Last Admin Trade Name Emigdioq PRN Reason Stop Dose Admin Amlodipine Besylate 5 mg 11/25/16 10:00 12/13/16 10:58 Norvasc - PO 5 mg DAILY SAVI Administration Apixaban 2.5 mg 11/22/16 10:00 12/13/16 10:58 Eliquis - PO 2.5 mg BID SAVI Administration Donepezil HCl 10 mg 11/20/16 21:00 12/12/16 21:30 Aricept - PO 10 mg DAILY@2100 SAVI Administration Memantine 5 mg 10/31/16 22:00 12/13/16 10:58 Namenda - PO 5 mg BID SAVI Administration Timolol Maleate 1 drop 11/01/16 10:00 12/13/16 10:58 Timoptic 0.25% OU 1 drop BID SAVI Administration ASSESSMENT/PLAN: This is a 76 yo Man with PMHx right lower ext DVT and Alzheimer Disease who was brought to the ED by EMS for AMS. 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 Plan unchanged from previous. Still waiting for placement. Pt is still stable. 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 -Monitor out pt #Glaucoma -Timolol .25% BID #FEN -No IVF -lytes within normal limits -Chol/Fat/Sodium restricted diet #Prophylaxis -DVT: pt on Eliquis -GI: not indicated #Full Code #Dispo: Admit to med-surg. electrical lineworker involved. Pending placement Visit type - Emergency Visit Emergency Visit: No - New Patient This patient is new to me today: No - Critical Care Critical Care patient: No
[2016-12-13] MEDS: DONEPEZIL HCL 10 MG TABLET (FP) PO SCH (21:08)
[2016-12-14] MEDS ORDERED: PT OWN MED DRAWER 7, Y5N ONE ×2 (11:04→21:02)
[2016-12-14] MEDS: MEMANTINE HCL 5 MG TABLET (UD) PO SCH ×2 (12:15→21:48)
[2016-12-14] MEDS: amLODIPine BESYLATE 5 MG TABLET (FP) PO SCH (12:15)
[2016-12-14] MEDS: TIMOLOL 0.25% OPHTHALMIC SOL 5 ML BOTTLE OU SCH ×2 (12:15→21:48)
[2016-12-14] MEDS: APIXABAN 2.5 MG TABLET PO SCH ×2 (12:15→21:48)
--- NOTE | 2016-12-14 14:27 | PN ---
Physical Exam: SUBJECTIVE: Patient seen and examined at bedside. No complaints at all. No acute events overnight. Pt denies headache, cp, sob, abd pain, nausea, vomiting , diarrhea, dysuria, fever. OBJECTIVE: Vital Signs Period Temp Pulse Resp BP Sys/[place] Pulse Ox Last 24 Hr 97.6 F-98.9 F 58-65 20-20 120-152/58-77 99 GENERAL: The patient is awake, alert, and fully oriented, in no acute distress. HEAD: Normal with no signs of trauma. EYES: extraocular movements intact, sclera anicteric, conjunctiva clear. No ptosis. ENT: oropharynx clear without exudates, moist mucous membranes. NECK: Trachea midline, full range of motion, supple. LUNGS: Breath sounds equal, clear to auscultation bilaterally, no wheezes, no crackles, no accessory muscle use. HEART: Regular rate and rhythm, normal S1, S2 without murmur, rub or gallop. ABDOMEN: Soft, nontender, nondistended, normoactive bowel sounds, no guarding, no rebound, no hepatosplenomegaly, no masses. EXTREMITIES: 2+ pulses, warm, well-perfused, no edema. NEUROLOGICAL: Cranial nerves II through XII grossly intact. Normal speech, gait normal. PSYCH: Normal mood, normal affect. SKIN: Warm, dry, normal turgor, no rashes or lesions noted Active Medications Generic Name Dose Route Start Last Admin Trade Name Freq PRN Reason Stop Dose Admin Amlodipine Besylate 5 mg 11/25/16 10:00 12/14/16 12:15 Norvasc - PO 5 mg DAILY SAVI Administration Apixaban 2.5 mg 11/22/16 10:00 12/14/16 12:15 Eliquis - PO 2.5 mg BID SAVI Administration Donepezil HCl 10 mg 11/20/16 21:00 12/13/16 21:08 Aricept - PO 10 mg DAILY@2100 SAVI Administration Memantine 5 mg 10/31/16 22:00 12/14/16 12:15 Namenda - PO 5 mg BID SAVI Administration Timolol Maleate 1 drop 11/01/16 10:00 12/14/16 12:15 Timoptic 0.25% OU 1 drop BID SAVI Administration ASSESSMENT/PLAN: This is a 76 yo Man with PMHx right lower ext DVT and Alzheimer Disease who was brought to the ED by EMS for AMS. 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 Plan unchanged from previous. Still waiting for placement. Pt is still stable. #Dizziness: Resolved -Donepezil 10mg HS -Fall precautions #Confusion 2/2 Alzheimers -Memantine 5mg PO BID, Donepezil 10mg HS, per Neuro #Right popliteal DVT -Eliquis 2.5mg PO BID, for 3-6 months from 11/01/16 #MAX with uncertain CKD -Technician Inventory Specialist 1.6 (11/20/16) stable -Avoid nephrotoxic Rx -f/u with Nephro on D/C #HTN - Controlled -Norvasc 2.5mg Daily #HLD -Diet controlled. -Monitor out pt #Glaucoma -Timolol .25% BID #FEN -No IVF -lytes within normal limits -Chol/Fat/Sodium restricted diet #Prophylaxis -DVT: pt on Eliquis -GI: not indicated #Full Code #Dispo: Admit to med-surg. winery worker involved. Pending placement Visit type - Emergency Visit Emergency Visit: No - New Patient This patient is new to me today: No - Critical Care Critical Care patient: No
--- NOTE | 2016-12-14 15:42 | PN ---
Teaching Attending Note Name of Resident: Arpit Craig ATTENDING PHYSICIAN STATEMENT I saw and evaluated the patient. I reviewed the resident's note and discussed the case with the resident. I agree with the resident's findings and plan as documented. SUBJECTIVE: no complaints. OBJECTIVE: NAD CV : RRR Lungs : CTAB ext : no erythema or edema . varicose veins A/P 76 y/o man with h/o HTN, dementia , and recent DVT ( in Jun per records ) , who was brought by POlice after being found wondering 1- Advanced dementia : - cont aricept and namenda 2- CKD : stable Cr 3- R popliteal DVT: cont eliquis x 3-6 months 4- HTN : cont norvasc pending placement
[2016-12-14] MEDS: DONEPEZIL HCL 10 MG TABLET (FP) PO SCH (21:48)
[2016-12-15] MEDS: MEMANTINE HCL 5 MG TABLET (UD) PO SCH ×2 (10:06→21:11)
[2016-12-15] MEDS: amLODIPine BESYLATE 5 MG TABLET (FP) PO SCH (10:06)
[2016-12-15] MEDS: APIXABAN 2.5 MG TABLET PO SCH ×2 (10:06→21:11)
[2016-12-15] MEDS: TIMOLOL 0.25% OPHTHALMIC SOL 5 ML BOTTLE OU SCH ×2 (10:06→21:11)
--- NOTE | 2016-12-15 12:32 | PN ---
Progress Note (short form) - Note Progress Note: Subjective: no fever or chills . has no pain Objective: Vital Signs: Last Vital Signs Temp Pulse Resp BP Pulse Ox 97.7 F 59 L 16 135/75 99 12/15/16 10:00 12/15/16 10:00 12/15/16 10:00 12/15/16 10:00 12/14/16 09:00 Physical Exam: NAD, awake, alert, cooperative. CV: RRR Lungs: CTAB Ext: no edema ASSESSMENT AND PLAN: 76 y/o man with h/o HTN, dementia , and recent DVT ( in Jun, not on AC at presentation ) , who was brought by Police after being found wondering 1- Advanced dementia : - cont aricept and namenda 2- CKD : stable Cr repeat BMP 3- R popliteal DVT: cont eliquis x 3-6 months 4- HTN : cont norvasc pending placement Visit type - Emergency Visit Emergency Visit: Yes ED Registration Date: 10/28/16 Care time: The patient presented to the Emergency Department on the above date and was hospitalized for further evaluation of their emergent condition. - New Patient This patient is new to me today: No - Critical Care Critical Care patient: No
[2016-12-15] MEDS: DONEPEZIL HCL 10 MG TABLET (FP) PO SCH (21:11)
[2016-12-16] MEDS: amLODIPine BESYLATE 5 MG TABLET (FP) PO SCH (09:38)
[2016-12-16] MEDS: TIMOLOL 0.25% OPHTHALMIC SOL 5 ML BOTTLE OU SCH ×2 (09:38→21:09)
[2016-12-16] MEDS: APIXABAN 2.5 MG TABLET PO SCH ×2 (09:38→21:09)
[2016-12-16] MEDS: MEMANTINE HCL 5 MG TABLET (UD) PO SCH ×2 (09:38→21:09)
--- NOTE | 2016-12-16 14:05 | PN ---
Progress Note (short form) - Note Progress Note: Subjective: no fever or chills . has no pain Objective: Vital Signs: Last Vital Signs Temp Pulse Resp BP Pulse Ox 98.0 F 62 20 128/64 97 12/16/16 09:42 12/16/16 09:42 12/16/16 09:42 12/16/16 09:42 12/16/16 09:00 Physical Exam: NAD, awake, alert, cooperative. CV: RRR Lungs: CTAB Ext: no edema ASSESSMENT AND PLAN: 76 y/o man with h/o HTN, dementia , and recent DVT ( in Jun, not on AC at presentation ) , who was brought by Police after being found wondering 1- Advanced dementia : - cont aricept and namenda 2- CKD : stable Cr repeat BMP in AM 3- R popliteal DVT: cont eliquis x 3-6 months 4- HTN : cont norvasc pending placement Visit type - Emergency Visit Emergency Visit: Yes ED Registration Date: 10/28/16 Care time: The patient presented to the Emergency Department on the above date and was hospitalized for further evaluation of their emergent condition. - New Patient This patient is new to me today: No - Critical Care Critical Care patient: No
[2016-12-16] MEDS: DONEPEZIL HCL 10 MG TABLET (FP) PO SCH (21:09)
[2016-12-17] MEDS ORDERED: PT OWN MED DRAWER 7, Y5N ONE ×2 (09:13→21:01)
[2016-12-17] MEDS: MEMANTINE HCL 5 MG TABLET (UD) PO SCH ×2 (09:14→21:08)
[2016-12-17] MEDS: APIXABAN 2.5 MG TABLET PO SCH ×2 (09:14→21:08)
[2016-12-17] MEDS: amLODIPine BESYLATE 5 MG TABLET (FP) PO SCH (09:14)
[2016-12-17] MEDS: TIMOLOL 0.25% OPHTHALMIC SOL 5 ML BOTTLE OU SCH ×2 (09:15→21:09)
--- NOTE | 2016-12-17 19:12 | PN ---
Teaching Attending Note Name of Resident: Arpit Craig ATTENDING PHYSICIAN STATEMENT I saw and evaluated the patient. I reviewed the resident's note and discussed the case with the resident. I agree with the resident's findings and plan as documented. SUBJECTIVE:pleasant in no stress HTN, dementia , and recent DVT OBJECTIVE: GEN: well dressed, Alert and oriented to self and place and in good humor. HEENT: NC, PERRLA, EOMI CVS: RRR Lungs: CTA Abd: Soft, NT, ND , BS+ Ext: no edema, nl ROM ASSESSMENT AND PLAN: Advanced dementia : cont aricept and namenda CKD : stable R popliteal DVT: cont eliquis x 3-6 months HTN : cont norvasc
--- NOTE | 2016-12-17 19:45 | PN ---
Physical Exam: SUBJECTIVE: Patient seen and examined at bedside. No complaints at all. No acute events overnight. Pt denies headache, cp, sob, abd pain, nausea, vomiting , diarrhea, dysuria, fever. OBJECTIVE: Vital Signs Period Temp Pulse Resp BP Sys/[place] Pulse Ox Last 24 Hr 97.5 F-98.6 F 57-60 16-20 115-131/53-75 96-97 GENERAL: The patient is awake, alert, and fully oriented, in no acute distress. HEAD: Normal with no signs of trauma. EYES: PERRL, extraocular movements intact, sclera anicteric, conjunctiva clear. No ptosis. ENT: Ears normal, nares patent, oropharynx clear without exudates, moist mucous membranes. NECK: Trachea midline, full range of motion, supple. LUNGS: Breath sounds equal, clear to auscultation bilaterally, no wheezes, no crackles, no accessory muscle use. HEART: Regular rate and rhythm, S1, S2 without murmur, rub or gallop. ABDOMEN: Soft, nontender, nondistended, normoactive bowel sounds, no guarding, no rebound, no hepatosplenomegaly, no masses. EXTREMITIES: 2+ pulses, warm, well-perfused, no edema. NEUROLOGICAL: Cranial nerves II through XII grossly intact. Normal speech, gait not observed. PSYCH: Normal mood, normal affect. SKIN: Warm, dry, normal turgor, no rashes or lesions noted Active Medications Generic Name Dose Route Start Last Admin Trade Name Freq PRN Reason Stop Dose Admin Amlodipine Besylate 5 mg 11/25/16 10:00 12/17/16 09:14 Norvasc - PO 5 mg DAILY SAVI Administration Apixaban 2.5 mg 11/22/16 10:00 12/17/16 09:14 Eliquis - PO 2.5 mg BID SAVI Administration Donepezil HCl 10 mg 11/20/16 21:00 12/16/16 21:09 Aricept - PO 10 mg DAILY@2100 SAVI Administration Memantine 5 mg 10/31/16 22:00 12/17/16 09:14 Namenda - PO 5 mg BID SAVI Administration Timolol Maleate 1 drop 11/01/16 10:00 12/17/16 09:15 Timoptic 0.25% OU 1 drop BID SAVI Administration ASSESSMENT/PLAN: This is a 76 yo Man with PMHx right lower ext DVT and Alzheimer Disease who was brought to the ED by EMS for AMS. 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 Plan unchanged from previous. Still waiting for placement. Pt is still stable. 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 -Monitor out pt #Glaucoma -Timolol .25% BID #FEN -No IVF -lytes within normal limits -Chol/Fat/Sodium restricted diet #Prophylaxis -DVT: pt on Eliquis -GI: not indicated #Full Code #Dispo: Admit to med-surg. family preservation caseworker involved. Pending placement Visit type - Emergency Visit Emergency Visit: No - New Patient This patient is new to me today: No - Critical Care Critical Care patient: No
[2016-12-17] MEDS: DONEPEZIL HCL 10 MG TABLET (FP) PO SCH (21:08)
[2016-12-18] MEDS ORDERED: PT OWN MED DRAWER 7, Y5N ONE ×3 (10:05→20:24)
[2016-12-18] MEDS: TIMOLOL 0.25% OPHTHALMIC SOL 5 ML BOTTLE OU SCH ×2 (10:13→21:24)
[2016-12-18] MEDS: amLODIPine BESYLATE 5 MG TABLET (FP) PO SCH (10:13)
[2016-12-18] MEDS: MEMANTINE HCL 5 MG TABLET (UD) PO SCH ×2 (10:13→21:24)
[2016-12-18] MEDS: APIXABAN 2.5 MG TABLET PO SCH ×2 (10:13→21:23)
--- NOTE | 2016-12-18 14:02 | PN ---
Teaching Attending Note Name of Resident: Arpit Craig ATTENDING PHYSICIAN STATEMENT I saw and evaluated the patient. I reviewed the resident's note and discussed the case with the resident. I agree with the resident's findings and plan as documented. SUBJECTIVE:currently asymptomatic. denies CP, SOB,fever, chills, dizzyness, N/V/ C/D OBJECTIVE: Last Vital Signs Temp Pulse Resp BP Pulse Ox 97.4 F L 52 L 20 127/66 97 12/18/16 06:00 12/18/16 06:00 12/18/16 08:47 12/18/16 06:00 12/18/16 08:47 General NAD CV S1 S2 RRR no murmur/rub/gallop Lungs CTA B/L no wheezing/rales/rhonchi ASSESSMENT AND PLAN: 76 y/o man with h/o HTN, dementia , and recent DVT ( in Jun per records ) , who was brought by POlice after being found wondering 1. Advanced dementia- clinically improved. no episodes of wandering or confusion. namenda dosing was decreased to daily due to dizzyness. as per neurology recommendation recommended increase dosing after a month. will increase to 10mg QHS at this time and assess for dizzyness. awaiting legal documentations for placement into secured facility. 2. R popliteal DVT- was not treated adequately when initially diagnosed in June. unsure if study was repeated showing persistent DVT, Not in system here. on eliquis. will treat for 6 months 3. medically optimized for discharge. awaiting facility placement
--- NOTE | 2016-12-18 14:04 | PN ---
Physical Exam: SUBJECTIVE: Patient seen and examined at bedside. Pt stated he is eager to go home. No acute events overnight. No other complaints at this time. Pt denies headache, cp, sob, abd pain, nausea, vomiting, diarrhea, dysuria, fever. OBJECTIVE: Vital Signs Period Temp Pulse Resp BP Sys/[place] Pulse Ox Last 24 Hr 97.4 F-98.8 F 52-65 18-20 127-131/66-71 97-97 GENERAL: The patient is awake, alert, and fully oriented, in no acute distress. HEAD: Normal with no signs of trauma. EYES: sclera anicteric, conjunctiva clear. No ptosis. ENT: Ears normal, nares patent, oropharynx clear without exudates, moist mucous membranes. NECK: Trachea midline, full range of motion, supple. LUNGS: Breath sounds equal, clear to auscultation bilaterally, no wheezes, no crackles, no accessory muscle use. HEART: Regular rate and rhythm, normal S1, S2 without murmur, rub or gallop. ABDOMEN: Soft, nontender, nondistended, normoactive bowel sounds, no guarding, no rebound, no hepatosplenomegaly, no masses. EXTREMITIES: 2+ pulses, warm, well-perfused, no edema. NEUROLOGICAL: Cranial nerves II through XII grossly intact. Normal speech, gait not observed. PSYCH: Normal mood, normal affect. SKIN: Warm, dry, normal turgor, no rashes or lesions noted Active Medications Generic Name Dose Route Start Last Admin Trade Name Freq PRN Reason Stop Dose Admin Amlodipine Besylate 5 mg 11/25/16 10:00 12/18/16 10:13 Norvasc - PO 5 mg DAILY SAVI Administration Apixaban 2.5 mg 11/22/16 10:00 12/18/16 10:13 Eliquis - PO 2.5 mg BID SAVI Administration Donepezil HCl 10 mg 11/20/16 21:00 12/17/16 21:08 Aricept - PO 10 mg DAILY@2100 SAVI Administration Timolol Maleate 1 drop 11/01/16 10:00 12/18/16 10:13 Timoptic 0.25% OU 1 drop BID SAVI Administration ASSESSMENT/PLAN: This is a 76 yo Man with PMHx right lower ext DVT and Alzheimer Disease who was brought to the ED by EMS for AMS. 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 Plan unchanged from previous. Still waiting for placement. Pt is still stable. #Dizziness: Resolved -Donepezil 10mg HS -Fall precautions #Confusion 2/2 Alzheimers -Memantine increased to 10mg PO BID, Donepezil 10mg HS, per Neuro #Right popliteal DVT -Eliquis 2.5mg PO BID, for 3-6 months from 11/01/16 #MAX with uncertain CKD -Computational Linguist 1.6 (11/20/16) stable -Avoid nephrotoxic Rx -f/u with Nephro on D/C #HTN - Controlled -Norvasc 2.5mg Daily #HLD -Diet controlled. -Monitor out pt #Glaucoma -Timolol .25% BID #FEN -No IVF -lytes within normal limits -Chol/Fat/Sodium restricted diet #Prophylaxis -DVT: pt on Eliquis -GI: not indicated #Full Code #Dispo: Admit to med-surg. fish house worker involved. Pending placement Visit type - Emergency Visit Emergency Visit: No - New Patient This patient is new to me today: No - Critical Care Critical Care patient: No
[2016-12-18] MEDS: DONEPEZIL HCL 10 MG TABLET (FP) PO SCH (21:24)
--- NOTE | 2016-12-19 08:00 | PN ---
Physical Exam: SUBJECTIVE: Patient seen and examined at bedside. No acute events overnight. Pt has no complaints at this time. OBJECTIVE: Vital Signs Period Temp Pulse Resp BP Sys/[place] Pulse Ox Last 24 Hr 98.1 F-98.7 F 56-70 20-20 114-161/66-92 97-97 GENERAL: The patient is awake, alert, and fully oriented, in no acute distress. HEAD: Normal with no signs of trauma. EYES: sclera anicteric, conjunctiva clear. No ptosis. ENT: oropharynx clear without exudates, moist mucous membranes. NECK: Trachea midline, full range of motion, supple. LUNGS: Breath sounds equal, clear to auscultation bilaterally, no wheezes, no crackles, no accessory muscle use. HEART: Regular rate and rhythm, normal S1, S2 without murmur, rub or gallop. ABDOMEN: Soft, nontender, nondistended, normoactive bowel sounds, no guarding, no rebound, no hepatosplenomegaly, no masses. EXTREMITIES: 2+ pulses, warm, well-perfused, no edema. NEUROLOGICAL: Cranial nerves II through XII grossly intact. Normal speech, gait not observed. PSYCH: Normal mood, normal affect. SKIN: Warm, dry, normal turgor, no rashes or lesions noted Active Medications Generic Name Dose Route Start Last Admin Trade Name Mona PRN Reason Stop Dose Admin Amlodipine Besylate 5 mg 11/25/16 10:00 12/18/16 10:13 Norvasc - PO 5 mg DAILY SAVI Administration Apixaban 2.5 mg 11/22/16 10:00 12/18/16 21:23 Eliquis - PO 2.5 mg BID SAVI Administration Donepezil HCl 10 mg 11/20/16 21:00 12/18/16 21:24 Aricept - PO 10 mg DAILY@2100 SAVI Administration Memantine 10 mg 12/18/16 14:04 12/18/16 21:24 Namenda - PO 10 mg BID SAVI Administration Timolol Maleate 1 drop 11/01/16 10:00 12/18/16 21:24 Timoptic 0.25% OU 1 drop BID SAVI Administration ASSESSMENT/PLAN: This is a 76 yo Man with PMHx right lower ext DVT and Alzheimer Disease who was brought to the ED by EMS for AMS. 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 Plan unchanged from previous. Still waiting for placement. Pt is still stable. #Dizziness: Resolved -Donepezil 10mg HS -Fall precautions #Confusion 2/2 Alzheimers -Memantine 10mg PO BID, Donepezil 10mg HS, per Neuro #Right popliteal DVT -Eliquis 2.5mg PO BID, for 3-6 months from 11/01/16 #MAX with uncertain CKD -Wind Turbine Engineer 1.6 (11/20/16) stable -Avoid nephrotoxic Rx -f/u with Nephro on D/C #HTN - Controlled -Norvasc 2.5mg Daily #HLD -Diet controlled. -Monitor out pt #Glaucoma -Timolol .25% BID #FEN -No IVF -lytes within normal limits -Chol/Fat/Sodium restricted diet #Prophylaxis -DVT: pt on Eliquis -GI: not indicated #Full Code #Dispo: Admit to med-surg. roll on worker involved. Pending placement Visit type - Emergency Visit Emergency Visit: No - New Patient This patient is new to me today: No - Critical Care Critical Care patient: No - Discharge Referral Referred to [facility] No
--- NOTE | 2016-12-19 09:32 | PN ---
Teaching Attending Note Name of Resident: Arpit Craig ATTENDING PHYSICIAN STATEMENT I saw and evaluated the patient. I reviewed the resident's note and discussed the case with the resident. I agree with the resident's findings and plan as documented. SUBJECTIVE: Comfortable with no acute distress. OBJECTIVE: Vital Signs Temperature 98.7 F 12/19/16 06:01 Pulse Rate 61 12/19/16 06:01 Respiratory Rate 20 12/19/16 06:01 Blood Pressure 123/66 12/19/16 06:01 O2 Sat by Pulse Oximetry (%) 97 12/18/16 21:00 CBCD WBC 8.6 K/mm3 (4.0-10.0) 11/20/16 08:00 RBC 4.22 M/mm3 (4.00-5.60) 11/20/16 08:00 Hgb 12.6 GM/dL (11.7-16.9) 11/20/16 08:00 Hct 37.6 % (35.4-49) 11/20/16 08:00 MCV 89.2 fl (80-96) 11/20/16 08:00 MCHC 33.5 g/dl (32.0-35.9) 11/20/16 08:00 RDW 15.0 % (11.9-15.9) 11/20/16 08:00 Plt Count 181 K/MM3 (134-434) 11/20/16 08:00 MPV 8.9 fl (7.5-11.1) 11/20/16 08:00 CMP Sodium 139 mmol/L (136-145) 11/20/16 08:00 Potassium 4.1 mmol/L (3.5-5.1) 11/20/16 08:00 Chloride 104 mmol/L (98-107) 11/20/16 08:00 Carbon Dioxide 27 mmol/L (21-32) 11/20/16 08:00 Anion Gap 8 (8-16) 11/20/16 08:00 BUN 27 mg/dL (7-18) H 11/20/16 08:00 Creatinine 1.6 mg/dL (0.7-1.3) H 11/20/16 08:00 Creat Clearance w eGFR 42.35 (>60) 11/19/16 06:30 Random Glucose 104 mg/dL (74-106) 11/20/16 08:00 Calcium 8.5 mg/dL (8.5-10.1) 11/20/16 08:00 Total Bilirubin 0.6 mg/dL (0.2-1.0) D 11/19/16 06:30 AST 15 U/L (15-37) D 11/19/16 06:30 ALT 19 U/L (12-78) D 11/19/16 06:30 Alkaline Phosphatase 68 U/L (45-117) 11/19/16 06:30 Total Protein 6.5 g/dl (6.4-8.2) 11/19/16 06:30 Albumin 3.3 g/dl (3.4-5.0) L 11/19/16 06:30 CARDIAC ENZYMES Creatine Kinase 88 IU/L (39-308) 10/31/16 06:00 Troponin I < 0.02 ng/ml (0.00-0.05) 10/28/16 20:30 Current Medications Generic Name Dose Route Start Last Admin Trade Name Mona PRN Reason Stop Dose Admin Amlodipine Besylate 5 mg 11/25/16 10:00 12/18/16 10:13 Norvasc - PO 5 mg DAILY SAVI Administration Apixaban 2.5 mg 11/22/16 10:00 12/18/16 21:23 Eliquis - PO 2.5 mg BID SAVI Administration Donepezil HCl 10 mg 11/20/16 21:00 12/18/16 21:24 Aricept - PO 10 mg DAILY@2100 SAVI Administration Memantine 10 mg 12/18/16 14:04 12/18/16 21:24 Namenda - PO 10 mg BID SAVI Administration Timolol Maleate 1 drop 11/01/16 10:00 12/18/16 21:24 Timoptic 0.25% OU 1 drop BID SAVI Administration Home Medications Medication Instructions Recorded Amlodipine Besylate [Norvasc -] 2.5 mg PO DAILY 10/28/16 Apixaban [Eliquis -] 5 mg PO DAILY 10/28/16 Furosemide [Lasix -] 20 mg PO DAILY 10/28/16 Memantine HCl [Namenda -] 5 mg PO DAILY 10/28/16 Timolol 0.25% [Timoptic 0.25%] 0 ml OU BID 10/28/16 PE: per resident's note ASSESSMENT AND PLAN: 76 y/o man with h/o HTN, dementia , and recent DVT ( in Jun per records ) , who was brought by POlice after being found wondering # Advanced dementia-continue current regimen. # DVT on Elquis continue Waiting for placement
[2016-12-19] MEDS ORDERED: PT OWN MED DRAWER 7, Y5N ONE (11:22)
[2016-12-19] MEDS: amLODIPine BESYLATE 5 MG TABLET (FP) PO SCH (11:24)
[2016-12-19] MEDS: TIMOLOL 0.25% OPHTHALMIC SOL 5 ML BOTTLE OU SCH ×2 (11:24→21:15)
[2016-12-19] MEDS: APIXABAN 2.5 MG TABLET PO SCH ×2 (11:24→21:15)
[2016-12-19] MEDS: MEMANTINE HCL 5 MG TABLET (UD) PO SCH ×2 (11:24→21:15)
[2016-12-19] MEDS: DONEPEZIL HCL 10 MG TABLET (FP) PO SCH (21:15)
[2016-12-20] MEDS ORDERED: PT OWN MED DRAWER 7, Y5N ONE (10:30)
[2016-12-20] MEDS: amLODIPine BESYLATE 5 MG TABLET (FP) PO SCH (10:33)
[2016-12-20] MEDS: MEMANTINE HCL 5 MG TABLET (UD) PO SCH ×2 (10:33→21:17)
[2016-12-20] MEDS: TIMOLOL 0.25% OPHTHALMIC SOL 5 ML BOTTLE OU SCH ×2 (10:34→21:15)
[2016-12-20] MEDS: APIXABAN 2.5 MG TABLET PO SCH ×2 (10:34→21:15)
--- NOTE | 2016-12-20 15:41 | PN ---
Physical Exam: SUBJECTIVE: Patient seen and examined at bedside. No acute events overnight. No complaints. OBJECTIVE: Vital Signs Period Temp Pulse Resp BP Sys/[place] Pulse Ox Last 24 Hr 97.9 F-98.7 F 58-65 18-20 117-129/51-76 98-98 GENERAL: The patient is awake, alert, and fully oriented, in no acute distress. HEAD: Normal with no signs of trauma. EYES: PERRL, extraocular movements intact, sclera anicteric, conjunctiva clear. No ptosis. ENT: Ears normal, nares patent, oropharynx clear without exudates, moist mucous membranes. NECK: Trachea midline, full range of motion, supple. LUNGS: Breath sounds equal, clear to auscultation bilaterally, no wheezes, no crackles, no accessory muscle use. HEART: Regular rate and rhythm, S1, S2 without murmur, rub or gallop. ABDOMEN: Soft, nontender, nondistended, normoactive bowel sounds, no guarding, no rebound, no hepatosplenomegaly, no masses. EXTREMITIES: 2+ pulses, warm, well-perfused, no edema. NEUROLOGICAL: Cranial nerves II through XII grossly intact. Normal speech, gait not observed. PSYCH: Normal mood, normal affect. SKIN: Warm, dry, normal turgor, no rashes or lesions noted Active Medications Generic Name Dose Route Start Last Admin Trade Name Freq PRN Reason Stop Dose Admin Amlodipine Besylate 5 mg 11/25/16 10:00 12/20/16 10:33 Norvasc - PO 5 mg DAILY SAVI Administration Apixaban 2.5 mg 11/22/16 10:00 12/20/16 10:34 Eliquis - PO 2.5 mg BID SAVI Administration Donepezil HCl 10 mg 11/20/16 21:00 12/19/16 21:15 Aricept - PO 10 mg DAILY@2100 SAVI Administration Memantine 10 mg 12/18/16 14:04 12/20/16 10:33 Namenda - PO 10 mg BID SAVI Administration Timolol Maleate 1 drop 11/01/16 10:00 12/20/16 10:34 Timoptic 0.25% OU 1 drop BID SAVI Administration ASSESSMENT/PLAN: This is a 76 yo Man with PMHx right lower ext DVT and Alzheimer Disease who was brought to the ED by EMS for AMS. 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 Plan unchanged from previous. Still waiting for placement. Pt is still stable. #Dizziness: Resolved -Donepezil 10mg HS -Fall precautions #Confusion 2/2 Alzheimers -Memantine 10mg PO BID, Donepezil 10mg HS, per Neuro #Right popliteal DVT -Eliquis 2.5mg PO BID, for 3-6 months from 11/01/16 #MAX with uncertain CKD -Community Ambassador 1.6 (11/20/16) stable -Avoid nephrotoxic Rx -f/u with Nephro on D/C #HTN - Controlled -Norvasc 2.5mg Daily #HLD -Diet controlled. -Monitor out pt #Glaucoma -Timolol .25% BID #FEN -No IVF -lytes within normal limits -Chol/Fat/Sodium restricted diet #Prophylaxis -DVT: pt on Eliquis -GI: not indicated #Full Code #Dispo: Admit to med-surg. 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 Pending placement Visit type - Emergency Visit Emergency Visit: No - New Patient This patient is new to me today: No - Critical Care Critical Care patient: No
--- NOTE | 2016-12-20 15:43 | PN ---
Teaching Attending Note Name of Resident: Arpit Craig ATTENDING PHYSICIAN STATEMENT I saw and evaluated the patient. I reviewed the resident's note and discussed the case with the resident. I agree with the resident's findings and plan as documented. SUBJECTIVE: Comfortable with no acute distress, no shortness of breath. No new changes OBJECTIVE: Vital Signs Temperature 98.6 F 12/20/16 14:01 Pulse Rate 62 12/20/16 14:01 Respiratory Rate 20 12/20/16 14:01 Blood Pressure 123/63 12/20/16 14:01 O2 Sat by Pulse Oximetry (%) 98 12/20/16 09:00 CBCD WBC 8.6 K/mm3 (4.0-10.0) 11/20/16 08:00 RBC 4.22 M/mm3 (4.00-5.60) 11/20/16 08:00 Hgb 12.6 GM/dL (11.7-16.9) 11/20/16 08:00 Hct 37.6 % (35.4-49) 11/20/16 08:00 MCV 89.2 fl (80-96) 11/20/16 08:00 MCHC 33.5 g/dl (32.0-35.9) 11/20/16 08:00 RDW 15.0 % (11.9-15.9) 11/20/16 08:00 Plt Count 181 K/MM3 (134-434) 11/20/16 08:00 MPV 8.9 fl (7.5-11.1) 11/20/16 08:00 CMP Sodium 139 mmol/L (136-145) 11/20/16 08:00 Potassium 4.1 mmol/L (3.5-5.1) 11/20/16 08:00 Chloride 104 mmol/L (98-107) 11/20/16 08:00 Carbon Dioxide 27 mmol/L (21-32) 11/20/16 08:00 Anion Gap 8 (8-16) 11/20/16 08:00 BUN 27 mg/dL (7-18) H 11/20/16 08:00 Creatinine 1.6 mg/dL (0.7-1.3) H 11/20/16 08:00 Creat Clearance w eGFR 42.35 (>60) 11/19/16 06:30 Random Glucose 104 mg/dL (74-106) 11/20/16 08:00 Calcium 8.5 mg/dL (8.5-10.1) 11/20/16 08:00 Total Bilirubin 0.6 mg/dL (0.2-1.0) D 11/19/16 06:30 AST 15 U/L (15-37) D 11/19/16 06:30 ALT 19 U/L (12-78) D 11/19/16 06:30 Alkaline Phosphatase 68 U/L (45-117) 11/19/16 06:30 Total Protein 6.5 g/dl (6.4-8.2) 11/19/16 06:30 Albumin 3.3 g/dl (3.4-5.0) L 11/19/16 06:30 CARDIAC ENZYMES Creatine Kinase 88 IU/L (39-308) 10/31/16 06:00 Troponin I < 0.02 ng/ml (0.00-0.05) 10/28/16 20:30 Current Medications Generic Name Dose Route Start Last Admin Trade Name Mona PRN Reason Stop Dose Admin Amlodipine Besylate 5 mg 11/25/16 10:00 12/20/16 10:33 Norvasc - PO 5 mg DAILY SAVI Administration Apixaban 2.5 mg 11/22/16 10:00 12/20/16 10:34 Eliquis - PO 2.5 mg BID SAVI Administration Donepezil HCl 10 mg 11/20/16 21:00 12/19/16 21:15 Aricept - PO 10 mg DAILY@2100 SAVI Administration Memantine 10 mg 12/18/16 14:04 12/20/16 10:33 Namenda - PO 10 mg BID SAVI Administration Timolol Maleate 1 drop 11/01/16 10:00 12/20/16 10:34 Timoptic 0.25% OU 1 drop BID SAVI Administration Home Medications Medication Instructions Recorded Amlodipine Besylate [Norvasc -] 2.5 mg PO DAILY 10/28/16 Apixaban [Eliquis -] 5 mg PO DAILY 10/28/16 Furosemide [Lasix -] 20 mg PO DAILY 10/28/16 Memantine HCl [Namenda -] 5 mg PO DAILY 10/28/16 Timolol 0.25% [Timoptic 0.25%] 0 ml OU BID 10/28/16 PE: per resident's note ASSESSMENT AND PLAN: 76 y/o man with h/o HTN, dementia , and recent DVT ( in Jun per records ) , who was brought by Police after being found wandering # Advanced dementia-continue current regimen. # DVT on Elquis continue Waiting for placement
[2016-12-20] MEDS: DONEPEZIL HCL 10 MG TABLET (FP) PO SCH (21:17)
--- NOTE | 2016-12-21 06:33 | PN ---
Physical Exam: SUBJECTIVE: Patient seen and examined at bedside. No acute events overnight. No complaints at this time. OBJECTIVE: Vital Signs Period Temp Pulse Resp BP Sys/[place] Pulse Ox Last 24 Hr 97.7 F-98.6 F 56-62 18-20 118-146/63-76 97-98 GENERAL: The patient is awake, alert, and fully oriented, in no acute distress. HEAD: Normal with no signs of trauma. EYES: PERRL, extraocular movements intact, sclera anicteric, conjunctiva clear. No ptosis. ENT: Ears normal, nares patent, oropharynx clear without exudates, moist mucous membranes. NECK: Trachea midline, full range of motion, supple. LUNGS: Breath sounds equal, clear to auscultation bilaterally, no wheezes, no crackles, no accessory muscle use. HEART: Regular rate and rhythm, S1, S2 without murmur, rub or gallop. ABDOMEN: Soft, nontender, nondistended, normoactive bowel sounds, no guarding, no rebound, no hepatosplenomegaly, no masses. EXTREMITIES: 2+ pulses, warm, well-perfused, no edema. NEUROLOGICAL: Cranial nerves II through XII grossly intact. Normal speech, gait not observed. PSYCH: Normal mood, normal affect. SKIN: Warm, dry, normal turgor, no rashes or lesions noted Active Medications Generic Name Dose Route Start Last Admin Trade Name Freq PRN Reason Stop Dose Admin Amlodipine Besylate 5 mg 11/25/16 10:00 12/20/16 10:33 Norvasc - PO 5 mg DAILY SAVI Administration Apixaban 2.5 mg 11/22/16 10:00 12/20/16 21:15 Eliquis - PO 2.5 mg BID SAVI Administration Donepezil HCl 10 mg 11/20/16 21:00 12/20/16 21:17 Aricept - PO 10 mg DAILY@2100 SAVI Administration Memantine 10 mg 12/18/16 14:04 12/20/16 21:17 Namenda - PO 10 mg BID SAVI Administration Timolol Maleate 1 drop 11/01/16 10:00 12/20/16 21:15 Timoptic 0.25% OU 1 drop BID SAVI Administration ASSESSMENT/PLAN: This is a 76 yo Man with PMHx right lower ext DVT and Alzheimer Disease who was brought to the ED by EMS for AMS. 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 Plan unchanged from previous. Still waiting for placement. Pt is still stable. #Dizziness: Resolved -Donepezil 10mg HS -Fall precautions #Confusion 2/2 Alzheimers -Memantine 10mg PO BID, Donepezil 10mg HS, per Neuro #Right popliteal DVT -Eliquis 2.5mg PO BID, for 3-6 months from 11/01/16 #MAX with uncertain CKD -Pig Machine Supervisor 1.6 (11/20/16) stable -Avoid nephrotoxic Rx -f/u with Nephro on D/C #HTN - Controlled -Norvasc 2.5mg Daily #HLD -Diet controlled. -Monitor out pt #Glaucoma -Timolol .25% BID #FEN -No IVF -lytes within normal limits -Chol/Fat/Sodium restricted diet #Prophylaxis -DVT: pt on Eliquis -GI: not indicated #Full Code #Dispo: Admit to med-surg. family services worker involved. Pending placement Visit type - Emergency Visit Emergency Visit: No - New Patient This patient is new to me today: No - Critical Care Critical Care patient: No
[2016-12-21] MEDS ORDERED: PT OWN MED DRAWER 7, Y5N ONE ×2 (10:10→21:03)
[2016-12-21] MEDS: MEMANTINE HCL 5 MG TABLET (UD) PO SCH ×2 (10:12→21:58)
[2016-12-21] MEDS: TIMOLOL 0.25% OPHTHALMIC SOL 5 ML BOTTLE OU SCH ×2 (10:12→22:00)
[2016-12-21] MEDS: APIXABAN 2.5 MG TABLET PO SCH ×2 (10:12→21:59)
[2016-12-21] MEDS: amLODIPine BESYLATE 5 MG TABLET (FP) PO SCH (10:12)
--- NOTE | 2016-12-21 18:47 | PN ---
Teaching Attending Note Name of Resident: Arpit Craig ATTENDING PHYSICIAN STATEMENT I saw and evaluated the patient. I reviewed the resident's note and discussed the case with the resident. I agree with the resident's findings and plan as documented. SUBJECTIVE: no new changes OBJECTIVE: Vital Signs Temperature 98.5 F 12/21/16 17:05 Pulse Rate 62 12/21/16 17:05 Respiratory Rate 18 12/21/16 17:05 Blood Pressure 130/79 12/21/16 17:05 O2 Sat by Pulse Oximetry (%) 99 12/21/16 09:00 CBCD WBC 8.6 K/mm3 (4.0-10.0) 11/20/16 08:00 RBC 4.22 M/mm3 (4.00-5.60) 11/20/16 08:00 Hgb 12.6 GM/dL (11.7-16.9) 11/20/16 08:00 Hct 37.6 % (35.4-49) 11/20/16 08:00 MCV 89.2 fl (80-96) 11/20/16 08:00 MCHC 33.5 g/dl (32.0-35.9) 11/20/16 08:00 RDW 15.0 % (11.9-15.9) 11/20/16 08:00 Plt Count 181 K/MM3 (134-434) 11/20/16 08:00 MPV 8.9 fl (7.5-11.1) 11/20/16 08:00 CMP Sodium 139 mmol/L (136-145) 11/20/16 08:00 Potassium 4.1 mmol/L (3.5-5.1) 11/20/16 08:00 Chloride 104 mmol/L (98-107) 11/20/16 08:00 Carbon Dioxide 27 mmol/L (21-32) 11/20/16 08:00 Anion Gap 8 (8-16) 11/20/16 08:00 BUN 27 mg/dL (7-18) H 11/20/16 08:00 Creatinine 1.6 mg/dL (0.7-1.3) H 11/20/16 08:00 Creat Clearance w eGFR 42.35 (>60) 11/19/16 06:30 Random Glucose 104 mg/dL (74-106) 11/20/16 08:00 Calcium 8.5 mg/dL (8.5-10.1) 11/20/16 08:00 Total Bilirubin 0.6 mg/dL (0.2-1.0) D 11/19/16 06:30 AST 15 U/L (15-37) D 11/19/16 06:30 ALT 19 U/L (12-78) D 11/19/16 06:30 Alkaline Phosphatase 68 U/L (45-117) 11/19/16 06:30 Total Protein 6.5 g/dl (6.4-8.2) 11/19/16 06:30 Albumin 3.3 g/dl (3.4-5.0) L 11/19/16 06:30 CARDIAC ENZYMES Creatine Kinase 88 IU/L (39-308) 10/31/16 06:00 Troponin I < 0.02 ng/ml (0.00-0.05) 10/28/16 20:30 Current Medications Generic Name Dose Route Start Last Admin Trade Name Mona PRN Reason Stop Dose Admin Amlodipine Besylate 5 mg 11/25/16 10:00 12/21/16 10:12 Norvasc - PO 5 mg DAILY SAVI Administration Apixaban 2.5 mg 11/22/16 10:00 12/21/16 10:12 Eliquis - PO 2.5 mg BID SAVI Administration Donepezil HCl 10 mg 11/20/16 21:00 12/20/16 21:17 Aricept - PO 10 mg DAILY@2100 SAVI Administration Memantine 10 mg 12/18/16 14:04 12/21/16 10:12 Namenda - PO 10 mg BID SAVI Administration Timolol Maleate 1 drop 11/01/16 10:00 12/21/16 10:12 Timoptic 0.25% OU 1 drop BID SAVI Administration PE: per resident's note ASSESSMENT AND PLAN: 76 y/o man with h/o HTN, dementia , and recent DVT ( in Jun per records ) , who was brought by Police after being found wandering # Advanced dementia-continue current regimen. # DVT on Elquis continue Waiting for placement
[2016-12-21] MEDS: DONEPEZIL HCL 10 MG TABLET (FP) PO SCH (21:59)
[2016-12-22] MEDS ORDERED: PT OWN MED DRAWER 7, Y5N ONE ×3 (09:03→19:31)
[2016-12-22] MEDS: TIMOLOL 0.25% OPHTHALMIC SOL 5 ML BOTTLE OU SCH ×2 (09:10→21:07)
[2016-12-22] MEDS: MEMANTINE HCL 5 MG TABLET (UD) PO SCH ×2 (09:10→21:07)
[2016-12-22] MEDS: APIXABAN 2.5 MG TABLET PO SCH ×2 (09:11→21:07)
[2016-12-22] MEDS: amLODIPine BESYLATE 5 MG TABLET (FP) PO SCH (09:11)
--- NOTE | 2016-12-22 10:57 | PN ---
Progress Note (short form) - Note Progress Note: has no new complains comfortable Vital Signs Temperature 98.6 F 12/22/16 05:31 Pulse Rate 65 12/22/16 09:30 Respiratory Rate 20 12/22/16 09:30 Blood Pressure 133/71 12/22/16 09:30 O2 Sat by Pulse Oximetry (%) 99 12/22/16 08:05 GENERAL: orient ed to place but not to time , in no acute distress. HEAD: Normal with no signs of trauma. EYES: Pupils equal, round and reactive to light, extraocular movements intact, sclera anicteric, conjunctiva clear. No lid lag. EARS, NOSE, THROAT: Ears normal, nares patent, oropharynx clear without exudates. Moist mucous membranes. NECK: Normal range of motion, supple without lymphadenopathy, JVD, or masses. LUNGS: Breath sounds equal, clear to auscultation bilaterally. No wheezes, and no crackles. No accessory muscle use. HEART: Regular rate and rhythm, normal S1 and S2 without murmur, rub or gallop. ABDOMEN: Soft, nontender, not distended, normoactive bowel sounds, no guarding, no rebound, no masses. No hepatomegaly or splenomegaly. MUSCULOSKELETAL: Normal range of motion at all joints. No bony deformities or tenderness. No CVA tenderness. EXTREMITIES: 2+ pulses, warm, well-perfused. No cyanosis. No clubbing. positive for trace LE edema. NEUROLOGICAL: Cranial nerves II-XII intact. Normal speech. Normal gait. PSYCHIATRIC: Cooperative. Good eye contact. Appropriate mood and affect. SKIN: Warm, dry, normal turgor, no rashes or lesions noted, normal capillary refill. CBCD WBC 8.6 K/mm3 (4.0-10.0) 11/20/16 08:00 RBC 4.22 M/mm3 (4.00-5.60) 11/20/16 08:00 Hgb 12.6 GM/dL (11.7-16.9) 11/20/16 08:00 Hct 37.6 % (35.4-49) 11/20/16 08:00 MCV 89.2 fl (80-96) 11/20/16 08:00 MCHC 33.5 g/dl (32.0-35.9) 11/20/16 08:00 RDW 15.0 % (11.9-15.9) 11/20/16 08:00 Plt Count 181 K/MM3 (134-434) 11/20/16 08:00 MPV 8.9 fl (7.5-11.1) 11/20/16 08:00 CMP Sodium 139 mmol/L (136-145) 11/20/16 08:00 Potassium 4.1 mmol/L (3.5-5.1) 11/20/16 08:00 Chloride 104 mmol/L (98-107) 11/20/16 08:00 Carbon Dioxide 27 mmol/L (21-32) 11/20/16 08:00 Anion Gap 8 (8-16) 11/20/16 08:00 BUN 27 mg/dL (7-18) H 11/20/16 08:00 Creatinine 1.6 mg/dL (0.7-1.3) H 11/20/16 08:00 Creat Clearance w eGFR 42.35 (>60) 11/19/16 06:30 Random Glucose 104 mg/dL (74-106) 11/20/16 08:00 Calcium 8.5 mg/dL (8.5-10.1) 11/20/16 08:00 Total Bilirubin 0.6 mg/dL (0.2-1.0) D 11/19/16 06:30 AST 15 U/L (15-37) D 11/19/16 06:30 ALT 19 U/L (12-78) D 11/19/16 06:30 Alkaline Phosphatase 68 U/L (45-117) 11/19/16 06:30 Total Protein 6.5 g/dl (6.4-8.2) 11/19/16 06:30 Albumin 3.3 g/dl (3.4-5.0) L 11/19/16 06:30 CARDIAC ENZYMES Creatine Kinase 88 IU/L (39-308) 10/31/16 06:00 Troponin I < 0.02 ng/ml (0.00-0.05) 10/28/16 20:30 Current Medications Generic Name Dose Route Start Last Admin Trade Name Freq PRN Reason Stop Dose Admin Amlodipine Besylate 5 mg 11/25/16 10:00 12/22/16 09:11 Norvasc - PO 5 mg DAILY SAVI Administration Apixaban 2.5 mg 11/22/16 10:00 12/22/16 09:11 Eliquis - PO 2.5 mg BID SAVI Administration Donepezil HCl 10 mg 11/20/16 21:00 12/21/16 21:59 Aricept - PO 10 mg DAILY@2100 SAVI Administration Memantine 10 mg 12/18/16 14:04 12/22/16 09:10 Namenda - PO 10 mg BID SAVI Administration Timolol Maleate 1 drop 11/01/16 10:00 12/22/16 09:10 Timoptic 0.25% OU 1 drop BID SAVI Administration Home Medications Medication Instructions Recorded Amlodipine Besylate [Norvasc -] 2.5 mg PO DAILY 10/28/16 Apixaban [Eliquis -] 5 mg PO DAILY 10/28/16 Furosemide [Lasix -] 20 mg PO DAILY 10/28/16 Memantine HCl [Namenda -] 5 mg PO DAILY 10/28/16 Timolol 0.25% [Timoptic 0.25%] 0 ml OU BID 10/28/16 A/P: 76 y/o man with h/o HTN, dementia , and recent DVT ( in Jun per records ) , who was brought by Police after being found wandering # Advanced dementia-continue current regimen. # DVT on Elquis continue Waiting for placement Visit type - Emergency Visit Emergency Visit: Yes ED Registration Date: 10/28/16 Care time: The patient presented to the Emergency Department on the above date and was hospitalized for further evaluation of their emergent condition. - New Patient This patient is new to me today: No - Critical Care Critical Care patient: No
[2016-12-22] MEDS: DONEPEZIL HCL 10 MG TABLET (FP) PO SCH (21:07)
[2016-12-23] MEDS ORDERED: PT OWN MED DRAWER 7, Y5N ONE (08:42)
--- NOTE | 2016-12-23 09:20 | PN ---
Teaching Attending Note Name of Resident: Arpit Craig ATTENDING PHYSICIAN STATEMENT I saw and evaluated the patient. I reviewed the resident's note and discussed the case with the resident. I agree with the resident's findings and plan as documented. SUBJECTIVE: No new changes. OBJECTIVE: Vital Signs Temperature 97.7 F 12/23/16 06:00 Pulse Rate 61 12/23/16 06:00 Respiratory Rate 20 12/23/16 07:34 Blood Pressure 141/89 12/23/16 06:00 O2 Sat by Pulse Oximetry (%) 99 12/23/16 07:34 GENERAL: orient ed to place but not to time , in no acute distress. HEAD: Normal with no signs of trauma. EYES: Pupils equal, round and reactive to light, extraocular movements intact, sclera anicteric, conjunctiva clear. No lid lag. EARS, NOSE, THROAT: Ears normal, nares patent, oropharynx clear without exudates. Moist mucous membranes. NECK: Normal range of motion, supple without lymphadenopathy, JVD, or masses. LUNGS: Breath sounds equal, clear to auscultation bilaterally. No wheezes, and no crackles. No accessory muscle use. HEART: Regular rate and rhythm, normal S1 and S2 without murmur, rub or gallop. ABDOMEN: Soft, nontender, not distended, normoactive bowel sounds, no guarding, no rebound, no masses. No hepatomegaly or splenomegaly. MUSCULOSKELETAL: Normal range of motion at all joints. No bony deformities or tenderness. No CVA tenderness. EXTREMITIES: 2+ pulses, warm, well-perfused. No cyanosis. No clubbing. positive for trace LE edema. NEUROLOGICAL: Cranial nerves II-XII intact. Normal speech. Normal gait. PSYCHIATRIC: Cooperative. Good eye contact. Appropriate mood and affect. SKIN: Warm, dry, normal turgor, no rashes or lesions noted, normal capillary refill. CBCD WBC 8.6 K/mm3 (4.0-10.0) 11/20/16 08:00 RBC 4.22 M/mm3 (4.00-5.60) 11/20/16 08:00 Hgb 12.6 GM/dL (11.7-16.9) 11/20/16 08:00 Hct 37.6 % (35.4-49) 11/20/16 08:00 MCV 89.2 fl (80-96) 11/20/16 08:00 MCHC 33.5 g/dl (32.0-35.9) 11/20/16 08:00 RDW 15.0 % (11.9-15.9) 11/20/16 08:00 Plt Count 181 K/MM3 (134-434) 11/20/16 08:00 MPV 8.9 fl (7.5-11.1) 11/20/16 08:00 CMP Sodium 139 mmol/L (136-145) 11/20/16 08:00 Potassium 4.1 mmol/L (3.5-5.1) 11/20/16 08:00 Chloride 104 mmol/L (98-107) 11/20/16 08:00 Carbon Dioxide 27 mmol/L (21-32) 11/20/16 08:00 Anion Gap 8 (8-16) 11/20/16 08:00 BUN 27 mg/dL (7-18) H 11/20/16 08:00 Creatinine 1.6 mg/dL (0.7-1.3) H 11/20/16 08:00 Creat Clearance w eGFR 42.35 (>60) 11/19/16 06:30 Random Glucose 104 mg/dL (74-106) 11/20/16 08:00 Calcium 8.5 mg/dL (8.5-10.1) 11/20/16 08:00 Total Bilirubin 0.6 mg/dL (0.2-1.0) D 11/19/16 06:30 AST 15 U/L (15-37) D 11/19/16 06:30 ALT 19 U/L (12-78) D 11/19/16 06:30 Alkaline Phosphatase 68 U/L (45-117) 11/19/16 06:30 Total Protein 6.5 g/dl (6.4-8.2) 11/19/16 06:30 Albumin 3.3 g/dl (3.4-5.0) L 11/19/16 06:30 CARDIAC ENZYMES Creatine Kinase 88 IU/L (39-308) 10/31/16 06:00 Troponin I < 0.02 ng/ml (0.00-0.05) 10/28/16 20:30 Current Medications Generic Name Dose Route Start Last Admin Trade Name Freq PRN Reason Stop Dose Admin Amlodipine Besylate 5 mg 11/25/16 10:00 12/22/16 09:11 Norvasc - PO 5 mg DAILY SAVI Administration Apixaban 2.5 mg 11/22/16 10:00 12/22/16 21:07 Eliquis - PO 2.5 mg BID SAVI Administration Donepezil HCl 10 mg 11/20/16 21:00 12/22/16 21:07 Aricept - PO 10 mg DAILY@2100 SAVI Administration Memantine 10 mg 12/18/16 14:04 12/22/16 21:07 Namenda - PO 10 mg BID SAVI Administration Timolol Maleate 1 drop 11/01/16 10:00 12/22/16 21:07 Timoptic 0.25% OU 1 drop BID SAVI Administration Home Medications Medication Instructions Recorded Amlodipine Besylate [Norvasc -] 2.5 mg PO DAILY 10/28/16 Apixaban [Eliquis -] 5 mg PO DAILY 10/28/16 Furosemide [Lasix -] 20 mg PO DAILY 10/28/16 Memantine HCl [Namenda -] 5 mg PO DAILY 10/28/16 Timolol 0.25% [Timoptic 0.25%] 0 ml OU BID 10/28/16 ASSESSMENT AND PLAN: 76 y/o man with h/o HTN, dementia , and recent DVT ( in Jun per records ) , who was brought by Police after being found wandering # Advanced dementia-continue current regimen. # DVT on Elquis continue Waiting for placement
[2016-12-23] MEDS: amLODIPine BESYLATE 5 MG TABLET (FP) PO SCH (09:44)
[2016-12-23] MEDS: MEMANTINE HCL 5 MG TABLET (UD) PO SCH ×2 (09:44→21:27)
[2016-12-23] MEDS: TIMOLOL 0.25% OPHTHALMIC SOL 5 ML BOTTLE OU SCH ×2 (09:44→21:28)
[2016-12-23] MEDS: APIXABAN 2.5 MG TABLET PO SCH ×2 (09:44→21:28)
[2016-12-23] MEDS: DONEPEZIL HCL 10 MG TABLET (FP) PO SCH (21:27)
--- NOTE | 2016-12-24 09:07 | PN ---
Physical Exam: SUBJECTIVE: Patient seen and examined at bedside. No acute events overnight. Pt has no complaints. Would like to go home. OBJECTIVE: Vital Signs Period Temp Pulse Resp BP Sys/[place] Pulse Ox Last 24 Hr 97.6 F-98.3 F 59-67 20-20 115-128/53-70 99 GENERAL: The patient is awake, alert, and fully oriented, in no acute distress. HEAD: Normal with no signs of trauma. EYES: PERRL, extraocular movements intact, sclera anicteric, conjunctiva clear. No ptosis. ENT: Ears normal, nares patent, oropharynx clear without exudates, moist mucous membranes. NECK: Trachea midline, full range of motion, supple. LUNGS: Breath sounds equal, clear to auscultation bilaterally, no wheezes, no crackles, no accessory muscle use. HEART: Regular rate and rhythm, S1, S2 without murmur, rub or gallop. ABDOMEN: Soft, nontender, nondistended, normoactive bowel sounds, no guarding, no rebound, no hepatosplenomegaly, no masses. EXTREMITIES: 2+ pulses, warm, well-perfused, no edema. NEUROLOGICAL: Cranial nerves II through XII grossly intact. Normal speech, gait not observed. PSYCH: Normal mood, normal affect. SKIN: Warm, dry, normal turgor, no rashes or lesions noted Active Medications Generic Name Dose Route Start Last Admin Trade Name Freq PRN Reason Stop Dose Admin Amlodipine Besylate 5 mg 11/25/16 10:00 12/23/16 09:44 Norvasc - PO 5 mg DAILY SAVI Administration Apixaban 2.5 mg 11/22/16 10:00 12/23/16 21:28 Eliquis - PO 2.5 mg BID SAVI Administration Donepezil HCl 10 mg 11/20/16 21:00 12/23/16 21:27 Aricept - PO 10 mg DAILY@2100 SAVI Administration Memantine 10 mg 12/18/16 14:04 12/23/16 21:27 Namenda - PO 10 mg BID SAVI Administration Timolol Maleate 1 drop 11/01/16 10:00 12/23/16 21:28 Timoptic 0.25% OU 1 drop BID SAVI Administration ASSESSMENT/PLAN: This is a 76 yo Man with PMHx right lower ext DVT and Alzheimer Disease who was brought to the ED by EMS for AMS. 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 Plan unchanged from previous. Still waiting for placement. Pt is still stable. #Dizziness: Resolved -Donepezil 10mg HS -Fall precautions #Confusion 2/2 Alzheimers -Memantine 10mg PO BID, Donepezil 10mg HS, per Neuro #Right popliteal DVT -Eliquis 2.5mg PO BID, for 3-6 months from 11/01/16 #MAX with uncertain CKD -Director Of Clinical Applications 1.6 (11/20/16) stable -Avoid nephrotoxic Rx -f/u with Nephro on D/C #HTN - Controlled -Norvasc 2.5mg Daily #HLD -Diet controlled. -Monitor out pt #Glaucoma -Timolol .25% BID #FEN -No IVF -lytes within normal limits -Chol/Fat/Sodium restricted diet #Prophylaxis -DVT: pt on Eliquis -GI: not indicated #Full Code #Dispo: Admit to med-surg. tare worker involved. Pending placement Arpit Craig MD PGY-1 Visit type - Emergency Visit Emergency Visit: No - New Patient This patient is new to me today: No - Critical Care Critical Care patient: No
[2016-12-24] MEDS ORDERED: PT OWN MED DRAWER 7, Y5N ONE ×2 (09:44→21:10)
[2016-12-24] MEDS: APIXABAN 2.5 MG TABLET PO SCH ×2 (09:47→21:12)
[2016-12-24] MEDS: MEMANTINE HCL 5 MG TABLET (UD) PO SCH ×2 (09:47→21:12)
[2016-12-24] MEDS: amLODIPine BESYLATE 5 MG TABLET (FP) PO SCH (09:47)
[2016-12-24] MEDS: TIMOLOL 0.25% OPHTHALMIC SOL 5 ML BOTTLE OU SCH ×2 (09:48→21:12)
--- NOTE | 2016-12-24 16:49 | PN ---
Teaching Attending Note Name of Resident: Arpit Craig ATTENDING PHYSICIAN STATEMENT I saw and evaluated the patient. I reviewed the resident's note and discussed the case with the resident. I agree with the resident's findings and plan as documented. SUBJECTIVE: Continues to be well, looking for placement OBJECTIVE: Vital Signs Temperature 98.9 F 12/24/16 14:09 Pulse Rate 57 L 12/24/16 14:09 Respiratory Rate 20 12/24/16 14:09 Blood Pressure 113/70 12/24/16 14:09 O2 Sat by Pulse Oximetry (%) 99 12/24/16 09:47 CBCD WBC 8.6 K/mm3 (4.0-10.0) 11/20/16 08:00 RBC 4.22 M/mm3 (4.00-5.60) 11/20/16 08:00 Hgb 12.6 GM/dL (11.7-16.9) 11/20/16 08:00 Hct 37.6 % (35.4-49) 11/20/16 08:00 MCV 89.2 fl (80-96) 11/20/16 08:00 MCHC 33.5 g/dl (32.0-35.9) 11/20/16 08:00 RDW 15.0 % (11.9-15.9) 11/20/16 08:00 Plt Count 181 K/MM3 (134-434) 11/20/16 08:00 MPV 8.9 fl (7.5-11.1) 11/20/16 08:00 CMP Sodium 139 mmol/L (136-145) 11/20/16 08:00 Potassium 4.1 mmol/L (3.5-5.1) 11/20/16 08:00 Chloride 104 mmol/L (98-107) 11/20/16 08:00 Carbon Dioxide 27 mmol/L (21-32) 11/20/16 08:00 Anion Gap 8 (8-16) 11/20/16 08:00 BUN 27 mg/dL (7-18) H 11/20/16 08:00 Creatinine 1.6 mg/dL (0.7-1.3) H 11/20/16 08:00 Creat Clearance w eGFR 42.35 (>60) 11/19/16 06:30 Random Glucose 104 mg/dL (74-106) 11/20/16 08:00 Calcium 8.5 mg/dL (8.5-10.1) 11/20/16 08:00 Total Bilirubin 0.6 mg/dL (0.2-1.0) D 11/19/16 06:30 AST 15 U/L (15-37) D 11/19/16 06:30 ALT 19 U/L (12-78) D 11/19/16 06:30 Alkaline Phosphatase 68 U/L (45-117) 11/19/16 06:30 Total Protein 6.5 g/dl (6.4-8.2) 11/19/16 06:30 Albumin 3.3 g/dl (3.4-5.0) L 11/19/16 06:30 CARDIAC ENZYMES Creatine Kinase 88 IU/L (39-308) 10/31/16 06:00 Troponin I < 0.02 ng/ml (0.00-0.05) 10/28/16 20:30 Current Medications Generic Name Dose Route Start Last Admin Trade Name Mona PRN Reason Stop Dose Admin Amlodipine Besylate 5 mg 11/25/16 10:00 12/24/16 09:47 Norvasc - PO 5 mg DAILY SAVI Administration Apixaban 2.5 mg 11/22/16 10:00 12/24/16 09:47 Eliquis - PO 2.5 mg BID SAVI Administration Donepezil HCl 10 mg 11/20/16 21:00 12/23/16 21:27 Aricept - PO 10 mg DAILY@2100 SAVI Administration Memantine 10 mg 12/18/16 14:04 12/24/16 09:47 Namenda - PO 10 mg BID SAVI Administration Timolol Maleate 1 drop 11/01/16 10:00 12/24/16 09:48 Timoptic 0.25% OU 1 drop BID SAVI Administration PE: per resident's note ASSESSMENT AND PLAN: 76 y/o man with h/o HTN, dementia , and recent DVT ( in Jun per records ) , who was brought by Police after being found wandering # Advanced dementia-continue current regimen. # DVT on Elquis continue Waiting for placement will repeat labs in am, cbc, cmp
[2016-12-24] MEDS: DONEPEZIL HCL 10 MG TABLET (FP) PO SCH (21:12)
[2016-12-25] MEDS ORDERED: PT OWN MED DRAWER 7, Y5N ONE ×2 (09:06→20:19)
[2016-12-25] MEDS: MEMANTINE HCL 5 MG TABLET (UD) PO SCH ×2 (09:17→21:08)
[2016-12-25] MEDS: TIMOLOL 0.25% OPHTHALMIC SOL 5 ML BOTTLE OU SCH ×2 (09:18→21:08)
[2016-12-25] MEDS: amLODIPine BESYLATE 5 MG TABLET (FP) PO SCH (09:18)
[2016-12-25] MEDS: APIXABAN 2.5 MG TABLET PO SCH ×2 (09:18→21:09)
--- NOTE | 2016-12-25 17:17 | PN ---
Teaching Attending Note Name of Resident: Arpit Craig ATTENDING PHYSICIAN STATEMENT I saw and evaluated the patient. I reviewed the resident's note and discussed the case with the resident. I agree with the resident's findings and plan as documented. SUBJECTIVE: comfortable with no acute distress OBJECTIVE: Vital Signs Temperature 98.6 F 12/25/16 13:56 Pulse Rate 64 12/25/16 13:56 Respiratory Rate 20 12/25/16 13:56 Blood Pressure 127/75 12/25/16 13:56 O2 Sat by Pulse Oximetry (%) 99 12/25/16 09:17 CBCD WBC 8.6 K/mm3 (4.0-10.0) 11/20/16 08:00 RBC 4.22 M/mm3 (4.00-5.60) 11/20/16 08:00 Hgb 12.6 GM/dL (11.7-16.9) 11/20/16 08:00 Hct 37.6 % (35.4-49) 11/20/16 08:00 MCV 89.2 fl (80-96) 11/20/16 08:00 MCHC 33.5 g/dl (32.0-35.9) 11/20/16 08:00 RDW 15.0 % (11.9-15.9) 11/20/16 08:00 Plt Count 181 K/MM3 (134-434) 11/20/16 08:00 MPV 8.9 fl (7.5-11.1) 11/20/16 08:00 CMP Sodium 139 mmol/L (136-145) 11/20/16 08:00 Potassium 4.1 mmol/L (3.5-5.1) 11/20/16 08:00 Chloride 104 mmol/L (98-107) 11/20/16 08:00 Carbon Dioxide 27 mmol/L (21-32) 11/20/16 08:00 Anion Gap 8 (8-16) 11/20/16 08:00 BUN 27 mg/dL (7-18) H 11/20/16 08:00 Creatinine 1.6 mg/dL (0.7-1.3) H 11/20/16 08:00 Creat Clearance w eGFR 42.35 (>60) 11/19/16 06:30 Random Glucose 104 mg/dL (74-106) 11/20/16 08:00 Calcium 8.5 mg/dL (8.5-10.1) 11/20/16 08:00 Total Bilirubin 0.6 mg/dL (0.2-1.0) D 11/19/16 06:30 AST 15 U/L (15-37) D 11/19/16 06:30 ALT 19 U/L (12-78) D 11/19/16 06:30 Alkaline Phosphatase 68 U/L (45-117) 11/19/16 06:30 Total Protein 6.5 g/dl (6.4-8.2) 11/19/16 06:30 Albumin 3.3 g/dl (3.4-5.0) L 11/19/16 06:30 CARDIAC ENZYMES Creatine Kinase 88 IU/L (39-308) 10/31/16 06:00 Troponin I < 0.02 ng/ml (0.00-0.05) 10/28/16 20:30 Current Medications Generic Name Dose Route Start Last Admin Trade Name Mona PRN Reason Stop Dose Admin Amlodipine Besylate 5 mg 11/25/16 10:00 12/25/16 09:18 Norvasc - PO 5 mg DAILY SAVI Administration Apixaban 2.5 mg 11/22/16 10:00 12/25/16 09:18 Eliquis - PO 2.5 mg BID SAVI Administration Donepezil HCl 10 mg 11/20/16 21:00 12/24/16 21:12 Aricept - PO 10 mg DAILY@2100 SAVI Administration Memantine 10 mg 12/18/16 14:04 12/25/16 09:17 Namenda - PO 10 mg BID SAVI Administration Timolol Maleate 1 drop 11/01/16 10:00 12/25/16 09:18 Timoptic 0.25% OU 1 drop BID SAVI Administration Home Medications Medication Instructions Recorded Amlodipine Besylate [Norvasc -] 2.5 mg PO DAILY 10/28/16 Apixaban [Eliquis -] 5 mg PO DAILY 10/28/16 Furosemide [Lasix -] 20 mg PO DAILY 10/28/16 Memantine HCl [Namenda -] 5 mg PO DAILY 10/28/16 Timolol 0.25% [Timoptic 0.25%] 0 ml OU BID 10/28/16 PE: per resident's note ASSESSMENT AND PLAN: 76 y/o man with h/o HTN, dementia , and recent DVT ( in Jun per records ) , who was brought by Police after being found wandering # Advanced dementia-continue current regimen. # DVT on Elquis continue # Glaucoma : continue timoptic # CKD baseline of 1.6 Waiting for placement
--- NOTE | 2016-12-25 18:40 | PN ---
Physical Exam: SUBJECTIVE: Patient seen and examined at bedside. No acute events overnight. Pt has no complaints at this time. OBJECTIVE: Vital Signs Period Temp Pulse Resp BP Sys/[place] Pulse Ox Last 24 Hr 97.8 F-98.6 F 58-64 17-20 120-154/61-78 95-99 GENERAL: The patient is awake, alert, and fully oriented, in no acute distress. HEAD: Normal with no signs of trauma. EYES: PERRL, extraocular movements intact, sclera anicteric, conjunctiva clear. No ptosis. ENT: Ears normal, nares patent, oropharynx clear without exudates, moist mucous membranes. NECK: Trachea midline, full range of motion, supple. LUNGS: Breath sounds equal, clear to auscultation bilaterally, no wheezes, no crackles, no accessory muscle use. HEART: Regular rate and rhythm, S1, S2 without murmur, rub or gallop. ABDOMEN: Soft, nontender, nondistended, normoactive bowel sounds, no guarding, no rebound, no hepatosplenomegaly, no masses. EXTREMITIES: 2+ pulses, warm, well-perfused, no edema. NEUROLOGICAL: Cranial nerves II through XII grossly intact. Normal speech, gait not observed. PSYCH: Normal mood, normal affect. SKIN: Warm, dry, normal turgor, no rashes or lesions noted Active Medications Generic Name Dose Route Start Last Admin Trade Name Freq PRN Reason Stop Dose Admin Amlodipine Besylate 5 mg 11/25/16 10:00 12/25/16 09:18 Norvasc - PO 5 mg DAILY SAVI Administration Apixaban 2.5 mg 11/22/16 10:00 12/25/16 09:18 Eliquis - PO 2.5 mg BID SAVI Administration Donepezil HCl 10 mg 11/20/16 21:00 12/24/16 21:12 Aricept - PO 10 mg DAILY@2100 SAVI Administration Memantine 10 mg 12/18/16 14:04 12/25/16 09:17 Namenda - PO 10 mg BID SAVI Administration Timolol Maleate 1 drop 11/01/16 10:00 12/25/16 09:18 Timoptic 0.25% OU 1 drop BID SAVI Administration ASSESSMENT/PLAN: This is a 76 yo Man with PMHx right lower ext DVT and Alzheimer Disease who was brought to the ED by EMS for AMS. 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 Plan unchanged from previous. Still waiting for placement. Pt is still stable. #Dizziness: Resolved -Donepezil 10mg HS -Fall precautions #Confusion 2/2 Alzheimers -Memantine 10mg PO BID, Donepezil 10mg HS, per Neuro #Right popliteal DVT -Eliquis 2.5mg PO BID, for 3-6 months from 11/01/16 #MAX with uncertain CKD -Show Dog Trainer 1.6 (11/20/16) stable -Avoid nephrotoxic Rx -f/u with Nephro on D/C #HTN - Controlled -Norvasc 2.5mg Daily #HLD -Diet controlled -Monitor out pt #Glaucoma -Timolol .25% BID #FEN -No IVF -lytes within normal limits -Chol/Fat/Sodium restricted diet #Prophylaxis -DVT: pt on Eliquis -GI: not indicated #Full Code #Dispo: Admit to med-surg. rubber worker involved. Pending placement Arpit Craig MD PGY-1 Visit type - Emergency Visit Emergency Visit: No - New Patient This patient is new to me today: No - Critical Care Critical Care patient: No
[2016-12-25] MEDS: DONEPEZIL HCL 10 MG TABLET (FP) PO SCH (20:25)
[2016-12-26] MEDS: TIMOLOL 0.25% OPHTHALMIC SOL 5 ML BOTTLE OU SCH ×2 (09:21→21:34)
[2016-12-26] MEDS: amLODIPine BESYLATE 5 MG TABLET (FP) PO SCH (09:21)
[2016-12-26] MEDS: APIXABAN 2.5 MG TABLET PO SCH ×2 (09:22→21:34)
[2016-12-26] MEDS: MEMANTINE HCL 5 MG TABLET (UD) PO SCH ×2 (09:22→21:34)
--- NOTE | 2016-12-26 18:54 | PN ---
Teaching Attending Note Name of Resident: Arpit Craig ATTENDING PHYSICIAN STATEMENT I saw and evaluated the patient. I reviewed the resident's note and discussed the case with the resident. I agree with the resident's findings and plan as documented. SUBJECTIVE: no pain or any other complaints OBJECTIVE: NAD, awake, alert, cooperative. CV: RRR Lungs: CTAB Ext: no edema ASSESSMENT AND PLAN: 76 y/o man with h/o HTN, dementia , and recent DVT ( in Jun, not on AC at presentation ) , who was brought by Police after being found wondering 1- Advanced dementia : - cont aricept and namenda 2- CKD : stable Cr repeat BMP in AM 3- R popliteal DVT: cont eliquis x 3-6 months 4- HTN : cont norvasc pending placement
[2016-12-26] MEDS: DONEPEZIL HCL 10 MG TABLET (FP) PO SCH (20:48)
--- NOTE | 2016-12-27 09:03 | PN ---
Physical Exam: SUBJECTIVE: Patient seen and examined at bedside. No acute events overnight. Pt has no complaints at this time. Status unchanged. OBJECTIVE: Vital Signs Period Temp Pulse Resp BP Sys/[place] Pulse Ox Last 24 Hr 98 F-98.9 F 57-68 18-20 115-148/56-78 97 GENERAL: The patient is awake, alert, and fully oriented, in no acute distress. HEAD: Normal with no signs of trauma. EYES: PERRL, extraocular movements intact, sclera anicteric, conjunctiva clear. No ptosis. ENT: Ears normal, nares patent, oropharynx clear without exudates, moist mucous membranes. NECK: Trachea midline, full range of motion, supple. LUNGS: Breath sounds equal, clear to auscultation bilaterally, no wheezes, no crackles, no accessory muscle use. HEART: Regular rate and rhythm, S1, S2 without murmur, rub or gallop. ABDOMEN: Soft, nontender, nondistended, normoactive bowel sounds, no guarding, no rebound, no hepatosplenomegaly, no masses. EXTREMITIES: 2+ pulses, warm, well-perfused, no edema. NEUROLOGICAL: Cranial nerves II through XII grossly intact. Normal speech, gait not observed. PSYCH: Normal mood, normal affect. SKIN: Warm, dry, normal turgor, no rashes or lesions noted Active Medications Generic Name Dose Route Start Last Admin Trade Name Freq PRN Reason Stop Dose Admin Amlodipine Besylate 5 mg 11/25/16 10:00 12/26/16 09:21 Norvasc - PO 5 mg DAILY SAVI Administration Apixaban 2.5 mg 11/22/16 10:00 12/26/16 21:34 Eliquis - PO 2.5 mg BID SAVI Administration Donepezil HCl 10 mg 11/20/16 21:00 12/26/16 20:48 Aricept - PO 10 mg DAILY@2100 SAVI Administration Memantine 10 mg 12/18/16 14:04 12/26/16 21:34 Namenda - PO 10 mg BID SAVI Administration Timolol Maleate 1 drop 11/01/16 10:00 12/26/16 21:34 Timoptic 0.25% OU 1 drop BID SAVI Administration ASSESSMENT/PLAN: This is a 76 yo Man with PMHx right lower ext DVT and Alzheimer Disease who was brought to the ED by EMS for AMS. 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 Plan unchanged from previous. Still waiting for placement. Pt is still stable. #Dizziness: Resolved -Donepezil 10mg HS -Fall precautions #Confusion 2/2 Alzheimers -Memantine 10mg PO BID, Donepezil 10mg HS, per Neuro #Right popliteal DVT -Eliquis 2.5mg PO BID, for 3-6 months from 11/01/16 #MAX with uncertain CKD -Surgical Nurse 1.6 (11/20/16) stable -Avoid nephrotoxic Rx -f/u with Nephro on D/C #HTN - Controlled -Norvasc 2.5mg Daily #HLD -Diet controlled -Monitor out pt #Glaucoma -Timolol .25% BID #FEN -No IVF -lytes within normal limits -Chol/Fat/Sodium restricted diet #Prophylaxis -DVT: pt on Eliquis -GI: not indicated #Full Code #Dispo: Admit to med-surg. lead supply worker involved. Pending placement Arpit Craig MD PGY-1 Visit type - Emergency Visit Emergency Visit: No - New Patient This patient is new to me today: No - Critical Care Critical Care patient: No - Discharge Referral Referred to [facility] Med P.C.: No
--- NOTE | 2016-12-27 09:10 | PN ---
Teaching Attending Note Name of Resident: Arpit Craig ATTENDING PHYSICIAN STATEMENT I saw and evaluated the patient. I reviewed the resident's note and discussed the case with the resident. I agree with the resident's findings and plan as documented. SUBJECTIVE: denies pain, SOB or any fever OBJECTIVE: NAD, awake, alert, cooperative. CV: RRR Lungs: CTAB Ext: no edema ASSESSMENT AND PLAN: 76 y/o man with h/o HTN, dementia , and recent DVT ( in Jun, not on AC at presentation ) , who was brought by Police after being found wondering 1- Advanced dementia : - cont aricept and namenda 2- CKD: stable Cr 3- R popliteal DVT: cont eliquis x 3 months ( starting November 01 ) 4- HTN : cont norvasc . Stable BP pending placement
[2016-12-27] MEDS ORDERED: PT OWN MED DRAWER 7, Y5N ONE ×2 (10:04→20:58)
[2016-12-27] MEDS: amLODIPine BESYLATE 5 MG TABLET (FP) PO SCH (10:07)
[2016-12-27] MEDS: MEMANTINE HCL 5 MG TABLET (UD) PO SCH ×2 (10:07→21:04)
[2016-12-27] MEDS: APIXABAN 2.5 MG TABLET PO SCH ×2 (10:07→21:33)
[2016-12-27] MEDS: TIMOLOL 0.25% OPHTHALMIC SOL 5 ML BOTTLE OU SCH ×2 (13:42→21:05)
[2016-12-27] MEDS: DONEPEZIL HCL 10 MG TABLET (FP) PO SCH (21:05)
[2016-12-28] MEDS: amLODIPine BESYLATE 5 MG TABLET (FP) PO SCH (09:37)
[2016-12-28] MEDS: MEMANTINE HCL 5 MG TABLET (UD) PO SCH ×2 (09:37→21:50)
[2016-12-28] MEDS: APIXABAN 2.5 MG TABLET PO SCH ×2 (09:37→21:51)
[2016-12-28] MEDS: TIMOLOL 0.25% OPHTHALMIC SOL 5 ML BOTTLE OU SCH ×2 (09:38→21:51)
--- NOTE | 2016-12-28 18:08 | PN ---
Teaching Attending Note Name of Resident: Arpit Craig ATTENDING PHYSICIAN STATEMENT I saw and evaluated the patient. I reviewed the resident's note and discussed the case with the resident. I agree with the resident's findings and plan as documented. SUBJECTIVE: no fever ro chills, no abd pain or cp OBJECTIVE: NAD, awake, alert, cooperative. CV: RRR Lungs: CTAB Ext: no edema ASSESSMENT AND PLAN: 76 y/o man with h/o HTN, dementia , and recent DVT ( in Jun, not on AC at presentation ) , who was brought by Police after being found wondering 1- Advanced dementia : - cont aricept and namenda 2- CKD: stable Cr 3- R popliteal DVT: cont eliquis x 3 months ( starting November 01 ) 4- HTN : cont norvasc . Stable BP pending placement
--- NOTE | 2016-12-28 19:46 | PN ---
Physical Exam: SUBJECTIVE: Patient seen and examined at bedside. No acute events overnight. Pt has no complaints at this time. Status unchanged. OBJECTIVE: Vital Signs Period Temp Pulse Resp BP Sys/[place] Pulse Ox Last 24 Hr 98.3 F-98.5 F 56-65 18 125-154/64-77 97-97 GENERAL: The patient is awake, alert, and fully oriented, in no acute distress. HEAD: Normal with no signs of trauma. EYES: PERRL, extraocular movements intact, sclera anicteric, conjunctiva clear. No ptosis. ENT: Ears normal, nares patent, oropharynx clear without exudates, moist mucous membranes. NECK: Trachea midline, full range of motion, supple. LUNGS: Breath sounds equal, clear to auscultation bilaterally, no wheezes, no crackles, no accessory muscle use. HEART: Regular rate and rhythm, S1, S2 without murmur, rub or gallop. ABDOMEN: Soft, nontender, nondistended, normoactive bowel sounds, no guarding, no rebound, no hepatosplenomegaly, no masses. EXTREMITIES: 2+ pulses, warm, well-perfused, no edema. NEUROLOGICAL: Cranial nerves II through XII grossly intact. Normal speech, gait not observed. PSYCH: Normal mood, normal affect. SKIN: Warm, dry, normal turgor, no rashes or lesions noted Active Medications Generic Name Dose Route Start Last Admin Trade Name Freq PRN Reason Stop Dose Admin Amlodipine Besylate 5 mg 11/25/16 10:00 12/28/16 09:37 Norvasc - PO 5 mg DAILY SAVI Administration Apixaban 2.5 mg 11/22/16 10:00 12/28/16 09:37 Eliquis - PO 2.5 mg BID SAVI Administration Donepezil HCl 10 mg 11/20/16 21:00 12/27/16 21:05 Aricept - PO 10 mg DAILY@2100 SAVI Administration Memantine 10 mg 12/18/16 14:04 12/28/16 09:37 Namenda - PO 10 mg BID SAVI Administration Timolol Maleate 1 drop 11/01/16 10:00 12/28/16 09:38 Timoptic 0.25% OU 1 drop BID SAVI Administration ASSESSMENT/PLAN: This is a 76 yo Man with PMHx right lower ext DVT and Alzheimer Disease who was brought to the ED by EMS for AMS. 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 Plan unchanged from previous. Still waiting for placement. Pt is still stable. #Dizziness: Resolved -Donepezil 10mg HS -Fall precautions #Confusion 2/2 Alzheimers -Memantine 10mg PO BID, Donepezil 10mg HS, per Neuro #Right popliteal DVT -Eliquis 2.5mg PO BID, for 3-6 months from 11/01/16 #MAX with uncertain CKD -Shop Welder 1.6 (11/20/16) stable -Avoid nephrotoxic Rx -f/u with Nephro on D/C #HTN - Controlled -Norvasc 2.5mg Daily #HLD -Diet controlled -Monitor out pt #Glaucoma -Timolol .25% BID #FEN -No IVF -lytes within normal limits -Chol/Fat/Sodium restricted diet #Prophylaxis -DVT: pt on Eliquis -GI: not indicated #Full Code #Dispo: Admit to med-surg. granite worker involved. Pending placement Arpit Craig MD PGY-1 Visit type - Emergency Visit Emergency Visit: No - New Patient This patient is new to me today: No - Critical Care Critical Care patient: No - Discharge Referral Referred to [facility] Med P.C.: No
[2016-12-28] MEDS: DONEPEZIL HCL 10 MG TABLET (FP) PO SCH (21:50)
--- NOTE | 2016-12-29 09:13 | PN ---
Physical Exam: SUBJECTIVE: Patient seen and examined at bedside. No acute events overnight. Pt has no complaints at this time. States he feels well. Status unchanged. OBJECTIVE: Vital Signs Period Temp Pulse Resp BP Sys/[place] Pulse Ox Last 24 Hr 98.2 F-98.5 F 56-69 16-18 103-154/54-77 97 GENERAL: The patient is awake, alert, and fully oriented, in no acute distress. HEAD: Normal with no signs of trauma. EYES: sclera anicteric, conjunctiva clear. No ptosis. ENT: oropharynx clear without exudates, moist mucous membranes. NECK: Trachea midline, full range of motion, supple. LUNGS: Breath sounds equal, clear to auscultation bilaterally, no wheezes, no crackles, no accessory muscle use. HEART: Regular rate and rhythm,normal S1, S2 without murmur, rub or gallop. ABDOMEN: Soft, nontender, nondistended, normoactive bowel sounds, no guarding, no rebound, no hepatosplenomegaly, no masses. EXTREMITIES: 2+ pulses, warm, well-perfused, no edema. NEUROLOGICAL: Cranial nerves II through XII grossly intact. Normal speech, gait not observed. PSYCH: Normal mood, normal affect. SKIN: Warm, dry, normal turgor, no rashes or lesions noted Active Medications Generic Name Dose Route Start Last Admin Trade Name Mona PRN Reason Stop Dose Admin Amlodipine Besylate 5 mg 11/25/16 10:00 12/28/16 09:37 Norvasc - PO 5 mg DAILY SAVI Administration Apixaban 2.5 mg 11/22/16 10:00 12/28/16 21:51 Eliquis - PO 2.5 mg BID SAVI Administration Donepezil HCl 10 mg 11/20/16 21:00 12/28/16 21:50 Aricept - PO 10 mg DAILY@2100 SAVI Administration Memantine 10 mg 12/18/16 14:04 12/28/16 21:50 Namenda - PO 10 mg BID SAVI Administration Timolol Maleate 1 drop 11/01/16 10:00 12/28/16 21:51 Timoptic 0.25% OU 1 drop BID SAVI Administration ASSESSMENT/PLAN: This is a 76 yo Man with PMHx right lower ext DVT and Alzheimer Disease who was brought to the ED by EMS for AMS. 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 Plan unchanged from previous. Still waiting for placement. Pt is still stable. #Dizziness: Resolved -Donepezil 10mg HS -Fall precautions #Confusion 2/2 Alzheimers -Memantine 10mg PO BID, Donepezil 10mg HS, per Neuro #Right popliteal DVT -Eliquis 2.5mg PO BID, for 3-6 months from 11/01/16 #MAX with uncertain CKD -Scaffold Worker 1.6 (11/20/16) stable -Avoid nephrotoxic Rx -f/u with Nephro on D/C #HTN - Controlled -Norvasc 2.5mg Daily #HLD -Diet controlled -Monitor out pt #Glaucoma -Timolol .25% BID #FEN -No IVF -lytes within normal limits -Chol/Fat/Sodium restricted diet #Prophylaxis -DVT: pt on Eliquis -GI: not indicated #Full Code #Dispo: Admit to med-surg. warehouse assembly worker involved. Pending placement Arpit Craig MD PGY-1 Visit type - Emergency Visit Emergency Visit: No - New Patient This patient is new to me today: No - Critical Care Critical Care patient: No - Discharge Referral Referred to [facility] Med P.C.: No
--- NOTE | 2016-12-29 09:52 | PN ---
Teaching Attending Note Name of Resident: Arpit Craig ATTENDING PHYSICIAN STATEMENT I saw and evaluated the patient. I reviewed the resident's note and discussed the case with the resident. I agree with the resident's findings and plan as documented. SUBJECTIVE: no complaints today OBJECTIVE: NAD, awake, alert, cooperative. CV: RRR Lungs: CTAB Ext: no edema ASSESSMENT AND PLAN: 76 y/o man with h/o HTN, dementia , and recent DVT ( in Jun, not on AC at presentation ) , who was brought by Police after being found wandering 1- Advanced dementia : - cont aricept and namenda 2- CKD: stable Cr 3- R popliteal DVT: cont eliquis x 3 months ( starting November 01 ) 4- HTN : cont norvasc . Stable BP pending placement
[2016-12-29] MEDS: TIMOLOL 0.25% OPHTHALMIC SOL 5 ML BOTTLE OU SCH ×2 (09:59→21:09)
[2016-12-29] MEDS: MEMANTINE HCL 5 MG TABLET (UD) PO SCH ×2 (09:59→21:09)
[2016-12-29] MEDS: amLODIPine BESYLATE 5 MG TABLET (FP) PO SCH (09:59)
[2016-12-29] MEDS: APIXABAN 2.5 MG TABLET PO SCH ×2 (09:59→21:08)
[2016-12-29] MEDS ORDERED: PT OWN MED DRAWER 7, Y5N ONE (20:46)
[2016-12-29] MEDS: DONEPEZIL HCL 10 MG TABLET (FP) PO SCH (20:54)
[2016-12-30] MEDS ORDERED: PT OWN MED DRAWER 7, Y5N ONE ×2 (10:40→10:43)
[2016-12-30] MEDS: APIXABAN 2.5 MG TABLET PO SCH ×2 (10:44→21:21)
[2016-12-30] MEDS: amLODIPine BESYLATE 5 MG TABLET (FP) PO SCH (10:44)
[2016-12-30] MEDS: TIMOLOL 0.25% OPHTHALMIC SOL 5 ML BOTTLE OU SCH ×2 (10:44→21:22)
[2016-12-30] MEDS: MEMANTINE HCL 5 MG TABLET (UD) PO SCH ×2 (10:44→21:21)
--- NOTE | 2016-12-30 15:52 | PN ---
Progress Note (short form) - Note Progress Note: Subjective: no pain . no OSB Objective: Vital Signs: Vital Signs - 24 hr 12/29/16 12/29/16 12/29/16 18:00 21:00 21:50 Temperature 98.6 F 98.5 F Pulse Rate 58 L 62 Respiratory 20 16 Rate Blood Pressure 128/74 O2 Sat by Pulse 96 Oximetry (%) 12/30/16 12/30/16 09:00 14:38 Temperature 98.8 F 98.5 F Pulse Rate 63 Respiratory 18 20 Rate Blood Pressure 134/66 O2 Sat by Pulse Oximetry (%) Physical Exam: awake , alett , gait NL , NAD . MMM, no facial droop Assessment/Plan: 76 y/o man with h/o HTN, dementia , and recent DVT ( in Jun, not on AC at presentation ) , who was brought by Police after being found wandering 1- Advanced dementia : - cont aricept and namenda 2- CKD: stable Cr 3- R popliteal DVT: cont eliquis x 3 months ( starting November 01 ) 4- HTN : cont norvasc . Stable BP pending placement Visit type - Emergency Visit Emergency Visit: Yes ED Registration Date: 10/28/16 Care time: The patient presented to the Emergency Department on the above date and was hospitalized for further evaluation of their emergent condition. - New Patient This patient is new to me today: No - Critical Care Critical Care patient: No
[2016-12-30] MEDS: DONEPEZIL HCL 10 MG TABLET (FP) PO SCH (21:21)
[2016-12-31] MEDS ORDERED: PT OWN MED DRAWER 7, Y5N ONE (09:35)
[2016-12-31] MEDS: MEMANTINE HCL 5 MG TABLET (UD) PO SCH ×2 (09:38→21:16)
[2016-12-31] MEDS: amLODIPine BESYLATE 5 MG TABLET (FP) PO SCH (09:38)
[2016-12-31] MEDS: APIXABAN 2.5 MG TABLET PO SCH ×2 (09:39→21:16)
[2016-12-31] MEDS: TIMOLOL 0.25% OPHTHALMIC SOL 5 ML BOTTLE OU SCH ×2 (09:39→21:16)
--- NOTE | 2016-12-31 17:40 | PN ---
Physical Exam: SUBJECTIVE: Patient seen and examined at bedside. No acute events overnight. Pt has no complaints at this time. States he feels well. Status unchanged. OBJECTIVE: Vital Signs Period Temp Pulse Resp BP Sys/[place] Pulse Ox Last 24 Hr 98.2 F-98.4 F 58-69 20-20 122-135/53-90 95-97 GENERAL: The patient is awake, alert, and fully oriented, in no acute distress. HEAD: Normal with no signs of trauma. EYES: PERRL, extraocular movements intact, sclera anicteric, conjunctiva clear. No ptosis. ENT: Ears normal, nares patent, oropharynx clear without exudates, moist mucous membranes. NECK: Trachea midline, full range of motion, supple. LUNGS: Breath sounds equal, clear to auscultation bilaterally, no wheezes, no crackles, no accessory muscle use. HEART: Regular rate and rhythm, S1, S2 without murmur, rub or gallop. ABDOMEN: Soft, nontender, nondistended, normoactive bowel sounds, no guarding, no rebound, no hepatosplenomegaly, no masses. EXTREMITIES: 2+ pulses, warm, well-perfused, no edema. NEUROLOGICAL: Cranial nerves II through XII grossly intact. Normal speech, gait not observed. PSYCH: Normal mood, normal affect. SKIN: Warm, dry, normal turgor, no rashes or lesions noted Active Medications Generic Name Dose Route Start Last Admin Trade Name Freq PRN Reason Stop Dose Admin Amlodipine Besylate 5 mg 11/25/16 10:00 12/31/16 09:38 Norvasc - PO 5 mg DAILY SAVI Administration Apixaban 2.5 mg 11/22/16 10:00 12/31/16 09:39 Eliquis - PO 2.5 mg BID SAVI Administration Donepezil HCl 10 mg 11/20/16 21:00 12/30/16 21:21 Aricept - PO 10 mg DAILY@2100 SAVI Administration Memantine 10 mg 12/18/16 14:04 12/31/16 09:38 Namenda - PO 10 mg BID SVAI Administration Timolol Maleate 1 drop 11/01/16 10:00 12/31/16 09:39 Timoptic 0.25% OU 1 drop BID SAVI Administration ASSESSMENT/PLAN: This is a 76 yo Man with PMHx right lower ext DVT and Alzheimer Disease who was brought to the ED by EMS for AMS. 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 Plan unchanged from previous. Still waiting for placement. Pt is still stable. #Dizziness: Resolved -Donepezil 10mg HS -Fall precautions #Confusion 2/2 Alzheimers -Memantine 10mg PO BID, Donepezil 10mg HS, per Neuro #Right popliteal DVT -Eliquis 2.5mg PO BID, for 3-6 months from 11/01/16 #MAX with uncertain CKD -Internet Marketing Assistant 1.6 (11/20/16) stable -Avoid nephrotoxic Rx -f/u with Nephro on D/C #HTN - Controlled -Norvasc 2.5mg Daily #HLD -Diet controlled -Monitor out pt #Glaucoma -Timolol .25% BID #FEN -No IVF -lytes within normal limits -Chol/Fat/Sodium restricted diet #Prophylaxis -DVT: pt on Eliquis -GI: not indicated #Full Code #Dispo: Admit to med-surg. mud worker involved. Pending placement Arpit Craig MD PGY-1 Visit type - Emergency Visit Emergency Visit: No - New Patient This patient is new to me today: No - Critical Care Critical Care patient: No - Discharge Referral Referred to [facility] Med P.C.: No
--- NOTE | 2016-12-31 18:11 | PN ---
Teaching Attending Note Name of Resident: Arpit Craig ATTENDING PHYSICIAN STATEMENT I saw and evaluated the patient. I reviewed the resident's note and discussed the case with the resident. I agree with the resident's findings and plan as documented. SUBJECTIVE: no fever or chills. no PAIn OBJECTIVE: awake , alet , gait NL , NAD . MMM, no facial droop CTAB CV :RRR Assessment/Plan: 76 y/o man with h/o HTN, dementia , and recent DVT ( in Jun, not on AC at presentation ) , who was brought by Police after being found wandering 1- Advanced dementia : - cont aricept and namenda 2- CKD: stable Cr 3- R popliteal DVT: cont eliquis x 3 months ( starting November 01 ) 4- HTN : cont norvasc . Stable BP pending placement
[2016-12-31] MEDS: DONEPEZIL HCL 10 MG TABLET (FP) PO SCH (21:16)
[2017-01-01] MEDS ORDERED: PT OWN MED DRAWER 7, Y5N ONE ×2 (09:08→21:30)
[2017-01-01] MEDS: TIMOLOL 0.25% OPHTHALMIC SOL 5 ML BOTTLE OU SCH ×2 (09:16→21:58)
[2017-01-01] MEDS: APIXABAN 2.5 MG TABLET PO SCH ×2 (09:16→21:57)
[2017-01-01] MEDS: amLODIPine BESYLATE 5 MG TABLET (FP) PO SCH (09:16)
[2017-01-01] MEDS: MEMANTINE HCL 5 MG TABLET (UD) PO SCH ×2 (09:16→21:57)
--- NOTE | 2017-01-01 15:13 | PN ---
Teaching Attending Note Name of Resident: Arpit Craig ATTENDING PHYSICIAN STATEMENT I saw and evaluated the patient. I reviewed the resident's note and discussed the case with the resident. I agree with the resident's findings and plan as documented. SUBJECTIVE: no fever or chills, no cp or SOB OBJECTIVE: awake , alett , gait NL , NAD . MMM, no facial droop CTAB Cv : RRR Assessment/Plan: 76 y/o man with h/o HTN, dementia , and recent DVT ( in Jun, not on AC at presentation ) , who was brought by Police after being found wandering 1- Advanced dementia : - cont aricept and namenda 2- CKD: stable Cr 3- R popliteal DVT: cont eliquis x 3 months ( starting November 01 ) 4- HTN : cont norvasc . Stable BP pending placement
--- NOTE | 2017-01-01 19:58 | PN ---
Physical Exam: SUBJECTIVE: Patient seen and examined at bedside. No acute events overnight. Pt has no complaints at this time. States he feels well. Status unchanged. OBJECTIVE: Vital Signs Period Temp Pulse Resp BP Sys/[place] Pulse Ox Last 24 Hr 97.4 F-98.6 F 53-68 17-20 108-137/62-74 96-98 GENERAL: The patient is awake, alert, and fully oriented, in no acute distress. HEAD: Normal with no signs of trauma. EYES: PERRL, extraocular movements intact, sclera anicteric, conjunctiva clear. No ptosis. ENT: Ears normal, nares patent, oropharynx clear without exudates, moist mucous membranes. NECK: Trachea midline, full range of motion, supple. LUNGS: Breath sounds equal, clear to auscultation bilaterally, no wheezes, no crackles, no accessory muscle use. HEART: Regular rate and rhythm, S1, S2 without murmur, rub or gallop. ABDOMEN: Soft, nontender, nondistended, normoactive bowel sounds, no guarding, no rebound, no hepatosplenomegaly, no masses. EXTREMITIES: 2+ pulses, warm, well-perfused, no edema. NEUROLOGICAL: Cranial nerves II through XII grossly intact. Normal speech, gait not observed. PSYCH: Normal mood, normal affect. SKIN: Warm, dry, normal turgor, no rashes or lesions noted Active Medications Generic Name Dose Route Start Last Admin Trade Name Freq PRN Reason Stop Dose Admin Amlodipine Besylate 5 mg 11/25/16 10:00 01/01/17 09:16 Norvasc - PO 5 mg DAILY SAVI Administration Apixaban 2.5 mg 11/22/16 10:00 01/01/17 09:16 Eliquis - PO 2.5 mg BID SAVI Administration Donepezil HCl 10 mg 11/20/16 21:00 12/31/16 21:16 Aricept - PO 10 mg DAILY@2100 SAVI Administration Memantine 10 mg 12/18/16 14:04 01/01/17 09:16 Namenda - PO 10 mg BID SAVI Administration Timolol Maleate 1 drop 11/01/16 10:00 01/01/17 09:16 Timoptic 0.25% OU 1 drop BID SAVI Administration ASSESSMENT/PLAN: This is a 76 yo Man with PMHx right lower ext DVT and Alzheimer Disease who was brought to the ED by EMS for AMS. 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 Plan unchanged from previous. Still waiting for placement. Pt is still stable. #Dizziness: Resolved -Donepezil 10mg HS -Fall precautions #Confusion 2/2 Alzheimers -Memantine 10mg PO BID, Donepezil 10mg HS, per Neuro #Right popliteal DVT -Eliquis 2.5mg PO BID, for 3-6 months from 11/01/16 #MAX with uncertain CKD -Nurse Receptionist 1.6 (11/20/16) stable -Avoid nephrotoxic Rx -f/u with Nephro on D/C #HTN - Controlled -Norvasc 2.5mg Daily #HLD -Diet controlled -Monitor out pt #Glaucoma -Timolol .25% BID #FEN -No IVF -lytes within normal limits -Chol/Fat/Sodium restricted diet #Prophylaxis -DVT: pt on Eliquis -GI: not indicated #Full Code #Dispo: Admit to med-surg. industrial workers involved. Pending placement Arpit Craig MD PGY-1 Visit type - Emergency Visit Emergency Visit: No - New Patient This patient is new to me today: No - Critical Care Critical Care patient: No - Discharge Referral Referred to [facility] Med P.C.: No
[2017-01-01] MEDS: DONEPEZIL HCL 10 MG TABLET (FP) PO SCH (21:57)
[2017-01-02] MEDS ORDERED: PT OWN MED DRAWER 7, Y5N ONE (09:06)
[2017-01-02] MEDS: amLODIPine BESYLATE 5 MG TABLET (FP) PO SCH (09:14)
[2017-01-02] MEDS: MEMANTINE HCL 5 MG TABLET (UD) PO SCH ×2 (09:14→21:13)
[2017-01-02] MEDS: APIXABAN 2.5 MG TABLET PO SCH ×2 (09:14→21:12)
[2017-01-02] MEDS: TIMOLOL 0.25% OPHTHALMIC SOL 5 ML BOTTLE OU SCH ×2 (09:14→21:13)
--- NOTE | 2017-01-02 13:00 | PN ---
Physical Exam: SUBJECTIVE: Patient seen and examined at bedside. No acute events overnight. Pt has no complaints at this time. States he feels well. Status unchanged. OBJECTIVE: Vital Signs Period Temp Pulse Resp BP Sys/[place] Pulse Ox Last 24 Hr 97.6 F-98.4 F 59-64 18-20 103-140/54-68 96-98 GENERAL: The patient is awake, alert, and fully oriented, in no acute distress. HEAD: Normal with no signs of trauma. EYES: PERRL, extraocular movements intact, sclera anicteric, conjunctiva clear. No ptosis. ENT: Ears normal, nares patent, oropharynx clear without exudates, moist mucous membranes. NECK: Trachea midline, full range of motion, supple. LUNGS: Breath sounds equal, clear to auscultation bilaterally, no wheezes, no crackles, no accessory muscle use. HEART: Regular rate and rhythm, S1, S2 without murmur, rub or gallop. ABDOMEN: Soft, nontender, nondistended, normoactive bowel sounds, no guarding, no rebound, no hepatosplenomegaly, no masses. EXTREMITIES: 2+ pulses, warm, well-perfused, no edema. NEUROLOGICAL: Cranial nerves II through XII grossly intact. Normal speech, gait not observed. PSYCH: Normal mood, normal affect. SKIN: Warm, dry, normal turgor, no rashes or lesions noted Active Medications Generic Name Dose Route Start Last Admin Trade Name Freq PRN Reason Stop Dose Admin Amlodipine Besylate 5 mg 11/25/16 10:00 01/02/17 09:14 Norvasc - PO 5 mg DAILY SAVI Administration Apixaban 2.5 mg 11/22/16 10:00 01/02/17 09:14 Eliquis - PO 2.5 mg BID SAVI Administration Donepezil HCl 10 mg 11/20/16 21:00 01/01/17 21:57 Aricept - PO 10 mg DAILY@2100 SAVI Administration Memantine 10 mg 12/18/16 14:04 01/02/17 09:14 Namenda - PO 10 mg BID SAVI Administration Timolol Maleate 1 drop 11/01/16 10:00 01/02/17 09:14 Timoptic 0.25% OU 1 drop BID SAVI Administration ASSESSMENT/PLAN: This is a 76 yo Man with PMHx right lower ext DVT and Alzheimer Disease who was brought to the ED by EMS for AMS. 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 Plan unchanged from previous. Still waiting for placement. Pt is still stable. #Dizziness: Resolved -Donepezil 10mg HS -Fall precautions #Confusion 2/2 Alzheimers -Memantine 10mg PO BID, Donepezil 10mg HS, per Neuro #Right popliteal DVT -Eliquis 2.5mg PO BID, for 3-6 months from 11/01/16 #MAX with uncertain CKD -Certified Nursing Assistant 1.6 (11/20/16) stable -Avoid nephrotoxic Rx -f/u with Nephro on D/C #HTN - Controlled -Norvasc 2.5mg Daily #HLD -Diet controlled -Monitor out pt #Glaucoma -Timolol .25% BID #FEN -No IVF -lytes within normal limits -Chol/Fat/Sodium restricted diet #Prophylaxis -DVT: pt on Eliquis -GI: not indicated #Full Code #Dispo: Admit to med-surg. social staff worker involved. Pending placement Arpit Craig MD PGY-1 Visit type - Emergency Visit Emergency Visit: No - New Patient This patient is new to me today: No - Critical Care Critical Care patient: No - Discharge Referral Referred to [facility] Med P.C.: No
--- NOTE | 2017-01-02 18:53 | PN ---
Teaching Attending Note Name of Resident: Arpit Craig ATTENDING PHYSICIAN STATEMENT I saw and evaluated the patient. I reviewed the resident's note and discussed the case with the resident. I agree with the resident's findings and plan as documented. SUBJECTIVE: No new changes comfortable OBJECTIVE: Vital Signs Temperature 98.8 F 01/02/17 17:49 Pulse Rate 59 L 01/02/17 17:49 Respiratory Rate 18 01/02/17 17:49 Blood Pressure 140/72 01/02/17 17:49 O2 Sat by Pulse Oximetry (%) 98 01/02/17 09:12 CBCD WBC 8.6 K/mm3 (4.0-10.0) 11/20/16 08:00 RBC 4.22 M/mm3 (4.00-5.60) 11/20/16 08:00 Hgb 12.6 GM/dL (11.7-16.9) 11/20/16 08:00 Hct 37.6 % (35.4-49) 11/20/16 08:00 MCV 89.2 fl (80-96) 11/20/16 08:00 MCHC 33.5 g/dl (32.0-35.9) 11/20/16 08:00 RDW 15.0 % (11.9-15.9) 11/20/16 08:00 Plt Count 181 K/MM3 (134-434) 11/20/16 08:00 MPV 8.9 fl (7.5-11.1) 11/20/16 08:00 CMP Sodium 139 mmol/L (136-145) 11/20/16 08:00 Potassium 4.1 mmol/L (3.5-5.1) 11/20/16 08:00 Chloride 104 mmol/L (98-107) 11/20/16 08:00 Carbon Dioxide 27 mmol/L (21-32) 11/20/16 08:00 Anion Gap 8 (8-16) 11/20/16 08:00 BUN 27 mg/dL (7-18) H 11/20/16 08:00 Creatinine 1.6 mg/dL (0.7-1.3) H 11/20/16 08:00 Creat Clearance w eGFR 42.35 (>60) 11/19/16 06:30 Random Glucose 104 mg/dL (74-106) 11/20/16 08:00 Calcium 8.5 mg/dL (8.5-10.1) 11/20/16 08:00 Total Bilirubin 0.6 mg/dL (0.2-1.0) D 11/19/16 06:30 AST 15 U/L (15-37) D 11/19/16 06:30 ALT 19 U/L (12-78) D 11/19/16 06:30 Alkaline Phosphatase 68 U/L (45-117) 11/19/16 06:30 Total Protein 6.5 g/dl (6.4-8.2) 11/19/16 06:30 Albumin 3.3 g/dl (3.4-5.0) L 11/19/16 06:30 CARDIAC ENZYMES Creatine Kinase 88 IU/L (39-308) 10/31/16 06:00 Troponin I < 0.02 ng/ml (0.00-0.05) 10/28/16 20:30 Current Medications Generic Name Dose Route Start Last Admin Trade Name Mona PRN Reason Stop Dose Admin Amlodipine Besylate 5 mg 11/25/16 10:00 01/02/17 09:14 Norvasc - PO 5 mg DAILY SAVI Administration Apixaban 2.5 mg 11/22/16 10:00 01/02/17 09:14 Eliquis - PO 2.5 mg BID SAVI Administration Donepezil HCl 10 mg 11/20/16 21:00 01/01/17 21:57 Aricept - PO 10 mg DAILY@2100 SAVI Administration Memantine 10 mg 12/18/16 14:04 01/02/17 09:14 Namenda - PO 10 mg BID SAVI Administration Timolol Maleate 1 drop 11/01/16 10:00 01/02/17 09:14 Timoptic 0.25% OU 1 drop BID SAVI Administration Home Medications Medication Instructions Recorded Amlodipine Besylate [Norvasc -] 2.5 mg PO DAILY 10/28/16 Apixaban [Eliquis -] 5 mg PO DAILY 10/28/16 Furosemide [Lasix -] 20 mg PO DAILY 10/28/16 Memantine HCl [Namenda -] 5 mg PO DAILY 10/28/16 Timolol 0.25% [Timoptic 0.25%] 0 ml OU BID 10/28/16 PE: per resident's note ASSESSMENT AND PLAN: 76 y/o man with h/o HTN, dementia , and recent DVT ( in Jun, not on AC at presentation ) , who was brought by Police after being found wandering # Advanced dementia : cont aricept and namenda # CKD: stable Cr # R popliteal DVT: cont eliquis x 3 months ( starting November 01 ) # HTN : cont norvasc . Stable BP pending placement
[2017-01-02] MEDS: DONEPEZIL HCL 10 MG TABLET (FP) PO SCH (21:12)
[2017-01-03] MEDS ORDERED: PT OWN MED DRAWER 7, Y5N ONE (11:12)
[2017-01-03] MEDS: MEMANTINE HCL 5 MG TABLET (UD) PO SCH ×2 (11:13→21:50)
[2017-01-03] MEDS: amLODIPine BESYLATE 5 MG TABLET (FP) PO SCH (11:14)
[2017-01-03] MEDS: TIMOLOL 0.25% OPHTHALMIC SOL 5 ML BOTTLE OU SCH ×2 (11:14→21:49)
[2017-01-03] MEDS: APIXABAN 2.5 MG TABLET PO SCH ×2 (11:14→21:49)
--- NOTE | 2017-01-03 16:33 | PN ---
Physical Exam: SUBJECTIVE: Patient seen and examined at bedside. No acute events overnight. Pt has no complaints at this time. States he feels well. Status unchanged. OBJECTIVE: Vital Signs Period Temp Pulse Resp BP Sys/[place] Pulse Ox Last 24 Hr 98.2 F-98.8 F 53-60 18-20 122-144/66-81 96-96 GENERAL: The patient is awake, alert, and fully oriented, in no acute distress. HEAD: Normal with no signs of trauma. EYES: PERRL, extraocular movements intact, sclera anicteric, conjunctiva clear. No ptosis. ENT: Ears normal, nares patent, oropharynx clear without exudates, moist mucous membranes. NECK: Trachea midline, full range of motion, supple. LUNGS: Breath sounds equal, clear to auscultation bilaterally, no wheezes, no crackles, no accessory muscle use. HEART: Regular rate and rhythm, S1, S2 without murmur, rub or gallop. ABDOMEN: Soft, nontender, nondistended, normoactive bowel sounds, no guarding, no rebound, no hepatosplenomegaly, no masses. EXTREMITIES: 2+ pulses, warm, well-perfused, no edema. NEUROLOGICAL: Cranial nerves II through XII grossly intact. Normal speech, gait not observed. PSYCH: Normal mood, normal affect. SKIN: Warm, dry, normal turgor, no rashes or lesions noted Active Medications Generic Name Dose Route Start Last Admin Trade Name Freq PRN Reason Stop Dose Admin Amlodipine Besylate 5 mg 11/25/16 10:00 01/03/17 11:14 Norvasc - PO 5 mg DAILY SAVI Administration Apixaban 2.5 mg 11/22/16 10:00 01/03/17 11:14 Eliquis - PO 2.5 mg BID SAVI Administration Donepezil HCl 10 mg 11/20/16 21:00 01/02/17 21:12 Aricept - PO 10 mg DAILY@2100 SAVI Administration Memantine 10 mg 12/18/16 14:04 01/03/17 11:13 Namenda - PO 10 mg BID SAVI Administration Timolol Maleate 1 drop 11/01/16 10:00 01/03/17 11:14 Timoptic 0.25% OU 1 drop BID SAVI Administration ASSESSMENT/PLAN: This is a 76 yo Man with PMHx right lower ext DVT and Alzheimer Disease who was brought to the ED by EMS for AMS. 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 Plan unchanged from previous. Still waiting for placement. Pt is still stable. #Dizziness: Resolved -Donepezil 10mg HS -Fall precautions #Confusion 2/2 Alzheimers -Memantine 10mg PO BID, Donepezil 10mg HS, per Neuro #Right popliteal DVT -Eliquis 2.5mg PO BID, for 3-6 months from 11/01/16 #MAX with uncertain CKD -Supervisor Product Inspection 1.6 (11/20/16) stable -Avoid nephrotoxic Rx -f/u with Nephro on D/C #HTN - Controlled -Norvasc 2.5mg Daily #HLD -Diet controlled -Monitor out pt #Glaucoma -Timolol .25% BID #FEN -No IVF -lytes within normal limits -Chol/Fat/Sodium restricted diet #Prophylaxis -DVT: pt on Eliquis -GI: not indicated #Full Code #Dispo: Admit to med-surg. binding bench worker involved. Pending placement Arpit Craig MD PGY-1 Visit type - Emergency Visit Emergency Visit: No - New Patient This patient is new to me today: No - Critical Care Critical Care patient: No - Discharge Referral Referred to [facility] Med P.C.: No
--- NOTE | 2017-01-03 20:08 | PN ---
Teaching Attending Note Name of Resident: Arpit Craig ATTENDING PHYSICIAN STATEMENT I saw and evaluated the patient. I reviewed the resident's note and discussed the case with the resident. I agree with the resident's findings and plan as documented. SUBJECTIVE: comfortable with no new changes. OBJECTIVE: Vital Signs Temperature 98.6 F 01/03/17 17:17 Pulse Rate 59 L 01/03/17 17:17 Respiratory Rate 18 01/03/17 17:17 Blood Pressure 128/63 01/03/17 17:17 O2 Sat by Pulse Oximetry (%) 96 01/03/17 09:00 Current Medications Generic Name Dose Route Start Last Admin Trade Name Mona PRN Reason Stop Dose Admin Amlodipine Besylate 5 mg 11/25/16 10:00 01/03/17 11:14 Norvasc - PO 5 mg DAILY SAVI Administration Apixaban 2.5 mg 11/22/16 10:00 01/03/17 11:14 Eliquis - PO 2.5 mg BID SAVI Administration Donepezil HCl 10 mg 11/20/16 21:00 01/02/17 21:12 Aricept - PO 10 mg DAILY@2100 SAVI Administration Memantine 10 mg 12/18/16 14:04 01/03/17 11:13 Namenda - PO 10 mg BID SAVI Administration Timolol Maleate 1 drop 11/01/16 10:00 01/03/17 11:14 Timoptic 0.25% OU 1 drop BID SAVI Administration Home Medications Medication Instructions Recorded Amlodipine Besylate [Norvasc -] 2.5 mg PO DAILY 10/28/16 Apixaban [Eliquis -] 5 mg PO DAILY 10/28/16 Furosemide [Lasix -] 20 mg PO DAILY 10/28/16 Memantine HCl [Namenda -] 5 mg PO DAILY 10/28/16 Timolol 0.25% [Timoptic 0.25%] 0 ml OU BID 10/28/16 Pe: per resident's note ASSESSMENT AND PLAN: 76 y/o man with h/o HTN, dementia , and recent DVT ( in Jun, not on AC at presentation ) , who was brought by Police after being found wandering # Advanced dementia : cont aricept and namenda # CKD: stable Cr # R popliteal DVT: cont eliquis x 3 months ( starting November 01 ) # HTN : cont norvasc . Stable BP pending placement
[2017-01-03] MEDS: DONEPEZIL HCL 10 MG TABLET (FP) PO SCH (21:50)
[2017-01-04] MEDS ORDERED: PT OWN MED DRAWER 7, Y5N ONE ×2 (11:26→21:13)
[2017-01-04] MEDS: MEMANTINE HCL 5 MG TABLET (UD) PO SCH ×2 (11:33→22:15)
[2017-01-04] MEDS: amLODIPine BESYLATE 5 MG TABLET (FP) PO SCH (11:33)
[2017-01-04] MEDS: APIXABAN 2.5 MG TABLET PO SCH ×2 (11:34→22:15)
[2017-01-04] MEDS: TIMOLOL 0.25% OPHTHALMIC SOL 5 ML BOTTLE OU SCH ×2 (11:34→22:15)
--- NOTE | 2017-01-04 17:20 | PN ---
Physical Exam: SUBJECTIVE: Patient seen and examined at bedside. No acute events overnight. Pt has no complaints at this time. States he feels well. Status unchanged. OBJECTIVE: Vital Signs Period Temp Pulse Resp BP Sys/[place] Pulse Ox Last 24 Hr 97.9 F-98.8 F 54-59 18-20 117-144/54-75 97 GENERAL: The patient is awake, alert, and fully oriented, in no acute distress. HEAD: Normal with no signs of trauma. EYES: PERRL, extraocular movements intact, sclera anicteric, conjunctiva clear. No ptosis. ENT: Ears normal, nares patent, oropharynx clear without exudates, moist mucous membranes. NECK: Trachea midline, full range of motion, supple. LUNGS: Breath sounds equal, clear to auscultation bilaterally, no wheezes, no crackles, no accessory muscle use. HEART: Regular rate and rhythm, S1, S2 without murmur, rub or gallop. ABDOMEN: Soft, nontender, nondistended, normoactive bowel sounds, no guarding, no rebound, no hepatosplenomegaly, no masses. EXTREMITIES: 2+ pulses, warm, well-perfused, no edema. NEUROLOGICAL: Cranial nerves II through XII grossly intact. Normal speech, gait not observed. PSYCH: Normal mood, normal affect. SKIN: Warm, dry, normal turgor, no rashes or lesions noted Active Medications Generic Name Dose Route Start Last Admin Trade Name Freq PRN Reason Stop Dose Admin Amlodipine Besylate 5 mg 11/25/16 10:00 01/04/17 11:33 Norvasc - PO 5 mg DAILY SAVI Administration Apixaban 2.5 mg 11/22/16 10:00 01/04/17 11:34 Eliquis - PO 2.5 mg BID SAVI Administration Donepezil HCl 10 mg 11/20/16 21:00 01/03/17 21:50 Aricept - PO 10 mg DAILY@2100 SAVI Administration Memantine 10 mg 12/18/16 14:04 01/04/17 11:33 Namenda - PO 10 mg BID SAVI Administration Timolol Maleate 1 drop 11/01/16 10:00 01/04/17 11:34 Timoptic 0.25% OU 1 drop BID SAVI Administration ASSESSMENT/PLAN: This is a 76 yo Man with PMHx right lower ext DVT and Alzheimer Disease who was brought to the ED by EMS for AMS. 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 Plan unchanged from previous. Still waiting for placement. Pt is still stable. #Dizziness: Resolved -Donepezil 10mg HS -Fall precautions #Confusion 2/2 Alzheimers -Memantine 10mg PO BID, Donepezil 10mg HS, per Neuro #Right popliteal DVT -Eliquis 2.5mg PO BID, for 3-6 months from 11/01/16 #MAX with uncertain CKD -Hotel Recreational Facilities Manager 1.6 (11/20/16) stable -Avoid nephrotoxic Rx -f/u with Nephro on D/C #HTN - Controlled -Norvasc 2.5mg Daily #HLD -Diet controlled -Monitor out pt #Glaucoma -Timolol .25% BID #FEN -No IVF -lytes within normal limits -Chol/Fat/Sodium restricted diet #Prophylaxis -DVT: pt on Eliquis -GI: not indicated #Full Code #Dispo: Admit to med-surg. neighborhood worker involved. Pending placement Arpit Craig MD PGY-1 Visit type - Emergency Visit Emergency Visit: No - New Patient This patient is new to me today: No - Critical Care Critical Care patient: No - Discharge Referral Referred to [facility] Med P.C.: No
--- NOTE | 2017-01-04 20:09 | PN ---
Teaching Attending Note Name of Resident: Arpit Craig ATTENDING PHYSICIAN STATEMENT I saw and evaluated the patient. I reviewed the resident's note and discussed the case with the resident. I agree with the resident's findings and plan as documented. ASSESSMENT AND PLAN: 76 y/o man with h/o HTN, dementia , and recent DVT ( in Jun, not on AC at presentation ) , who was brought by Police after being found wandering # Advanced dementia : cont aricept and namenda # CKD: stable Cr # R popliteal DVT: cont eliquis x 3 months ( starting November 01 ) # HTN : cont norvasc . Stable BP pending placement
[2017-01-04] MEDS: DONEPEZIL HCL 10 MG TABLET (FP) PO SCH (22:14)
[2017-01-05] MEDS: MEMANTINE HCL 5 MG TABLET (UD) PO SCH ×2 (09:54→21:25)
[2017-01-05] MEDS: amLODIPine BESYLATE 5 MG TABLET (FP) PO SCH (09:54)
[2017-01-05] MEDS: APIXABAN 2.5 MG TABLET PO SCH ×2 (09:54→21:25)
[2017-01-05] MEDS: TIMOLOL 0.25% OPHTHALMIC SOL 5 ML BOTTLE OU SCH ×2 (09:55→21:25)
[2017-01-05] MEDS ORDERED: PT OWN MED DRAWER 7, Y5N ONE (21:13)
[2017-01-05] MEDS: DONEPEZIL HCL 10 MG TABLET (FP) PO SCH (21:25)
--- NOTE | 2017-01-05 22:26 | PN ---
Teaching Attending Note Name of Resident: Arpit Craig ATTENDING PHYSICIAN STATEMENT I saw and evaluated the patient. I reviewed the resident's note and discussed the case with the resident. I agree with the resident's findings and plan as documented. SUBJECTIVE: no new changes. OBJECTIVE: Vital Signs Temperature 98.5 F 01/05/17 18:00 Pulse Rate 63 01/05/17 18:00 Respiratory Rate 20 01/05/17 18:00 Blood Pressure 126/77 01/05/17 18:00 O2 Sat by Pulse Oximetry (%) 97 01/05/17 09:51 CBCD WBC 8.6 K/mm3 (4.0-10.0) 11/20/16 08:00 RBC 4.22 M/mm3 (4.00-5.60) 11/20/16 08:00 Hgb 12.6 GM/dL (11.7-16.9) 11/20/16 08:00 Hct 37.6 % (35.4-49) 11/20/16 08:00 MCV 89.2 fl (80-96) 11/20/16 08:00 MCHC 33.5 g/dl (32.0-35.9) 11/20/16 08:00 RDW 15.0 % (11.9-15.9) 11/20/16 08:00 Plt Count 181 K/MM3 (134-434) 11/20/16 08:00 MPV 8.9 fl (7.5-11.1) 11/20/16 08:00 CMP Sodium 139 mmol/L (136-145) 11/20/16 08:00 Potassium 4.1 mmol/L (3.5-5.1) 11/20/16 08:00 Chloride 104 mmol/L (98-107) 11/20/16 08:00 Carbon Dioxide 27 mmol/L (21-32) 11/20/16 08:00 Anion Gap 8 (8-16) 11/20/16 08:00 BUN 27 mg/dL (7-18) H 11/20/16 08:00 Creatinine 1.6 mg/dL (0.7-1.3) H 11/20/16 08:00 Creat Clearance w eGFR 42.35 (>60) 11/19/16 06:30 Random Glucose 104 mg/dL (74-106) 11/20/16 08:00 Calcium 8.5 mg/dL (8.5-10.1) 11/20/16 08:00 Total Bilirubin 0.6 mg/dL (0.2-1.0) D 11/19/16 06:30 AST 15 U/L (15-37) D 11/19/16 06:30 ALT 19 U/L (12-78) D 11/19/16 06:30 Alkaline Phosphatase 68 U/L (45-117) 11/19/16 06:30 Total Protein 6.5 g/dl (6.4-8.2) 11/19/16 06:30 Albumin 3.3 g/dl (3.4-5.0) L 11/19/16 06:30 CARDIAC ENZYMES Creatine Kinase 88 IU/L (39-308) 10/31/16 06:00 Troponin I < 0.02 ng/ml (0.00-0.05) 10/28/16 20:30 Current Medications Generic Name Dose Route Start Last Admin Trade Name Mona PRN Reason Stop Dose Admin Amlodipine Besylate 5 mg 11/25/16 10:00 01/05/17 09:54 Norvasc - PO 5 mg DAILY SAVI Administration Apixaban 2.5 mg 11/22/16 10:00 01/05/17 21:25 Eliquis - PO 2.5 mg BID SAVI Administration Donepezil HCl 10 mg 11/20/16 21:00 01/05/17 21:25 Aricept - PO 10 mg DAILY@2100 SAVI Administration Memantine 10 mg 12/18/16 14:04 01/05/17 21:25 Namenda - PO 10 mg BID SAVI Administration Timolol Maleate 1 drop 11/01/16 10:00 01/05/17 21:25 Timoptic 0.25% OU 1 drop BID SAVI Administration Home Medications Medication Instructions Recorded Amlodipine Besylate [Norvasc -] 2.5 mg PO DAILY 10/28/16 Apixaban [Eliquis -] 5 mg PO DAILY 10/28/16 Furosemide [Lasix -] 20 mg PO DAILY 10/28/16 Memantine HCl [Namenda -] 5 mg PO DAILY 10/28/16 Timolol 0.25% [Timoptic 0.25%] 0 ml OU BID 10/28/16 ASSESSMENT AND PLAN: 76 y/o man with h/o HTN, dementia , and recent DVT ( in Jun, not on AC at presentation ) , who was brought by Police after being found wandering # Advanced dementia : cont aricept and namenda # CKD: stable Cr # R popliteal DVT: cont eliquis x 3 months ( starting November 01 ) # HTN : cont norvasc . Stable BP pending placement , social media marketing specialist on the case.
[2017-01-06] MEDS: APIXABAN 2.5 MG TABLET PO SCH ×2 (09:10→21:29)
[2017-01-06] MEDS: amLODIPine BESYLATE 5 MG TABLET (FP) PO SCH (09:10)
[2017-01-06] MEDS: TIMOLOL 0.25% OPHTHALMIC SOL 5 ML BOTTLE OU SCH ×2 (09:10→21:30)
[2017-01-06] MEDS: MEMANTINE HCL 5 MG TABLET (UD) PO SCH ×2 (09:10→21:29)
--- NOTE | 2017-01-06 12:48 | PN ---
Physical Exam: SUBJECTIVE: Patient seen and examined at bedside. No acute events overnight. No complaints at this time. OBJECTIVE: Vital Signs Period Temp Pulse Resp BP Sys/[place] Pulse Ox Last 24 Hr 97.4 F-98.7 F 50-66 18-20 120-126/62-77 96-98 GENERAL: The patient is awake, alert, and fully oriented, in no acute distress. HEAD: Normal with no signs of trauma. EYES: PERRL, extraocular movements intact, sclera anicteric, conjunctiva clear. No ptosis. ENT: Ears normal, nares patent, oropharynx clear without exudates, moist mucous membranes. NECK: Trachea midline, full range of motion, supple. LUNGS: Breath sounds equal, clear to auscultation bilaterally, no wheezes, no crackles, no accessory muscle use. HEART: Regular rate and rhythm, S1, S2 without murmur, rub or gallop. ABDOMEN: Soft, nontender, nondistended, normoactive bowel sounds, no guarding, no rebound, no hepatosplenomegaly, no masses. EXTREMITIES: 2+ pulses, warm, well-perfused, no edema. NEUROLOGICAL: Cranial nerves II through XII grossly intact. Normal speech, gait not observed. PSYCH: Normal mood, normal affect. SKIN: Warm, dry, normal turgor, no rashes or lesions noted Active Medications Generic Name Dose Route Start Last Admin Trade Name Freq PRN Reason Stop Dose Admin Amlodipine Besylate 5 mg 11/25/16 10:00 01/06/17 09:10 Norvasc - PO 5 mg DAILY SAVI Administration Apixaban 2.5 mg 11/22/16 10:00 01/06/17 09:10 Eliquis - PO 2.5 mg BID SAVI Administration Donepezil HCl 10 mg 11/20/16 21:00 01/05/17 21:25 Aricept - PO 10 mg DAILY@2100 SAVI Administration Memantine 10 mg 12/18/16 14:04 01/06/17 09:10 Namenda - PO 10 mg BID SAVI Administration Timolol Maleate 1 drop 11/01/16 10:00 01/06/17 09:10 Timoptic 0.25% OU 1 drop BID SAVI Administration ASSESSMENT/PLAN: This is a 76 yo Man with PMHx right lower ext DVT and Alzheimer Disease who was brought to the ED by EMS for AMS. 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 Plan unchanged from previous. Still waiting for placement. Pt is still stable. #Dizziness: Resolved -Donepezil 10mg HS -Fall precautions #Confusion 2/2 Alzheimers -Memantine 10mg PO BID, Donepezil 10mg HS, per Neuro #Right popliteal DVT -Eliquis 2.5mg PO BID, for 3-6 months from 11/01/16 #MAX with uncertain CKD -Database Support 1.6 (11/20/16) stable -Avoid nephrotoxic Rx -f/u with Nephro on D/C #HTN - Controlled -Norvasc 2.5mg Daily #HLD -Diet controlled -Monitor out pt #Glaucoma -Timolol .25% BID #FEN -No IVF -lytes within normal limits -Chol/Fat/Sodium restricted diet #Prophylaxis -DVT: pt on Eliquis -GI: not indicated #Full Code #Dispo: Admit to med-surg. rotary shear worker helper involved. Pending placement Arpit Craig MD PGY-1 Visit type - Emergency Visit Emergency Visit: No - New Patient This patient is new to me today: No - Critical Care Critical Care patient: No - Discharge Referral Referred to [facility] Med P.C.: No
--- NOTE | 2017-01-06 14:04 | PN ---
Teaching Attending Note Name of Resident: Arpit Craig ATTENDING PHYSICIAN STATEMENT I saw and evaluated the patient. I reviewed the resident's note and discussed the case with the resident. I agree with the resident's findings and plan as documented. SUBJECTIVE: COMFORTABLE . NO NEW CHANGES. OBJECTIVE: Vital Signs Temperature 98.6 F 01/06/17 13:52 Pulse Rate 61 01/06/17 13:52 Respiratory Rate 20 01/06/17 13:52 Blood Pressure 126/62 01/06/17 13:52 O2 Sat by Pulse Oximetry (%) 98 01/06/17 09:10 CBCD WBC 8.6 K/mm3 (4.0-10.0) 11/20/16 08:00 RBC 4.22 M/mm3 (4.00-5.60) 11/20/16 08:00 Hgb 12.6 GM/dL (11.7-16.9) 11/20/16 08:00 Hct 37.6 % (35.4-49) 11/20/16 08:00 MCV 89.2 fl (80-96) 11/20/16 08:00 MCHC 33.5 g/dl (32.0-35.9) 11/20/16 08:00 RDW 15.0 % (11.9-15.9) 11/20/16 08:00 Plt Count 181 K/MM3 (134-434) 11/20/16 08:00 MPV 8.9 fl (7.5-11.1) 11/20/16 08:00 CMP Sodium 139 mmol/L (136-145) 11/20/16 08:00 Potassium 4.1 mmol/L (3.5-5.1) 11/20/16 08:00 Chloride 104 mmol/L (98-107) 11/20/16 08:00 Carbon Dioxide 27 mmol/L (21-32) 11/20/16 08:00 Anion Gap 8 (8-16) 11/20/16 08:00 BUN 27 mg/dL (7-18) H 11/20/16 08:00 Creatinine 1.6 mg/dL (0.7-1.3) H 11/20/16 08:00 Creat Clearance w eGFR 42.35 (>60) 11/19/16 06:30 Random Glucose 104 mg/dL (74-106) 11/20/16 08:00 Calcium 8.5 mg/dL (8.5-10.1) 11/20/16 08:00 Total Bilirubin 0.6 mg/dL (0.2-1.0) D 11/19/16 06:30 AST 15 U/L (15-37) D 11/19/16 06:30 ALT 19 U/L (12-78) D 11/19/16 06:30 Alkaline Phosphatase 68 U/L (45-117) 11/19/16 06:30 Total Protein 6.5 g/dl (6.4-8.2) 11/19/16 06:30 Albumin 3.3 g/dl (3.4-5.0) L 11/19/16 06:30 CARDIAC ENZYMES Creatine Kinase 88 IU/L (39-308) 10/31/16 06:00 Troponin I < 0.02 ng/ml (0.00-0.05) 10/28/16 20:30 Current Medications Generic Name Dose Route Start Last Admin Trade Name Mona PRN Reason Stop Dose Admin Amlodipine Besylate 5 mg 11/25/16 10:00 01/06/17 09:10 Norvasc - PO 5 mg DAILY SAVI Administration Apixaban 2.5 mg 11/22/16 10:00 01/06/17 09:10 Eliquis - PO 2.5 mg BID SAVI Administration Donepezil HCl 10 mg 11/20/16 21:00 01/05/17 21:25 Aricept - PO 10 mg DAILY@2100 SAVI Administration Memantine 10 mg 12/18/16 14:04 01/06/17 09:10 Namenda - PO 10 mg BID SAVI Administration Timolol Maleate 1 drop 11/01/16 10:00 01/06/17 09:10 Timoptic 0.25% OU 1 drop BID SAVI Administration PE: PER RESIDENT'S NOTE ASSESSMENT AND PLAN: 76 y/o man with h/o HTN, dementia , and recent DVT ( in Jun, not on AC at presentation ) , who was brought by Police after being found wandering # Advanced dementia : cont aricept and namenda # CKD: stable Creatinine # Right popliteal DVT: cont eliquis x 3 months ( starting November 01 ) # HTN : cont norvasc . Stable BP pending placement , social work msw on the case.
[2017-01-06] MEDS ORDERED: PT OWN MED DRAWER 7, Y5N ONE (21:27)
[2017-01-06] MEDS: DONEPEZIL HCL 10 MG TABLET (FP) PO SCH (21:29)
[2017-01-07] MEDS: MEMANTINE HCL 5 MG TABLET (UD) PO SCH ×2 (10:42→21:15)
[2017-01-07] MEDS: TIMOLOL 0.25% OPHTHALMIC SOL 5 ML BOTTLE OU SCH ×2 (10:42→21:16)
[2017-01-07] MEDS: amLODIPine BESYLATE 5 MG TABLET (FP) PO SCH ×2 (10:43→15:19)
[2017-01-07] MEDS: APIXABAN 2.5 MG TABLET PO SCH ×2 (10:43→21:15)
[2017-01-07] MEDS ORDERED: amLODIPine BESYLATE 2.5 MG TABLET (FP) PO SCH (14:07)
--- NOTE | 2017-01-07 18:38 | PN ---
Physical Exam: SUBJECTIVE: Patient seen and examined at bedside. No acute events overnight. No complaints at this time. OBJECTIVE: Vital Signs Period Temp Pulse Resp BP Sys/[place] Pulse Ox Last 24 Hr 98.2 F-98.8 F 54-65 18-20 113-142/63-91 GENERAL: The patient is awake, alert, and fully oriented, in no acute distress. HEAD: Normal with no signs of trauma. EYES: PERRL, extraocular movements intact, sclera anicteric, conjunctiva clear. No ptosis. ENT: Ears normal, nares patent, oropharynx clear without exudates, moist mucous membranes. NECK: Trachea midline, full range of motion, supple. LUNGS: Breath sounds equal, clear to auscultation bilaterally, no wheezes, no crackles, no accessory muscle use. HEART: Regular rate and rhythm, S1, S2 without murmur, rub or gallop. ABDOMEN: Soft, nontender, nondistended, normoactive bowel sounds, no guarding, no rebound, no hepatosplenomegaly, no masses. EXTREMITIES: 2+ pulses, warm, well-perfused, no edema. NEUROLOGICAL: Cranial nerves II through XII grossly intact. Normal speech, gait not observed. PSYCH: Normal mood, normal affect. SKIN: Warm, dry, normal turgor, no rashes or lesions noted Active Medications Generic Name Dose Route Start Last Admin Trade Name Freq PRN Reason Stop Dose Admin Amlodipine Besylate 5 mg 01/07/17 15:00 01/07/17 15:19 Norvasc - PO 5 mg DAILY SAVI Administration Apixaban 2.5 mg 11/22/16 10:00 01/07/17 10:43 Eliquis - PO 2.5 mg BID SAVI Administration Donepezil HCl 10 mg 11/20/16 21:00 01/06/17 21:29 Aricept - PO 10 mg DAILY@2100 SAVI Administration Memantine 10 mg 12/18/16 14:04 01/07/17 10:42 Namenda - PO 10 mg BID SAVI Administration Timolol Maleate 1 drop 11/01/16 10:00 01/07/17 10:42 Timoptic 0.25% OU 1 drop BID SAVI Administration ASSESSMENT/PLAN: This is a 76 yo Man with PMHx right lower ext DVT and Alzheimer Disease who was brought to the ED by EMS for AMS. 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 Plan unchanged from previous. Still waiting for placement. Pt is still stable. #Dizziness: Resolved -Donepezil 10mg HS -Fall precautions #Confusion 2/2 Alzheimers -Memantine 10mg PO BID, Donepezil 10mg HS, per Neuro #Right popliteal DVT -Eliquis 2.5mg PO BID, for 3-6 months from 11/01/16 #MAX with uncertain CKD -Neurosurgeon 1.6 (11/20/16) stable -Avoid nephrotoxic Rx -f/u with Nephro on D/C #HTN - Controlled -Norvasc 2.5mg Daily #HLD -Diet controlled -Monitor out pt #Glaucoma -Timolol .25% BID #FEN -No IVF -lytes within normal limits -Chol/Fat/Sodium restricted diet #Prophylaxis -DVT: pt on Eliquis -GI: not indicated #Full Code #Dispo: Admit to med-surg. supervisor fur floor worker involved. Pending placement Arpit Craig MD PGY-1 Visit type - Emergency Visit Emergency Visit: No - New Patient This patient is new to me today: No - Critical Care Critical Care patient: No - Discharge Referral Referred to [facility] Med P.C.: No
--- NOTE | 2017-01-07 20:07 | PN ---
Teaching Attending Note Name of Resident: Arpit Craig ATTENDING PHYSICIAN STATEMENT I saw and evaluated the patient. I reviewed the resident's note and discussed the case with the resident. I agree with the resident's findings and plan as documented. Vital Signs Temperature 98.6 F 01/07/17 18:26 Pulse Rate 61 01/07/17 18:26 Respiratory Rate 18 01/07/17 18:26 Blood Pressure 134/63 01/07/17 18:26 O2 Sat by Pulse Oximetry (%) 98 01/06/17 09:10 Current Medications Generic Name Dose Route Start Last Admin Trade Name Mona PRN Reason Stop Dose Admin Amlodipine Besylate 5 mg 01/07/17 15:00 01/07/17 15:19 Norvasc - PO 5 mg DAILY SAVI Administration Apixaban 2.5 mg 11/22/16 10:00 01/07/17 10:43 Eliquis - PO 2.5 mg BID SAVI Administration Donepezil HCl 10 mg 11/20/16 21:00 01/06/17 21:29 Aricept - PO 10 mg DAILY@2100 SAVI Administration Memantine 10 mg 12/18/16 14:04 01/07/17 10:42 Namenda - PO 10 mg BID SAVI Administration Timolol Maleate 1 drop 11/01/16 10:00 01/07/17 10:42 Timoptic 0.25% OU 1 drop BID SAVI Administration PE: PER RESIDENT'S NOTE ASSESSMENT AND PLAN: 76 y/o man with h/o HTN, dementia , and recent DVT ( in Jun, not on AC at presentation ) , who was brought by Police after being found wandering # Advanced dementia : cont aricept and namenda # CKD: stable Creatinine # Right popliteal DVT: cont eliquis x 3 months ( starting November 01 ) # HTN : cont norvasc . Stable BP pending placement , social media intern on the case.
[2017-01-07] MEDS ORDERED: PT OWN MED DRAWER 7, Y5N ONE (20:22)
[2017-01-07] MEDS: DONEPEZIL HCL 10 MG TABLET (FP) PO SCH (21:14)
[2017-01-08] MEDS ORDERED: PT OWN MED DRAWER 7, Y5N ONE ×2 (09:40→20:45)
[2017-01-08] MEDS: APIXABAN 2.5 MG TABLET PO SCH ×2 (09:44→21:15)
[2017-01-08] MEDS: MEMANTINE HCL 5 MG TABLET (UD) PO SCH ×2 (09:44→21:15)
[2017-01-08] MEDS: amLODIPine BESYLATE 5 MG TABLET (FP) PO SCH (09:46)
[2017-01-08] MEDS: TIMOLOL 0.25% OPHTHALMIC SOL 5 ML BOTTLE OU SCH ×2 (09:46→21:16)
--- NOTE | 2017-01-08 11:41 | PN ---
Physical Exam: SUBJECTIVE: Patient seen and examined at bedside. No acute events overnight. No complaints at this time. OBJECTIVE: Vital Signs Period Temp Pulse Resp BP Sys/[place] Pulse Ox Last 24 Hr 97.9 F-98.8 F 60-68 18-20 134-156/63-88 GENERAL: The patient is awake, alert, and fully oriented, in no acute distress. HEAD: Normal with no signs of trauma. EYES: PERRL, extraocular movements intact, sclera anicteric, conjunctiva clear. No ptosis. ENT: Ears normal, nares patent, oropharynx clear without exudates, moist mucous membranes. NECK: Trachea midline, full range of motion, supple. LUNGS: Breath sounds equal, clear to auscultation bilaterally, no wheezes, no crackles, no accessory muscle use. HEART: Regular rate and rhythm, S1, S2 without murmur, rub or gallop. ABDOMEN: Soft, nontender, nondistended, normoactive bowel sounds, no guarding, no rebound, no hepatosplenomegaly, no masses. EXTREMITIES: 2+ pulses, warm, well-perfused, no edema. NEUROLOGICAL: Cranial nerves II through XII grossly intact. Normal speech, gait not observed. PSYCH: Normal mood, normal affect. SKIN: Warm, dry, normal turgor, no rashes or lesions noted Active Medications Generic Name Dose Route Start Last Admin Trade Name Emigdioq PRN Reason Stop Dose Admin Amlodipine Besylate 5 mg 01/07/17 15:00 01/08/17 09:46 Norvasc - PO 5 mg DAILY SAVI Administration Apixaban 2.5 mg 11/22/16 10:00 01/08/17 09:44 Eliquis - PO 2.5 mg BID SAVI Administration Donepezil HCl 10 mg 11/20/16 21:00 01/07/17 21:14 Aricept - PO 10 mg DAILY@2100 SAVI Administration Memantine 10 mg 12/18/16 14:04 01/08/17 09:44 Namenda - PO 10 mg BID SAVI Administration Timolol Maleate 1 drop 11/01/16 10:00 01/08/17 09:46 Timoptic 0.25% OU 1 drop BID SAVI Administration ASSESSMENT/PLAN: This is a 76 yo Man with PMHx right lower ext DVT and Alzheimer Disease who was brought to the ED by EMS for AMS. 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 Plan unchanged from previous. Still waiting for placement. Pt is still stable. #Dizziness: Resolved -Donepezil 10mg HS -Fall precautions #Confusion 2/2 Alzheimers -Memantine 10mg PO BID, Donepezil 10mg HS, per Neuro #Right popliteal DVT -Eliquis 2.5mg PO BID, for 3-6 months from 11/01/16 #MAX with uncertain CKD -Valve And Regulator Repairer 1.6 (11/20/16) stable -Avoid nephrotoxic Rx -f/u with Nephro on D/C #HTN - Controlled -Norvasc 2.5mg Daily #HLD -Diet controlled -Monitor out pt #Glaucoma -Timolol .25% BID #FEN -No IVF -lytes within normal limits -Chol/Fat/Sodium restricted diet #Prophylaxis -DVT: pt on Eliquis -GI: not indicated #Full Code #Dispo: Admit to med-surg. loft worker apprentice involved. Pending placement Arpit Craig MD PGY-1 Visit type - Emergency Visit Emergency Visit: No - New Patient This patient is new to me today: No - Critical Care Critical Care patient: No - Discharge Referral Referred to [facility] Med P.C.: No
--- NOTE | 2017-01-08 16:14 | PN ---
Teaching Attending Note Name of Resident: Arpit Craig ATTENDING PHYSICIAN STATEMENT I saw and evaluated the patient. I reviewed the resident's note and discussed the case with the resident. I agree with the resident's findings and plan as documented. SUBJECTIVE: Comfortable with no acute distress. OBJECTIVE: Vital Signs Temperature 98.5 F 01/08/17 13:30 Pulse Rate 63 01/08/17 13:30 Respiratory Rate 20 01/08/17 13:30 Blood Pressure 133/67 01/08/17 13:30 O2 Sat by Pulse Oximetry (%) 98 01/08/17 09:00 CBCD WBC 8.6 K/mm3 (4.0-10.0) 11/20/16 08:00 RBC 4.22 M/mm3 (4.00-5.60) 11/20/16 08:00 Hgb 12.6 GM/dL (11.7-16.9) 11/20/16 08:00 Hct 37.6 % (35.4-49) 11/20/16 08:00 MCV 89.2 fl (80-96) 11/20/16 08:00 MCHC 33.5 g/dl (32.0-35.9) 11/20/16 08:00 RDW 15.0 % (11.9-15.9) 11/20/16 08:00 Plt Count 181 K/MM3 (134-434) 11/20/16 08:00 MPV 8.9 fl (7.5-11.1) 11/20/16 08:00 CMP Sodium 139 mmol/L (136-145) 11/20/16 08:00 Potassium 4.1 mmol/L (3.5-5.1) 11/20/16 08:00 Chloride 104 mmol/L (98-107) 11/20/16 08:00 Carbon Dioxide 27 mmol/L (21-32) 11/20/16 08:00 Anion Gap 8 (8-16) 11/20/16 08:00 BUN 27 mg/dL (7-18) H 11/20/16 08:00 Creatinine 1.6 mg/dL (0.7-1.3) H 11/20/16 08:00 Creat Clearance w eGFR 42.35 (>60) 11/19/16 06:30 Random Glucose 104 mg/dL (74-106) 11/20/16 08:00 Calcium 8.5 mg/dL (8.5-10.1) 11/20/16 08:00 Total Bilirubin 0.6 mg/dL (0.2-1.0) D 11/19/16 06:30 AST 15 U/L (15-37) D 11/19/16 06:30 ALT 19 U/L (12-78) D 11/19/16 06:30 Alkaline Phosphatase 68 U/L (45-117) 11/19/16 06:30 Total Protein 6.5 g/dl (6.4-8.2) 11/19/16 06:30 Albumin 3.3 g/dl (3.4-5.0) L 11/19/16 06:30 CARDIAC ENZYMES Creatine Kinase 88 IU/L (39-308) 10/31/16 06:00 Troponin I < 0.02 ng/ml (0.00-0.05) 10/28/16 20:30 Current Medications Generic Name Dose Route Start Last Admin Trade Name Mona PRN Reason Stop Dose Admin Amlodipine Besylate 5 mg 01/07/17 15:00 01/08/17 09:46 Norvasc - PO 5 mg DAILY SAVI Administration Apixaban 2.5 mg 11/22/16 10:00 01/08/17 09:44 Eliquis - PO 2.5 mg BID SAVI Administration Donepezil HCl 10 mg 11/20/16 21:00 01/07/17 21:14 Aricept - PO 10 mg DAILY@2100 SAVI Administration Memantine 10 mg 12/18/16 14:04 01/08/17 09:44 Namenda - PO 10 mg BID SAVI Administration Timolol Maleate 1 drop 11/01/16 10:00 01/08/17 09:46 Timoptic 0.25% OU 1 drop BID SAVI Administration Home Medications Medication Instructions Recorded Amlodipine Besylate [Norvasc -] 2.5 mg PO DAILY 10/28/16 Apixaban [Eliquis -] 5 mg PO DAILY 10/28/16 Furosemide [Lasix -] 20 mg PO DAILY 10/28/16 Memantine HCl [Namenda -] 5 mg PO DAILY 10/28/16 Timolol 0.25% [Timoptic 0.25%] 0 ml OU BID 10/28/16 ASSESSMENT AND PLAN: 76 y/o man with h/o HTN, dementia , and recent DVT ( in Jun, not on AC at presentation ) , who was brought by Police after being found wandering # Advanced dementia : cont aricept and namenda # CKD: stable Creatinine # Right popliteal DVT: cont eliquis x 3 months ( starting November 01 ) # HTN : cont norvasc . Stable BP pending placement , manager social responsibility on the case.
[2017-01-08] MEDS: DONEPEZIL HCL 10 MG TABLET (FP) PO SCH (21:16)
[2017-01-09] MEDS: TIMOLOL 0.25% OPHTHALMIC SOL 5 ML BOTTLE OU SCH ×2 (12:06→22:05)
[2017-01-09] MEDS: MEMANTINE HCL 5 MG TABLET (UD) PO SCH ×2 (12:08→22:04)
[2017-01-09] MEDS: APIXABAN 2.5 MG TABLET PO SCH ×2 (12:08→22:05)
[2017-01-09] MEDS: amLODIPine BESYLATE 5 MG TABLET (FP) PO SCH (12:09)
--- NOTE | 2017-01-09 16:16 | PN ---
Teaching Attending Note Name of Resident: Arpit Craig ATTENDING PHYSICIAN STATEMENT I saw and evaluated the patient. I reviewed the resident's note and discussed the case with the resident. I agree with the resident's findings and plan as documented. SUBJECTIVE: no pain or SOB OBJECTIVE: awake , alert , gait NL , NAD . MMM, no facial droop CTAB Cv : RRR Assessment/Plan: 76 y/o man with h/o HTN, dementia , and recent DVT ( in Jun, not on AC at presentation ) , who was brought by Police after being found wandering 1- Advanced dementia : - cont aricept and namenda 2- CKD: stable Cr 3- R popliteal DVT: cont eliquis x 3 months ( starting November 01 ) 4- HTN : cont norvasc . Stable BP pending placement
--- NOTE | 2017-01-09 18:26 | PN ---
Physical Exam: SUBJECTIVE: Patient seen and examined at bedside. No acute events overnight. No complaints at this time OBJECTIVE: Vital Signs Period Temp Pulse Resp BP Sys/[place] Pulse Ox Last 24 Hr 98 F-98.4 F 58-66 18-20 122-142/64-74 98 GENERAL: The patient is awake, alert, and fully oriented, in no acute distress. HEAD: Normal with no signs of trauma. EYES: PERRL, extraocular movements intact, sclera anicteric, conjunctiva clear. No ptosis. ENT: Ears normal, nares patent, oropharynx clear without exudates, moist mucous membranes. NECK: Trachea midline, full range of motion, supple. LUNGS: Breath sounds equal, clear to auscultation bilaterally, no wheezes, no crackles, no accessory muscle use. HEART: Regular rate and rhythm, S1, S2 without murmur, rub or gallop. ABDOMEN: Soft, nontender, nondistended, normoactive bowel sounds, no guarding, no rebound, no hepatosplenomegaly, no masses. EXTREMITIES: 2+ pulses, warm, well-perfused, no edema. NEUROLOGICAL: Cranial nerves II through XII grossly intact. Normal speech, gait not observed. PSYCH: Normal mood, normal affect. SKIN: Warm, dry, normal turgor, no rashes or lesions noted Active Medications Generic Name Dose Route Start Last Admin Trade Name Emigdioq PRN Reason Stop Dose Admin Amlodipine Besylate 5 mg 01/07/17 15:00 01/09/17 12:09 Norvasc - PO 5 mg DAILY SAVI Administration Apixaban 2.5 mg 11/22/16 10:00 01/09/17 12:08 Eliquis - PO 2.5 mg BID SAVI Administration Donepezil HCl 10 mg 11/20/16 21:00 01/08/17 21:16 Aricept - PO 10 mg DAILY@2100 SAVI Administration Memantine 10 mg 12/18/16 14:04 01/09/17 12:08 Namenda - PO 10 mg BID SAVI Administration Timolol Maleate 1 drop 11/01/16 10:00 01/09/17 12:06 Timoptic 0.25% OU 1 drop BID SAVI Administration ASSESSMENT/PLAN: This is a 76 yo Man with PMHx right lower ext DVT and Alzheimer Disease who was brought to the ED by EMS for AMS. 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 Plan unchanged from previous. Still waiting for placement. Pt is still stable. #Dizziness: Resolved -Donepezil 10mg HS -Fall precautions #Confusion 2/2 Alzheimers -Memantine 10mg PO BID, Donepezil 10mg HS, per Neuro #Right popliteal DVT -Eliquis 2.5mg PO BID, for 3-6 months from 11/01/16 #MAX with uncertain CKD -Broker Associate 1.6 (11/20/16) stable -Avoid nephrotoxic Rx -f/u with Nephro on D/C #HTN - Controlled -Norvasc 2.5mg Daily #HLD -Diet controlled -Monitor out pt #Glaucoma -Timolol .25% BID #FEN -No IVF -lytes within normal limits -Chol/Fat/Sodium restricted diet #Prophylaxis -DVT: pt on Eliquis -GI: not indicated #Full Code #Dispo: Admit to med-surg. collision worker involved. Pending placement Arpit Craig MD PGY-1 Visit type - Emergency Visit Emergency Visit: No - New Patient This patient is new to me today: No - Critical Care Critical Care patient: No - Discharge Referral Referred to [facility] Med P.C.: No
[2017-01-09] MEDS: DONEPEZIL HCL 10 MG TABLET (FP) PO SCH (21:05)
[2017-01-09] MEDS ORDERED: PT OWN MED DRAWER 7, Y5N ONE ×2 (21:36→21:39)
[2017-01-10] MEDS ORDERED: PT OWN MED DRAWER 7, Y5N ONE ×5 (06:21→20:33)
[2017-01-10] MEDS: APIXABAN 2.5 MG TABLET PO SCH ×2 (09:01→21:10)
[2017-01-10] MEDS: amLODIPine BESYLATE 5 MG TABLET (FP) PO SCH (09:01)
[2017-01-10] MEDS: MEMANTINE HCL 5 MG TABLET (UD) PO SCH ×2 (09:01→21:10)
[2017-01-10] MEDS: TIMOLOL 0.25% OPHTHALMIC SOL 5 ML BOTTLE OU SCH ×2 (09:02→21:11)
--- NOTE | 2017-01-10 13:53 | PN ---
Teaching Attending Note Name of Resident: Arpit Craig ATTENDING PHYSICIAN STATEMENT I saw and evaluated the patient. I reviewed the resident's note and discussed the case with the resident. I agree with the resident's findings and plan as documented. SUBJECTIVE: No fever or chills. Has no abd pain. OBJECTIVE: awake , alert , gait NL , NAD . MMM, no facial droop CTAB Cv : RRR Assessment/Plan: 76 y/o man with h/o HTN, dementia , and recent DVT ( in Jun, not on AC at presentation ) , who was brought by Police after being found wandering 1- Advanced dementia : - cont aricept and namenda 2- CKD: - repeat renal function 3- R popliteal DVT: cont eliquis x 3 months ( starting November 01 ) 4- HTN : cont norvasc . Stable BP pending placement
--- NOTE | 2017-01-10 15:52 | PN ---
Physical Exam: SUBJECTIVE: Patient seen and examined at bedside. No acute events overnight. No complaints at this time OBJECTIVE: Vital Signs Period Temp Pulse Resp BP Sys/[place] Pulse Ox Last 24 Hr 98 F-98.6 F 63-68 20-20 112-141/69-87 98-98 GENERAL: The patient is awake, alert, and fully oriented, in no acute distress. HEAD: Normal with no signs of trauma. EYES: PERRL, extraocular movements intact, sclera anicteric, conjunctiva clear. No ptosis. ENT: Ears normal, nares patent, oropharynx clear without exudates, moist mucous membranes. NECK: Trachea midline, full range of motion, supple. LUNGS: Breath sounds equal, clear to auscultation bilaterally, no wheezes, no crackles, no accessory muscle use. HEART: Regular rate and rhythm, S1, S2 without murmur, rub or gallop. ABDOMEN: Soft, nontender, nondistended, normoactive bowel sounds, no guarding, no rebound, no hepatosplenomegaly, no masses. EXTREMITIES: 2+ pulses, warm, well-perfused, no edema. NEUROLOGICAL: Cranial nerves II through XII grossly intact. Normal speech, gait not observed. PSYCH: Normal mood, normal affect. SKIN: Warm, dry, normal turgor, no rashes or lesions noted Active Medications Generic Name Dose Route Start Last Admin Trade Name Freq PRN Reason Stop Dose Admin Amlodipine Besylate 5 mg 01/07/17 15:00 01/10/17 09:01 Norvasc - PO 5 mg DAILY SAVI Administration Apixaban 2.5 mg 11/22/16 10:00 01/10/17 09:01 Eliquis - PO 2.5 mg BID SAVI Administration Donepezil HCl 10 mg 11/20/16 21:00 01/09/17 21:05 Aricept - PO 10 mg DAILY@2100 SAVI Administration Memantine 10 mg 12/18/16 14:04 01/10/17 09:01 Namenda - PO 10 mg BID SAVI Administration Timolol Maleate 1 drop 11/01/16 10:00 01/10/17 09:02 Timoptic 0.25% OU 1 drop BID SAVI Administration ASSESSMENT/PLAN: This is a 76 yo Man with PMHx right lower ext DVT and Alzheimer Disease who was brought to the ED by EMS for AMS. 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 Plan unchanged from previous. Still waiting for placement. Pt is still stable. 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 child protective services social worker involved. Pending placement Arpit Craig MD PGY-1 Visit type - Emergency Visit Emergency Visit: No - New Patient This patient is new to me today: No - Critical Care Critical Care patient: No - Discharge Referral Referred to [facility] Med P.[facility] No
[2017-01-10] MEDS: DONEPEZIL HCL 10 MG TABLET (FP) PO SCH (21:10)
[2017-01-11] MEDS ORDERED: PT OWN MED DRAWER 7, Y5N ONE ×2 (10:38→20:41)
[2017-01-11] MEDS: MEMANTINE HCL 5 MG TABLET (UD) PO SCH ×2 (10:43→21:02)
[2017-01-11] MEDS: amLODIPine BESYLATE 5 MG TABLET (FP) PO SCH (10:43)
[2017-01-11] MEDS: APIXABAN 2.5 MG TABLET PO SCH ×2 (10:43→21:03)
[2017-01-11] MEDS: TIMOLOL 0.25% OPHTHALMIC SOL 5 ML BOTTLE OU SCH ×2 (10:47→21:03)
--- NOTE | 2017-01-11 13:50 | PN ---
Teaching Attending Note Name of Resident: Arpit Craig ATTENDING PHYSICIAN STATEMENT I saw and evaluated the patient. I reviewed the resident's note and discussed the case with the resident. I agree with the resident's findings and plan as documented. SUBJECTIVE: no complaints OBJECTIVE: awake , alert , gait NL , NAD . MMM, no facial droop Assessment/Plan: 76 y/o man with h/o HTN, dementia , and recent DVT ( in Jun, not on AC at presentation ) , who was brought by Police after being found wandering 1- Advanced dementia : - cont aricept and namenda 2- CKD: - repeat renal function today 3- R popliteal DVT: cont eliquis x 3 months ( starting November 01 ) 4- HTN : cont norvasc . Stable BP pending placement
--- NOTE | 2017-01-11 19:30 | PN ---
Physical Exam: SUBJECTIVE: Patient seen and examined at bedside. No acute events overnight. No complaints at this time OBJECTIVE: Vital Signs Period Temp Pulse Resp BP Sys/[place] Pulse Ox Last 24 Hr 98.1 F-99.3 F 61-65 18-20 131-158/67-81 97-97 GENERAL: The patient is awake, alert, and fully oriented, in no acute distress. HEAD: Normal with no signs of trauma. EYES: PERRL, extraocular movements intact, sclera anicteric, conjunctiva clear. No ptosis. ENT: Ears normal, nares patent, oropharynx clear without exudates, moist mucous membranes. NECK: Trachea midline, full range of motion, supple. LUNGS: Breath sounds equal, clear to auscultation bilaterally, no wheezes, no crackles, no accessory muscle use. HEART: Regular rate and rhythm, S1, S2 without murmur, rub or gallop. ABDOMEN: Soft, nontender, nondistended, normoactive bowel sounds, no guarding, no rebound, no hepatosplenomegaly, no masses. EXTREMITIES: 2+ pulses, warm, well-perfused, no edema. NEUROLOGICAL: Cranial nerves II through XII grossly intact. Normal speech, gait not observed. PSYCH: Normal mood, normal affect. SKIN: Warm, dry, normal turgor, no rashes or lesions noted Active Medications Generic Name Dose Route Start Last Admin Trade Name Freq PRN Reason Stop Dose Admin Amlodipine Besylate 5 mg 01/07/17 15:00 01/11/17 10:43 Norvasc - PO 5 mg DAILY SAVI Administration Apixaban 2.5 mg 11/22/16 10:00 01/11/17 10:43 Eliquis - PO 2.5 mg BID SAVI Administration Donepezil HCl 10 mg 11/20/16 21:00 01/10/17 21:10 Aricept - PO 10 mg DAILY@2100 SAVI Administration Memantine 10 mg 12/18/16 14:04 01/11/17 10:43 Namenda - PO 10 mg BID SAVI Administration Timolol Maleate 1 drop 11/01/16 10:00 01/11/17 10:47 Timoptic 0.25% OU 1 drop BID SAVI Administration ASSESSMENT/PLAN: This is a 76 yo Man with PMHx right lower ext DVT and Alzheimer Disease who was brought to the ED by EMS for AMS. 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 Plan unchanged from previous. Still waiting for placement. Pt is still stable. #Pt has not had renal function tested in over a month. Labs were ordered for today, but patient refused. 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 emery wheel worker involved. Pending placement Arpit Craig MD PGY-1 Visit type - Emergency Visit Emergency Visit: No - New Patient This patient is new to me today: No - Critical Care Critical Care patient: No - Discharge Referral Referred to [facility] Med P.C.: No
[2017-01-11] MEDS: DONEPEZIL HCL 10 MG TABLET (FP) PO SCH (21:02)
--- NOTE | 2017-01-12 09:36 | PN ---
Teaching Attending Note Name of Resident: Drea Gates ATTENDING PHYSICIAN STATEMENT I saw and evaluated the patient. I reviewed the resident's note and discussed the case with the resident. I agree with the resident's findings and plan as documented. SUBJECTIVE: no fever or chills. nopain. OBJECTIVE: awake , alert , NAD . MMM, no facial droop CV: RRR Lungs: CTAB Assessment/Plan: 76 y/o man with h/o HTN, dementia , and recent DVT ( in Jun, not on AC at presentation ) , who was brought by Police after being found wandering 1- Advanced dementia : - cont aricept and namenda 2- CKD: - refused BMP yesterday and cont to refuse today 3- R popliteal DVT: cont eliquis x 3 months ( starting November 01 ) 4- HTN : cont norvasc . Stable BP pending placement
[2017-01-12] MEDS ORDERED: PT OWN MED DRAWER 7, Y5N ONE ×2 (09:53→20:40)
[2017-01-12] MEDS: MEMANTINE HCL 5 MG TABLET (UD) PO SCH ×2 (10:12→21:47)
[2017-01-12] MEDS: amLODIPine BESYLATE 5 MG TABLET (FP) PO SCH (10:12)
[2017-01-12] MEDS: TIMOLOL 0.25% OPHTHALMIC SOL 5 ML BOTTLE OU SCH ×2 (10:12→21:47)
[2017-01-12] MEDS: APIXABAN 2.5 MG TABLET PO SCH ×2 (13:38→21:47)
[2017-01-12] MEDS: DONEPEZIL HCL 10 MG TABLET (FP) PO SCH (20:54)
--- NOTE | 2017-01-12 22:33 | PN ---
Physical Exam: SUBJECTIVE: Patient seen and examined by me at bedside. Patient offers no complaints. Denies fever, chills, nausea, vomiting, abdominal pain, chest pain, palpitations, shortness of breath, headaches, dizziness, diarrhea, constipation. OBJECTIVE: Vital Signs Period Temp Pulse Resp BP Sys/[place] Pulse Ox Last 24 Hr 97.8 F-98.6 F 61-64 18-20 121-149/67-84 97 GENERAL: The patient is awake, alert, and fully oriented, in no acute distress. LUNGS: CTA Bilaterally. No wheezes, crackles, or mumurs. HEART: Regular rate and rhythm, Normal S1 and S1, without murmur, rub or gallop. ABDOMEN: Soft, non-tender, non- distended. EXTREMITIES: No edema. Active Medications Generic Name Dose Route Start Last Admin Trade Name Emigdioq PRN Reason Stop Dose Admin Amlodipine Besylate 5 mg 01/07/17 15:00 01/12/17 10:12 Norvasc - PO 5 mg DAILY SAVI Administration Apixaban 2.5 mg 11/22/16 10:00 01/12/17 21:47 Eliquis - PO 2.5 mg BID SAVI Administration Donepezil HCl 10 mg 11/20/16 21:00 01/12/17 20:54 Aricept - PO 10 mg DAILY@2100 SAVI Administration Memantine 10 mg 12/18/16 14:04 01/12/17 21:47 Namenda - PO 10 mg BID SAVI Administration Timolol Maleate 1 drop 11/01/16 10:00 01/12/17 21:47 Timoptic 0.25% OU 1 drop BID SAVI Administration ASSESSMENT/PLAN: Patient is a 76 year old male with a PMHx of right lower extremity DVT and Alzheimers disease who was brought in by EMS for altered mental status and wandering in the streets. Patient reported dizziness, which had resolved. He was also found to be confused secondary to alzheimers disease for which he is taking Memantine 10mg BID and Donepezil 10mg HS. Patient was also found to have right popliteal DVT as well as MAX for which he is receiving Eliquis 2.5mg BID for minimum of 3-6 months (started 11/01/16). Patient has been stable and has been waiting for placement for over two months. Patient continues to ambulate at baseline. Patient has had no labwork since 11/20/16 and labs were ordered but patient refused. Will attempt to try again. Visit type - Emergency Visit Emergency Visit: Yes ED Registration Date: 10/28/16 Care time: The patient presented to the Emergency Department on the above date and was hospitalized for further evaluation of their emergent condition. - New Patient This patient is new to me today: Yes Date on this admission: 01/12/17 - Critical Care Critical Care patient: No
[2017-01-13] MEDS ORDERED: PT OWN MED DRAWER 7, Y5N ONE ×3 (10:16→20:52)
[2017-01-13] MEDS: MEMANTINE HCL 5 MG TABLET (UD) PO SCH ×2 (10:20→21:06)
[2017-01-13] MEDS: APIXABAN 2.5 MG TABLET PO SCH ×2 (10:20→21:06)
[2017-01-13] MEDS: amLODIPine BESYLATE 5 MG TABLET (FP) PO SCH (10:20)
[2017-01-13] MEDS: TIMOLOL 0.25% OPHTHALMIC SOL 5 ML BOTTLE OU SCH ×2 (10:21→21:07)
--- NOTE | 2017-01-13 15:12 | PN ---
Progress Note (short form) - Note Progress Note: Subjective: no pain . no SOB Objective: Vital Signs: Last Vital Signs Temp Pulse Resp BP Pulse Ox 98.7 F 62 20 134/72 97 01/13/17 13:54 01/13/17 13:54 01/13/17 13:54 01/13/17 13:54 01/13/17 09:00 Physical Exam: awake , alert , gait NL , NAD . MMM, no facial droop Assessment/Plan: 76 y/o man with h/o HTN, dementia , and recent DVT ( in Jun, not on AC at presentation ) , who was brought by Police after being found wandering 1- Advanced dementia : - cont aricept and namenda 2- CKD: stable Cr. refuses repeat w/u 3- R popliteal DVT: cont eliquis x 3 months ( starting November 01 ) 4- HTN : cont norvasc . Stable BP pending placement Visit type - Emergency Visit Emergency Visit: Yes ED Registration Date: 10/28/16 Care time: The patient presented to the Emergency Department on the above date and was hospitalized for further evaluation of their emergent condition. - New Patient This patient is new to me today: No - Critical Care Critical Care patient: No
[2017-01-13] MEDS: DONEPEZIL HCL 10 MG TABLET (FP) PO SCH (21:07)
[2017-01-14] MEDS ORDERED: PT OWN MED DRAWER 7, Y5N ONE (08:59)
[2017-01-14] MEDS: APIXABAN 2.5 MG TABLET PO SCH ×2 (09:55→21:45)
[2017-01-14] MEDS: MEMANTINE HCL 5 MG TABLET (UD) PO SCH ×2 (09:55→21:47)
[2017-01-14] MEDS: amLODIPine BESYLATE 5 MG TABLET (FP) PO SCH (09:56)
[2017-01-14] MEDS: TIMOLOL 0.25% OPHTHALMIC SOL 5 ML BOTTLE OU SCH ×2 (09:57→21:45)
--- NOTE | 2017-01-14 14:48 | PN ---
Physical Exam: SUBJECTIVE: Patient seen and examined at bedside. No acute events overnight. No complaints at this time. OBJECTIVE: Vital Signs Period Temp Pulse Resp BP Sys/[place] Pulse Ox Last 24 Hr 97.6 F-98.7 F 60-69 18-18 131-140/60-82 97 GENERAL: The patient is awake, alert, and fully oriented, in no acute distress. HEAD: Normal with no signs of trauma. EYES: PERRL, extraocular movements intact, sclera anicteric, conjunctiva clear. No ptosis. ENT: Ears normal, nares patent, oropharynx clear without exudates, moist mucous membranes. NECK: Trachea midline, full range of motion, supple. LUNGS: Breath sounds equal, clear to auscultation bilaterally, no wheezes, no crackles, no accessory muscle use. HEART: Regular rate and rhythm, S1, S2 without murmur, rub or gallop. ABDOMEN: Soft, nontender, nondistended, normoactive bowel sounds, no guarding, no rebound, no hepatosplenomegaly, no masses. EXTREMITIES: 2+ pulses, warm, well-perfused, no edema. NEUROLOGICAL: Cranial nerves II through XII grossly intact. Normal speech, gait not observed. PSYCH: Normal mood, normal affect. SKIN: Warm, dry, normal turgor, no rashes or lesions noted Active Medications Generic Name Dose Route Start Last Admin Trade Name Emigdioq PRN Reason Stop Dose Admin Amlodipine Besylate 5 mg 01/07/17 15:00 01/14/17 09:56 Norvasc - PO 5 mg DAILY SAVI Administration Apixaban 2.5 mg 11/22/16 10:00 01/14/17 09:55 Eliquis - PO 2.5 mg BID SAVI Administration Donepezil HCl 10 mg 11/20/16 21:00 01/13/17 21:07 Aricept - PO 10 mg DAILY@2100 SAVI Administration Memantine 10 mg 12/18/16 14:04 01/14/17 09:55 Namenda - PO 10 mg BID SAVI Administration Timolol Maleate 1 drop 11/01/16 10:00 01/14/17 09:57 Timoptic 0.25% OU 1 drop BID SAVI Administration ASSESSMENT/PLAN: This is a 76 yo Man with PMHx right lower ext DVT and Alzheimer Disease who was brought to the ED by EMS for AMS. 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 Plan unchanged from previous. Still waiting for placement. Pt is still stable. #Pt has not had renal function tested in over a month. Labs were ordered for today, but patient refused. #Dizziness: Resolved -Donepezil 10mg HS -Fall precautions #Confusion 2/2 Alzheimers -Memantine 10mg PO BID, Donepezil 10mg HS, per Neuro #Right popliteal DVT -Eliquis 2.5mg PO BID, for 3-6 months from 11/01/16 #MAX with uncertain CKD -River Tester 1.6 (11/20/16) stable -Avoid nephrotoxic Rx -f/u with Nephro on D/C #HTN - Controlled -Norvasc 2.5mg Daily #HLD -Diet controlled -Monitor out pt #Glaucoma -Timolol .25% BID #FEN -No IVF -lytes within normal limits -Chol/Fat/Sodium restricted diet #Prophylaxis -DVT: pt on Eliquis -GI: not indicated #Full Code #Dispo: Admit to med-surg. child daycare worker involved. Pending placement Arpit Craig MD PGY-1 Visit type - Emergency Visit Emergency Visit: No - New Patient This patient is new to me today: No - Critical Care Critical Care patient: No - Discharge Referral Referred to [facility] Med P.C.: No
--- NOTE | 2017-01-14 15:01 | PN ---
Teaching Attending Note Name of Resident: Arpit Craig ATTENDING PHYSICIAN STATEMENT I saw and evaluated the patient. I reviewed the resident's note and discussed the case with the resident. I agree with the resident's findings and plan as documented. SUBJECTIVE: no fever or chills . no abd pain OBJECTIVE: gait NL , NAD . MMM, no facial droop Assessment/Plan: 76 y/o man with h/o HTN, dementia , and recent DVT ( in Jun, not on AC at presentation ) , who was brought by Police after being found wandering 1- Advanced dementia : - cont aricept and namenda 2- CKD: stable Cr. 3- R popliteal DVT: cont eliquis x 3 months ( starting November 01 ) 4- HTN : cont norvasc . Stable BP pending placement
[2017-01-14] MEDS: DONEPEZIL HCL 10 MG TABLET (FP) PO SCH (21:47)
[2017-01-15] MEDS ORDERED: PT OWN MED DRAWER 7, Y5N ONE (10:01)
[2017-01-15] MEDS: amLODIPine BESYLATE 5 MG TABLET (FP) PO SCH (10:05)
[2017-01-15] MEDS: TIMOLOL 0.25% OPHTHALMIC SOL 5 ML BOTTLE OU SCH ×2 (10:05→21:34)
[2017-01-15] MEDS: MEMANTINE HCL 5 MG TABLET (UD) PO SCH ×2 (10:05→21:33)
[2017-01-15] MEDS: APIXABAN 2.5 MG TABLET PO SCH ×2 (10:05→21:34)
--- NOTE | 2017-01-15 15:52 | PN ---
Physical Exam: SUBJECTIVE: Patient seen and examined at bedside. No acute events overnight. No complaints at this time. OBJECTIVE: Vital Signs Period Temp Pulse Resp BP Sys/[place] Pulse Ox Last 24 Hr 97.8 F-98.8 F 60-66 18-20 113-145/68-78 97-97 GENERAL: The patient is awake, alert, and fully oriented, in no acute distress. HEAD: Normal with no signs of trauma. EYES: PERRL, extraocular movements intact, sclera anicteric, conjunctiva clear. No ptosis. ENT: Ears normal, nares patent, oropharynx clear without exudates, moist mucous membranes. NECK: Trachea midline, full range of motion, supple. LUNGS: Breath sounds equal, clear to auscultation bilaterally, no wheezes, no crackles, no accessory muscle use. HEART: Regular rate and rhythm, S1, S2 without murmur, rub or gallop. ABDOMEN: Soft, nontender, nondistended, normoactive bowel sounds, no guarding, no rebound, no hepatosplenomegaly, no masses. EXTREMITIES: 2+ pulses, warm, well-perfused, no edema. NEUROLOGICAL: Cranial nerves II through XII grossly intact. Normal speech, gait not observed. PSYCH: Normal mood, normal affect. SKIN: Warm, dry, normal turgor, no rashes or lesions noted Active Medications Generic Name Dose Route Start Last Admin Trade Name Freq PRN Reason Stop Dose Admin Amlodipine Besylate 5 mg 01/07/17 15:00 01/15/17 10:05 Norvasc - PO 5 mg DAILY SAVI Administration Apixaban 2.5 mg 11/22/16 10:00 01/15/17 10:05 Eliquis - PO 2.5 mg BID SAVI Administration Donepezil HCl 10 mg 11/20/16 21:00 01/14/17 21:47 Aricept - PO 10 mg DAILY@2100 SAVI Administration Memantine 10 mg 12/18/16 14:04 01/15/17 10:05 Namenda - PO 10 mg BID SAVI Administration Timolol Maleate 1 drop 11/01/16 10:00 01/15/17 10:05 Timoptic 0.25% OU 1 drop BID SAVI Administration ASSESSMENT/PLAN: This is a 76 yo Man with PMHx right lower ext DVT and Alzheimer Disease who was brought to the ED by EMS for AMS. 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 Plan unchanged from previous. Still waiting for placement. Pt is still stable. #Pt has not had renal function tested in over a month. Labs were ordered for today, but patient refused. 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 steelworker involved. Pending placement Arpit Craig MD PGY-1 Visit type - Emergency Visit Emergency Visit: No - New Patient This patient is new to me today: No - Critical Care Critical Care patient: No - Discharge Referral Referred to [facility] Med P.C.: No
--- NOTE | 2017-01-15 16:13 | PN ---
Teaching Attending Note Name of Resident: Arpit Craig ATTENDING PHYSICIAN STATEMENT I saw and evaluated the patient. I reviewed the resident's note and discussed the case with the resident. I agree with the resident's findings and plan as documented. SUBJECTIVE: no complaints today OBJECTIVE: NAD . MMM, no facial droop CV: RRR Lungs : CTAB ext: no edema Assessment/Plan: 76 y/o man with h/o HTN, dementia , and recent DVT ( in Jun, not on AC at presentation ) , who was brought by Police after being found wandering 1- Advanced dementia : - cont aricept and namenda 2- CKD: stable Cr. 3- R popliteal DVT: cont eliquis x 3 months ( starting November 01 ) 4- HTN : cont norvasc . Stable BP pending placement
[2017-01-15] MEDS: DONEPEZIL HCL 10 MG TABLET (FP) PO SCH (21:33)
[2017-01-16] MEDS ORDERED: PT OWN MED DRAWER 7, Y5N ONE ×2 (01:42→09:47)
[2017-01-16 05:38] VITALS: BP 134/74; PULSE 59; TEMP 98.4
[2017-01-16] MEDS: APIXABAN 2.5 MG TABLET PO SCH (09:49)
[2017-01-16] MEDS: amLODIPine BESYLATE 5 MG TABLET (FP) PO SCH (09:50)
[2017-01-16] MEDS: MEMANTINE HCL 5 MG TABLET (UD) PO SCH (09:50)
[2017-01-16] MEDS: TIMOLOL 0.25% OPHTHALMIC SOL 5 ML BOTTLE OU SCH (09:50)
--- NOTE | 2017-01-16 10:20 | DS ---
Physical Exam: SUBJECTIVE: Patient seen and examined at bedside. No acute events overnight. No complaints at this time. OBJECTIVE: Vital Signs Period Temp Pulse Resp BP Sys/[place] Pulse Ox Last 24 Hr 98.3 F-98.8 F 58-66 18-18 123-145/72-78 PHYSICAL EXAM GENERAL: The patient is awake, alert, and fully oriented, in no acute distress. HEAD: Normal with no signs of trauma. EYES: PERRL, extraocular movements intact, sclera anicteric, conjunctiva clear. ENT: Ears normal, nares patent, oropharynx clear without exudates, moist mucous membranes. NECK: Trachea midline, full range of motion, supple. LUNGS: Breath sounds equal, clear to auscultation bilaterally, no wheezes, no crackles, no accessory muscle use. HEART: Regular rate and rhythm, S1, S2 without murmur, rub or gallop. ABDOMEN: Soft, nontender, nondistended, normoactive bowel sounds, no guarding, no rebound, no hepatosplenomegaly, no masses. EXTREMITIES: 2+ pulses, warm, well-perfused, no edema. NEUROLOGICAL: Cranial nerves II through XII grossly intact. Normal speech, gait not observed. PSYCH: Normal mood, normal affect. SKIN: Warm, dry, normal turgor, no rashes or lesions noted. LABS HOSPITAL COURSE: Date of Admission:10/28/16 Date of Discharge: 01/16/17 This is a 76 yo Man with PMHx right lower ext DVT and Alzheimer Disease who was brought to the ED by EMS for AMS. 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 The pt received Memantine and Donepezil for his confusion/alzheimers as an inpatient. His hypertension was controlled with Norvasc 2.5mg Daily. HLD was controlled with chol/fat/sodium restricted diet and should be followed up. The patient received timolol eye drops for Glaucoma. The patient was found to have a right popliteal DVT and will need Elequis for 3- 6 months from 11/01/16. The patient had MAX which resolved. The patient is stable for discharge. Minutes to complete discharge: 45 Discharge Summary Reason For Visit: AMS Current Active Problems Alzheimer's dementia (Chronic) DVT (deep venous thrombosis) (Chronic) Renal insufficiency (Chronic) Condition: Good - Instructions Diet, Activity, Other Instructions: You are being transferred to another facility for continued care. You need to take all your medications as directed. You will be on Elequis at least until February. You will need to have your kidney function monitored frequently.The last blood work was 11/20/16. Disposition: TRANSFER ACUTE CARE/OTHER HOSP - Home Medications Comprehensive Discharge Medication List: Ambulatory Orders Furosemide [Lasix -] 20 mg PO DAILY 10/28/16 Memantine HCl [Namenda -] 5 mg PO DAILY 10/28/16 Timolol 0.25% [Timoptic 0.25%] 0 ml OU BID 10/28/16 Amlodipine Besylate [Norvasc -] 5 mg PO DAILY tablet 01/15/17 Apixaban [Eliquis -] 2.5 mg PO BID tablet 01/15/17 Donepezil HCl [Aricept -] 10 mg PO DAILY@2100 tablet 01/15/17 This patient is new to me today: No Emergency Visit: No Critical Care patient: No - Discharge Referral Referred to [id number] Med P.C.: No Physician Referral: Rick Clemens MD ([facility])
--- NOTE | 2017-01-16 11:00 | PN ---
Teaching Attending Note Name of Resident: Arpit Craig ATTENDING PHYSICIAN STATEMENT I saw and evaluated the patient. I reviewed the resident's note and discussed the case with the resident. I agree with the resident's findings and plan as documented. SUBJECTIVE: Comfortable with no acute distress. OBJECTIVE: Vital Signs Temperature 98.4 F 01/16/17 05:37 Pulse Rate 59 L 01/16/17 05:37 Respiratory Rate 18 01/16/17 05:37 Blood Pressure 134/74 01/16/17 05:37 O2 Sat by Pulse Oximetry (%) 97 01/15/17 09:00 CBCD WBC 8.6 K/mm3 (4.0-10.0) 11/20/16 08:00 RBC 4.22 M/mm3 (4.00-5.60) 11/20/16 08:00 Hgb 12.6 GM/dL (11.7-16.9) 11/20/16 08:00 Hct 37.6 % (35.4-49) 11/20/16 08:00 MCV 89.2 fl (80-96) 11/20/16 08:00 MCHC 33.5 g/dl (32.0-35.9) 11/20/16 08:00 RDW 15.0 % (11.9-15.9) 11/20/16 08:00 Plt Count 181 K/MM3 (134-434) 11/20/16 08:00 MPV 8.9 fl (7.5-11.1) 11/20/16 08:00 CMP Sodium 139 mmol/L (136-145) 11/20/16 08:00 Potassium 4.1 mmol/L (3.5-5.1) 11/20/16 08:00 Chloride 104 mmol/L (98-107) 11/20/16 08:00 Carbon Dioxide 27 mmol/L (21-32) 11/20/16 08:00 Anion Gap 8 (8-16) 11/20/16 08:00 BUN 27 mg/dL (7-18) H 11/20/16 08:00 Creatinine 1.6 mg/dL (0.7-1.3) H 11/20/16 08:00 Creat Clearance w eGFR 42.35 (>60) 11/19/16 06:30 Random Glucose 104 mg/dL (74-106) 11/20/16 08:00 Calcium 8.5 mg/dL (8.5-10.1) 11/20/16 08:00 Total Bilirubin 0.6 mg/dL (0.2-1.0) D 11/19/16 06:30 AST 15 U/L (15-37) D 11/19/16 06:30 ALT 19 U/L (12-78) D 11/19/16 06:30 Alkaline Phosphatase 68 U/L (45-117) 11/19/16 06:30 Total Protein 6.5 g/dl (6.4-8.2) 11/19/16 06:30 Albumin 3.3 g/dl (3.4-5.0) L 11/19/16 06:30 CARDIAC ENZYMES Creatine Kinase 88 IU/L (39-308) 10/31/16 06:00 Troponin I < 0.02 ng/ml (0.00-0.05) 10/28/16 20:30 Current Medications Generic Name Dose Route Start Last Admin Trade Name Mona PRKate Reason Stop Dose Admin Amlodipine Besylate 5 mg 01/07/17 15:00 01/16/17 09:50 Norvasc - PO 5 mg DAILY SAVI Administration Apixaban 2.5 mg 11/22/16 10:00 01/16/17 09:49 Eliquis - PO 2.5 mg BID SAVI Administration Donepezil HCl 10 mg 11/20/16 21:00 01/15/17 21:33 Aricept - PO 10 mg DAILY@2100 SAVI Administration Memantine 10 mg 12/18/16 14:04 01/16/17 09:50 Namenda - PO 10 mg BID SAVI Administration Timolol Maleate 1 drop 11/01/16 10:00 01/16/17 09:50 Timoptic 0.25% OU 1 drop BID SAVI Administration Home Medications Medication Instructions Recorded Amlodipine Besylate [Norvasc -] 5 mg PO DAILY tablet 01/15/17 Apixaban [Eliquis -] 2.5 mg PO BID tablet 01/15/17 Donepezil HCl [Aricept -] 10 mg PO DAILY@2100 tablet 01/15/17 Memantine HCl [Namenda -] 10 mg PO BID #30 tab 01/16/17 Timolol 0.25% [Timoptic 0.25%] 1 drop OU BID #10 ml 01/16/17 ASSESSMENT AND PLAN: 76 y/o man with h/o HTN, dementia , and recent DVT ( in Jun, not on AC at presentation ) , who was brought by Police after being found wandering. # Advanced dementia : cont aricept and namenda # CKD: stable Cr. # R popliteal DVT: cont eliquis x 3 months ( starting November 01 ) # HTN : cont norvasc . Stable [facility].
== END 2017-01-16 11:49 | DRG 57 ==
LOC: JER 19:24 → JERBED 23:21 → J4W 10-29 01:55 → J7W 10-30 00:16
PROVIDERS: ATTEND Internal Medicine
DX: G30.1 Alzheimer's disease with late onset (principal); N17.9 Acute kidney failure, unspecified; I82.531 Chronic embolism and thrombosis of right popliteal vein; F02.80 Dementia in other diseases classified elsewhere, unspecified severity, without behavioral disturbance, psychotic disturbance, mood disturbance, and anxiety; I12.9 Hypertensive chronic kidney disease with stage 1 through stage 4 chronic kidney disease, or unspecified chronic kidney disease; N18.9 Chronic kidney disease, unspecified; Z79.01 Long term (current) use of anticoagulants; H40.9 Unspecified glaucoma; Z86.73 Personal history of transient ischemic attack (TIA), and cerebral infarction without residual deficits; E78.00 Pure hypercholesterolemia, unspecified; Z75.1 Person awaiting admission to adequate facility elsewhere; S09.8XXA Other specified injuries of head, initial encounter; W01.190A Fall on same level from slipping, tripping and stumbling with subsequent striking against furniture, initial encounter; Y93.89 Activity, other specified; Y92.230 Patient room in hospital as the place of occurrence of the external cause; Y99.8 Other external cause status; R42 Dizziness and giddiness; T43.8X5A Adverse effect of other psychotropic drugs, initial encounter; T44.1X5A Adverse effect of other parasympathomimetics [cholinergics], initial encounter; I83.93 Asymptomatic varicose veins of bilateral lower extremities
CPT/HCPCS: 36415; 70450-TC; 71010-TC; 76775-TC; 76856-TC; 80048; 80053; 80061; 81003; 82436; 82550; 82570; 82607; 83721; 83735; 84100; 84133; 84156; 84300; 84425; 84436; 84443; 84484; 85025; 85027; 85610; 85730; 86593; 93005; 93010; 93306-TC; 93880-TC; 93970-TC; 97116-GP; 97162-GP; 99283-25